=== PATIENT | female | born 1960 | race Caucasian/White ===

== ENCOUNTER 2016-09-03 17:29 | Emergency (ER) | payer SELFPAY ==
[~2016-09-03] VITALS: Ht 172.7 cm; Wt 76.2 kg
[~2016-09-03 17:29] MED LIST: AMLO1TAB20 PO; CIPR500T94 PO; HYDR-2678 PO; HYDR-971 PO; LEVO150T5 PO; LOSA1TAB18 PO; METO100T11 PO; OLME1TAB33 PO; ONDA4TAB10 PO; ONDA4TAB10 SL; OXYC-323 PO; OXYC5TAB PO; SUMA6VIA SQ; TAMS0.4C97 PO; [UNRECOGNIZED DRUG - CODE] PO
[2016-09-03 17:44] VITALS: BP 132/87
[2016-09-03 18:50] LABS: BILIRUBIN,URINE NEGATIVE (NEG); GLUCOSE,URINE NEGATIVE (NEG); NITRITE,URINE POSITIVE (NEG); PROTEIN,URINE 30 mg/dL (NEG-TRACE)
[2016-09-03 19:04] LABS: BACTERIA,URINE MANY /HPF (0-FEW); RBC,URINE OCC /HPF (0-2); SQUAMOUS EPITHELIAL CELL,UR FEW /LPF
--- NOTE | 2016-09-03 20:45 | PHYS DOC ---
Past Medical History Past Medical History: Cancer, COPD, Hypertension, Kidney Stone Additional Past Medical Histor: chronic pain Past Surgical History: Other Additional Past Surgical Histo: Ureteral Stent, Laparoscopy Alcohol Use: None Drug Use: None Adult General Chief Complaint Chief Complaint: FLANK PAIN [facility] HPI Patient is a 56 year old female presents emergency Department with 2 complaints : 1. Left-sided flank pain that began 4 days ago with dysuria that began 4 days ago as well. Patient has a history of kidney stones. She denies injury to her back. She denies any fevers or chills. She denies any nausea or vomiting. She denies hematuria or changes in frequency of urination. 2. Shortness of breath and nonproductive cough is been ongoing for approximately a week and a half to 2 weeks. Patient has a history of chronic bronchitis. Patient continues to smoke. She states that she recently was able to get a another nebulizer at home to help with breathing treatments. She states that they have had some positive effects, but continues to have the problems with a cough. Overall, patient denies antibiotic use, hospitalization or foreign travel within the past 90 days. Patient reports that her primary care doctor's Dr. Holman. Patient reports her urologist is Dr. Vasquez. 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 Review of Systems Review of Systems Constitutional: Denies fever or chills [] Eyes: Denies change in visual acuity, redness, or eye pain [] HENT: Denies nasal congestion or sore throat [] Respiratory: Denies cough or shortness of breath [] Cardiovascular: No additional information not addressed in HPI [] GI: Denies abdominal pain, nausea, vomiting, bloody stools or diarrhea [] : Denies dysuria or hematuria [] Musculoskeletal: Denies back pain or joint pain [] Integument: Denies rash or skin lesions [] Neurologic: Denies headache, focal weakness or sensory changes [] Endocrine: Denies polyuria or polydipsia [] Current Medications Current Medications Current Medications Medications (Trade) Dose Ordered Sig/Herminio Start Time Stop Time Status Last Admin Dose Admin Albuterol/ Ipratropium (Duoneb) 3 ml 1X ONCE 09/03/16 21:00 09/03/16 21:01 DC 09/03/16 21:04 3 ML Azithromycin (Zithromax) 500 mg 1X ONCE 09/03/16 22:00 3/17/17 22:01 DC 09/03/16 22:13 500 MG Ceftriaxone Sodium (Rocephin 1gm Ivpb For Omni) 50 ml @ 100 mls/hr 1X ONCE 09/03/16 21:00 09/03/16 21:29 DC 09/03/16 20:59 100 MLS/HR Hydromorphone HCl (Dilaudid) 1 mg 1X ONCE 09/03/16 22:00 09/03/16 22:01 DC 09/03/16 22:13 1 MG Morphine Sulfate 5 mg 1X ONCE 09/03/16 21:00 09/03/16 21:01 DC 09/03/16 21:00 5 MG Ondansetron HCl 4 mg 4 mg 1X ONCE 09/03/16 21:00 09/03/16 21:01 DC 09/03/16 21:00 4 MG Sodium Chloride (Iv Sodium Chloride 0.9% 1000ml Bag) 1,000 ml @ 1,000 mls/hr Q1H 09/03/16 21:00 09/03/16 21:59 DC 09/03/16 20:59 1,000 MLS/HR Sodium Chloride (Normal Saline Flush) 10 ml QSHIFT PRN 09/03/16 20:45 09/03/16 22:53 10 ML Allergies Allergies Allergies Coded Allergies Type Severity Reaction Last Updated Verified No Known Drug Allergies 03/27/16 No Physical Exam Physical Exam Constitutional: Well developed, well nourished, mild distress, non-toxic appearance. [] HENT: Normocephalic, atraumatic, bilateral external ears normal, oropharynx moist, no oral exudates, nose normal. Eyes: PERRLA, EOMI, conjunctiva normal, no discharge. [] Neck: Normal range of motion, no tenderness, supple, no stridor. Cardiovascular:Heart rate 88 with regular rhythm, no murmur Lungs & Thorax: There is no respiratory distress respiratory fatigue. There is no sensory muscle use or posturing. Patient does demonstrate a harsh, bronchitic , nonproductive cough. Patient is able speak in full sentences. Patient has bilateral coarse wheezing in all lung lira. There are no rales or rhonchi. Abdomen: Bowel sounds normal, soft, no tenderness, no masses, no pulsatile masses. Skin: Warm, dry, no erythema, no rash. [] Back: Patient's back is normal in appearance. There is no overlying skin lesions. Patient has left CVA tenderness. There is no palpable defect to the musculature of patient's back. There are no active spasms. Extremities: No tenderness, no cyanosis, no clubbing, ROM intact, no edema. [] Neurologic: Alert and oriented X 3, normal motor function, normal sensory function, no focal deficits noted. Psychologic: Dysphoric mood with pleasant affect. Patient is very focused on pain management/pain control. Current Patient Data Vital Signs Vital Signs Date Time Temp Pulse Resp B/P Pulse Ox O2 Delivery O2 Flow Rate FiO2 09/03/16 22:13 Room Air 09/03/16 21:05 88 09/03/16 17:44 98.1 115 18 132/87 98.1 Lab Values Laboratory Tests Test 09/03/16 18:00 09/03/16 20:35 Urine Collection Type Unknown Urine Color Yellow Urine Clarity Clear Urine pH 6.0 Urine Specific [place] 1.020 Urine Protein 30mg/dL (NEG-TRACE) Urine Glucose (UA) Negativemg/dL (NEG) Urine Ketones (Stick) Negativemg/dL (NEG) Urine Blood Small (NEG) Urine Nitrite Positive (NEG) Urine Bilirubin Negative (NEG) Urine Urobilinogen Dipstick 1.0mg/dL (0.2 mg/dL) Urine Leukocyte Esterase Moderate (NEG) Urine RBC Occ/HPF (0-2) Urine WBC 11-20/HPF (0-4) Urine Squamous Epithelial Cells Few/LPF Urine Bacteria Many/HPF (0-FEW) Urine Hyaline Casts Moderate/HPF Urine Mucus Mod/LPF White Blood Count 12.5x10^3/uL (4.0-11.0) H Red Blood Count 4.32x10^6/uL (3.50-5.40) Hemoglobin 13.7g/dL (12.0-15.5) Hematocrit 40.0% (36.0-47.0) Mean Corpuscular Volume 93fL (79-100) Mean Corpuscular Hemoglobin 32pg (25-35) Mean Corpuscular Hemoglobin Concent 34g/dL (31-37) Red Cell Distribution Width 13.1% (11.5-14.5) Platelet Count 271x10^3/uL (140-400) Neutrophils (%) (Auto) 82% (31-73) H Lymphocytes (%) (Auto) 12% (24-48) L Monocytes (%) (Auto) 5% (0-9) Eosinophils (%) (Auto) 0% (0-3) Basophils (%) (Auto) 0% (0-3) Neutrophils # (Auto) 10.2x10^3uL (1.8-7.7) H Lymphocytes # (Auto) 1.5x10^3/uL (1.0-4.8) Monocytes # (Auto) 0.7x10^3/uL (0.0-1.1) Eosinophils # (Auto) 0.0x10^3/uL (0.0-0.7) Basophils # (Auto) 0.0x10^3/uL (0.0-0.2) Sodium Level 133mmol/L (136-145) L Potassium Level 3.4mmol/L (3.5-5.1) L Chloride Level 92mmol/L (98-107) L Carbon Dioxide Level 31mmol/L (21-32) Anion Gap 10 (6-14) Blood Urea Nitrogen 16mg/dL (7-20) Creatinine 1.2mg/dL (0.6-1.0) H Estimated GFR (Cockcroft-Gault) 46.1 BUN/Creatinine Ratio 13 (6-20) Glucose Level 111mg/dL (70-99) H Calcium Level 9.3mg/dL (8.5-10.1) Total Bilirubin 0.3mg/dL (0.2-1.0) Aspartate Amino Transferase (AST) 32U/L (15-37) Alanine Aminotransferase (ALT) 23U/L (14-59) Alkaline Phosphatase 83U/L (46-116) Total Protein 8.7g/dL (6.4-8.2) H Albumin 3.8g/dL (3.4-5.0) Albumin/Globulin Ratio 0.8 (1.0-1.7) L Laboratory Tests 09/03/16 20:35 Laboratory Tests 09/03/16 20:35 EKG EKG [] Radiology/Procedures Radiology/Procedures [[facility] [address] [place] [address] IMAGING REPORT Signed PATIENT: CHRISTINA MARSHALL ACCOUNT: [id number] : 1960 LOCATION: ER AGE: 56 SEX: F EXAM STATUS: REG ER ORD. PHYSICIAN: MADAY LEBRON REASON: LEFT flank pain-hx of kidney stones PROCEDURE: ABDOMEN PELVIS WO CONTRAST PROCEDURE CT abdomen and pelvis without intravenous contrast. HISTORY Left flank pain, renal stones. TECHNIQUE Helical CT of the abdomen and pelvis was performed without intravenous or oral contrast. Exposure: One or more of the following individualized dose reduction techniques were utilized for this examination: 1. Automated exposure control. 2. Adjustment of the mA and/or kV according to patient size. 3. Use of iterative reconstruction technique. COMPARISON CT abdomen pelvis March 27, 2016. FINDINGS Evaluation of solid organs is limited by lack of intravenous contrast. Evaluation of enteric structures may be limited by lack of oral contrast. Images of lower chest demonstrate nodular ground-glass opacity and consolidation involving both lower lobes, suggesting pneumonia versus nonspecific inflammatory process. The liver is unremarkable. Calcified splenic granulomata are present. Pancreas, gallbladder, and bilateral adrenal glands are unremarkable. Aortic atherosclerosis is seen. No bowel obstruction or inflammation is identified. Appendix is without inflammation. Urinary bladder is unremarkable. Uterus is absent. Left kidney and ureter are free of stone or obstruction. Superior pole of the right kidney demonstrates 3 millimeter nonobstructive nephrolith. There is mild right hydroureteronephrosis until the right ureter crosses over the iliac vessels; cause is not identified. No right ureteral stone is seen. Dextroconvex scoliosis of the lumbar spine is seen. Degenerative changes are noted in the spine. The L1 vertebral body demonstrates compression treated with cement. IMPRESSION 1. Nonobstructive right nephrolith. 2. There is mild right hydroureteronephrosis to the level of the right ureter as it crosses the iliac vessels. Cause is not identified. 3. Left kidney and ureter are free of stone or obstruction. 4. Nodular ground-glass opacity and consolidation involving both lower lobes, compatible with nonspecific infectious or inflammatory process. Electronically signed by: Omra Lee MD (Sep 03, 2016 22:29:40) DICTATED and SIGNED BY: OMAR LEE MD DATE: 09/03/162228 CC: MADAY LEBRON; Rekha HOLMAN MD ~ Portable AP chest x-ray patient's chest was performed with adequate technique. There appears to be a small infiltrate in patient's right lower lobe.] Course & Med Decision Making Course & Med Decision Making Patient reevaluated by me at 2250: Patient reports that she feels "much better" . Reevaluation of the patient shows that her oxygen saturation is 91-93% on room air. The wheezing has been greatly diminished and her lung lira. She reports feeling comfortable. I reviewed her chest x-ray, laboratory tests and CT scan findings with her. I will place her on Levaquin. I've advised her to use her nebulizer every 6 hours. I advised her to call her primary care doctor, Dr. Holman, Tuesday to schedule follow-up appointment. She will be provided discharge instructions reviewing home care and reasons to return to the emergency department. Dragon Disclaimer Dragon Disclaimer This electronic medical record was generated, in whole or in part, using a voice recognition dictation system. Departure Departure Impression: Primary Impression: Flank pain Additional Impressions: UTI (urinary tract infection) COPD (chronic obstructive pulmonary disease) Community acquired pneumonia Disposition: HOME, SELF-CARE Condition: IMPROVED Referrals: Rekha HOLMAN MD (PCP) Patient Instructions: Chronic Obstructive Pulmonary Disease Exacerbation, Easy- to-Read, Flank Pain, [id number], Pneumonia, Adult, [id number], Smoking, You Can Quit, [id number], Urinary Tract Infection, [id number] Additional Instructions: 1. Take the medications as prescribed. 2. Review the discharge instructions provided and reasons to return to the emergency department. 3. Use your nebulizer at home every 6 hours. 4. Drink 10-12, 10 ounce glasses of non-caffeinated beverage daily. 5. Call Dr. Holman's office Tuesday to schedule follow-up appointment. Scripts Oxycodone/Apap 5-325 (Percocet 5-325 Mg Tablet)1 Each Tablet1-2 Tab PO Q6HRS # 20 TAB Prov:MADAY LEBRON 09/03/16 Prednisone 50 Mg Tablet1 Tab PO DAILY #5 TAB Prov:MADAY LEBRON 09/03/16 Levofloxacin (Levaquin)750 Mg Tablet1 Tab PO DAILY #7 TAB Prov:MADAY LEBRON 09/03/16 Problem Qualifiers MADAY LEBRON Sep 03, 2016 20:45
[2016-09-03 20:56] LABS: BASO % 0 % (0-3); EOS % 0 % (0-3); HEMOGLOBIN 13.7 g/dL (12.0-15.5); LYMPH # 1.5 x10^3/uL (1.0-4.8); LYMPH % 12 % (24-48); MEAN CORPUSCULAR HEMOGLOBIN 32 pg (25-35); MEAN CORPUSCULAR HGB CONC 34 g/dL (31-37); MEAN CORPUSCULAR VOLUME 93 fL (79-100); MONO % 5 % (0-9); NEUT % 82 % (31-73); PLATELET COUNT 271 x10^3/uL (140-400); RED BLOOD COUNT 4.32 x10^6/uL (3.50-5.40); RED CELL DISTRIBUTION WIDTH 13.1 % (11.5-14.5); WHITE BLOOD COUNT 12.5 x10^3/uL (4.0-11.0)
[2016-09-03] MEDS ORDERED: ONDANSETRON ODT 4 MG TAB.RAPDIS PO ONE (21:00)
[2016-09-03] MEDS ORDERED: IV NORMAL SALINE 1000ML BAG 1,000 ML IV SCH (21:00)
[2016-09-03] MEDS ORDERED: IPRATRPIUM/ALBUTEROL 0.5/2.5MG 3 ML NEBU. NEB ONE (21:00)
[2016-09-03] MEDS ORDERED: CEFTRIAXONE 1GM IVPB FOR OMNI 50 ML IV ONE (21:00)
[2016-09-03] MEDS ORDERED: MORPHINE SULFATE 10 MG/ML VIAL. IV ONE (21:00)
[2016-09-03 21:04] LABS: CALCIUM 9.3 mg/dL (8.5-10.1); CREATININE 1.2 mg/dL (0.6-1.0); GFR 46.1; POTASSIUM 3.4 mmol/L (3.5-5.1)
[2016-09-03 21:09] LABS: ALBUMIN 3.8 g/dL (3.4-5.0); ALBUMIN/GLOBULIN RATIO 0.8 (1.0-1.7); TOTAL BILIRUBIN 0.3 mg/dL (0.2-1.0); TOTAL PROTEIN 8.7 g/dL (6.4-8.2)
[2016-09-03] MEDS ORDERED: AZITHROMYCIN 250 MG TABLET PO ONE (22:00)
[2016-09-03] MEDS ORDERED: HYDROMORPHONE 2 MG/ML VIAL. IV ONE (22:00)
--- NOTE | 2016-09-03 22:31 | RAD ---
PROCEDURE CT abdomen and pelvis without intravenous contrast. HISTORY Left flank pain, renal stones. TECHNIQUE Helical CT of the abdomen and pelvis was performed without intravenous or oral contrast. Exposure: One or more of the following individualized dose reduction techniques were utilized for this examination: 1. Automated exposure control. 2. Adjustment of the mA and/or kV according to patient size. 3. Use of iterative reconstruction technique. COMPARISON CT abdomen pelvis March 27, 2016. FINDINGS Evaluation of solid organs is limited by lack of intravenous contrast. Evaluation of enteric structures may be limited by lack of oral contrast. Images of lower chest demonstrate nodular ground-glass opacity and consolidation involving both lower lobes, suggesting pneumonia versus nonspecific inflammatory process. The liver is unremarkable. Calcified splenic granulomata are present. Pancreas, gallbladder, and bilateral adrenal glands are unremarkable. Aortic atherosclerosis is seen. No bowel obstruction or inflammation is identified. Appendix is without inflammation. Urinary bladder is unremarkable. Uterus is absent. Left kidney and ureter are free of stone or obstruction. Superior pole of the right kidney demonstrates 3 millimeter nonobstructive nephrolith. There is mild right hydroureteronephrosis until the right ureter crosses over the iliac vessels; cause is not identified. No right ureteral stone is seen. Dextroconvex scoliosis of the lumbar spine is seen. Degenerative changes are noted in the spine. The L1 vertebral body demonstrates compression treated with cement. IMPRESSION 1. Nonobstructive right nephrolith. 2. There is mild right hydroureteronephrosis to the level of the right ureter as it crosses the iliac vessels. Cause is not identified. 3. Left kidney and ureter are free of stone or obstruction. 4. Nodular ground-glass opacity and consolidation involving both lower lobes, compatible with nonspecific infectious or inflammatory process. Electronically signed by: Omar Frederick MD (Sep 03, 2016 22:29:40)
[2016-09-03] MEDS: 0.9 % SODIUM CHLORIDE 10 ML DISP.SYRIN. IV PRN ×2 (22:53→23:30)
[2016-09-03] MEDS ORDERED: PRED50TA PO (23:06)
[2016-09-03] MEDS ORDERED: LEVO750T31 PO (23:06)
[2016-09-03] MEDS ORDERED: OXYC-323 PO (23:06)
--- NOTE | 2016-09-04 08:31 | RAD ---
Indication: Dyspnea, short of breath and chest pain. Technique: Upright portable chest radiograph was obtained and compared to a study from November 24, 2014. Findings: Right lower and left midlung infiltrates are noted. The heart is not enlarged and the pulmonary vasculature does not appear cephalized. Bony structures are intact. Leads overlie the patient. Impression: Right lower and left midlung field infiltrates.
== END 2016-09-03 23:10 | disposition home or self-care (01) ==
LOC: ER 17:29
DX: N39.0 Urinary tract infection, site not specified (principal); J18.9 Pneumonia, unspecified organism; J44.9 Chronic obstructive pulmonary disease, unspecified; I10 Essential (primary) hypertension; G89.29 Other chronic pain; F17.200 Nicotine dependence, unspecified, uncomplicated; Z87.442 Personal history of urinary calculi
CPT/HCPCS: 36415; 71010; 74176; 80053; 81001; 85027; 87086; 94640; 96365; 96366; 96375; 99285; J0690; J1170; J2270; J7030; J7620; Q0144; Q0162; 87186

== ENCOUNTER 2017-03-05 20:46 | Inpatient (IN) | payer SELFPAY ==
[~2017-03-05] VITALS: Ht 172.7 cm; Wt 72.6 kg
[~2017-03-05 20:46] MED LIST changes: +LEVO750T31 PO; +METO-247 PO; -METO100T11 PO; -OXYC5TAB PO; +OXYC5TAB95 PO; +PRED50TA PO
[2017-03-05 21:27] LABS: BASO # 0.1 x10^3/uL (0.0-0.2); BASO % 1 % (0-3); EOS % 0 % (0-3); HEMATOCRIT 40.3 % (36.0-47.0); HEMOGLOBIN 13.9 g/dL (12.0-15.5); LYMPH # 2.5 x10^3/uL (1.0-4.8); LYMPH % 17 % (24-48); MEAN CORPUSCULAR HEMOGLOBIN 33 pg (25-35); MEAN CORPUSCULAR HGB CONC 35 g/dL (31-37); MEAN CORPUSCULAR VOLUME 97 fL (79-100); MONO % 7 % (0-9); NEUT % 76 % (31-73); PLATELET COUNT 411 x10^3/uL (140-400); RED BLOOD COUNT 4.18 x10^6/uL (3.50-5.40); RED CELL DISTRIBUTION WIDTH 14.2 % (11.5-14.5); WHITE BLOOD COUNT 15.1 x10^3/uL (4.0-11.0)
[2017-03-05 21:28] LABS: BILIRUBIN,URINE NEGATIVE (NEG); GLUCOSE,URINE NEGATIVE (NEG); NITRITE,URINE NEGATIVE (NEG); PH,URINE 6.5; PROTEIN,URINE NEGATIVE (NEG-TRACE); UROBILINOGEN,URINE 0.2 mg/dL (0.2 mg/dL)
--- NOTE | 2017-03-05 21:29 | PHYS DOC ---
Past Medical History Past Medical History: Cancer, COPD, Hypertension, Kidney Stone Additional Past Medical Histor: chronic pain Past Surgical History: Other Additional Past Surgical Histo: Ureteral Stent, Laparoscopy Alcohol Use: None Drug Use: None Adult General Chief Complaint Chief Complaint: FLANK PAIN HPI HPI Patient is a 57 year old female who presents with complaint of left-sided back and flank pain. Patient states that her symptoms started this morning at approximately 9:00. Patient states that she has been having near constant pain which has been fluctuating throughout the day. Patient states that she has felt spasms along the left side of her back. The patient states that she is concerned that they may be kidney stones. Patient has had multiple visits to the emergency department for similar complaints. The patient has history of chronic back pain and currently takes oxycodone therapy at home. Patient states that she took oxycodone today with no relief in symptoms. The patient has not had any associated fever, nausea, or vomiting. Patient rates pain currently as 7 out of 10. Patient states that she has had associated loose stool with her symptoms today. The patient states that she spoke with Dr. Londono who was on- call for her primary physician, Dr. Yoon, and she was instructed to come to the emergency department for further evaluation. Review of Systems Review of Systems Constitutional: Denies fever or chills [] Eyes: Denies change in visual acuity, redness, or eye pain [] HENT: Denies nasal congestion or sore throat [] Respiratory: Denies cough or shortness of breath [] Cardiovascular: Denies chest pain or edema[] GI: Denies abdominal pain, nausea, vomiting, bloody stools or diarrhea [] : Denies dysuria or hematuria [] Musculoskeletal: Back pain[] Integument: Denies rash or skin lesions [] Neurologic: Denies headache, focal weakness or sensory changes [] Current Medications Current Medications Current Medications Medications (Trade) Dose Ordered Sig/Herminio Start Time Stop Time Status Last Admin Dose Admin Hydromorphone HCl (Dilaudid) 1 mg PRN Q15MIN PRN 03/05/17 21:30 03/06/17 21:29 03/05/17 22:22 1 MG Ondansetron HCl (Zofran) 4 mg 1X ONCE 03/05/17 21:30 03/05/17 21:31 DC 03/05/17 21:35 4 MG Potassium Chloride (Klor-Con) 40 meq 1X ONCE 03/05/17 22:30 03/05/17 22:31 DC Sodium Chloride 1,000 ml @ 1,000 mls/hr Q1H 03/05/17 21:30 03/05/17 22:29 DC 03/05/17 21:35 1,000 MLS/HR Allergies Allergies Allergies Coded Allergies Type Severity Reaction Last Updated Verified No Known Drug Allergies 03/27/16 No Physical Exam Physical Exam Constitutional: Alert, afebrile, appears in moderate discomfort. [] HENT: Normocephalic, atraumatic, bilateral external ears normal, oropharynx moist, no oral exudates, nose normal. [] Eyes: PERRLA, EOMI, conjunctiva normal, no discharge. [] Neck: Normal range of motion, no tenderness, supple, no stridor. [] Cardiovascular:Heart rate regular rhythm, no murmur [] Lungs & Thorax: Bilateral breath sounds clear to auscultation [] Abdomen: Bowel sounds normal, soft, no tenderness, no masses, no pulsatile masses. [] Skin: Warm, dry, no erythema, no rash. [] Back: No midline tenderness, left mid and lower lumbar paraspinous muscle tenderness to palpation with palpable spasm, no CVA tenderness. [] Extremities: No tenderness, no cyanosis, no clubbing, ROM intact, no edema. [] Neurologic: Alert and oriented X 3, normal motor function, normal sensory function, no focal deficits noted. [] Current Patient Data Vital Signs Vital Signs Date Time Temp Pulse Resp B/P (MAP) Pulse Ox O2 Delivery O2 Flow Rate FiO2 03/05/17 22:22 18 98 Room Air 03/05/17 20:54 97.9 105 162/98 (119) 97.9 Lab Values Laboratory Tests Test 03/05/17 20:47 03/05/17 20:58 Urine Collection Type Unknown Urine Color Yellow Urine Clarity Clear Urine pH 6.5 Urine Specific [place] <=1.005 Urine Protein Negative mg/dL (NEG-TRACE) Urine Glucose (UA) Negative mg/dL (NEG) Urine Ketones (Stick) Negative mg/dL (NEG) Urine Blood Negative (NEG) Urine Nitrite Negative (NEG) Urine Bilirubin Negative (NEG) Urine Urobilinogen Dipstick 0.2 mg/dL (0.2 mg/dL) Urine Leukocyte Esterase Small (NEG) Urine RBC 0 /HPF (0-2) Urine WBC 5-10 /HPF (0-4) Urine Squamous Epithelial Cells Mod /LPF Urine Bacteria 0 /HPF (0-FEW) White Blood Count 15.1 x10^3/uL (4.0-11.0) H Red Blood Count 4.18 x10^6/uL (3.50-5.40) Hemoglobin 13.9 g/dL (12.0-15.5) Hematocrit 40.3 % (36.0-47.0) Mean Corpuscular Volume 97 fL (79-100) Mean Corpuscular Hemoglobin 33 pg (25-35) Mean Corpuscular Hemoglobin Concent 35 g/dL (31-37) Red Cell Distribution Width 14.2 % (11.5-14.5) Platelet Count 411 x10^3/uL (140-400) H Neutrophils (%) (Auto) 76 % (31-73) H Lymphocytes (%) (Auto) 17 % (24-48) L Monocytes (%) (Auto) 7 % (0-9) Eosinophils (%) (Auto) 0 % (0-3) Basophils (%) (Auto) 1 % (0-3) Neutrophils # (Auto) 11.4 x10^3uL (1.8-7.7) H Lymphocytes # (Auto) 2.5 x10^3/uL (1.0-4.8) Monocytes # (Auto) 1.1 x10^3/uL (0.0-1.1) Eosinophils # (Auto) 0.1 x10^3/uL (0.0-0.7) Basophils # (Auto) 0.1 x10^3/uL (0.0-0.2) Sodium Level 142 mmol/L (136-145) Potassium Level 2.7 mmol/L (3.5-5.1) *L Chloride Level 101 mmol/L (98-107) Carbon Dioxide Level 30 mmol/L (21-32) Anion Gap 11 (6-14) Blood Urea Nitrogen 5 mg/dL (7-20) L Creatinine 1.0 mg/dL (0.6-1.0) Estimated GFR (Cockcroft-Gault) 56.7 BUN/Creatinine Ratio 5 (6-20) L Glucose Level 103 mg/dL (70-99) H Calcium Level 9.9 mg/dL (8.5-10.1) Magnesium Level 2.0 mg/dL (1.8-2.4) Total Bilirubin 0.3 mg/dL (0.2-1.0) Aspartate Amino Transferase (AST) 22 U/L (15-37) Alanine Aminotransferase (ALT) 24 U/L (14-59) Alkaline Phosphatase 97 U/L (46-116) Total Protein 8.8 g/dL (6.4-8.2) H Albumin 4.3 g/dL (3.4-5.0) Albumin/Globulin Ratio 1.0 (1.0-1.7) Lipase 101 U/L (73-393) Laboratory Tests 03/05/17 20:58 Laboratory Tests 03/05/17 20:58 EKG EKG Not performed[] Radiology/Procedures Radiology/Procedures Not performed[] Course & Med Decision Making Course & Med Decision Making Pertinent Labs and Imaging studies reviewed. (See chart for details) The patient's lab work was remarkable for a decreased potassium level at 2.7. The patient was started on oral supplementation to replace this as this may be contributing to the patient's back spasms. The patient's urine shows no evidence of hematuria. The patient's previous CT scan was reviewed from August. It reported evidence of nephrolithiasis without obstructing calculi in the right kidney and no evidence of nephrolithiasis or ureterolithiasis on the left side. I have very low suspicion that the patient's symptoms are due to ureteral lithiasis. Due to multiple previous abdominal CTs, the patient will not be CT did to reduce radiation exposure. The patient was treated with IV Dilaudid in the emergency department. Despite treatment, the patient states that she is still in severe pain and is unable to function at home in her current state. I spoke with Dr. Londono who was on-call for Dr. Yoon and she accepted care of patient in hospital. Dragon Disclaimer Dragon Disclaimer This electronic medical record was generated, in whole or in part, using a voice recognition dictation system. Departure Departure Impression: Primary Impression: Intractable pain Additional Impression: Hypokalemia Disposition: ADMITTED INPATIENT Admitting Physician: Ayana Londono Condition: STABLE Referrals: Rekha YOON MD (PCP) Problem Qualifiers HANNAH VERDIN MD Mar 05, 2017 21:29
[2017-03-05] MEDS ORDERED: IV NORMAL SALINE 1000ML BAG 1,000 ML IV SCH (21:30)
[2017-03-05] MEDS ORDERED: ONDANSETRON PF 4 MG/2 ML VIAL. IV ONE (21:30)
[2017-03-05 21:33] LABS: BACTERIA,URINE 0 /HPF (0-FEW); RBC,URINE 0 /HPF (0-2); SQUAMOUS EPITHELIAL CELL,UR MOD /LPF
[2017-03-05] MEDS: HYDROmorphone 2 MG/ML VIAL IV/SQ PRN ×3 (21:36→23:16)
[2017-03-05 21:55] LABS: ALBUMIN 4.3 g/dL (3.4-5.0); CALCIUM 9.9 mg/dL (8.5-10.1); GFR 56.7; TOTAL BILIRUBIN 0.3 mg/dL (0.2-1.0); TOTAL PROTEIN 8.8 g/dL (6.4-8.2)
[2017-03-05 21:57] LABS: POTASSIUM 2.7 mmol/L (3.5-5.1)
[2017-03-05] MEDS ORDERED: POTASSIUM CHLORIDE 20 MEQ TABLET.ER. PO ONE ×2 (22:30→23:30)
[2017-03-05] MEDS ORDERED: ONDANSETRON PF 4 MG/2 ML VIAL. IV PRN (23:00)
[2017-03-05 23:27] VITALS: BP 145/87
[2017-03-06] MEDS: IV NORMAL SALINE 1000ML BAG 1,000 ML IV SCH ×2 (00:23→06:21)
[2017-03-06] MEDS: MORPHINE SULFATE 4 MG/ML DISP.SYRIN. IV PRN ×8 (00:26→22:09)
[2017-03-06 03:20] VITALS: BP 149/84
[2017-03-06] MEDS ORDERED: PNEUMOCOCCAL VAX SCREEN BY RX. MC ONE (05:30)
[2017-03-06] MEDS ORDERED: INFLUENZA VAX SCREEN BY RX. MC ONE (05:30)
[2017-03-06 05:57] LABS: BASO % 1 % (0-3); EOS % 1 % (0-3); HEMATOCRIT 35.1 % (36.0-47.0); HEMOGLOBIN 12.5 g/dL (12.0-15.5); LYMPH # 3.1 x10^3/uL (1.0-4.8); LYMPH % 30 % (24-48); MEAN CORPUSCULAR HEMOGLOBIN 34 pg (25-35); MEAN CORPUSCULAR HGB CONC 36 g/dL (31-37); MEAN CORPUSCULAR VOLUME 95 fL (79-100); MONO % 8 % (0-9); NEUT % 60 % (31-73); PLATELET COUNT 344 x10^3/uL (140-400); RED CELL DISTRIBUTION WIDTH 13.9 % (11.5-14.5); WHITE BLOOD COUNT 10.1 x10^3/uL (4.0-11.0)
[2017-03-06 06:04] LABS: CALCIUM 8.4 mg/dL (8.5-10.1); GFR 56.7; POTASSIUM 3.3 mmol/L (3.5-5.1)
[2017-03-06 07:00] VITALS: BP 135/92
[2017-03-06] MEDS ORDERED: FLU VACC QS2017-18 (36MOS+)/PF 0.5 ML SYRINGE. VAX IM ONE (09:00)
[2017-03-06] MEDS ORDERED: PNEUMOC CONJ VACC 23-VALENT 0.5 ML VIAL. VAX IM ONE (09:00)
[2017-03-06 11:00] VITALS: BP 136/89
[2017-03-06] MEDS ORDERED: AMLO10TA2 PO (12:02)
[2017-03-06] MEDS ORDERED: LOSA100T6 PO (12:02)
[2017-03-06] MEDS ORDERED: HYDR25TA9 PO (12:02)
[2017-03-06] MEDS ORDERED: CYCL10TA2 PO (12:02)
[2017-03-06] MEDS ORDERED: SUMA100T3 PO (12:02)
--- NOTE | 2017-03-06 12:13 | PDOC ---
PROGRESS NOTES Subjective Subjective Patient reports left back pain persists, IV Morphine does help. Objective Objective Vital Signs Date Time Temp Pulse Resp B/P (MAP) Pulse Ox O2 Delivery O2 Flow Rate FiO2 03/06/17 11:54 96 Room Air 03/06/17 11:00 97.8 73 16 136/89 (105) 97.8 Physical Exam Abdomen: Normal bowel sounds, Soft, No tenderness Heart: Regular rate Extremities: No edema General: Alert, Oriented X3, No acute distress Lungs: Clear to auscultation MUSCULOSKELETAL: Other (Back with marked TTP over left lumbar paraspinal muscles. No CVA TTP bilaterally) Assessment Assessment Problems Medical Problems: (1) Hypokalemia Status: Acute (2) Intractable pain Status: Acute Plan Plan of Care 1. Acute exacerbation of chronic back pain - exam consistent with musculoskeletal pain, not renal stone. UA without any RBC's, also making renal stone unlikely. Will not order CT at this time, can reconsider if patient fails to improve with maximization of back pain treatment. Home Oxycodone ordered, will also add scheduled Flexeril and Ibuprofen. Continue IV med if needed. Urine with 5-10 WBC's, patient without dysuria. Culture pending. 2. HTN - continue home meds. 3. hypothyroidism - continue replacement and check thyroid labs. 4. hypokalemia - improving, continue po replacement and recheck in AM. Addendum: Lab shows TSH markedly elevated at over 27. Upon further questioning patient admits she has not taken her Levothyroxine for awhile as it is expensive. Importance of this medication discussed. Resume her previous dose in AM. Comment Review of Relevant I have reviewed the following items tita (where applicable) has been applied. Labs Laboratory Tests Test 03/05/17 20:47 03/05/17 20:58 03/06/17 04:10 Urine Collection Type Unknown Urine Color Yellow Urine Clarity Clear Urine pH 6.5 Urine Specific [place] <=1.005 Urine Protein Negative mg/dL (NEG-TRACE) Urine Glucose (UA) Negative mg/dL (NEG) Urine Ketones (Stick) Negative mg/dL (NEG) Urine Blood Negative (NEG) Urine Nitrite Negative (NEG) Urine Bilirubin Negative (NEG) Urine Urobilinogen Dipstick 0.2 mg/dL (0.2 mg/dL) Urine Leukocyte Esterase Small (NEG) Urine RBC 0 /HPF (0-2) Urine WBC 5-10 /HPF (0-4) Urine Squamous Epithelial Cells Mod /LPF Urine Bacteria 0 /HPF (0-FEW) White Blood Count 15.1 x10^3/uL (4.0-11.0) 10.1 x10^3/uL (4.0-11.0) Red Blood Count 4.18 x10^6/uL (3.50-5.40) 3.70 x10^6/uL (3.50-5.40) Hemoglobin 13.9 g/dL (12.0-15.5) 12.5 g/dL (12.0-15.5) Hematocrit 40.3 % (36.0-47.0) 35.1 % (36.0-47.0) Mean Corpuscular Volume 97 fL (79-100) 95 fL (79-100) Mean Corpuscular Hemoglobin 33 pg (25-35) 34 pg (25-35) Mean Corpuscular Hemoglobin Concent 35 g/dL (31-37) 36 g/dL (31-37) Red Cell Distribution Width 14.2 % (11.5-14.5) 13.9 % (11.5-14.5) Platelet Count 411 x10^3/uL (140-400) 344 x10^3/uL (140-400) Neutrophils (%) (Auto) 76 % (31-73) 60 % (31-73) Lymphocytes (%) (Auto) 17 % (24-48) 30 % (24-48) Monocytes (%) (Auto) 7 % (0-9) 8 % (0-9) Eosinophils (%) (Auto) 0 % (0-3) 1 % (0-3) Basophils (%) (Auto) 1 % (0-3) 1 % (0-3) Neutrophils # (Auto) 11.4 x10^3uL (1.8-7.7) 6.1 x10^3uL (1.8-7.7) Lymphocytes # (Auto) 2.5 x10^3/uL (1.0-4.8) 3.1 x10^3/uL (1.0-4.8) Monocytes # (Auto) 1.1 x10^3/uL (0.0-1.1) 0.8 x10^3/uL (0.0-1.1) Eosinophils # (Auto) 0.1 x10^3/uL (0.0-0.7) 0.1 x10^3/uL (0.0-0.7) Basophils # (Auto) 0.1 x10^3/uL (0.0-0.2) 0.0 x10^3/uL (0.0-0.2) Sodium Level 142 mmol/L (136-145) 143 mmol/L (136-145) Potassium Level 2.7 mmol/L (3.5-5.1) 3.3 mmol/L (3.5-5.1) Chloride Level 101 mmol/L (98-107) 107 mmol/L (98-107) Carbon Dioxide Level 30 mmol/L (21-32) 30 mmol/L (21-32) Anion Gap 11 (6-14) 6 (6-14) Blood Urea Nitrogen 5 mg/dL (7-20) 6 mg/dL (7-20) Creatinine 1.0 mg/dL (0.6-1.0) 1.0 mg/dL (0.6-1.0) Estimated GFR (Cockcroft-Gault) 56.7 56.7 BUN/Creatinine Ratio 5 (6-20) Glucose Level 103 mg/dL (70-99) 111 mg/dL (70-99) Calcium Level 9.9 mg/dL (8.5-10.1) 8.4 mg/dL (8.5-10.1) Magnesium Level 2.0 mg/dL (1.8-2.4) Total Bilirubin 0.3 mg/dL (0.2-1.0) Aspartate Amino Transf (AST/SGOT) 22 U/L (15-37) Alanine Aminotransferase (ALT/SGPT) 24 U/L (14-59) Alkaline Phosphatase 97 U/L (46-116) Total Protein 8.8 g/dL (6.4-8.2) Albumin 4.3 g/dL (3.4-5.0) Albumin/Globulin Ratio 1.0 (1.0-1.7) Lipase 101 U/L (73-393) Laboratory Tests Test 03/05/17 20:47 03/05/17 20:58 03/06/17 04:10 Urine Collection Type Unknown Urine Color Yellow Urine Clarity Clear Urine pH 6.5 Urine Specific [place] <=1.005 Urine Protein Negative mg/dL (NEG-TRACE) Urine Glucose (UA) Negative mg/dL (NEG) Urine Ketones (Stick) Negative mg/dL (NEG) Urine Blood Negative (NEG) Urine Nitrite Negative (NEG) Urine Bilirubin Negative (NEG) Urine Urobilinogen Dipstick 0.2 mg/dL (0.2 mg/dL) Urine Leukocyte Esterase Small (NEG) Urine RBC 0 /HPF (0-2) Urine WBC 5-10 /HPF (0-4) Urine Squamous Epithelial Cells Mod /LPF Urine Bacteria 0 /HPF (0-FEW) White Blood Count 15.1 x10^3/uL (4.0-11.0) 10.1 x10^3/uL (4.0-11.0) Red Blood Count 4.18 x10^6/uL (3.50-5.40) 3.70 x10^6/uL (3.50-5.40) Hemoglobin 13.9 g/dL (12.0-15.5) 12.5 g/dL (12.0-15.5) Hematocrit 40.3 % (36.0-47.0) 35.1 % (36.0-47.0) Mean Corpuscular Volume 97 fL (79-100) 95 fL (79-100) Mean Corpuscular Hemoglobin 33 pg (25-35) 34 pg (25-35) Mean Corpuscular Hemoglobin Concent 35 g/dL (31-37) 36 g/dL (31-37) Red Cell Distribution Width 14.2 % (11.5-14.5) 13.9 % (11.5-14.5) Platelet Count 411 x10^3/uL (140-400) 344 x10^3/uL (140-400) Neutrophils (%) (Auto) 76 % (31-73) 60 % (31-73) Lymphocytes (%) (Auto) 17 % (24-48) 30 % (24-48) Monocytes (%) (Auto) 7 % (0-9) 8 % (0-9) Eosinophils (%) (Auto) 0 % (0-3) 1 % (0-3) Basophils (%) (Auto) 1 % (0-3) 1 % (0-3) Neutrophils # (Auto) 11.4 x10^3uL (1.8-7.7) 6.1 x10^3uL (1.8-7.7) Lymphocytes # (Auto) 2.5 x10^3/uL (1.0-4.8) 3.1 x10^3/uL (1.0-4.8) Monocytes # (Auto) 1.1 x10^3/uL (0.0-1.1) 0.8 x10^3/uL (0.0-1.1) Eosinophils # (Auto) 0.1 x10^3/uL (0.0-0.7) 0.1 x10^3/uL (0.0-0.7) Basophils # (Auto) 0.1 x10^3/uL (0.0-0.2) 0.0 x10^3/uL (0.0-0.2) Sodium Level 142 mmol/L (136-145) 143 mmol/L (136-145) Potassium Level 2.7 mmol/L (3.5-5.1) 3.3 mmol/L (3.5-5.1) Chloride Level 101 mmol/L (98-107) 107 mmol/L (98-107) Carbon Dioxide Level 30 mmol/L (21-32) 30 mmol/L (21-32) Anion Gap 11 (6-14) 6 (6-14) Blood Urea Nitrogen 5 mg/dL (7-20) 6 mg/dL (7-20) Creatinine 1.0 mg/dL (0.6-1.0) 1.0 mg/dL (0.6-1.0) Estimated GFR (Cockcroft-Gault) 56.7 56.7 BUN/Creatinine Ratio 5 (6-20) Glucose Level 103 mg/dL (70-99) 111 mg/dL (70-99) Calcium Level 9.9 mg/dL (8.5-10.1) 8.4 mg/dL (8.5-10.1) Magnesium Level 2.0 mg/dL (1.8-2.4) Total Bilirubin 0.3 mg/dL (0.2-1.0) Aspartate Amino Transf (AST/SGOT) 22 U/L (15-37) Alanine Aminotransferase (ALT/SGPT) 24 U/L (14-59) Alkaline Phosphatase 97 U/L (46-116) Total Protein 8.8 g/dL (6.4-8.2) Albumin 4.3 g/dL (3.4-5.0) Albumin/Globulin Ratio 1.0 (1.0-1.7) Lipase 101 U/L (73-393) Medications Current Medications Hydromorphone HCl (Dilaudid) 1 mg PRN Q15MIN PRN IV/SQ PAIN GREATER THAN 3/10 Last administered on 03/05/17 23:16; Start 03/05/17 at 21:30; Stop 03/06/17 at 21:29 Sodium Chloride 1,000 ml @ 1,000 mls/hr Q1H IV Last administered on 03/05/17 21:35; Start 03/05/17 at 21:30; Stop 03/05/17 at 22:29; Status DC Ondansetron HCl (Zofran) 4 mg 1X ONCE IV Last administered on 03/05/17 21:35 ; Start 03/05/17 at 21:30; Stop 03/05/17 at 21:31; Status DC Potassium Chloride (Klor-Con) 40 meq 1X ONCE PO Last administered on 23:17; Start 03/05/17 at 22:30; Stop 03/05/17 at 22:31; Status DC Ondansetron HCl (Zofran) 4 mg PRN Q8HRS PRN IV NAUSEA/VOMITING; Start 03/05/17 at 23:00; Stop 03/06/17 at 22:59 Sodium Chloride 1,000 ml @ 125 mls/hr Q8H IV Last administered on 03/06/17 06 :21; Start 03/05/17 at 23:00; Stop 03/06/17 at 22:59 Potassium Chloride (Klor-Con) 40 meq 1X ONCE PO Last administered on 00:25; Start 03/05/17 at 23:30; Stop 03/05/17 at 23:31; Status DC Morphine Sulfate 4 mg PRN Q2HR PRN IV SEVERE PAIN Last administered on 11:22; Start 03/05/17 at 23:30 Info (Do NOT chart on this placeholder) 1 each 1X ONCE MC ; Start 03/06/17 at 05:30; Stop 03/06/17 at 05:31; Status UNV Pneumococcal Polyvalent Vaccine (Do NOT chart on this placeholder) 1 each 1X ONCE MC ; Start 03/06/17 at 05:30; Stop 03/06/17 at 05:31; Status UNV Influenza Virus Vaccine Quadrival (Fluarix Quad [id number] Syringe) 0.5 ml ONCE ONCE VAX IM Last administered on 03/06/17 11:24; Start 03/06/17 at 09:00; Stop 03/06/17 at 09:01; Status DC Pneumococcal Polyvalent Vaccine (Pneumovax 23) 0.5 ml ONCE ONCE VAX IM Last administered on 03/06/17 11:26; Start 03/06/17 at 09:00; Stop 03/06/17 at 09:01 ; Status DC Levothyroxine Sodium (Synthroid) 150 mcg DAILY07 PO ; Start 03/07/17 at 12:00 Oxycodone HCl (Roxicodone) 30 mg PRN Q4HRS PRN PO PAIN; Start 03/06/17 at 12:00 Amlodipine Besylate (Norvasc) 10 mg DAILY PO ; Start 03/06/17 at 13:00 Cyclobenzaprine HCl (Flexeril) 10 mg TID PO ; Start 03/06/17 at 14:00 Hydrochlorothiazide (Hydrodiuril) 25 mg DAILY PO ; Start 03/06/17 at 13:00 Sumatriptan Succinate (Imitrex) 100 mg DAILY PRN PO MIGRAINE HEADACHE; Start at 12:15 Losartan Potassium (Cozaar) 100 mg DAILY PO ; Start 03/06/17 at 12:15; Status UNV Nicotine (Nicoderm Cq 21mg) 1 patch DAILY TD ; Start 03/06/17 at 12:15; Status UNV Ibuprofen (Motrin) 600 mg PRN Q6HRS PRN PO INFLAMMATION; Start 03/06/17 at 12: 15; Status UNV Active Scripts Active Cyclobenzaprine Hcl 10 Mg Tablet 1 Tab PO TID Imitrex (Sumatriptan Succinate) 100 Mg Tablet 1 Tab PO UD Losartan Potassium 100 Mg Tablet 100 Mg PO DAILY 30 Days Hydrochlorothiazide Tablet (Hydrochlorothiazide) 25 Mg Tablet 1 Tab PO DAILY Amlodipine Besylate 10 Mg Tablet 10 Mg PO DAILY 30 Days Reported Oxycodone Hcl 5 Mg Tablet 30 Mg PO PRN Q4HRS PRN Levothyroxine Sodium 150 Mcg Tablet 150 Mcg PO Vitals/I & O Vital Sign - Last 24 Hours 03/05/17 03/05/17 03/05/17 03/05/17 20:54 21:30 21:36 22:00 Temp 97.9 97.9 Pulse 105 102 88 Resp 18 B/P (MAP) 162/98 (119) 130/87 (101) 155/75 (101) Pulse Ox 98 97 99 97 O2 Delivery Room Air Room Air Room Air 03/05/17 03/05/17 03/05/17 03/05/17 22:22 22:30 23:00 23:16 Pulse 86 88 Resp 18 21 B/P (MAP) 146/104 (118) 135/85 (102) Pulse Ox 98 97 97 98 O2 Delivery Room Air Room Air Room Air 03/05/17 03/06/17 03/06/17 03/06/17 23:27 00:30 03:20 03:43 Temp 97.5 97.9 97.5 97.9 Pulse 79 66 Resp B/P (MAP) 145/87 (106) 149/84 (105) Pulse Ox 96 O2 Delivery Room Air Room Air Room Air Room Air 03/06/17 03/06/17 03/06/17 03/06/17 07:00 08:00 09:20 11:00 Temp 97.9 97.8 97.9 97.8 Pulse 67 73 Resp 16 B/P (MAP) 135/92 (106) 136/89 (105) Pulse Ox 96 97 O2 Delivery Room Air Room Air Room Air Room Air 03/06/17 03/06/17 11:22 11:54 Pulse Ox 96 96 O2 Delivery Room Air Room Air KATRIN BAXTER MD Mar 06, 2017 12:13
[2017-03-06] MEDS ORDERED: hydroCHLOROthiazide 25 MG TABLET PO SCH (12:15)
[2017-03-06] MEDS ORDERED: IBUPROFEN 600 MG TABLET. PO PRN (12:15)
[2017-03-06] MEDS ORDERED: SUMAtriptan SUCCINATE 100 MG TABLET PO PRN (12:15)
[2017-03-06] MEDS ORDERED: amLODIPine BESYLATE 10 MG TABLET PO SCH (12:15)
[2017-03-06] MEDS: hydroCHLOROthiazide 25 MG TABLET PO SCH (12:34)
[2017-03-06] MEDS: NICOTINE 21MG PATCH. TD SCH (12:34)
[2017-03-06] MEDS: amLODIPine BESYLATE 10 MG TABLET PO SCH (12:34)
[2017-03-06] MEDS: POTASSIUM CHLORIDE 20 MEQ TABLET.ER. PO SCH ×2 (12:35→19:51)
[2017-03-06] MEDS: LOSARTAN POTASSIUM 50 MG TABLET. PO SCH (12:35)
[2017-03-06 12:41] LABS: FREE T4 0.58 ng/dL (0.76-1.46)
--- NOTE | 2017-03-06 12:57 | HP ---
ADMIT DATE: 03/06/2017 CHIEF COMPLAINT: Back pain. HISTORY OF PRESENT ILLNESS: The patient is a 57-year-old female with a history of chronic back pain who usually takes oxycodone 4 times a day for her pain. She presented to the Emergency Room reporting a sudden increase in her chronic pain. She had been taking her usual pain medication but her symptoms had become much worse and she was unable to get comfortable at home. The pain was located in the left low back and somewhat to the flank. She has a history of renal stones, so was concerned that she could have the recurrence of a stone causing the pain. Initial evaluation in the Emergency Room showed the patient to have tenderness to palpation over the lumbar paraspinal muscles. A urine specimen was without any red blood cells. It was felt that her pain was more consistent with musculoskeletal pain. She was started on medication and admitted for further treatment. PAST MEDICAL HISTORY: Chronic back pain, hypertension, hyperlipidemia, migraine headaches, previous renal stones, cervical cancer. PAST SURGICAL HISTORY: Treatment of renal stones several times. HOME MEDICATIONS: Amlodipine 10 mg daily, hydrochlorothiazide 25 mg daily, levothyroxine 150 mcg daily, Imitrex 100 mg p.r.n., oxycodone 30 mg tablets 2 tablets four times daily, Flexeril 10 mg three times daily p.r.n., losartan 100 mg daily. ALLERGIES: The patient has no known drug allergies. FAMILY HISTORY: Noncontributory. SOCIAL HISTORY: The patient is . She continues to smoke cigarettes about one pack per day. REVIEW OF SYSTEMS: The patient denies fever or chills. She denies cough or shortness of breath. She denies chest pain or palpitations. She denies abdominal pain, nausea or vomiting. She denies dysuria, hematuria or increased urinary frequency. She reports that her had a recent injury and so she is having to provide more of his care physically at home. She feels this may be contributing to her increased symptoms of back pain. PHYSICAL EXAMINATION: GENERAL: The patient is alert and oriented x3, resting comfortably in bed, in no acute distress. HEENT: PERRL, EOMI, sclerae clear. Oropharynx: Mucous membranes moist. NECK: Supple, without lymphadenopathy. CHEST: Clear to auscultation with normal respiratory effort. CARDIOVASCULAR: Regular rhythm without murmur. ABDOMEN: Soft, nontender, normoactive bowel sounds are present. EXTREMITIES: Bilateral lower extremities are without edema. BACK: There is marked tenderness to palpation over the left lumbar paraspinal muscles. There is no CVA tenderness to palpation bilaterally. ASSESSMENT AND PLAN: 1. Acute exacerbation of chronic back pain. The patient's exam is consistent with musculoskeletal pain, not renal stone. Her urinalysis was without any red blood cells also making renal stone unlikely to be causing her symptoms. We will not order a CT at this time. This can certainly be reconsidered if the patient fails to improve with maximization of back pain treatment. Her home oxycodone has been ordered. We will also add scheduled Flexeril and scheduled ibuprofen. She may continue to take the intravenous pain medicine as needed, if her pain is not improved with the oral medications as above. The patient's urine had 5 to 10 wbc's but also moderate squamous epithelial cells. Culture is pending. No antibiotics for this are presently indicated. 2. Hypertension. Continue home medications. 3. Hypothyroidism. Continue replacement and check thyroid lab as these have not been done recently in our office. 4. Hypokalemia. The patient's potassium was significantly low at 2.7 at admission. This was replaced orally and has improved to 3.3 today. We will continue oral replacement today and recheck labs tomorrow. KATRIN BAXTER MD DR: RICARDO/alber JOB#: [id number] / [id number]
[2017-03-06] MEDS: IBUPROFEN 600 MG TABLET. PO SCH ×2 (14:51→19:51)
[2017-03-06] MEDS: CYCLOBENZAPRINE 10 MG TABLET. PO SCH ×2 (14:51→19:51)
[2017-03-06 15:00] VITALS: BP 114/76
[2017-03-06] MEDS: LEVOTHYROXINE 150 MCG TABLET PO SCH (16:34)
[2017-03-06 19:05] VITALS: BP 112/76
[2017-03-06 23:00] VITALS: BP 95/64
[2017-03-07 03:41] VITALS: BP 114/67
[2017-03-07] MEDS: MORPHINE SULFATE 4 MG/ML DISP.SYRIN. IV PRN ×3 (04:32→14:34)
[2017-03-07 05:57] LABS: CALCIUM 9.5 mg/dL (8.5-10.1); GFR 56.7; POTASSIUM 3.6 mmol/L (3.5-5.1)
[2017-03-07] MEDS: LEVOTHYROXINE 150 MCG TABLET PO SCH (06:11)
[2017-03-07 07:00] VITALS: BP 135/75
[2017-03-07] MEDS: hydroCHLOROthiazide 25 MG TABLET PO SCH (08:29)
[2017-03-07] MEDS: LOSARTAN POTASSIUM 50 MG TABLET. PO SCH (08:29)
[2017-03-07] MEDS: amLODIPine BESYLATE 10 MG TABLET PO SCH (08:29)
[2017-03-07] MEDS: CYCLOBENZAPRINE 10 MG TABLET. PO SCH ×2 (08:30→14:32)
[2017-03-07] MEDS: IBUPROFEN 600 MG TABLET. PO SCH ×2 (08:30→14:33)
[2017-03-07 08:31] VITALS: BP 135/75
[2017-03-07] MEDS: POTASSIUM CHLORIDE 20 MEQ TABLET.ER. PO SCH (08:31)
[2017-03-07] MEDS: NICOTINE 21MG PATCH. TD SCH (08:31)
[2017-03-07 11:00] VITALS: BP 110/67
[2017-03-07 15:00] VITALS: BP 119/84
[2017-03-07] MEDS ORDERED: CYCL10TA2 PO (17:44)
[2017-03-07] MEDS ORDERED: LEVO150T5 PO (17:44)
--- NOTE | 2017-03-07 17:51 | PDOC3 ---
Discharge Summary [facility] Date of Admission: Mar 05, 2017 Discharge Date: Mar 07, 2017 Admitting Diagnosis intractable back pain Problems: Final Diagnosis Problems Medical Problems: (2) Hypokalemia Status: Acute (1) Intractable pain - primary diagnosis Status: Acute CONSULTS Nathaly Procedures none Brief Hospital Course Ms. Boswell is a 57 old who presented with intractable left flank pain thinking it may be a recurrence of her prior kidney stone pain came to the ER but urine was negative for blood and her pain was reproducible with musculoskeletal movement and palpation so no imaging studies were ordered. She required IV morphine for pain control initially along with her routine chronic pain medication. She admits to lifting her 300 lb who recently was involved in an accident and is requiring a lot of assistance. Her pain has improved today and seems controlled with oral meds but she is scraper tender with palpation of her left flank area Patient History: Family history: Cardiovascular disease (situation) 33 FATHER 32 MOTHER Family history: Hypertension (situation) G8 BROTHER G8 SISTER Problems: CONDITION AT DISCHARGE: Improved, Stable Diet cardiac Scheduled Amlodipine Besylate (Amlodipine Besylate), 10 MG PO DAILY Cyclobenzaprine Hcl (Cyclobenzaprine Hcl), 1 TAB PO TID Hydrochlorothiazide (Hydrochlorothiazide Tablet ), 1 TAB PO DAILY Losartan Potassium (Losartan Potassium), 100 MG PO DAILY Sumatriptan Succinate (Imitrex), 1 TAB PO UD Scheduled PRN Oxycodone Hcl (Oxycodone Hcl), 30 MG PO PRN Q4HRS PRN for PAIN, (Reported) Miscellaneous Medications Levothyroxine Sodium (Levothyroxine Sodium), 150 MCG PO, (Reported) Discontinued Medications Amlodipine/Valsartan/Hcthiazid (Exforge Hct 10-320-25 Mg Tab), 1 TAB PO DAILY, ( Reported) Ciprofloxacin Hcl (Cipro), 1 TAB PO BID Ciprofloxacin Hcl (Cipro), 1 TAB PO BID Hydrocodone/Acetaminophen (Lortab 5-325 mg Tablet), 1 TAB PO PRN Q6HRS PRN for PAIN Hydrocodone/Apap 5-325 ([place] 5-325 Tablet), 1-2 TAB PO Q4-6HRS Levofloxacin (Levaquin), 1 TAB PO DAILY Metoprolol Succinate (Metoprolol Succinate ( Xl )), 100 MG PO, (Reported) Ondansetron (Zofran Odt), 1 TAB SL Q8HRS Oxycodone/Apap 5-325 (Percocet 5-325 Mg Tablet), 1 TAB PO TID Oxycodone/Apap 5-325 (Percocet 5-325 Mg Tablet), 1-2 TAB PO Q6HRS Prednisone (Prednisone), 1 TAB PO DAILY Tamsulosin Hcl (Flomax), 1 CAP PO DAILY Follow Up 1-2 weeks with myself in the office, she is due for a refill of chronic pain meds soon Rekha YOON MD Mar 07, 2017 17:51
--- NOTE | 2017-03-07 21:00 | CONS ---
DATE OF CONSULTATION: 03/07/2017 LOCATION: She is in room 660. ATTENDING PHYSICIAN: Dr. Holman. The patient was seen at the request of Dr. Holman for rehab evaluation. HISTORY OF PRESENT ILLNESS: This is a 57-year-old female with chronic lower back pain. She usually takes oxycodone 4 times a day, admitted to the Emergency Room with increased lower back pain. She recently was helping her who had some medical problems. She denies any radiation of pain to the extremities, but admits some burning sensation in her lower extremities. The patient denies any trouble with her bowel or bladder control. The patient also takes care of her grandchildren, ages 2 and 8. The patient had history of renal stones, status post ureteral stent placement in the past. The patient also had history of hypertension, hyperlipidemia, migraine headaches, cervical carcinoma, status post chemotherapy and radiation therapy. ALLERGIES: The patient is not known allergic to any medication. PHYSICAL EXAMINATION: Today revealed a middle-aged female. She is alert, in no acute distress, oriented to time, place, person, and circumstance and follows commands appropriately, moves all 4 extremities voluntarily where she had 4+/5 grade muscle strength and deep tendon reflexes are 2+ and symmetrical with absent ankle jerks and she had equal perception of touch and pinprick sensation bilaterally. She had painful, limited movements of her lumbar spine without any significant paraspinal muscle spasm, tenderness to palpation over left lumbar paraspinal muscles and also over sacroiliac joint area. Straight leg raising test is negative bilaterally. She is not using proper body mechanics during mobility, but remains independent with her mobility and most of the aspects of her self-care. Her skin is intact at this time. She can walk on her tiptoes and on her heels without any increased discomfort. ASSESSMENT: A middle-aged female with chronic lower back pain from degenerative disk disease with recent exacerbation. No clinical evidence of ongoing lumbar radiculopathy. She presents with peripheral neuropathy probably from her chemotherapy for cervical carcinoma, also with known hypertension, hyperlipidemia, migraine headaches, renal stones. RECOMMENDATIONS: I have reviewed with her a home program of physical modalities, trigger point massage, and relax stretching exercise to her lower back muscles and proper body mechanics and avoid any activity that takes her back like lifting her grandkids. I have suggested outpatient physical therapy, but she does not have any health insurance right now. I would like to see her for followup on as-needed basis. Home when medically stable. Dr. Holman, I appreciate asking me to participate in the care of this interesting patient. I will be glad to follow her with you as needed for her rehabilitation. DEIDRE RITCHIE MD DR: BRANNON/alber JOB#: [id number] / [id number]
== END 2017-03-07 17:50 | disposition home or self-care (01) | DRG 552 ==
LOC: ER 20:46 → 6 SOUTH 22:45
PROVIDERS: ADMIT Family Medicine; ATTEND Family Medicine
DX: M54.89 Other dorsalgia (principal); G62.9 Polyneuropathy, unspecified; I10 Essential (primary) hypertension; M79.1 Myalgia; E87.6 Hypokalemia; C53.9 Malignant neoplasm of cervix uteri, unspecified; E03.9 Hypothyroidism, unspecified; E78.5 Hyperlipidemia, unspecified; F17.210 Nicotine dependence, cigarettes, uncomplicated; G43.909 Migraine, unspecified, not intractable, without status migrainosus; G89.29 Other chronic pain; J44.9 Chronic obstructive pulmonary disease, unspecified; Z82.49 Family history of ischemic heart disease and other diseases of the circulatory system; Z87.442 Personal history of urinary calculi; Z92.21 Personal history of antineoplastic chemotherapy; Z92.3 Personal history of irradiation
CPT/HCPCS: 36415; 80048; 80053; 81001; 83690; 83735; 84439; 84443; 85025; 87086; 90686; 90732; 96361; 96374; J1170; J2270; J2405; J7030; 99285-25

== ENCOUNTER 2017-03-11 06:17 | Emergency (ER) | payer SELFPAY ==
[~2017-03-11] VITALS: Ht 172.7 cm; Wt 72.6 kg
[~2017-03-11 06:17] MED LIST changes: +AMLO10TA2 PO; +CYCL10TA2 PO; +HYDR25TA9 PO; +LOSA100T6 PO; +SUMA100T3 PO
--- NOTE | 2017-03-11 06:42 | PHYS DOC ---
Past Medical History Past Medical History: Cancer, COPD, Hypertension, Kidney Stone Additional Past Medical Histor: chronic pain Past Surgical History: Other Additional Past Surgical Histo: Ureteral Stent, Laparoscopy Alcohol Use: None Drug Use: None Adult General Chief Complaint Chief Complaint: FLANK PAIN HPI HPI Patient is a 57 year old female who presents with complaint of left-sided flank pain. The patient was admitted to the hospital for similar symptoms on March 05, 2017. Patient was treated for her pain which improved and was discharged on March 07, 2017. Patient states starting yesterday morning her symptoms came back and have been persistent. The patient states that the pain is very similar to her previous visit and is very sharp and worsens with movement and with palpation to her left side. Patient has history of chronic back pain and is on oxycodone and cyclobenzaprine at home. Patient states that she is taking these medications with no significant relief in symptoms. Patient states that she is having difficulty with ambulation because of her pain but denies any radicular symptoms. Patient rates pain as 10 out of 10. Review of Systems Review of Systems Constitutional: Denies fever or chills [] Eyes: Denies change in visual acuity, redness, or eye pain [] HENT: Denies nasal congestion or sore throat [] Respiratory: Denies cough or shortness of breath [] Cardiovascular: Denies chest pain or edema[] GI: Denies abdominal pain, nausea, vomiting, bloody stools or diarrhea [] : Denies dysuria or hematuria [] Musculoskeletal: Left sided lower back and flank pain[] Integument: Denies rash or skin lesions [] Neurologic: Denies headache, focal weakness or sensory changes [] Current Medications Current Medications Current Medications Medications (Trade) Dose Ordered Sig/Herminio Start Time Stop Time Status Last Admin Dose Admin Hydromorphone HCl (Dilaudid) 1 mg PRN Q15MIN PRN 03/11/17 06:45 03/12/17 06:44 03/11/17 07:55 1 MG Info (Do NOT chart on this entry -- for MONITORING) 1 each PRN DAILY PRN 03/11/17 07:45 03/13/17 07:44 Iohexol (Omnipaque 300 Mg/ml) 60 ml 1X ONCE 03/11/17 07:30 03/11/17 07:31 DC 03/11/17 07:34 60 ML Ondansetron HCl (Zofran) 4 mg 1X ONCE 03/11/17 06:45 03/11/17 06:46 DC 03/11/17 06:47 4 MG Sodium Chloride 1,000 ml @ 100 mls/hr Q10H 03/11/17 06:45 03/11/17 16:44 03/11/17 06:46 100 MLS/HR Allergies Allergies Allergies Coded Allergies Type Severity Reaction Last Updated Verified No Known Drug Allergies 03/27/16 No Physical Exam Physical Exam Constitutional: Alert, afebrile, appears in moderate discomfort. [] HENT: Normocephalic, atraumatic, bilateral external ears normal, oropharynx moist, no oral exudates, nose normal. [] Eyes: PERRLA, EOMI, conjunctiva normal, no discharge. [] Neck: Normal range of motion, no tenderness, supple, no stridor. [] Cardiovascular:Heart rate regular rhythm, no murmur [] Lungs & Thorax: Bilateral breath sounds clear to auscultation [] Abdomen: Bowel sounds normal, soft, no tenderness, no masses, no pulsatile masses. [] Skin: Warm, dry, no erythema, no rash. [] Back: No midline tenderness, left paraspinous muscle tenderness to palpation, no flank ecchymosis. [] Extremities: No tenderness, no cyanosis, no clubbing, ROM intact, no edema. [] Neurologic: Alert and oriented X 3, normal motor function, normal sensory function, no focal deficits noted. [] Current Patient Data Vital Signs Vital Signs Date Time Temp Pulse Resp B/P (MAP) Pulse Ox O2 Delivery O2 Flow Rate FiO2 03/11/17 08:00 68 18 133/71 (91) 95 Room Air 03/11/17 06:26 97.8 97.8 Lab Values Laboratory Tests Test 03/11/17 06:43 03/11/17 07:45 White Blood Count 9.3 x10^3/uL (4.0-11.0) Red Blood Count 4.08 x10^6/uL (3.50-5.40) Hemoglobin 13.5 g/dL (12.0-15.5) Hematocrit 39.4 % (36.0-47.0) Mean Corpuscular Volume 97 fL (79-100) Mean Corpuscular Hemoglobin 33 pg (25-35) Mean Corpuscular Hemoglobin Concent 34 g/dL (31-37) Red Cell Distribution Width 13.8 % (11.5-14.5) Platelet Count 340 x10^3/uL (140-400) Neutrophils (%) (Auto) 67 % (31-73) Lymphocytes (%) (Auto) 23 % (24-48) L Monocytes (%) (Auto) 8 % (0-9) Eosinophils (%) (Auto) 1 % (0-3) Basophils (%) (Auto) 1 % (0-3) Neutrophils # (Auto) 6.2 x10^3uL (1.8-7.7) Lymphocytes # (Auto) 2.1 x10^3/uL (1.0-4.8) Monocytes # (Auto) 0.8 x10^3/uL (0.0-1.1) Eosinophils # (Auto) 0.1 x10^3/uL (0.0-0.7) Basophils # (Auto) 0.1 x10^3/uL (0.0-0.2) Sodium Level 137 mmol/L (136-145) Potassium Level 3.6 mmol/L (3.5-5.1) Chloride Level 99 mmol/L (98-107) Carbon Dioxide Level 30 mmol/L (21-32) Anion Gap 8 (6-14) Blood Urea Nitrogen 8 mg/dL (7-20) Creatinine 1.0 mg/dL (0.6-1.0) Estimated GFR (Cockcroft-Gault) 56.7 BUN/Creatinine Ratio 8 (6-20) Glucose Level 104 mg/dL (70-99) H Calcium Level 10.1 mg/dL (8.5-10.1) Total Bilirubin 0.2 mg/dL (0.2-1.0) Aspartate Amino Transferase (AST) 23 U/L (15-37) Alanine Aminotransferase (ALT) 24 U/L (14-59) Alkaline Phosphatase 99 U/L (46-116) Total Protein 8.5 g/dL (6.4-8.2) H Albumin 4.1 g/dL (3.4-5.0) Albumin/Globulin Ratio 0.9 (1.0-1.7) L Lipase 93 U/L (73-393) Urine Collection Type Unknown Urine Color Yellow Urine Clarity Clear Urine pH 6.0 Urine Specific [place] <=1.005 Urine Protein Negative mg/dL (NEG-TRACE) Urine Glucose (UA) Negative mg/dL (NEG) Urine Ketones (Stick) Negative mg/dL (NEG) Urine Blood Negative (NEG) Urine Nitrite Negative (NEG) Urine Bilirubin Negative (NEG) Urine Urobilinogen Dipstick 0.2 mg/dL (0.2 mg/dL) Urine Leukocyte Esterase Moderate (NEG) Urine RBC 0 /HPF (0-2) Urine WBC 1-4 /HPF (0-4) Urine Squamous Epithelial Cells Few /LPF Urine Bacteria 0 /HPF (0-FEW) Laboratory Tests 03/11/17 06:43 Laboratory Tests 03/11/17 06:43 EKG EKG Rhythm strip interpretation by me: Heart rate 78, sinus rhythm, no ectopy[] Radiology/Procedures Radiology/Procedures [facility] [address] [place] [address] IMAGING REPORT Signed PATIENT: CHRISTINA MARSHALL ACCOUNT: [id number] : 1960 LOCATION: ER AGE: 57 SEX: F EXAM STATUS: REG ER ORD. PHYSICIAN: HANNAH VERDIN MD REASON: left flank pain PROCEDURE: CT ABD PELV W/ IV CONTRST ONLY Indication left-sided flank pain for one week. Axial images to the abdomen and pelvis were obtained. No oral contrast was administered. 60 cc of Omnipaque 300 was administered intravenously. Note is made of a previous examination 6 months ago. There is a low-density mass in the right lobe of the liver appearing similar to an examination 09/02/2010 and compatible with an incidental finding. An acute or significant finding in the liver is not seen. The gallbladder is grossly normal and the spleen appears unremarkable. There is a subtle groundglass opacity involving the left lower lobe. The etiology is unclear. Underlying inflammation accounting for the appearance is not excluded. Postoperative changes compatible with mesh material are noted in the abdominal wall. The pancreas appears unremarkable. No adrenal pathology is seen. There is unchanged 5 mm calculus in the right kidney. Similar to the previous exam there is mild hydroureter to the level of the pelvis where the ureter passes the iliac vessels. An acute finding in the abdomen is not seen. Postoperative changes in the pelvis are noted. No acute finding in the pelvis is seen. Kyphoplasty changes are noted at L1. Degenerative changes are noted predominantly at L5-S1. IMPRESSION: No acute finding seen in the abdomen or pelvis Groundglass opacity left lower lobe. Clinical correlation advised DICTATED and SIGNED BY: JACKIE NUNEZ MD DATE: 03/11/17 0751 CC: HANNAH VERDIN MD; Rekha HOLMAN MD ~ [] Course & Med Decision Making Course & Med Decision Making Pertinent Labs and Imaging studies reviewed. (See chart for details) Patient was given 3 mg total of IV Dilaudid in the emergency department with complete resolution of pain. Patient states that she feels better and would like to go home. Spoke with patient regarding subtle groundglass opacity in the left lower lobe that was found on the CT scan. The patient does not appear to have clinical signs of acute pneumonia as she is afebrile, has no elevated white count, and no complaint of acute cough or shortness of breath. Recommended that this be followed up by patient's primary physician. Advised patient follow-up with Dr. Holman in the next 5 days for reevaluation and return to emergency department for any worsening symptoms. Patient voiced understanding and in agreement with treatment plan. Dragon Disclaimer Dragon Disclaimer This electronic medical record was generated, in whole or in part, using a voice recognition dictation system. Departure Departure Impression: Primary Impression: Acute exacerbation of chronic low back pain Disposition: 01 HOME, SELF-CARE Condition: IMPROVED Referrals: Rekha HOLMAN MD (PCP) Patient Instructions: Chronic Back Pain Additional Instructions: Follow-up with Dr. Holman in the next 5 days for reevaluation. Return to the emergency department for any worsening symptoms. HANNAH VERDNI MD Mar 11, 2017 06:42
[2017-03-11] MEDS ORDERED: IV NORMAL SALINE 1000ML BAG 1,000 ML IV SCH (06:45)
[2017-03-11] MEDS ORDERED: ONDANSETRON PF 4 MG/2 ML VIAL. IV ONE (06:45)
[2017-03-11] MEDS: HYDROmorphone 2 MG/ML VIAL IV/SQ PRN ×3 (06:46→07:55)
[2017-03-11 06:59] LABS: CALCIUM 10.1 mg/dL (8.5-10.1); GFR 56.7; POTASSIUM 3.6 mmol/L (3.5-5.1)
[2017-03-11 07:04] LABS: ALBUMIN 4.1 g/dL (3.4-5.0); ALBUMIN/GLOBULIN RATIO 0.9 (1.0-1.7); TOTAL BILIRUBIN 0.2 mg/dL (0.2-1.0); TOTAL PROTEIN 8.5 g/dL (6.4-8.2)
[2017-03-11 07:19] LABS: BASO # 0.1 x10^3/uL (0.0-0.2); BASO % 1 % (0-3); EOS % 1 % (0-3); HEMATOCRIT 39.4 % (36.0-47.0); HEMOGLOBIN 13.5 g/dL (12.0-15.5); LYMPH # 2.1 x10^3/uL (1.0-4.8); LYMPH % 23 % (24-48); MEAN CORPUSCULAR HEMOGLOBIN 33 pg (25-35); MEAN CORPUSCULAR HGB CONC 34 g/dL (31-37); MEAN CORPUSCULAR VOLUME 97 fL (79-100); MONO % 8 % (0-9); NEUT % 67 % (31-73); PLATELET COUNT 340 x10^3/uL (140-400); RED BLOOD COUNT 4.08 x10^6/uL (3.50-5.40); RED CELL DISTRIBUTION WIDTH 13.8 % (11.5-14.5); WHITE BLOOD COUNT 9.3 x10^3/uL (4.0-11.0)
[2017-03-11] MEDS ORDERED: IOHEXOL 300 MG/ML 75 ML VIAL IV ONE (07:30)
[2017-03-11] MEDS ORDERED: CONTRAST GIVEN MC PRN (07:45)
[2017-03-11 07:56] LABS: BILIRUBIN,URINE NEGATIVE (NEG); GLUCOSE,URINE NEGATIVE (NEG); NITRITE,URINE NEGATIVE (NEG); PROTEIN,URINE NEGATIVE (NEG-TRACE); UROBILINOGEN,URINE 0.2 mg/dL (0.2 mg/dL)
--- NOTE | 2017-03-11 08:05 | RAD ---
Indication left-sided flank pain for one week. Axial images to the abdomen and pelvis were obtained. No oral contrast was administered. 60 cc of Omnipaque 300 was administered intravenously. Note is made of a previous examination 6 months ago. There is a low-density mass in the right lobe of the liver appearing similar to an examination 09/02/2010 and compatible with an incidental finding. An acute or significant finding in the liver is not seen. The gallbladder is grossly normal and the spleen appears unremarkable. There is a subtle groundglass opacity involving the left lower lobe. The etiology is unclear. Underlying inflammation accounting for the appearance is not excluded. Postoperative changes compatible with mesh material are noted in the abdominal wall. The pancreas appears unremarkable. No adrenal pathology is seen. There is unchanged 5 mm calculus in the right kidney. Similar to the previous exam there is mild hydroureter to the level of the pelvis where the ureter passes the iliac vessels. An acute finding in the abdomen is not seen. Postoperative changes in the pelvis are noted. No acute finding in the pelvis is seen. Kyphoplasty changes are noted at L1. Degenerative changes are noted predominantly at L5-S1. IMPRESSION: No acute finding seen in the abdomen or pelvis Groundglass opacity left lower lobe. Clinical correlation advised
[2017-03-11 08:17] LABS: BACTERIA,URINE 0 /HPF (0-FEW); RBC,URINE 0 /HPF (0-2); SQUAMOUS EPITHELIAL CELL,UR FEW /LPF
[2017-03-11 09:00] VITALS: BP 105/62
== END 2017-03-11 09:12 | disposition home or self-care (01) ==
LOC: ER 06:17
DX: G89.29 Other chronic pain (principal); M54.5 Low back pain; J44.9 Chronic obstructive pulmonary disease, unspecified; I10 Essential (primary) hypertension; Z87.442 Personal history of urinary calculi
CPT/HCPCS: 36415; 74177; 80053; 81001; 83690; 85025; 87086; 96361; 96374; 96375; 96376; 99285; J1170; J2405; J7030; Q9967

== ENCOUNTER 2017-06-01 13:32 | Emergency (ER) | payer SELFPAY ==
[~2017-06-01] VITALS: Ht 172.7 cm; Wt 77.1 kg
[~2017-06-01 13:32] MED LIST changes: -LOSA1TAB18 PO; +LOSA1TAB25 PO
--- NOTE | 2017-06-01 14:24 | PHYS DOC ---
Past Medical History Past Medical History: Cancer, COPD, Hypertension, Kidney Stone Additional Past Medical Histor: chronic pain, CERVICAL CANCER Past Surgical History: Other Additional Past Surgical Histo: Ureteral Stent, Laparoscopy, CANCER SX Alcohol Use: None Drug Use: None Adult General Chief Complaint Chief Complaint: FLANK PAIN [facility] HPI Patient is a 57 year old female who presents with one day history of sudden onset of left flank pain radiating to the groin; denies dysuria or frequency hematuria or fever. Pain summer similar to previous kidney stones. Patient has chronic back pain and takes 30 mg of oxycodone at a time. No nausea vomiting diarrhea. Denies history of diabetes. Review of Systems Review of Systems Constitutional: Denies fever or chills [] Eyes: Denies change in visual acuity, redness, or eye pain [] HENT: Denies nasal congestion or sore throat [] Respiratory: Denies cough or shortness of breath [] Cardiovascular: No additional information not addressed in HPI [] GI: Denies abdominal pain, nausea, vomiting, bloody stools or diarrhea [] : Denies dysuria or hematuria [] Musculoskeletal: Denies back pain or joint pain [] Integument: Denies rash or skin lesions [] Neurologic: Denies headache, focal weakness or sensory changes [] Endocrine: Denies polyuria or polydipsia [] All other systems were reviewed and found to be within normal limits, except as documented in this note. Current Medications Current Medications Current Medications Medications (Trade) Dose Ordered Sig/Herminio Start Time Stop Time Status Last Admin Dose Admin Hydromorphone HCl (Dilaudid) 0.5 mg 1X ONCE 06/01/17 16:00 06/01/17 16:02 DC 06/01/17 16:05 0.5 MG Ondansetron HCl (Zofran) 4 mg 1X ONCE 06/01/17 14:30 06/01/17 14:31 DC 06/01/17 14:26 4 MG Sodium Chloride 1,000 ml @ 1,000 mls/hr 1X ONCE 06/01/17 14:30 06/01/17 15:29 DC 06/01/17 14:25 1,000 MLS/HR Allergies Allergies Allergies Coded Allergies Type Severity Reaction Last Updated Verified No Known Drug Allergies 03/27/16 No Physical Exam Physical Exam Constitutional: Well developed, well nourished, no acute distress, non-toxic appearance. [] HENT: Normocephalic, atraumatic, bilateral external ears normal, oropharynx moist, no oral exudates, nose normal. [] Eyes: PERRLA, EOMI, conjunctiva normal, no discharge. [] Neck: Normal range of motion, no tenderness, supple, no stridor. [] Cardiovascular:Heart rate regular rhythm, no murmur [] Lungs & Thorax: Bilateral breath sounds clear to auscultation [] Abdomen: Bowel sounds normal, soft, no tenderness, no masses, no pulsatile masses. [] Skin: Warm, dry, no erythema, no rash. [] Back: No tenderness, hyperesthetic on the left CVA tenderness. [] Extremities: No tenderness, no cyanosis, no clubbing, ROM intact, no edema. [] Neurologic: Alert and oriented X 3, normal motor function, normal sensory function, no focal deficits noted. [] Psychologic: Affect normal, judgement normal, mood normal. [] Current Patient Data Vital Signs Vital Signs Date Time Temp Pulse Resp B/P (MAP) Pulse Ox O2 Delivery O2 Flow Rate FiO2 06/01/17 16:05 20 98 Room Air 06/01/17 15:11 60 153/75 (101) 06/01/17 13:58 97.9 97.9 Lab Values Laboratory Tests Test 06/01/17 13:50 06/01/17 14:10 Urine Collection Type Unknown Urine Color Yellow Urine Clarity Clear Urine pH 6.0 Urine Specific [place] <=1.005 Urine Protein Negative mg/dL (NEG-TRACE) Urine Glucose (UA) Negative mg/dL (NEG) Urine Ketones (Stick) Negative mg/dL (NEG) Urine Blood Trace (NEG) Urine Nitrite Negative (NEG) Urine Bilirubin Negative (NEG) Urine Urobilinogen Dipstick 0.2 mg/dL (0.2 mg/dL) Urine Leukocyte Esterase Large (NEG) Urine RBC Occ /HPF (0-2) Urine WBC 20-40 /HPF (0-4) Urine Bacteria 0 /HPF (0-FEW) White Blood Count 7.5 x10^3/uL (4.0-11.0) Red Blood Count 4.52 x10^6/uL (3.50-5.40) Hemoglobin 14.4 g/dL (12.0-15.5) Hematocrit 43.1 % (36.0-47.0) Mean Corpuscular Volume 95 fL (79-100) Mean Corpuscular Hemoglobin 32 pg (25-35) Mean Corpuscular Hemoglobin Concent 33 g/dL (31-37) Red Cell Distribution Width 14.2 % (11.5-14.5) Platelet Count 397 x10^3/uL (140-400) Neutrophils (%) (Auto) 63 % (31-73) Lymphocytes (%) (Auto) 30 % (24-48) Monocytes (%) (Auto) 6 % (0-9) Eosinophils (%) (Auto) 1 % (0-3) Basophils (%) (Auto) 1 % (0-3) Neutrophils # (Auto) 4.7 x10^3uL (1.8-7.7) Lymphocytes # (Auto) 2.2 x10^3/uL (1.0-4.8) Monocytes # (Auto) 0.5 x10^3/uL (0.0-1.1) Eosinophils # (Auto) 0.0 x10^3/uL (0.0-0.7) Basophils # (Auto) 0.1 x10^3/uL (0.0-0.2) Sodium Level 138 mmol/L (136-145) Potassium Level 3.6 mmol/L (3.5-5.1) Chloride Level 101 mmol/L (98-107) Carbon Dioxide Level 27 mmol/L (21-32) Anion Gap 10 (6-14) Blood Urea Nitrogen 5 mg/dL (7-20) L Creatinine 1.0 mg/dL (0.6-1.0) Estimated GFR (Cockcroft-Gault) 56.7 BUN/Creatinine Ratio 5 (6-20) L Glucose Level 103 mg/dL (70-99) H Calcium Level 9.2 mg/dL (8.5-10.1) Total Bilirubin 0.2 mg/dL (0.2-1.0) Aspartate Amino Transferase (AST) 9 U/L (15-37) L Alanine Aminotransferase (ALT) 21 U/L (14-59) Alkaline Phosphatase 96 U/L (46-116) Total Protein 8.1 g/dL (6.4-8.2) Albumin 3.9 g/dL (3.4-5.0) Albumin/Globulin Ratio 0.9 (1.0-1.7) L Laboratory Tests 06/01/17 14:10 Laboratory Tests 06/01/17 14:10 EKG EKG [] Radiology/Procedures Radiology/Procedures [] Course & Med Decision Making Course & Med Decision Making Pertinent Labs and Imaging studies reviewed. (See chart for details) Plan obtain labs urinalysis treat symptomatically and obtain a CT scan to evaluate for kidney stones. Labs equivical for UTI, CT no ureteral stone w some stranding around kidneys. Will treat for UTI. pt has chronic pain and can follow up w PCP for further pain control. Dragon Disclaimer Dragon Disclaimer This electronic medical record was generated, in whole or in part, using a voice recognition dictation system. Departure Departure Impression: Primary Impression: UTI (urinary tract infection) Additional Impressions: Intractable back pain Chronic pain Disposition: HOME, SELF-CARE Condition: STABLE Referrals: Rekha YOON MD (PCP) Patient Instructions: Chronic Back Pain, Urinary Tract Infection, [id number] Scripts Nitrofurantoin Monohyd/M-Cryst (MACROBID 100 MG CAPSULE) 100 Mg Capsule 1 CAP PO BID, #14 CAP Prov: HANNAH BHATTI MD 06/01/17 Problem Qualifiers HANNAH BHATTI MD Jun 01, 2017 14:23
[2017-06-01 14:26] LABS: BASO # 0.1 x10^3/uL (0.0-0.2); BASO % 1 % (0-3); EOS % 1 % (0-3); HEMATOCRIT 43.1 % (36.0-47.0); HEMOGLOBIN 14.4 g/dL (12.0-15.5); LYMPH # 2.2 x10^3/uL (1.0-4.8); LYMPH % 30 % (24-48); MEAN CORPUSCULAR HEMOGLOBIN 32 pg (25-35); MEAN CORPUSCULAR HGB CONC 33 g/dL (31-37); MEAN CORPUSCULAR VOLUME 95 fL (79-100); MONO % 6 % (0-9); NEUT % 63 % (31-73); PLATELET COUNT 397 x10^3/uL (140-400); RED BLOOD COUNT 4.52 x10^6/uL (3.50-5.40); RED CELL DISTRIBUTION WIDTH 14.2 % (11.5-14.5); WHITE BLOOD COUNT 7.5 x10^3/uL (4.0-11.0)
[2017-06-01] MEDS ORDERED: ONDANSETRON PF 4 MG/2 ML VIAL. IV ONE (14:30)
[2017-06-01] MEDS ORDERED: HYDROmorphone 2 MG/ML VIAL IV ONE ×2 (14:30→16:00)
[2017-06-01] MEDS ORDERED: IV NORMAL SALINE 1000ML BAG 1,000 ML IV ONE (14:30)
[2017-06-01 14:38] LABS: BILIRUBIN,URINE NEGATIVE (NEG); GLUCOSE,URINE NEGATIVE (NEG); NITRITE,URINE NEGATIVE (NEG); PROTEIN,URINE NEGATIVE (NEG-TRACE); UROBILINOGEN,URINE 0.2 mg/dL (0.2 mg/dL)
[2017-06-01 14:43] LABS: CALCIUM 9.2 mg/dL (8.5-10.1); GFR 56.7; POTASSIUM 3.6 mmol/L (3.5-5.1)
[2017-06-01 14:48] LABS: BACTERIA,URINE 0 /HPF (0-FEW); RBC,URINE OCC /HPF (0-2)
[2017-06-01 14:49] LABS: WBC,URINE 20-40 /HPF (0-4)
[2017-06-01 14:52] LABS: ALBUMIN 3.9 g/dL (3.4-5.0); ALBUMIN/GLOBULIN RATIO 0.9 (1.0-1.7); TOTAL BILIRUBIN 0.2 mg/dL (0.2-1.0); TOTAL PROTEIN 8.1 g/dL (6.4-8.2)
--- NOTE | 2017-06-01 15:01 | RAD ---
Indication: Left flank pain. Technique: Axial images and coronal and sagittal reformatted images are provided. Comparison is from March 11, 2017. One or more of the following individualized dose reduction techniques were utilized for this examination: 1. Automated exposure control 2. Adjustment of the mA and/or kV according to patient size 3. Use of iterative reconstruction technique Findings: Calcified granuloma is noted in the lingula. There is no pleural effusion. The heart is not enlarged. Solid organ evaluation is limited without contrast. Liver, gallbladder, pancreas, and adrenals are unremarkable. Benign calcifications are noted in the spleen. There is a nonobstructing right renal calculus measuring 6 mm. Right ureter is mildly dilated, without any ureteral stone apparent. No obstructing or nonobstructing calculus on the left is identified, left ureter normal caliber. There is stranding of the perinephric fat bilaterally. There is atheromatous disease in the abdominal aorta without aneurysm. There is no dilated small bowel loop or air-fluid level. There is a normal appendix. Colon is grossly unremarkable. Ventral hernia repair is noted. There is no bladder calculus. Uterus is absent. Clips are noted in the pelvis on the right. There are degenerative changes in the spine with dextrocurvature. There has been treated compression fracture at L1. Impression: 1. Nonobstructing right renal calculus. 2. Mildly dilated right ureter without obstructing etiology apparent. Differential considerations would include recently passed calculus as well as ureteritis and pyelonephritis. Please correlate with UA/UC.
[2017-06-01 15:11] VITALS: BP 153/75
[2017-06-01] MEDS ORDERED: NITR100C62 PO ×2 (15:54→15:56)
== END 2017-06-01 16:11 | disposition home or self-care (01) ==
LOC: ER 13:32
DX: N39.0 Urinary tract infection, site not specified (principal); G89.29 Other chronic pain; M54.89 Other dorsalgia; J44.9 Chronic obstructive pulmonary disease, unspecified; I10 Essential (primary) hypertension; Z87.442 Personal history of urinary calculi
CPT/HCPCS: 36415; 74176; 80053; 81001; 85025; 96361; 96374; 96375; 96376; 99285; J1170; J2405; J7030

== ENCOUNTER 2017-06-14 19:09 | Emergency (ER) | payer SELFPAY ==
[2017-06-14 19:30] LABS: BILIRUBIN,URINE NEGATIVE (NEG); GLUCOSE,URINE NEGATIVE (NEG); NITRITE,URINE NEGATIVE (NEG); PH,URINE 6.5; PROTEIN,URINE NEGATIVE (NEG-TRACE); UROBILINOGEN,URINE 0.2 mg/dL (0.2 mg/dL)
[2017-06-14 19:36] LABS: BARBITURATES NEG (NEG); BENZODIAZEPINES NEG (NEG); CANNABINOIDS NEG (NEG); COCAINE NEG (NEG); METHADONE NEG (NEG); OPIATES NEG (NEG); PHENCYCLIDINE NEG (NEG)
[2017-06-14 19:38] LABS: ETHANOL, URINE NEG (NEG)
[2017-06-14 19:44] LABS: BACTERIA,URINE FEW /HPF (0-FEW); SQUAMOUS EPITHELIAL CELL,UR FEW /LPF; WBC,URINE >40 /HPF (0-4)
[2017-06-14 20:04] LABS: ADD MAN DIFF? NO
[2017-06-14 20:07] LABS: BASO # 0.1 x10^3/uL (0.0-0.2); BASO % 1 % (0-3); EOS % 1 % (0-3); HEMOGLOBIN 13.4 g/dL (12.0-15.5); LYMPH # 2.3 x10^3/uL (1.0-4.8); LYMPH % 28 % (24-48); MEAN CORPUSCULAR HEMOGLOBIN 32 pg (25-35); MEAN CORPUSCULAR HGB CONC 33 g/dL (31-37); MEAN CORPUSCULAR VOLUME 95 fL (79-100); MONO % 8 % (0-9); NEUT % 64 % (31-73); PLATELET COUNT 317 x10^3/uL (140-400); RED BLOOD COUNT 4.22 x10^6/uL (3.50-5.40); RED CELL DISTRIBUTION WIDTH 14.5 % (11.5-14.5); WHITE BLOOD COUNT 8.5 x10^3/uL (4.0-11.0)
[2017-06-14] MEDS: IV NORMAL SALINE 1000ML BAG 1,000 ML IV (20:08)
[2017-06-14] MEDS: ONDANSETRON PF 4 MG/2 ML VIAL. IV (20:09)
[2017-06-14] MEDS: MORPHINE SULFATE 2 MG/ML DISP.SYRIN. IV/SQ ×3 (20:09→21:02)
[2017-06-14 20:16] LABS: PROTHROMBIN TIME PATIENT 12.8 SEC (11.7-14.0)
[2017-06-14 20:17] LABS: PARTIAL THROMBOPLASTIN TIME 26 SEC (24-38)
[2017-06-14 20:21] LABS: ANION GAP 12 (6-14); BLOOD UREA NITROGEN 13 mg/dL (7-20); CALCIUM 9.1 mg/dL (8.5-10.1); CARBON DIOXIDE 27 mmol/L (21-32); CHLORIDE 103 mmol/L (98-107); CREATININE 0.9 mg/dL (0.6-1.0); GFR 64.1; GLUCOSE 97 mg/dL (70-99); POTASSIUM 3.5 mmol/L (3.5-5.1); SODIUM 142 mmol/L (136-145)
[2017-06-14 20:28] LABS: ALBUMIN 3.7 g/dL (3.4-5.0); ALK PHOS 88 U/L (46-116); ALT (SGPT) 22 U/L (14-59); AST (SGOT) 19 U/L (15-37); DIRECT BILIRUBIN 0.1 mg/dL (0.0-0.2); TOTAL BILIRUBIN 0.2 mg/dL (0.2-1.0); TOTAL PROTEIN 7.6 g/dL (6.4-8.2)
[2017-06-14 20:35] LABS: CKMB INDEX 2.1 % (0-4); CKMB MASS 1.8 ng/mL (0.0-3.6); CREATINE KINASE 85 U/L (26-192)
[2017-06-14] MEDS: IOHEXOL 240 MG/ML 50ML VIAL. PO (20:45)
[2017-06-14] MEDS: IOHEXOL 300 MG/ML 100ML VIAL. IV (20:45)
== END 2017-06-14 23:45 | disposition home or self-care (01) ==
LOC: ER 19:09
DX: N30.00 Acute cystitis without hematuria (principal); J44.9 Chronic obstructive pulmonary disease, unspecified; I10 Essential (primary) hypertension; G89.29 Other chronic pain; Z87.442 Personal history of urinary calculi; Z92.3 Personal history of irradiation; Z92.21 Personal history of antineoplastic chemotherapy; Z96.0 Presence of urogenital implants
CPT/HCPCS: 36415; 74177; 80048; 80076; 80307; 81001; 82553; 83690; 85025; 85610; 85730; 87086; 96361; 96365; 96375; 96376; 99285-25; J0690; J2270; J2405; J3360; J7030; Q9966; Q9967

== ENCOUNTER 2017-08-24 17:58 | Emergency (ER) | payer SELFPAY ==
[2017-08-24 19:20] LABS: BILIRUBIN,URINE NEGATIVE (NEG); COLOR,URINE YELLOW; GLUCOSE,URINE NEGATIVE (NEG); NITRITE,URINE NEGATIVE (NEG); PH,URINE 7.5; PROTEIN,URINE NEGATIVE (NEG-TRACE); UROBILINOGEN,URINE 0.2 mg/dL (0.2 mg/dL)
[2017-08-24 19:26] LABS: BACTERIA,URINE 0 /HPF (0-FEW); CLARITY,URINE CLEAR; RBC,URINE 0 /HPF (0-2); SQUAMOUS EPITHELIAL CELL,UR FEW /LPF; WBC,URINE 0 /HPF (0-4)
[2017-08-24] MEDS: IV NORMAL SALINE 1000ML BAG 1,000 ML IV (19:39)
[2017-08-24] MEDS: KETOROLAC 30 MG/ML INJ. IV (19:40)
[2017-08-24] MEDS: MORPHINE SULFATE 4 MG/ML DISP.SYRIN. IV (19:40)
[2017-08-24] MEDS: ONDANSETRON PF 4 MG/2 ML VIAL. IV (19:41)
[2017-08-24] MEDS: IOHEXOL 300 MG/ML 100ML VIAL. IV (19:45)
[2017-08-24 19:56] LABS: ADD MAN DIFF? NO
[2017-08-24 19:58] LABS: BASO # 0.1 x10^3/uL (0.0-0.2); BASO % 1 % (0-3); EOS # 0.1 x10^3/uL (0.0-0.7); EOS % 1 % (0-3); HEMATOCRIT 40.8 % (36.0-47.0); HEMOGLOBIN 13.8 g/dL (12.0-15.5); LYMPH # 2.1 x10^3/uL (1.0-4.8); LYMPH % 21 % (24-48); MEAN CORPUSCULAR HEMOGLOBIN 32 pg (25-35); MEAN CORPUSCULAR HGB CONC 34 g/dL (31-37); MEAN CORPUSCULAR VOLUME 94 fL (79-100); MONO # 0.7 x10^3/uL (0.0-1.1); MONO % 7 % (0-9); NEUT # 7.3 x10^3uL (1.8-7.7); NEUT % 71 % (31-73); PLATELET COUNT 405 x10^3/uL (140-400); RED BLOOD COUNT 4.33 x10^6/uL (3.50-5.40); RED CELL DISTRIBUTION WIDTH 14.9 % (11.5-14.5); WHITE BLOOD COUNT 10.3 x10^3/uL (4.0-11.0)
[2017-08-24 20:14] LABS: ANION GAP 12 (6-14); BLOOD UREA NITROGEN 5 mg/dL (7-20); BUN/CREATININE RATIO 6 (6-20); CALCIUM 9.4 mg/dL (8.5-10.1); CARBON DIOXIDE 28 mmol/L (21-32); CHLORIDE 101 mmol/L (98-107); CREATININE 0.9 mg/dL (0.6-1.0); GFR 64.1; GLUCOSE 97 mg/dL (70-99); POTASSIUM 4.1 mmol/L (3.5-5.1); SODIUM 141 mmol/L (136-145)
[2017-08-24 20:19] LABS: ALBUMIN 3.7 g/dL (3.4-5.0); ALBUMIN/GLOBULIN RATIO 0.9 (1.0-1.7); ALK PHOS 127 U/L (46-116); ALT (SGPT) 39 U/L (14-59); AST (SGOT) 38 U/L (15-37); LIPASE 57 U/L (73-393); TOTAL BILIRUBIN 0.2 mg/dL (0.2-1.0); TOTAL PROTEIN 7.8 g/dL (6.4-8.2)
[2017-08-24] MEDS: MORPHINE SULFATE 10 MG/ML VIAL. IV (20:48)
== END 2017-08-24 21:51 | disposition home or self-care (01) ==
LOC: ER 17:58
DX: R10.32 Left lower quadrant pain (principal); G89.29 Other chronic pain; M54.5 Low back pain; J44.9 Chronic obstructive pulmonary disease, unspecified; I10 Essential (primary) hypertension; Z87.442 Personal history of urinary calculi
CPT/HCPCS: 36415; 74177; 80053; 81001; 83690; 83735; 85025; 96361; 96374; 96375; 96376; 99285-25; J1885; J2270; J2405; J7030; Q9967

== ENCOUNTER 2017-12-15 16:58 | Emergency (ER) | payer SELFPAY ==
[2017-12-15] MEDS: IPRATRPIUM/ALBUTEROL 0.5/2.5MG 3 ML NEBU. NEB (17:34)
[2017-12-15 17:43] LABS: ADD MAN DIFF? NO
[2017-12-15 17:47] LABS: BASO # 0.1 x10^3/uL (0.0-0.2); BASO % 1 % (0-3); EOS # 0.1 x10^3/uL (0.0-0.7); EOS % 1 % (0-3); HEMATOCRIT 39.2 % (36.0-47.0); HEMOGLOBIN 13.8 g/dL (12.0-15.5); LYMPH # 2.1 x10^3/uL (1.0-4.8); LYMPH % 32 % (24-48); MEAN CORPUSCULAR HEMOGLOBIN 34 pg (25-35); MEAN CORPUSCULAR HGB CONC 35 g/dL (31-37); MEAN CORPUSCULAR VOLUME 97 fL (79-100); MONO # 0.5 x10^3/uL (0.0-1.1); MONO % 7 % (0-9); NEUT # 3.9 x10^3uL (1.8-7.7); NEUT % 59 % (31-73); PLATELET COUNT 317 x10^3/uL (140-400); RED BLOOD COUNT 4.03 x10^6/uL (3.50-5.40); RED CELL DISTRIBUTION WIDTH 13.5 % (11.5-14.5); WHITE BLOOD COUNT 6.6 x10^3/uL (4.0-11.0)
[2017-12-15] MEDS: oxyCODONE IR 5 MG TABLET PO (17:48)
[2017-12-15 18:05] LABS: D-DIMER 0.45 ug/mlFEU (0.00-0.50)
[2017-12-15 18:09] LABS: ANION GAP 11 (6-14); BLOOD UREA NITROGEN 8 mg/dL (7-20); BUN/CREATININE RATIO 8 (6-20); CALCIUM 9.6 mg/dL (8.5-10.1); CARBON DIOXIDE 29 mmol/L (21-32); CHLORIDE 102 mmol/L (98-107); GFR 56.7; GLUCOSE 91 mg/dL (70-99); POTASSIUM 3.2 mmol/L (3.5-5.1); SODIUM 142 mmol/L (136-145)
[2017-12-15 18:14] LABS: TROPONINI < 0.017 ng/mL (0.000-0.055)
[2017-12-15 18:15] LABS: ALBUMIN 4.1 g/dL (3.4-5.0); ALBUMIN/GLOBULIN RATIO 1.1 (1.0-1.7); ALK PHOS 86 U/L (46-116); ALT (SGPT) 32 U/L (14-59); AST (SGOT) 26 U/L (15-37); TOTAL BILIRUBIN 0.3 mg/dL (0.2-1.0)
[2017-12-15 18:19] LABS: NT-PRO BNP 224 pg/mL (0-124)
[2017-12-15 18:19] LABS: CKMB INDEX 2.7 % (0-4); CKMB MASS 4.3 ng/mL (0.0-3.6); CREATINE KINASE 158 U/L (26-192)
[2017-12-15] MEDS: POTASSIUM CHLORIDE 20 MEQ TABLET.ER. PO (19:16)
== END 2017-12-15 19:15 | disposition home or self-care (01) ==
LOC: ER 16:58
DX: M54.6 Pain in thoracic spine (principal); G89.29 Other chronic pain; M54.5 Low back pain; J44.9 Chronic obstructive pulmonary disease, unspecified; I10 Essential (primary) hypertension
CPT/HCPCS: 36415; 71046; 80053; 82553; 83880; 84484; 85025; 85379; 93005; 94640; 99285-25; J7620

== ENCOUNTER 2017-12-16 00:09 | Emergency (ER) | payer SELFPAY | END 2017-12-16 00:33 | disposition left against medical advice (07) | LOC: ER 00:09 | DX: G89.29 Other chronic pain (principal); M54.6 Pain in thoracic spine; M54.5 Low back pain; J44.9 Chronic obstructive pulmonary disease, unspecified; I10 Essential (primary) hypertension; G43.909 Migraine, unspecified, not intractable, without status migrainosus | CPT/HCPCS: 99281 ==

== ENCOUNTER 2019-02-19 16:59 | Emergency (ER) | payer SELFPAY ==
[~2019-02-19] VITALS: Ht 172.7 cm; Wt 81.6 kg
[~2019-02-19 16:59] MED LIST changes: +AMLO-292 PO; -AMLO10TA2 PO; +AMLO10TA8 PO; -AMLO1TAB20 PO; +DICL50TA4 PO; +DICY10AM IM; +HYDR-2145 PO; +HYDR-3164 PO; -HYDR-971 PO; -HYDR25TA9 PO; +LEVO500T59 PO; +LIDO700A21 TP; +LOSA100T14 PO; -LOSA100T6 PO; +NITR100C62 PO; -OXYC-323 PO; +OXYC1TAB15 PO; +OXYC5TAB4 PO; -OXYC5TAB95 PO
--- NOTE | 2019-02-19 17:43 | PHYS DOC ---
Past Medical History Past Medical History: Cancer, COPD, Hypertension, Kidney Stone, Migraines Additional Past Medical Histor: chronic pain, CERVICAL CANCER (SANDEEP COWART MD) Past Surgical History: Other Additional Past Surgical Histo: Ureteral Stent, Laparoscopy, CANCER SX (SANDEEP COWART MD) Alcohol Use: None Drug Use: None (SANDEEP COWART MD) Adult General Chief Complaint Chief Complaint: FLANK PAIN HPI HPI Patient is a 59 year old female presents with back pain left sided feels like kidney stone sharp severe comes in waves not really moving to sitting on the left side usually back pain muscle pain that she also has goes away on its own. This is pretty severe no relief with usual agents no dysuria no fever no vomiting (SANDEEP COWART MD) Review of Systems Review of Systems Constitutional: Denies fever or chills [] Eyes: Denies change in visual acuity, redness, or eye pain [] HENT: Denies nasal congestion or sore throat [] Respiratory: Denies cough or shortness of breath [] Neurologic: Denies headache, focal weakness or sensory changes [] Endocrine: Denies polyuria or polydipsia [] All other systems were reviewed and found to be within normal limits, except as documented in this note. (SANDEEP COWART MD) Current Medications Current Medications Current Medications Medications (Trade) Dose Ordered Sig/Herminio Start Time Stop Time Status Last Admin Dose Admin Dexamethasone (Decadron) 10 mg 1X ONCE 02/19/19 19:00 02/19/19 19:06 DC 02/19/19 19:49 10 MG Fentanyl Citrate (Fentanyl 2ml Vial) 50 mcg 1X ONCE 02/19/19 18:45 02/19/19 18:48 DC 02/19/19 18:59 50 MCG Ketorolac Tromethamine (Toradol 15mg Vial) 15 mg 1X ONCE 02/19/19 17:45 02/19/19 17:46 DC 02/19/19 17:55 15 MG Lidocaine (Lidoderm) 1 patch 1X ONCE 02/19/19 19:00 02/19/19 19:06 DC 02/19/19 19:49 1 PATCH Miscellaneous (Lidoderm Patch Removal) 1 ea QHS 02/19/19 21:00 02/19/19 20:02 DC Ondansetron HCl (Zofran) 4 mg 1X ONCE 02/19/19 17:45 02/19/19 17:46 DC 02/19/19 17:55 4 MG Sodium Chloride 1,000 ml @ 1,000 mls/hr 1X ONCE 02/19/19 17:45 02/19/19 18:44 DC 02/19/19 17:55 1,000 MLS/HR (OMAR DELACRUZ DO) Allergies Allergies Allergies Coded Allergies Type Severity Reaction Last Updated Verified No Known Drug Allergies 03/27/16 No (OMAR DELACRUZ DO) Physical Exam Physical Exam Constitutional: Well developed, well nourished, no acute distress, non-toxic appearance. [] HENT: Normocephalic, atraumatic, bilateral external ears normal, oropharynx moist, no oral exudates, nose normal. [] Eyes: PERRLA, EOMI, conjunctiva normal, no discharge. [] Pulmonary: Normal respiratory effort no increased work of breathing no obvious chest wall trauma Abdomen: Bowel sounds normal, soft, no tenderness, no masses, no pulsatile masses. [] Skin: Warm, dry, no erythema, no rash. [] Back: There is reproducible back tenderness paraspinous on the left Extremities: No tenderness, no cyanosis, no clubbing, ROM intact, no edema. [] Neurologic: Alert and oriented X 3, normal motor function, normal sensory function, no focal deficits noted. [] Psychologic: Affect normal, judgement normal, mood normal. [] (SANDEEP COWART MD) Physical Exam Constitutional: Well developed, well nourished, uncomfortable, non-toxic appearance HENT: Normocephalic, atraumatic, oropharynx moist Eyes: Conjunctiva normal, no discharge Neck: Normal range of motion, no tenderness, supple Abdomen: Soft, no tenderness Skin: Warm, dry, no erythema, no rash Back: No midline tenderness, left paraspinal lower thoracic/upper lumbar pain Extremities: No tenderness, ROM intact, no edema Neurologic: Alert and oriented X 3, no focal deficits noted Psychologic: Affect normal, judgement normal (OMAR DELACRUZ DO) Current Patient Data Vital Signs Vital Signs Date Time Temp Pulse Resp B/P (MAP) Pulse Ox O2 Delivery O2 Flow Rate FiO2 02/19/19 19:26 70 14 166/96 (119) 97 Room Air 02/19/19 17:42 97.6 97.6 (OMAR DELACRUZ DO) Lab Values Laboratory Tests Test 02/19/19 17:25 02/19/19 17:40 Urine Collection Type Unknown Urine Color Yellow Urine Clarity Clear Urine pH 6.5 Urine Specific [place] <=1.005 Urine Protein Negative mg/dL (NEG-TRACE) Urine Glucose (UA) Negative mg/dL (NEG) Urine Ketones (Stick) Negative mg/dL (NEG) Urine Blood Negative (NEG) Urine Nitrite Negative (NEG) Urine Bilirubin Negative (NEG) Urine Urobilinogen Dipstick 0.2 mg/dL (0.2 mg/dL) Urine Leukocyte Esterase Small (NEG) Urine RBC 1-2 /HPF (0-2) Urine WBC 5-10 /HPF (0-4) Urine Squamous Epithelial Cells Mod /LPF Urine Bacteria Few /HPF (0-FEW) White Blood Count 7.7 x10^3/uL (4.0-11.0) Red Blood Count 4.10 x10^6/uL (3.50-5.40) Hemoglobin 14.1 g/dL (12.0-15.5) Hematocrit 40.3 % (36.0-47.0) Mean Corpuscular Volume 99 fL (79-100) Mean Corpuscular Hemoglobin 35 pg (25-35) Mean Corpuscular Hemoglobin Concent 35 g/dL (31-37) Red Cell Distribution Width 14.7 % (11.5-14.5) H Platelet Count 329 x10^3/uL (140-400) Neutrophils (%) (Auto) 69 % (31-73) Lymphocytes (%) (Auto) 24 % (24-48) Monocytes (%) (Auto) 6 % (0-9) Eosinophils (%) (Auto) 0 % (0-3) Basophils (%) (Auto) 1 % (0-3) Neutrophils # (Auto) 5.3 x10^3/uL (1.8-7.7) Lymphocytes # (Auto) 1.9 x10^3/uL (1.0-4.8) Monocytes # (Auto) 0.5 x10^3/uL (0.0-1.1) Eosinophils # (Auto) 0.0 x10^3/uL (0.0-0.7) Basophils # (Auto) 0.1 x10^3/uL (0.0-0.2) Sodium Level 139 mmol/L (136-145) Potassium Level 3.4 mmol/L (3.5-5.1) L Chloride Level 100 mmol/L (98-107) Carbon Dioxide Level 28 mmol/L (21-32) Anion Gap 11 (6-14) Blood Urea Nitrogen 9 mg/dL (7-20) Creatinine 1.1 mg/dL (0.6-1.0) H Estimated GFR (Cockcroft-Gault) 50.5 BUN/Creatinine Ratio 8 (6-20) Glucose Level 100 mg/dL (70-99) H Calcium Level 9.7 mg/dL (8.5-10.1) Total Bilirubin 0.4 mg/dL (0.2-1.0) Aspartate Amino Transferase (AST) 27 U/L (15-37) Alanine Aminotransferase (ALT) 28 U/L (14-59) Alkaline Phosphatase 92 U/L (46-116) Total Protein 8.6 g/dL (6.4-8.2) H Albumin 4.3 g/dL (3.4-5.0) Albumin/Globulin Ratio 1.0 (1.0-1.7) Laboratory Tests 02/19/19 17:40 Laboratory Tests 02/19/19 17:40 (OMAR DELACRUZ DO) Lab Values Microbiology 02/19/19 Urine Culture - Final, Complete 02/19/19 Urine Culture Result 1 (SHAYY) - Final, Complete (SANDEEP COWART MD) EKG EKG [] (SANDEEP COWART MD) Radiology/Procedures Radiology/Procedures [] (SANDEEP COWART MD) Radiology/Procedures PROCEDURE: CT ABDOMEN PELVIS WO CONTRAST CT ABDOMEN PELVIS WO CONTRAST Indication: Left flank pain. Exposure: One or more of the following individualized dose reduction techniques were utilized for this examination: 1. Automated exposure control 2. Adjustment of the mA and/or kV according to patient size 3. Use of iterative reconstruction technique. Comparison: August 24, 2017 Technique: No intravenous contrast given. No oral contrast per request. Findings: Evaluation of solid viscera, bowel and vasculature is compromised by the noncontrast technique. Lung bases are clear. Right lobe liver is elongated at about 22 cm. No evidence of obvious lesion on noncontrast exam. Spleen unremarkable. Pancreas unremarkable with mild calcifications which could indicate chronic pancreatitis. No evidence of adrenal mass. Calculus in the lower pole the right kidney is nonobstructive, measures 7 mm. Tiny lower pole left renal calculus is nonobstructive. No evidence of hydronephrosis. No evidence of left ureteric calculus or dilatation. The right ureter is difficult to follow in the pelvis. Subtle low-density lesion at the upper pole of the left kidney measures about 1 cm probably a cyst, measures 2 Hounsfield units. Mild stranding in the perinephric fat bilaterally. This can be seen with chronic medical renal disease or acute inflammatory process. No calcified gallstone. Aorta is mildly calcified and ectatic, no gross aneurysm. No significant lymph node enlargement. No significant small bowel distention. Mild retained stool in the colon. No evidence of acute colitis. The appendix appears normal. No evidence of ascites. No significant pneumoperitoneum. Urinary bladder is unremarkable. No evidence of pelvic mass. Degenerative spondylosis, greatest at the lumbosacral junction. Appearance and alignment is similar. Cement again identified within L1 vertebral body compression fracture. IMPRESSION: 1. Small nonobstructive renal calculi. No evidence of ureteric calculus or urinary tract obstruction. 2. Small left renal lesion is probably a cyst. 3. Mild elongation right liver. Electronically signed by: Omar Jay MD (02/19/2019 6:27 PM) [facility] (OMAR DELACRUZ DO) Course & Med Decision Making Course & Med Decision Making Pertinent Labs and Imaging studies reviewed. (See chart for details) []Care to [place] at 1800, KIDNEY STONE WORKUP IN PROGRESS. (SANDEEP COWART MD) Course & Med Decision Making Sign out received from Dr. Cowart for patient with left flank/back pain. Labs reviewed. UA without signs of infection. Pain previously addressed. CT imaging pending at time of sign out. CT without acute process. Patient seen and evaluated by myself. NO rash noted. Appears more paraspinal in nature. Patient c/o continued pain. Additional fentanyl, PO dexamethasone, and Lidoderm patch provided. No controlled prescriptions provided due to [facility] report of 120 tabs of Oxycodone 30mg filled on 02/05/19. Patient stable for discharge with outpatient follow-up with PCP/Pain management. Discussed findings and plan with patient and family, who acknowledge understanding and agreement. (OMAR DELACRUZ DO) Dragon Disclaimer Dragon Disclaimer This electronic medical record was generated, in whole or in part, using a voice recognition dictation system. (SANDEEP COWART MD) Departure Departure Impression: Primary Impression: Flank pain Disposition: 01 HOME, SELF-CARE Condition: STABLE Referrals: Rekha YOON MD (PCP) Patient Instructions: Flank Pain, [id number] Additional Instructions: It is unclear why your back/flank is hurting today. Please continue previously prescribed pain medication for your chronic back pain and follow closely with [facility] doctors for further management and evaluation. Scripts Lidocaine (Lidocaine PATCH ) 1 Each Adh..patch 1 EACH TP DAILY for FOR LOCAL PAIN, #10 PATCH REMOVE AFTER 12 HOURS Prov: OMAR DELACRUZ DO 02/19/19 SANDEEP COWART MD Feb 19, 2019 17:43 OMAR DELACRUZ DO Feb 19, 2019 19:12
[2019-02-19] MEDS ORDERED: KETOROLAC 15 MG/ML VIAL. IV ONE (17:45)
[2019-02-19] MEDS ORDERED: ONDANSETRON PF 4 MG/2 ML VIAL. IV ONE (17:45)
[2019-02-19] MEDS ORDERED: fentaNYL PF VIAL 100 MCG/2 ML VIAL IV ONE ×2 (17:45→18:45)
[2019-02-19] MEDS ORDERED: IV NORMAL SALINE 1000ML BAG 1,000 ML IV ONE (17:45)
[2019-02-19 17:50] LABS: BILIRUBIN,URINE NEGATIVE (NEG); CLARITY,URINE CLEAR; COLOR,URINE YELLOW; NITRITE,URINE NEGATIVE (NEG); PH,URINE 6.5; PROTEIN,URINE NEGATIVE (NEG-TRACE); UROBILINOGEN,URINE 0.2 mg/dL (0.2 mg/dL)
[2019-02-19 17:53] LABS: BASO # 0.1 x10^3/uL (0.0-0.2); BASO % 1 % (0-3); EOS % 0 % (0-3); HEMATOCRIT 40.3 % (36.0-47.0); HEMOGLOBIN 14.1 g/dL (12.0-15.5); LYMPH # 1.9 x10^3/uL (1.0-4.8); LYMPH % 24 % (24-48); MEAN CORPUSCULAR HEMOGLOBIN 35 pg (25-35); MEAN CORPUSCULAR HGB CONC 35 g/dL (31-37); MEAN CORPUSCULAR VOLUME 99 fL (79-100); MONO # 0.5 x10^3/uL (0.0-1.1); MONO % 6 % (0-9); NEUT # 5.3 x10^3/uL (1.8-7.7); NEUT % 69 % (31-73); PLATELET COUNT 329 x10^3/uL (140-400); RED CELL DISTRIBUTION WIDTH 14.7 % (11.5-14.5); WHITE BLOOD COUNT 7.7 x10^3/uL (4.0-11.0)
[2019-02-19 17:56] LABS: CALCIUM 9.7 mg/dL (8.5-10.1); CREATININE 1.1 mg/dL (0.6-1.0); GFR 50.5; POTASSIUM 3.4 mmol/L (3.5-5.1)
[2019-02-19 17:56] LABS: BACTERIA,URINE FEW /HPF (0-FEW); SQUAMOUS EPITHELIAL CELL,UR MOD /LPF
[2019-02-19 18:02] LABS: ALBUMIN 4.3 g/dL (3.4-5.0); TOTAL BILIRUBIN 0.4 mg/dL (0.2-1.0); TOTAL PROTEIN 8.6 g/dL (6.4-8.2)
--- NOTE | 2019-02-19 18:29 | RAD ---
CT ABDOMEN PELVIS WO CONTRAST Indication: Left flank pain. Exposure: One or more of the following individualized dose reduction techniques were utilized for this examination: 1. Automated exposure control 2. Adjustment of the mA and/or kV according to patient size 3. Use of iterative reconstruction technique. Comparison: August 24, 2017 Technique: No intravenous contrast given. No oral contrast per request. Findings: Evaluation of solid viscera, bowel and vasculature is compromised by the noncontrast technique. Lung bases are clear. Right lobe liver is elongated at about 22 cm. No evidence of obvious lesion on noncontrast exam. Spleen unremarkable. Pancreas unremarkable with mild calcifications which could indicate chronic pancreatitis. No evidence of adrenal mass. Calculus in the lower pole the right kidney is nonobstructive, measures 7 mm. Tiny lower pole left renal calculus is nonobstructive. No evidence of hydronephrosis. No evidence of left ureteric calculus or dilatation. The right ureter is difficult to follow in the pelvis. Subtle low-density lesion at the upper pole of the left kidney measures about 1 cm probably a cyst, measures 2 Hounsfield units. Mild stranding in the perinephric fat bilaterally. This can be seen with chronic medical renal disease or acute inflammatory process. No calcified gallstone. Aorta is mildly calcified and ectatic, no gross aneurysm. No significant lymph node enlargement. No significant small bowel distention. Mild retained stool in the colon. No evidence of acute colitis. The appendix appears normal. No evidence of ascites. No significant pneumoperitoneum. Urinary bladder is unremarkable. No evidence of pelvic mass. Degenerative spondylosis, greatest at the lumbosacral junction. Appearance and alignment is similar. Cement again identified within L1 vertebral body compression fracture. IMPRESSION: 1. Small nonobstructive renal calculi. No evidence of ureteric calculus or urinary tract obstruction. 2. Small left renal lesion is probably a cyst. 3. Mild elongation right liver. Electronically signed by: Omar Jay MD (02/19/2019 6:27 PM) [facility]
[2019-02-19] MEDS ORDERED: DEXAMETHASONE 4 MG TABLET PO ONE (19:00)
[2019-02-19] MEDS ORDERED: LIDOCAINE (700MG/PATCH) PATCH. TD ONE (19:00)
[2019-02-19] MEDS ORDERED: LIDO700A21 TP (19:12)
[2019-02-19 19:26] VITALS: BP 166/96
[2019-02-19] MEDS ORDERED: PATCH REMOVAL. MC SCH (21:00)
== END 2019-02-19 19:56 | disposition home or self-care (01) ==
LOC: ER 16:59
DX: R10.9 Unspecified abdominal pain (principal); J44.9 Chronic obstructive pulmonary disease, unspecified; I10 Essential (primary) hypertension; G43.909 Migraine, unspecified, not intractable, without status migrainosus; G89.29 Other chronic pain; Z87.442 Personal history of urinary calculi
CPT/HCPCS: 36415; 74176; 80053; 81001; 85025; 87086; 96374; 96375; 96376; 99285; J1885; J2405; J3010; J7030; J8540

== ENCOUNTER 2019-04-16 09:48 | Emergency (ER) | payer SELFPAY ==
[~2019-04-16] VITALS: Ht 172.7 cm; Wt 81.6 kg
[2019-04-16] MEDS ORDERED: fentaNYL PF VIAL 100 MCG/2 ML VIAL IM ONE ×2 (11:00→12:15)
[2019-04-16] MEDS ORDERED: CYCLOBENZAPRINE 10 MG TABLET. PO ONE (11:00)
--- NOTE | 2019-04-16 11:00 | PHYS DOC ---
Past Medical History Past Medical History: Cancer, Hypertension, Kidney Stone Additional Past Medical Histor: chronic pain, CERVICAL CANCER Past Surgical History: Cancer Surgery, Tubal ligation Additional Past Surgical Histo: Ureteral Stent, Laparoscopy, CANCER SX Alcohol Use: None Drug Use: None Adult General Chief Complaint Chief Complaint: BACK PAIN OR INJURY [facility] HPI Patient is a 59 year old female with history of chronic pain and frequent emergency room visits who presents with complaining of left flank pain. Patient complaining of sudden onset of left flank pain since last night as a constant pain with radiation to suprapubic area. Patient rated her pain 10 over 10 and states it's gradually getting worse. Patient denies nausea and vomiting, fever and chills, urinary symptom, injury. Patient states she had the same episode of pain frequently and sometimes she had kidney stone with the same pain. Patient states she took Methocarbamol and 60 mg of oxycodone last night but didn't take any pain medication this morning because she plan to come to the emergency room. Review of Systems Review of Systems Constitutional: Denies fever or chills [] Eyes: Denies change in visual acuity, redness, or eye pain [] HENT: Denies nasal congestion or sore throat [] Respiratory: Denies cough or shortness of breath [] Cardiovascular: No additional information not addressed in HPI [] GI: Denies abdominal pain, nausea, vomiting, bloody stools or diarrhea [] : Denies dysuria or hematuria [] Musculoskeletal: Denies back pain or joint pain [] Integument: Denies rash or skin lesions [] Neurologic: Denies headache, focal weakness or sensory changes [] Endocrine: Denies polyuria or polydipsia [] All other systems were reviewed and found to be within normal limits, except as documented in this note. Current Medications Current Medications Current Medications Medications (Trade) Dose Ordered Sig/Herminio Start Time Stop Time Status Last Admin Dose Admin Ceftriaxone Sodium (Rocephin Im) 1 gm 1X ONCE 04/16/19 12:15 04/16/19 12:16 DC 04/16/19 12:20 1 GM Cyclobenzaprine HCl (Flexeril) 10 mg 1X ONCE 04/16/19 11:00 04/16/19 11:01 DC 04/16/19 11:01 10 MG Fentanyl Citrate (Fentanyl 2ml Vial) 50 mcg 1X ONCE 04/16/19 12:15 04/16/19 12:16 DC 04/16/19 12:20 50 MCG Allergies Allergies Allergies Coded Allergies Type Severity Reaction Last Updated Verified No Known Drug Allergies 03/27/16 No Physical Exam Physical Exam Constitutional: Well developed, well nourished, mild distress, non-toxic appearance. [] HENT: Normocephalic, atraumatic. Eyes: PERRLA, EOMI, conjunctiva normal, no discharge. [] Neck: Normal range of motion, no tenderness, supple, no stridor. [] Cardiovascular:Heart rate regular rhythm, no murmur [] Lungs & Thorax: Bilateral breath sounds clear to auscultation [] Abdomen: Bowel sounds normal, soft, no tenderness, no masses, no pulsatile masses. [] Skin: Warm, dry, no erythema, no rash. [] Back: No tenderness, no CVA tenderness. [] Extremities: No tenderness, no cyanosis, no clubbing, ROM intact, no edema. [] Neurologic: Alert and oriented X 3, no focal deficits noted. [] Psychologic: Affect anxious, judgement normal, mood normal. [] Current Patient Data Vital Signs Vital Signs Date Time Temp Pulse Resp B/P (MAP) Pulse Ox O2 Delivery O2 Flow Rate FiO2 04/16/19 12:20 20 04/16/19 11:54 76 173/87 (115) 98 Room Air 04/16/19 10:28 98.0 98.0 Lab Values Laboratory Tests Test 04/16/19 10:30 Urine Collection Type Unknown Urine Color Yellow Urine Clarity Clear Urine pH 7.0 Urine Specific [place] 1.015 Urine Protein Negative mg/dL (NEG-TRACE) Urine Glucose (UA) Negative mg/dL (NEG) Urine Ketones (Stick) Negative mg/dL (NEG) Urine Blood Negative (NEG) Urine Nitrite Negative (NEG) Urine Bilirubin Negative (NEG) Urine Urobilinogen Dipstick 0.2 mg/dL (0.2 mg/dL) Urine Leukocyte Esterase Large (NEG) Urine RBC 0 /HPF (0-2) Urine WBC 20-40 /HPF (0-4) Urine Squamous Epithelial Cells Few /LPF Urine Transitional Epithelial Cells Occ /LPF Urine Bacteria Moderate /HPF (0-FEW) EKG EKG [] Radiology/Procedures Radiology/Procedures [][facility] [address] [place] [address] IMAGING REPORT Signed PATIENT: CHRISTINA MARSHALL ACCOUNT: [id number] : 1960 LOCATION: ER AGE: 59 SEX: F EXAM STATUS: REG ER ORD. PHYSICIAN: LIEN SINGH MD REASON: left flank pain PROCEDURE: CT ABDOMEN PELVIS WO CONTRAST CT ABDOMEN PELVIS WO CONTRAST History: Left flank pain. Technique: Noncontrast examination of the abdomen and pelvis. Coronal and sagittal reconstructions were performed. Exposure: One or more of the following individualized dose reduction techniques were utilized for this examination: 1. Automated exposure control 2. Adjustment of the mA and/or kV according to patient size 3. Use of iterative reconstruction technique. Comparison: February 19, 2019 Findings: Lower chest: Left lower lobe and lingular groundglass opacities Abdomen and pelvis: The liver, spleen, gallbladder, adrenal glands and pancreas have unremarkable noncontrast appearance. Small nonobstructing right renal calculus measures 6 mm. Punctate nonobstructing left renal calculus measures 3 mm. No hydronephrosis. No ureteral or urinary bladder stone. Bilateral small renal hypodensities, not well characterized on noncontrast examination, overall unchanged compared to prior. Normal appendix. No evidence of bowel obstruction. Anterior abdominal wall mesh hernia repair. Atheromatous calcination throughout the nonaneurysmal abdominal aorta and branch vessels. Bones: Chronic L1 compression fracture with vertebroplasty material. Advanced L5-S1 DJD. Impression: 1. No obstructing urolithiasis. 2. Nonobstructing bilateral renal calculi. 3. Left lower lobe and lingular groundglass opacities, may represent infectious or inflammatory process. 4. Bilateral small renal hypodensities, similar compared to prior. Electronically signed by: Mandeep Celeste DO (04/16/2019 11:50 AM) [facility] DICTATED and SIGNED BY: MANDEEP CELESTE DO DATE: 04/16/19 0700 Course & Med Decision Making Course & Med Decision Making Pertinent Labs and Imaging studies reviewed. (See chart for details) Evaluation of patient in ER showed 59-year-old female patient with complaining of left flank pain since last night that getting worse with movement. Patient did not have CVA tenderness. Labs showed UTI. CT of abdomen and pelvis did not show kidney stone. Patient was advised to follow up with her primary care physician regarding abnormal results of CT for chest and quit smoking. Patient treated with fentanyl 50 g IM 2 and Flexeril and Rocephin IM with improvement of her condition. Patient advised to continue home pain medication as oxycodone 30 mg. I've spoken with the patient and/or caregivers. I've explained the patient's condition, diagnosis and treatment plan based on information available to me at this time. I've answered the patient's and/or caregivers questions and addressed any concerns. The patient and/or caregivers have a good understanding the patient's diagnosis, condition and treatment plan as can be expected at this point. Vital signs have been stabilized. The patient's condition is stable for discharge from the emergency department. The patient will pursue further outpatient evaluation with her primary care provider or other designated consulting physician as outlined in the discharge instructions. Patient and/or caregivers are agreeable to this plan of care and follow-up instructions have been explained in detail. The patient and/or caregivers have received these instructions in written format and expressed understanding of these discharge instructions. The patient and her caregivers are aware that if any significant change in condition or worsening of symptoms should prompt him to immediately return to this of the closest emergency department. If an emergent department is not readily available I would encourage him to call 911. Neisha Disclaimer Dragon Disclaimer This electronic medical record was generated, in whole or in part, using a voice recognition dictation system. Departure Departure Impression: Primary Impression: UTI (urinary tract infection) Additional Impressions: Flank pain Tobacco abuse Tobacco abuse counseling Disposition: HOME, SELF-CARE (at 12:30) Condition: IMPROVED Referrals: Rekha YOON MD (PCP) Patient Instructions: Flank Pain, Smoking Cessation, Tips For Success, Urinary Tract Infection Additional Instructions: Drink plenty of liquids Follow-up with your primary care physician in 2-3 days Return to ER if not getting better Scripts Phenazopyridine Hcl (PYRIDIUM) 100 Mg Tablet 100 MG PO TID for dysuria, #10 TAB Prov: LIEN SINGH MD 04/16/19 Ciprofloxacin Hcl (CIPRO) 250 Mg Tablet 1 TAB PO BID for infection, #14 TAB Prov: LIEN SINGH MD 04/16/19 Problem Qualifiers Primary Impression: UTI (urinary tract infection) Urinary tract infection type: acute cystitis Hematuria presence: without hematuria Qualified Codes: N30.00 - Acute cystitis without hematuria LIEN SINGH MD Apr 16, 2019 11:00
[2019-04-16 11:05] LABS: BILIRUBIN,URINE NEGATIVE (NEG); CLARITY,URINE CLEAR; COLOR,URINE YELLOW; NITRITE,URINE NEGATIVE (NEG); PROTEIN,URINE NEGATIVE (NEG-TRACE); UROBILINOGEN,URINE 0.2 mg/dL (0.2 mg/dL)
[2019-04-16 11:21] LABS: BACTERIA,URINE MODERATE /HPF (0-FEW); RBC,URINE 0 /HPF (0-2); SQUAMOUS EPITHELIAL CELL,UR FEW /LPF; WBC,URINE 20-40 /HPF (0-4)
--- NOTE | 2019-04-16 11:53 | RAD ---
CT ABDOMEN PELVIS WO CONTRAST History: Left flank pain. Technique: Noncontrast examination of the abdomen and pelvis. Coronal and sagittal reconstructions were performed. Exposure: One or more of the following individualized dose reduction techniques were utilized for this examination: 1. Automated exposure control 2. Adjustment of the mA and/or kV according to patient size 3. Use of iterative reconstruction technique. Comparison: February 19, 2019 Findings: Lower chest: Left lower lobe and lingular groundglass opacities Abdomen and pelvis: The liver, spleen, gallbladder, adrenal glands and pancreas have unremarkable noncontrast appearance. Small nonobstructing right renal calculus measures 6 mm. Punctate nonobstructing left renal calculus measures 3 mm. No hydronephrosis. No ureteral or urinary bladder stone. Bilateral small renal hypodensities, not well characterized on noncontrast examination, overall unchanged compared to prior. Normal appendix. No evidence of bowel obstruction. Anterior abdominal wall mesh hernia repair. Atheromatous calcination throughout the nonaneurysmal abdominal aorta and branch vessels. Bones: Chronic L1 compression fracture with vertebroplasty material. Advanced L5-S1 DJD. Impression: 1. No obstructing urolithiasis. 2. Nonobstructing bilateral renal calculi. 3. Left lower lobe and lingular groundglass opacities, may represent infectious or inflammatory process. 4. Bilateral small renal hypodensities, similar compared to prior. Electronically signed by: Mandeep Celeste DO (04/16/2019 11:50 AM) [facility]
[2019-04-16 11:54] VITALS: BP 173/87
[2019-04-16] MEDS ORDERED: cefTRIAXone IM 1 GM VIAL IM ONE (12:15)
[2019-04-16] MEDS ORDERED: PHEN100T82 PO (12:22)
[2019-04-16] MEDS ORDERED: CIPR250T30 PO (12:22)
== END 2019-04-16 12:30 | disposition home or self-care (01) ==
LOC: ER 09:48
DX: N30.00 Acute cystitis without hematuria (principal); G89.29 Other chronic pain; Z71.6 Tobacco abuse counseling; I10 Essential (primary) hypertension; Z85.41 Personal history of malignant neoplasm of cervix uteri
CPT/HCPCS: 74176; 81001; 87086; 96372; 99285; J0696; J3010

== ENCOUNTER 2020-05-31 04:48 | Emergency (ER) | payer SELFPAY ==
[~2020-05-31] VITALS: Ht 172.7 cm; Wt 81.8 kg
[~2020-05-31 04:48] MED LIST changes: +AMLO-187 PO; -AMLO10TA8 PO; +CIPR250T30 PO; +PHEN100T82 PO
[2020-05-31] MEDS ORDERED: ORPHENADRINE CITRATE 60 MG/2 ML VIAL. IM ONE (05:30)
[2020-05-31] MEDS ORDERED: KETOROLAC 60 MG/2 ML VIAL. IM ONE (05:30)
--- NOTE | 2020-05-31 05:45 | ED.ADGEN ---
Past Medical History Past Medical History: Cancer, Hypertension, Kidney Stone Additional Past Medical Histor: chronic pain, CERVICAL CANCER Past Surgical History: Cancer Surgery, Tubal ligation Additional Past Surgical Histo: Ureteral Stent, Laparoscopy, CANCER SX Smoking Status: Current Every Day Smoker Alcohol Use: None Drug Use: None General Adult EDM: Chief Complaint: LOWER EXT PAIN HPI: HPI: Patient is a 60-year-old female who presents to the emergency room complaining of right inner thigh pain. Patient states that this started 3 days ago and has been progressively getting worse. She states she has been taking her oxycodone at home and it does not even touch the pain. She denies any trauma. She denies swelling or skin changes around the leg. She states that it radiates into her knee and hip. She is never had anything like this previously. She has not had any other symptoms. She is walking without difficulty. Review of Systems: Review of Systems: Complete ROS is negative unless otherwise documented in HPI Current Medications: Current Medications Medications (Trade) Dose Ordered Sig/Herminio Start Time Stop Time Status Last Admin Dose Admin Ketorolac Tromethamine (Toradol Im) 60 mg 1X ONCE 05/31/20 05:30 05/31/20 05:32 DC 05/31/20 05:52 60 MG Orphenadrine Citrate (Norflex) 60 mg 1X ONCE 05/31/20 05:30 05/31/20 05:32 DC 05/31/20 05:49 60 MG Allergies: Allergies: Allergies Coded Allergies Type Severity Reaction Last Updated Verified No Known Drug Allergies 03/27/16 No Physical Exam: PE: General: Awake, alert, NAD. Well Nourished, well hydrated. Actively walking around the room without difficulty HEENT: Atraumatic, EOMI, PERRL, airway patent, moist oral mucosa Neck: Supple, trachea midline Respiratory: CTA bilaterally, normal effort, no wheezing/crackles CV: RRR, no murmur, cap refill <2 GI: Soft, nondistended, nontender, no masses MSK: Normal range of motion and bilateral lower extremities with no swelling or skin changes, intact sensation, 2+ DP pulses bilaterally, normal capillary refill Skin: Warm, dry, intact Neuro: A&O x3, speech NL, sensory and motor grossly intact, no focal deficits Psych: Normal affect, normal mood, not suicidal or homicidal Current Patient Data: Labs: Laboratory Tests Test 05/31/20 06:13 Sodium Level 139 mmol/L (136-145) Potassium Level 3.4 mmol/L (3.5-5.1) L Chloride Level 100 mmol/L (98-107) Carbon Dioxide Level 28 mmol/L (21-32) Anion Gap 11 (6-14) Blood Urea Nitrogen 7 mg/dL (7-20) Creatinine 1.2 mg/dL (0.6-1.0) H Estimated GFR (Cockcroft-Gault) 45.5 Glucose Level 114 mg/dL (70-99) H Calcium Level 9.4 mg/dL (8.5-10.1) Laboratory Tests 05/31/20 06:13 Vital Signs: Vital Signs Date Time Temp Pulse Resp B/P (MAP) Pulse Ox O2 Delivery O2 Flow Rate FiO2 05/31/20 06:20 86 22 183/90 (121) 98 Room Air 05/31/20 04:50 97.6 97.6 EKG: EKG: [] Heart Score: Risk Factors: Risk Factors: DM, Current or recent (<one month) smoker, HTN, HLP, family history of CAD, obesity. Risk Scores: Score 0 - 3: 2.5% MACE over next 6 weeks - Discharge Home Score 4 - 6: 20.3% MACE over next 6 weeks - Admit for Clinical Observation Score 7 - 10: 72.7% MACE over next 6 weeks - Early Invasive Strategies Radiology/Procedures: Radiology/Procedures: [] Course & Med Decision Making: Course & Med Decision Making Pertinent Labs and Imaging studies reviewed. (See chart for details) Patient is a 60-year-old female who presents to the emergency room complaining of excruciating upper thigh pain that is nontraumatic in nature. Exam is reassuring. She does not have any significant swelling. She is good bilateral pulses. She is walking without any difficulty. She did request pain medication several times while here in the emergency room. Given the area of her pain the only emergent condition could be a DVT and an ultrasound was ordered. Patient has bilateral pulses making a arterial clot highly unlikely. She was given Norflex and Toradol. Patient initially refused the norflex and toradol stating that it would not help and she needed something for actual pain. After discussion that this was the most appropriate thing for her pain and her only options patient took the medication. US is normal at this time. BMP does not show any significant electrolyte abnormalities that would be causing severe cramping. I have discussed the results with the patient and patient is very upset. She wants IV narcotic pain medication to address her pain. I have discussed with her that that is not indicated at this time. Patient's test results and vitals while in the ED were fully reviewed and discussed with the patient. Patient is stable and at this time does not need admission to the hospital. We have discussed strict return precautions and the importance of following up with their Primary Care Physician. Patient stated understanding and was given an opportunity to ask any questions. Dragon Disclaimer: Dragon Disclaimer: This electronic medical record was generated, in whole or in part, using a voice recognition dictation system. Departure Departure Impression: Primary Impression: Leg pain Disposition: 01 DC HOME SELF CARE/HOMELESS Condition: STABLE Referrals: Rekha YOON MD (PCP) Patient Instructions: Hip Pain CAMILA AYALA MD May 31, 2020 05:45 AARON DELACRUZ DO Jun 01, 2020 10:36
--- NOTE | 2020-05-31 05:50 | RAD ---
US DPLX VENOUS EXTREMITY LOWER RT History: Reason: pain in upper thigh / Spl. Instructions: / History: Comparison: None. Discussion: Multiple longitudinal and transverse high resolution real-time images of the venous system of right l ower extremity were obtained with color and Doppler sampling. The common femoral, superficial femoral , popliteal and proximal calf veins are all patent and demonstrate normal flow and compressibility. N ormal respiratory phasicity and augmentation is present. Impression: 1. No evidence of deep vein thrombosis. Electronically signed by: Mandeep Celeste DO (05/31/2020 5:47 AM) [facility]
[2020-05-31 06:20] VITALS: BP 183/90
[2020-05-31 06:31] LABS: CALCIUM 9.4 mg/dL (8.5-10.1); CREATININE 1.2 mg/dL (0.6-1.0); GFR 45.5; POTASSIUM 3.4 mmol/L (3.5-5.1)
== END 2020-05-31 06:35 ==
LOC: ER 04:48
DX: M79.651 Pain in right thigh (principal); G89.29 Other chronic pain; I10 Essential (primary) hypertension; F17.200 Nicotine dependence, unspecified, uncomplicated; Z87.442 Personal history of urinary calculi; Z85.9 Personal history of malignant neoplasm, unspecified; Z98.51 Tubal ligation status; Z98.890 Other specified postprocedural states
CPT/HCPCS: 36415; 80048; 93971; 96372; 99284; J1885; J2360

== ENCOUNTER 2020-07-08 10:13 | Emergency (ER) | payer SELFPAY ==
[~2020-07-08] VITALS: Ht 172.7 cm; Wt 81.0 kg
[2020-07-08 11:00] LABS: BASO # 0.1 x10^3/uL (0.0-0.2); BASO % 1 % (0-3); EOS # 0.1 x10^3/uL (0.0-0.7); EOS % 2 % (0-3); HEMOGLOBIN 13.9 g/dL (12.0-15.5); LYMPH # 1.5 x10^3/uL (1.0-4.8); LYMPH % 22 % (24-48); MEAN CORPUSCULAR HEMOGLOBIN 34 pg (25-35); MEAN CORPUSCULAR HGB CONC 34 g/dL (31-37); MEAN CORPUSCULAR VOLUME 101 fL (79-100); MONO # 0.5 x10^3/uL (0.0-1.1); MONO % 7 % (0-9); NEUT # 4.6 x10^3/uL (1.8-7.7); NEUT % 68 % (31-73); PLATELET COUNT 366 x10^3/uL (140-400); RED BLOOD COUNT 4.06 x10^6/uL (3.50-5.40); RED CELL DISTRIBUTION WIDTH 15.2 % (11.5-14.5); WHITE BLOOD COUNT 6.7 x10^3/uL (4.0-11.0)
[2020-07-08 11:13] LABS: CALCIUM 9.1 mg/dL (8.5-10.1); CREATININE 1.1 mg/dL (0.6-1.0); GFR 50.3; POTASSIUM 4.1 mmol/L (3.5-5.1)
[2020-07-08] MEDS ORDERED: MORPHINE SULFATE 10 MG/ML VIAL. IV ONE (11:15)
[2020-07-08] MEDS ORDERED: LIDO:MAALOX 1:1 20 ML SINGLE DOSE. SWSW ONE (11:15)
--- NOTE | 2020-07-08 11:18 | RAD ---
XR CHEST 1V CLINICAL INDICATIONS: Reason: cough, covid Comparison: December 07, 2017. Findings: No acute lung infiltrate or pleural effusion or pulmonary edema or lung mass or pneumothora x is seen. The heart size, pulmonary vasculature, mediastinum and both sivakumar are unremarkable. IMPRESSION: No acute radiographic abnormality is seen. Electronically signed by: Joss Horton MD (07/08/2020 11:16 AM) [id number]
[2020-07-08 11:20] LABS: ALBUMIN 3.7 g/dL (3.4-5.0); ALBUMIN/GLOBULIN RATIO 0.9 (1.0-1.7); C-REACTIVE PROTEIN 6.5 mg/L (0-3.3); TOTAL BILIRUBIN 0.6 mg/dL (0.2-1.0); TOTAL PROTEIN 7.9 g/dL (6.4-8.2)
[2020-07-08] MEDS: NITROGLYCERIN SUBLINGUAL 0.4 MG BOTTLE OF 25. SL PRN ×2 (11:38→11:53)
--- NOTE | 2020-07-08 11:47 | ED.ADGEN ---
Past Medical History Past Medical History: Cancer, Hypertension, Kidney Stone Additional Past Medical Histor: chronic pain, CERVICAL CANCER Past Surgical History: Cancer Surgery, Tubal ligation Additional Past Surgical Histo: Ureteral Stent, Laparoscopy, CANCER SX Smoking Status: Current Every Day Smoker Alcohol Use: None Drug Use: None General Adult EDM: Chief Complaint: CHEST PAIN HPI: HPI: Patient is a 60-year-old female with past medical history of COPD who presents to the emergency room complaining of pain in her chest, abdomen, chronic back pa in. Patient states that the pain in her chest is left-sided and just hurts. She is unable to characterize the pain. She states it was intermittent at 5:00 this morning and has been constant since that time. She denies any new cough or shortness of breath. She has chronic cough and shortness of breath due to her COPD. She denies any kind of fever, chills, URI symptoms. She states she has had a burning in her abdomen for the last 5 days. She has been drinking Pepto- Bismol which helps with her abdomen. She has been having chronic back pain for several years and this is unchanged. She states that the pain is very unbearable and that she needs something for pain. She does not want Toradol as she feels that that makes her sick she denies any changes to her chronic back pain Review of Systems: Review of Systems: Complete ROS is negative unless otherwise documented in HPI Current Medications: Current Medications Medications (Trade) Dose Ordered Sig/Herminio Start Time Stop Time Status Last Admin Dose Admin Info (CONTRAST GIVEN -- Rx MONITORING) 1 each PRN DAILY PRN 07/08/20 12:45 07/10/20 12:44 Iohexol (Omnipaque 240 Mg/ml) 50 ml 1X ONCE 07/08/20 12:45 07/08/20 12:46 DC 07/08/20 12:45 50 ML Iohexol (Omnipaque 350 Mg/ml) 80 ml 1X ONCE 07/08/20 12:45 07/08/20 12:46 DC 07/08/20 12:45 80 ML Morphine Sulfate (Morphine Sulfate) 5 mg 1X ONCE 07/08/20 11:15 07/08/20 11:16 DC 07/08/20 12:16 5 MG Multi-Ingredient Mouthwash/Gargle (Gi Cocktail) 20 ml 1X ONCE 07/08/20 11:15 07/08/20 11:16 DC 07/08/20 11:37 20 ML Nitroglycerin (Nitrostat) 0.4 mg PRN Q5MIN PRN 07/08/20 11:45 07/08/20 11:53 0.4 MG Allergies: Allergies: Allergies Coded Allergies Type Severity Reaction Last Updated Verified No Known Drug Allergies 03/27/16 No Physical Exam: PE: General: Awake, alert, NAD. Well Nourished, well hydrated. Cooperative HEENT: Atraumatic, EOMI, PERRL, airway patent, moist oral mucosa Neck: Supple, trachea midline Respiratory: CTA bilaterally, normal effort, no wheezing/crackles CV: RRR, no murmur, cap refill <2 GI: Soft, nondistended, nontender, no masses MSK: No obvious deformities Skin: Warm, dry, intact Neuro: A&O x3, speech NL, sensory and motor grossly intact, no focal deficits Psych: Normal affect, normal mood, not suicidal or homicidal Current Patient Data: Labs: Laboratory Tests Test 07/08/20 10:50 07/08/20 12:20 White Blood Count 6.7 x10^3/uL (4.0-11.0) Red Blood Count 4.06 x10^6/uL (3.50-5.40) Hemoglobin 13.9 g/dL (12.0-15.5) Hematocrit 41.0 % (36.0-47.0) Mean Corpuscular Volume 101 fL (79-100) H Mean Corpuscular Hemoglobin 34 pg (25-35) Mean Corpuscular Hemoglobin Concent 34 g/dL (31-37) Red Cell Distribution Width 15.2 % (11.5-14.5) H Platelet Count 366 x10^3/uL (140-400) Neutrophils (%) (Auto) 68 % (31-73) Lymphocytes (%) (Auto) 22 % (24-48) L Monocytes (%) (Auto) 7 % (0-9) Eosinophils (%) (Auto) 2 % (0-3) Basophils (%) (Auto) 1 % (0-3) Neutrophils # (Auto) 4.6 x10^3/uL (1.8-7.7) Lymphocytes # (Auto) 1.5 x10^3/uL (1.0-4.8) Monocytes # (Auto) 0.5 x10^3/uL (0.0-1.1) Eosinophils # (Auto) 0.1 x10^3/uL (0.0-0.7) Basophils # (Auto) 0.1 x10^3/uL (0.0-0.2) D-Dimer (Mariah) 1.21 ug/mlFEU (0.00-0.50) H Sodium Level 139 mmol/L (136-145) Potassium Level 4.1 mmol/L (3.5-5.1) Chloride Level 102 mmol/L (98-107) Carbon Dioxide Level 27 mmol/L (21-32) Anion Gap 10 (6-14) Blood Urea Nitrogen 9 mg/dL (7-20) Creatinine 1.1 mg/dL (0.6-1.0) H Estimated GFR (Cockcroft-Gault) 50.3 BUN/Creatinine Ratio 8 (6-20) Glucose Level 114 mg/dL (70-99) H Calcium Level 9.1 mg/dL (8.5-10.1) Total Bilirubin 0.6 mg/dL (0.2-1.0) Aspartate Amino Transferase (AST) 241 U/L (15-37) H Alanine Aminotransferase (ALT) 378 U/L (14-59) H Alkaline Phosphatase 252 U/L (46-116) H Lactate Dehydrogenase 268 U/L (81-234) H Creatine Kinase 98 U/L (26-192) Troponin I Quantitative < 0.017 ng/mL (0.000-0.055) C-Reactive Protein, Quantitative 6.5 mg/L (0-3.3) H PQ-Azy-F-Type Natriuretic Peptide 153 pg/mL (0-124) H Total Protein 7.9 g/dL (6.4-8.2) Albumin 3.7 g/dL (3.4-5.0) Albumin/Globulin Ratio 0.9 (1.0-1.7) L Urine Collection Type Unknown Urine Color Kami Urine Clarity Clear Urine pH 6.0 (<5.0-8.0) Urine Specific [place] 1.020 (1.000-1.030) Urine Protein 30 mg/dL (NEG-TRACE) Urine Glucose (UA) Negative mg/dL (NEG) Urine Ketones (Stick) Negative mg/dL (NEG) Urine Blood Negative (NEG) Urine Nitrite Positive (NEG) Urine Bilirubin Small (NEG) Urine Urobilinogen Dipstick 0.2 mg/dL (0.2 mg/dL) Urine Leukocyte Esterase Large (NEG) Urine RBC 0 /HPF (0-2) Urine WBC >40 /HPF (0-4) Urine Squamous Epithelial Cells Mod /LPF Urine Bacteria Many /HPF (0-FEW) Urine Hyaline Casts Occasional /HPF Urine Mucus Marked /LPF Laboratory Tests 07/08/20 10:50 Laboratory Tests 07/08/20 10:50 Vital Signs: Vital Signs Date Time Temp Pulse Resp B/P (MAP) Pulse Ox O2 Delivery O2 Flow Rate FiO2 07/08/20 12:16 18 98 Room Air 07/08/20 11:53 62 165/87 07/08/20 10:37 97.6 97.6 EKG: EKG: [] Heart Score: Risk Factors: Risk Factors: DM, Current or recent (<one month) smoker, HTN, HLP, family history of CAD, obesity. Risk Scores: Score 0 - 3: 2.5% MACE over next 6 weeks - Discharge Home Score 4 - 6: 20.3% MACE over next 6 weeks - Admit for Clinical Observation Score 7 - 10: 72.7% MACE over next 6 weeks - Early Invasive Strategies Radiology/Procedures: Radiology/Procedures: [] Course & Med Decision Making: Course & Med Decision Making Pertinent Labs and Imaging studies reviewed. (See chart for details) Patient 60-year-old female presents to the emergency room with multiple complaints including chest pain, abdominal pain, chronic back pain. Patient's pain has been constant since 5:00 this morning. She will not need a delta tro ponin. Cardiac work-up was ordered including CBC, BMP, troponin, EKG, chest x- ray. Patient is requesting narcotic pain medicine for pain. She will be given nitro for chest pain and GI cocktail for her abdomen UA was also ordered as patient is been having some dysuria. UA does suggest UTI. CT angio chest ordered due to elevated ddimer with new onset chest pain. CT abd pelvis ordered to evaluate for gallbladder pathology, kidney stone, obstruction, etc. Patient has requested to leave AGAINST MEDICAL ADVICE. She is very upset that she has not received multiple doses of narcotic pain medicine. I have discussed the benefits of staying for a full work up and the patient would like to leave. I discussed the risks of leaving including but not limited to , permenant end-organ damage, worsening of condition and patient stated understanding. Patient signed out against medical advice. At the time that the patient signed out she had completed her CT, however the results were not available as the radiologist had not reviewed it. Dragon Disclaimer: Dragon Disclaimer: This electronic medical record was generated, in whole or in part, using a voice recognition dictation system. Departure Departure Impression: Primary Impression: Chest pain Additional Impressions: Abdominal pain Diarrhea Chronic back pain Left before treatment completed Disposition: 07 AMA/ELOPED/LWBS Referrals: Rekha YOON MD (PCP) Problem Qualifiers CAMILA AYALA MD Jul 08, 2020 11:47
[2020-07-08 12:32] LABS: BILIRUBIN,URINE SMALL (NEG); CLARITY,URINE CLEAR; COLOR,URINE AMBER; NITRITE,URINE POSITIVE (NEG); PROTEIN,URINE 30 mg/dL (NEG-TRACE); UROBILINOGEN,URINE 0.2 mg/dL (0.2 mg/dL)
[2020-07-08] MEDS ORDERED: IOHEXOL 240 MG/ML 50ML VIAL. PO ONE (12:45)
[2020-07-08] MEDS ORDERED: IOHEXOL 350 MG/ML 100 ML VIAL. IV ONE (12:45)
[2020-07-08] MEDS ORDERED: CONTRAST GIVEN. MC PRN (12:45)
[2020-07-08 12:50] LABS: BACTERIA,URINE MANY /HPF (0-FEW); HYALINE CASTS, URINE OCCASIONAL /HPF; RBC,URINE 0 /HPF (0-2); WBC,URINE >40 /HPF (0-4)
[2020-07-08 13:30] VITALS: BP 152/72
--- NOTE | 2020-07-08 14:27 | RAD ---
CTA scan of the Chest with Contrast (Pulmonary Embolism protocol) 07/08/2020 Clinical History: Chest pain. Elevated d-dimer. Technique: After the intravenous administration of 80 cc of Omnipaque 350, contiguous, 0.625 mm axial sections were obtained through the chest. 2 mm axial and 3D MIP coronal and sagittal reconstructed images were obtained. One or more of the following individualized dose reduction techniques were utilized for this study: 1. Automated exposure control. 2. Adjustment of the mA and/or kV according to patient size. 3. Use of iterative reconstruction technique. Findings: Beam hardening artifact related to contrast within the left axillary, subclavian and brachi ocephalic vein related to the contrast injection limits evaluation of the superior mediastinum. In ov al-shaped soft tissue mass is seen within the anterior superior mediastinum which is difficult to maru luate. This may connect to the inferior thyroid gland possibly representing a substernal goiter. No filling defect is seen within the major branches of either pulmonary artery. There is no CT eviden ce of pulmonary embolism. The heart is borderline enlarged. Scattered atherosclerotic calcification o f the thoracic aorta and its branches is noted. The thoracic aorta is tortuous but tapers normally. Patchy perihilar infiltrates are seen involving both lower lungs no pneumothorax or pleural effusion is seen. Impression: There is no CT evidence of pulmonary embolism. CT scan of the abdomen and pelvis with contrast 07/08/2020 CLINICAL HISTORY: Abdominal pain. TECHNIQUE: After the oral and intravenous ministration contrast, contiguous, 5 mm axial sections were obtained through the abdomen and pelvis. One or more of the following individualized dose reduction techniques were utilized for this study: 1. Automated exposure control. 2. Adjustment of the mA and/or kV according to patient size. 3. Use of iterative reconstruction technique. FINDINGS: Comparison study is dated 04/16/2019. Images through the lung bases demonstrate minimal dependent subsegmental atelectasis bilaterally. The liver parenchyma has a decreased attenuation consistent with fatty infiltration. Small calcified granulomas are seen scattered throughout the spleen. The pancreas is within normal limits. Rounded lo w-attenuation lesions are seen involving both kidneys which measure 5 mm to 1 cm in size. They likely represent cysts. No further imaging evaluation is recommended. A 7 mm nonobstructing calculus is see n involving the lower pole the right kidney. Slight prominence of the body and tail of pancreas is seen. Increased density seen within the fat aldo rounding this portion of the pancreas consistent with acute pancreatitis. A low-attenuation lesion wi th a thickened wall is seen in the head of the pancreas which is new since previous examination. This measures 7.8 x 6.4 x 5.4 cm in AP, transverse and craniocaudal dimensions. This likely represents pa ncreatic pseudocyst. Punctate calcifications are seen scattered throughout the pancreas. No additiona l abnormal fluid collection is seen. Atherosclerotic calcification abdominal aorta is seen. The abdominal aorta tapers normally. The gallb ladder is distended. No free fluid or free air is seen within the abdomen. There is no evidence of rogelio wel obstruction. Patient is post ventral hernia repair. The appendix is well-visualized and is within normal limits. Images through the pelvis demonstrate the urinary bladder distended with urine. Surgical clips are se en within the right pelvis. No adnexal mass is seen. No free fluid is noted. Mild S-shaped curvature of the thoracolumbar spine is seen. Degenerative changes are seen involving lower thoracic and throug hout the lumbar spine along with both hips. Patient is post kyphoplasty type procedure involving the L1 vertebral body. IMPRESSION: Findings are seen consistent with acute on chronic pancreatitis. A 7.8 cm pancreatic pseu docyst is seen within the head of the pancreas. Electronically signed by: Tj Barcenas MD (07/08/2020 2:25 PM) [id number]
--- NOTE | 2020-07-09 12:06 | EKG ---
[facility] [address] [place] [id number] Test Date: 2020-07-08 Test Time: 10:24:39 Pat Name: CHRISTINA MARSHALL Department: Room: Gender: F Psychology Associate: : [id number] Requested By: CAMILA AYALA Order Number: [id number] Reading MD: Measurements Intervals [place] Rate: 59 P: 17 LA: 170 QRS: -24 QRSD: 86 T: 12 QT: 444 QTc: 444 Interpretive Statements SINUS RHYTHM LEFTWARD AXIS T ABNORMALITY IN INFERIOR LEADS ABNORMAL ECG RI6.02 No previous ECG available for comparison
== END 2020-07-08 14:15 | disposition left against medical advice (07) ==
LOC: ER 10:13
DX: R07.89 Other chest pain (principal); G89.29 Other chronic pain; M54.9 Dorsalgia, unspecified; R10.9 Unspecified abdominal pain; R19.7 Diarrhea, unspecified; I10 Essential (primary) hypertension; F17.200 Nicotine dependence, unspecified, uncomplicated; Z87.442 Personal history of urinary calculi; Z98.51 Tubal ligation status; Z96.0 Presence of urogenital implants
CPT/HCPCS: 36415; 71045; 71275; 74177; 80053; 81001; 82550; 83615; 83690; 83880; 84484; 85025; 85379; 86140; 93005; 96374; 99285; J2270; Q9966; Q9967

== ENCOUNTER 2020-07-09 19:38 | Inpatient (IN) | payer MEDICAID ==
[~2020-07-09] VITALS: Ht 172.7 cm; Wt 83.9 kg
[2020-07-09] MEDS ORDERED: IV NORMAL SALINE 1000ML BAG 1,000 ML IV SCH ×2 (20:00)
[2020-07-09] MEDS ORDERED: HYDROmorphone 2 MG/ML VIAL IVP ONE ×2 (20:00→21:15)
[2020-07-09] MEDS ORDERED: HYDROmorphone 2 MG/ML VIAL ONE (20:03)
--- NOTE | 2020-07-09 20:05 | PHYS DOC ---
Past Medical History Past Medical History: Cancer, Hypertension, Kidney Stone Additional Past Medical Histor: chronic pain, CERVICAL CANCER Past Surgical History: Cancer Surgery, Tubal ligation Additional Past Surgical Histo: Ureteral Stent, Laparoscopy, CANCER SX Smoking Status: Current Every Day Smoker Alcohol Use: None Drug Use: None General Adult EDM: Chief Complaint: MULTIPLE COMPLAINTS HPI: HPI: 60-year-old female presents the ED with c/o upper abdominal pain, left sided low back pain with associated cough and shortness of breath. Pt reports she takes dilaudid 2mg q 4-6 hours po, prescribed by her pmd, Dr. Holman. Asks what pain medications she will get in the ed. EMR was reviewed- was seen in the ED yesterday and left AMA. CT abdomen/pelvis consistent with acute on chronic pancreatitis with 7.8 cm pancreatic pseudocyst is seen within the head of the pancreas. CT also shows distended gallbladder. Lipase was in the 1200s. Primary care physician was concerned for her gallbladder and sent her to the ED. Review of Systems: Review of Systems: Constitutional: Denies fever or chills. [] Eyes: Denies change in visual acuity. [] HENT: Denies nasal congestion or sore throat. [] Respiratory: Denies productive cough or hemoptysis Cardiovascular: Denies syncope or edema. [] GI: Denies bloody stools or diarrhea. [] : Denies dysuria or hematuria Musculoskeletal: Denies back pain or joint pain. [] Integument: Denies rash or diaphoresis Neurologic: Denies headache, focal weakness or sensory changes. [] Endocrine: Denies polyuria or polydipsia. [] Lymphatic: Denies swollen glands. [] Psychiatric: Denies depression or anxiety. [] Heart Score: Risk Factors: Risk Factors: DM, Current or recent (<one month) smoker, HTN, HLP, family history of CAD, obesity. Risk Scores: Score 0 - 3: 2.5% MACE over next 6 weeks - Discharge Home Score 4 - 6: 20.3% MACE over next 6 weeks - Admit for Clinical Observation Score 7 - 10: 72.7% MACE over next 6 weeks - Early Invasive Strategies Allergies: Allergies: Allergies Coded Allergies Type Severity Reaction Last Updated Verified No Known Drug Allergies 03/27/16 No Physical Exam: PE: Constitutional: Well developed, well nourished, no acute distress, non-toxic appearance. HENT: Normocephalic, atraumatic, Eyes: EOMI, conjunctiva normal, no discharge. Neck: Normal range of motion, supple, Cardiovascular: S1/2 present, regular rhythm Lungs & Thorax: Speaking in full sentences, bilateral equal chest rise, no tachypnea or increased work of breathing Abdomen: soft, ruq pain with positive Paulson sign on physical exam Skin: Warm, dry, no erythema, no rash. [] Back: No tenderness, no CVA tenderness. [] Extremities: No tenderness, no cyanosis, no edema Neurologic: Alert and oriented X 3, normal motor function, normal sensory function, no focal deficits noted. [] Psychologic: Affect normal, judgement normal, mood normal. EKG: EKG: Sinus rhythm at 65 bpm, left axis deviation, normal intervals, possible T wave inversion V2, no ST elevations or ST depressions Radiology/Procedures: Radiology/Procedures: IMAGING REPORT Signed PATIENT: CHRISTINA MARSHALL ACCOUNT: [id number] : 1960 LOCATION: ER AGE: 60 SEX: F EXAM STATUS: REG ER ORD. PHYSICIAN: MCKAYLA URBAN DO REASON: ruq pain, asess gb PROCEDURE: ABDOMEN LTD Exam: Ultrasound abdomen limited Indication: Right upper quadrant pain, assess gallbladder Technique: Real-time grayscale and color Doppler images of the right upper quadrant were obtained by the department floor covering contractor. Comparisons: None FINDINGS: Increased echogenicity of the liver, likely related to hepatic steatosis. Vascular flow identified within the vascular flow. Gallbladder is distended with internal debris. No pericholecystic fluid or wall thickening. There is a sonographic Paulson sign per the department floor covering contractor' s. Common bile duct is dilated measuring 1.5 cm in diameter. Right kidney measures 11.6 cm in length. No hydronephrosis. Visualized portions aorta and IVC are unremarkable. IMPRESSION: 1. Dilated gallbladder and common bile duct. An obstructing stone or lesion is not identified. There is a positive sonographic Paulson sign per the floor covering contractor, which can be seen in setting of acute cholecystitis. If there is persistent concern for obstruction HIDA scan would better evaluate. 2. Hepatic steatosis. 3. No right-sided hydronephrosis. Electronically signed by: Michel Moreno MD (07/09/2020 9:33 PM) [facility] DICTATED and SIGNED BY: MICHEL MORENO MD DATE: 07/09/201662SUN4 0 Course & Med Decision Making: Course & Med Decision Making Pertinent Labs and Imaging studies reviewed. (See chart for details) Concern for keratitis with large pseudocyst. Will admit to the medical floor for further medical management. Patient stable time of admission and agrees with this plan. Nonemergent consults were placed by ed medical secretary teacher for GI and surgery. I have spoken with the patient and/or caregivers. I have explained the patient' s condition, diagnosis and treatment plan based on the information available to me at this time. I have answered the patient's and/or caregivers questions and answered any concerns. The patient and/or caregivers have as good an understanding of the patient's diagnosis, condition and treatment plan as can be expected at this point. The patient has been stabilized within the capability of the emergency department. The patient will be transported for further care and management or will be moved to an observation or inpatient service. I have communicated with the staff or medical practitioner taking over this patient's care. Dragon Disclaimer: Dragon Disclaimer: This electronic medical record was generated, in whole or in part, using a voice recognition dictation system. Departure Departure Impression: Primary Impression: Acute on chronic pancreatitis Additional Impressions: Transaminitis Right upper quadrant abdominal pain with positive Paulson's Sign Disposition: ADMITTED INPT THIS HOSP Admitting Physician: ORTEGA (Dr. Santillan) Condition: STABLE Referrals: Rekha HOLMAN MD (PCP) Scripts Pantoprazole Sodium (PANTOPRAZOLE SODIUM ) 40 Mg Tablet. 40 MG PO DAILYAC for GERD for 30 Days, #30 TAB.SR Prov: AUSTIN LANDRY MD 07/15/20 Mag Hydrox/Al Hydrox/Simeth (MAG-AL PLUS XS SUSPENSION) 30 Ml Oral.susp 30 ML PO PRN Q3HRS PRN for HEARTBURN / GAS for 14 Days, #240 MISC Prov: AUSTIN LANDRY MD 07/15/20 Acetaminophen (TYLENOL) 325 Mg Tablet 650 MG PO PRN Q6HRS PRN for Headaches, Temp > 101.5F for 14 Days, #90 TAB Prov: AUSTIN LANDRY MD 07/15/20 [facility] Jul 09, 2020 20:05
[2020-07-09 20:31] LABS: BASO % 0 % (0-3); EOS # 0.1 x10^3/uL (0.0-0.7); EOS % 1 % (0-3); HEMATOCRIT 38.7 % (36.0-47.0); HEMOGLOBIN 13.6 g/dL (12.0-15.5); LYMPH # 2.2 x10^3/uL (1.0-4.8); LYMPH % 28 % (24-48); MEAN CORPUSCULAR HEMOGLOBIN 35 pg (25-35); MEAN CORPUSCULAR HGB CONC 35 g/dL (31-37); MEAN CORPUSCULAR VOLUME 99 fL (79-100); MONO # 0.7 x10^3/uL (0.0-1.1); MONO % 9 % (0-9); NEUT # 4.8 x10^3/uL (1.8-7.7); NEUT % 62 % (31-73); PLATELET COUNT 346 x10^3/uL (140-400); RED BLOOD COUNT 3.91 x10^6/uL (3.50-5.40); RED CELL DISTRIBUTION WIDTH 15.5 % (11.5-14.5); WHITE BLOOD COUNT 7.8 x10^3/uL (4.0-11.0)
[2020-07-09 20:40] LABS: CALCIUM 9.6 mg/dL (8.5-10.1); CREATININE 1.1 mg/dL (0.6-1.0); GFR 50.3; POTASSIUM 3.6 mmol/L (3.5-5.1)
[2020-07-09 20:47] LABS: ALBUMIN 3.8 g/dL (3.4-5.0); DIRECT BILIRUBIN 0.5 mg/dL (0.0-0.2); TOTAL BILIRUBIN 0.9 mg/dL (0.2-1.0); TOTAL PROTEIN 8.2 g/dL (6.4-8.2)
--- NOTE | 2020-07-09 21:35 | RAD ---
Exam: Ultrasound abdomen limited Indication: Right upper quadrant pain, assess gallbladder Technique: Real-time grayscale and color Doppler images of the right upper quadrant were obtained by the department derrick builder. Comparisons: None FINDINGS: Increased echogenicity of the liver, likely related to hepatic steatosis. Vascular flow identified wi thin the vascular flow. Gallbladder is distended with internal debris. No pericholecystic fluid or wall thickening. There is a sonographic Paulson sign per the department derrick builder' s. Common bile duct is dilated measuring 1. 5 cm in diameter. Right kidney measures 11.6 cm in length. No hydronephrosis. Visualized portions aorta and IVC are unremarkable. IMPRESSION: 1. Dilated gallbladder and common bile duct. An obstructing stone or lesion is not identified. There is a positive sonographic Paulson sign per the derrick builder, which can be seen in setting of acute cho lecystitis. If there is persistent concern for obstruction HIDA scan would better evaluate. 2. Hepatic steatosis. 3. No right-sided hydronephrosis. Electronically signed by: Michel Forbes MD (07/09/2020 9:33 PM) [facility]
[2020-07-09] MEDS ORDERED: ONDANSETRON PF 4 MG/2 ML VIAL. IV PRN (22:00)
[2020-07-09] MEDS ORDERED: HYDROmorphone 2 MG/ML VIAL IVP PRN (22:00)
[2020-07-09] MEDS ORDERED: ACETAMINOPHEN 325 MG TABLET. PO PRN ×2 (22:00→23:45)
--- NOTE | 2020-07-09 23:40 | NUR ---
Admit from ER w/ c/o upper abdominal "burning pain", also chronic lower left back and flank pain. Treating abd pain w/ Pepto Bismol, started 07/08/19. Takes Sabina for chronic pain back.
[2020-07-09] MEDS ORDERED: MAGNESIUM HYDROXIDE 2,400 MG/30 ML ORAL.SUSP. PO PRN (23:45)
[2020-07-09] MEDS ORDERED: MAG HYDROX/ALUMINUM HYD/SIMETH 30 ML ORAL.SUSP PO PRN (23:45)
[2020-07-09] MEDS ORDERED: BISACODYL 10 MG SUPP.RECT. PR PRN (23:45)
[2020-07-09] MEDS: ENOXAPARIN 40 MG/0.4 ML SYRINGE. SQ SCH (23:45)
[2020-07-09] MEDS ORDERED: CALCIUM CARBONATE 500 MG TAB.CHEW PO PRN (23:45)
[2020-07-09] MEDS ORDERED: ONDANSETRON PF 4 MG/2 ML VIAL. IVP PRN (23:45)
[2020-07-09] MEDS ORDERED: LIDOCAINE (700MG/PATCH) PATCH. TP PRN (23:45)
[2020-07-10 00:38] VITALS: BP 146/85
[2020-07-10 00:56] LABS: BARBITURATES NEG (NEG); BENZODIAZEPINES NEG (NEG); CANNABINOIDS NEG (NEG); COCAINE NEG (NEG); METHADONE NEG (NEG); OPIATES POS (NEG); PHENCYCLIDINE NEG (NEG)
[2020-07-10 00:58] LABS: AMPHETAMINE/METHAMPHETAMINE NEG (NEG)
[2020-07-10 02:27] LABS: BILIRUBIN,URINE SMALL (NEG); CLARITY,URINE CLEAR; COLOR,URINE AMBER; NITRITE,URINE POSITIVE (NEG); PROTEIN,URINE NEGATIVE (NEG-TRACE); UROBILINOGEN,URINE 0.2 mg/dL (0.2 mg/dL)
[2020-07-10 02:39] VITALS: BP 119/70
[2020-07-10 03:06] LABS: BACTERIA,URINE MANY /HPF (0-FEW); HYALINE CASTS, URINE FEW /HPF; RBC,URINE OCC /HPF (0-2); WBC,URINE 20-40 /HPF (0-4)
[2020-07-10] MEDS: HYDROmorphone 2 MG/ML VIAL IVP PRN ×6 (05:31→23:50)
--- NOTE | 2020-07-10 05:32 | NUR ---
Dilaudid 2mg given for "burning stomach".
[2020-07-10] MEDS: LEVOTHYROXINE 150 MCG TABLET PO SCH (06:00)
[2020-07-10 07:00] VITALS: BP 152/60
--- NOTE | 2020-07-10 07:48 | EKG ---
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
[2020-07-10] MEDS: IV NORMAL SALINE 1000ML BAG 1,000 ML IV SCH ×3 (08:00→19:42)
--- NOTE | 2020-07-10 08:11 | PDOC1 ---
History and Physical Date of Admission Date of Admission DATE: 07/10/20 TIME: 08:00 Identification/Chief Complaint Chief Complaint Abdominal pain Source Source: Chart review, Patient History of Present Illness History of Present Illness Patient 60-year-old female presents to the ER with complaint of left upper quadrant abdominal pain. She was seen in the ED yesterday for similar symptoms, but left AMA. CT abdomen/pelvis at that time showed acute on chronic hepatitis with 7.8 cm pancreatic pseudocyst and distended gallbladder. She returned to the ER today the behest of her PCP. She reports abdominal pain, 03/29. Past Medical History Past Medical History Hypertension, kidney stones, cervical cancer, chronic pain Past Surgical History Past Surgical History Tubal ligation, ureteral stents, laparoscopy, cancer surgery Family History Family History Denies significant family history Social History Smoke: 1 pack per day ALCOHOL: none Drugs: None Current Problem List Problem List Problems Medical Problems: (1) Acute on chronic pancreatitis Status: Acute (2) Right upper quadrant abdominal pain with positive Paulson's Sign Status: Acute (3) Transaminitis Status: Acute Current Medications Current Medications Current Medications Sodium Chloride 1,000 ml @ 1,000 mls/hr Q1H IV Last administered on 07/09/20at 20:15; Start 07/09/20 at 20:00; Stop 07/09/20 at 20:59; Status DC Sodium Chloride 1,000 ml @ 250 mls/hr Q4H IV Last administered on 07/09/20at 21:00; Start 07/09/20 at 20:00; Stop 07/10/20 at 02:05; Status DC Hydromorphone HCl (Dilaudid) 1 mg 1X ONCE IVP Last administered on 07/09/20at 20:18; Start 07/09/20 at 20:00; Stop 07/09/20 at 20:11; Status DC Hydromorphone HCl (Dilaudid) 2 mg STK-MED ONCE .ROUTE ; Start 07/09/20 at 20:03; Stop 07/09/20 at 20:03; Status DC Hydromorphone HCl (Dilaudid) 1 mg 1X ONCE IVP Last administered on 07/09/20at 21:21; Start 07/09/20 at 21:15; Stop 07/09/20 at 21:16; Status DC Ondansetron HCl (Zofran) 4 mg PRN Q8HRS PRN IV NAUSEA/VOMITING; Start 07/09/20 at 22:00; Stop 07/10/20 at 21:59 Sodium Chloride 1,000 ml @ 100 mls/hr Q10H IV ; Start 07/09/20 at 22:00; Stop 07/10/20 at 21:59 Acetaminophen (Tylenol) 650 mg PRN Q4HRS PRN PO FEVER > 100.3'F; Start 07/09/20 at 22:00; Stop 07/10/20 at 21:59 Hydromorphone HCl (Dilaudid) 2 mg PRN Q4HRS PRN IVP PAIN Last administered on 07/09/20at 23:02; Start 07/09/20 at 22:00; Stop 07/09/20 at 23:32; Status DC Hydromorphone HCl (Dilaudid) 4 mg PRN Q2HR PRN IVP PAIN Last administered on 07/10/20at 05:31; Start 07/09/20 at 23:30 Ondansetron HCl (Zofran) 4 mg PRN Q6HRS PRN IVP NAUSEA/VOMITING; Start 07/09/20 at 23:45 Prochlorperazine Edisylate (Compazine) 10 mg PRN Q6HRS PRN IVP NAUSEA/VOMITING; Start 07/09/20 at 23:45 Al Hydroxide/Mg Hydroxide (Mylanta Plus Xs) 30 ml PRN Q3HRS PRN PO HEARTBURN / GAS; Start 07/09/20 at 23:45 Calcium Carbonate/ Glycine (Tums) 500 mg PRN Q3HRS PRN PO UPSET STOMACH; Start 07/09/20 at 23:45 Acetaminophen (Tylenol) 650 mg PRN Q6HRS PRN PO Headaches, Temp > 101.5F; Start 07/09/20 at 23:45 Magnesium Hydroxide (Milk Of Magnesia) 2,400 mg PRN Q12HR PRN PO CONSTIPATION; Start 07/09/20 at 23:45 Bisacodyl (Dulcolax Supp) 10 mg PRN DAILY PRN LA CONSTIPATION; Start 07/09/20 at 23:45 Enoxaparin Sodium (Lovenox 40mg Syringe) 40 mg Q24H SQ ; Start 07/09/20 at 23:45 Amlodipine Besylate (Norvasc) 10 mg DAILY PO ; Start 07/10/20 at 09:00 Cyclobenzaprine HCl (Flexeril) 10 mg PRN TID PRN PO PAIN; Start 07/09/20 at 23:45 Hydrochlorothiazide (Hydrodiuril) 25 mg DAILY PO ; Start 07/10/20 at 09:00 Levothyroxine Sodium (Synthroid) 150 mcg DAILY06 PO ; Start 07/10/20 at 06:00 Lidocaine (Lidoderm) 1 patch PRN DAILY PRN TP PAIN; Start 07/09/20 at 23:45 Oxycodone HCl (Roxicodone) 30 mg PRN Q4HRS PRN PO PAIN Last administered on 07/10/20at 00:21; Start 07/09/20 at 23:45 Sumatriptan Succinate (Imitrex) 100 mg PRN Q24HRS PRN PO HEADACHE; Start 07/09/20 at 23:45 Losartan Potassium (Cozaar) 100 mg DAILY PO ; Start 07/10/20 at 09:00 Lorazepam (Ativan Inj) 1 mg PRN Q4HRS PRN IVP ANXIETY / AGITATION Last administered on 07/10/20at 07:00; Start 07/09/20 at 23:45 Miscellaneous (Lidoderm Patch Removal) 1 ea QHS ; Start 07/11/20 at 21:00 Active Scripts Active Pyridium (Phenazopyridine Hcl) 100 Mg Tablet 100 Mg PO TID Cipro (Ciprofloxacin Hcl) 250 Mg Tablet 1 Tab PO BID Lidocaine PATCH (Lidocaine) 1 Each Adh..patch 1 Each TP DAILY REMOVE AFTER 12 HOURS Lidocaine PATCH (Lidocaine) 1 Each Adh..patch 1 Each TP DAILY PRN Diclofenac Sodium 50 Mg Tablet.dr 1 Tab PO BID Cyclobenzaprine Hcl 10 Mg Tablet 1 Tab PO TID PRN Bentyl (Dicyclomine Hcl) 10 Mg/1 Ml Ampul 10 Mg IM BID Cyclobenzaprine Hcl 10 Mg Tablet 1 Tab PO TID PRN Levaquin (Levofloxacin) 500 Mg Tablet 1 Tab PO DAILY Macrobid 100 Mg Capsule (Nitrofurantoin Monohyd/M-Cryst) 100 Mg Capsule 1 Cap PO BID Cyclobenzaprine Hcl 10 Mg Tablet 1 Tab PO TID 30 Days Levothyroxine Sodium 150 Mcg Tablet 150 Mcg PO DAILY06 30 Days Imitrex (Sumatriptan Succinate) 100 Mg Tablet 1 Tab PO UD Losartan Potassium 100 Mg Tablet 100 Mg PO DAILY 30 Days Hydrochlorothiazide Tablet (Hydrochlorothiazide) 25 Mg Tablet 1 Tab PO DAILY Amlodipine Besylate 10 Mg Tablet 10 Mg PO DAILY 30 Days Reported Oxycodone Hcl Immed.release (Oxycodone Hcl) 5 Mg Tablet 30 Mg PO PRN Q4HRS PRN Allergies Allergies: Coded Allergies: No Known Drug Allergies (Unverified , 03/27/16) ROS Review of System GENERAL: No history of weight change, weakness or fevers. SKIN: No bruising, hair changes or rashes. EYES: No blurred, double or loss of vision. NOSE AND THROAT: No history of nosebleeds, hoarseness or sore throat. HEART: Denies chest pain, denies palpitations. LUNGS: Denies cough, hemoptysis, wheezing or shortness of breath. GASTROINTESTINAL: Abdominal pain.. GENITOURINARY: Denies dysuria, frequency, urgency, hematuria. NEUROLOGIC: Denies history of numbness, tingling, tremor or weakness. PSYCHIATRIC: Denies anxiety, denies depression. ENDOCRINE: No history of heat or cold intolerance, polyuria or polydipsia. EXTREMITIES: Denies muscle weakness, joint pain, pain on walking or stiffness. Physical Exam Physical Exam General: Alert, Oriented X3, Cooperative, mild distress HEENT: PERRLA, EOMI Lungs: Clear to auscultation, Normal air movement Heart: RRR, no murmurs Cardiovascular: S1, S2 Abdomen: Right upper quadrant epigastric tenderness. Normal bowel sounds, Soft. Extremities: No clubbing, No cyanosis Skin: No rashes, No significant lesion Neuro: Normal speech, Normal tone, Sensation intact Psych/Mental Status: Mental status NL, Mood NL Vitals Vitals Vital Signs Date Time Temp Pulse Resp B/P (MAP) Pulse Ox O2 Delivery O2 Flow Rate FiO2 07/10/20 06:09 20 07/10/20 05:31 Room Air 07/10/20 02:39 98.3 64 119/70 (86) 96 98.3 Labs Labs Laboratory Tests Test 07/09/20 20:10 07/09/20 23:40 White Blood Count 7.8 x10^3/uL (4.0-11.0) Red Blood Count 3.91 x10^6/uL (3.50-5.40) Hemoglobin 13.6 g/dL (12.0-15.5) Hematocrit 38.7 % (36.0-47.0) Mean Corpuscular Volume 99 fL (79-100) Mean Corpuscular Hemoglobin 35 pg (25-35) Mean Corpuscular Hemoglobin Concent 35 g/dL (31-37) Red Cell Distribution Width 15.5 % (11.5-14.5) Platelet Count 346 x10^3/uL (140-400) Neutrophils (%) (Auto) 62 % (31-73) Lymphocytes (%) (Auto) 28 % (24-48) Monocytes (%) (Auto) 9 % (0-9) Eosinophils (%) (Auto) 1 % (0-3) Basophils (%) (Auto) 0 % (0-3) Neutrophils # (Auto) 4.8 x10^3/uL (1.8-7.7) Lymphocytes # (Auto) 2.2 x10^3/uL (1.0-4.8) Monocytes # (Auto) 0.7 x10^3/uL (0.0-1.1) Eosinophils # (Auto) 0.1 x10^3/uL (0.0-0.7) Basophils # (Auto) 0.0 x10^3/uL (0.0-0.2) Sodium Level 137 mmol/L (136-145) Potassium Level 3.6 mmol/L (3.5-5.1) Chloride Level 99 mmol/L (98-107) Carbon Dioxide Level 24 mmol/L (21-32) Anion Gap 14 (6-14) Blood Urea Nitrogen 10 mg/dL (7-20) Creatinine 1.1 mg/dL (0.6-1.0) Estimated GFR (Cockcroft-Gault) 50.3 Glucose Level 97 mg/dL (70-99) Calcium Level 9.6 mg/dL (8.5-10.1) Total Bilirubin 0.9 mg/dL (0.2-1.0) Direct Bilirubin 0.5 mg/dL (0.0-0.2) Aspartate Amino Transf (AST/SGOT) 281 U/L (15-37) Alanine Aminotransferase (ALT/SGPT) 450 U/L (14-59) Alkaline Phosphatase 287 U/L (46-116) Troponin I Quantitative 0.023 ng/mL (0.000-0.055) Total Protein 8.2 g/dL (6.4-8.2) Albumin 3.8 g/dL (3.4-5.0) Lipase 1910 U/L (73-393) Ethyl Alcohol Level < 10 mg/dL (0-10) Urine Collection Type Unknown Urine Color Kami Urine Clarity Clear Urine pH 6.0 (<5.0-8.0) Urine Specific [place] 1.020 (1.000-1.030) Urine Protein Negative mg/dL (NEG-TRACE) Urine Glucose (UA) Negative mg/dL (NEG) Urine Ketones (Stick) Negative mg/dL (NEG) Urine Blood Negative (NEG) Urine Nitrite Positive (NEG) Urine Bilirubin Small (NEG) Urine Urobilinogen Dipstick 0.2 mg/dL (0.2 mg/dL) Urine Leukocyte Esterase Moderate (NEG) Urine RBC Occ /HPF (0-2) Urine WBC 20-40 /HPF (0-4) Urine Squamous Epithelial Cells Mod /LPF Urine Bacteria Many /HPF (0-FEW) Urine Hyaline Casts Few /HPF Urine Mucus Mod /LPF Urine Opiates Screen Pos (NEG) Urine Methadone Screen Neg (NEG) Urine Barbiturates Neg (NEG) Urine Phencyclidine Screen Neg (NEG) Urine Amphetamine/Methamphetamine Neg (NEG) Urine Benzodiazepines Screen Neg (NEG) Urine Cocaine Screen Neg (NEG) Urine Cannabinoids Screen Neg (NEG) Urine Ethyl Alcohol Neg (NEG) Laboratory Tests Test 07/09/20 20:10 07/09/20 23:40 White Blood Count 7.8 x10^3/uL (4.0-11.0) Red Blood Count 3.91 x10^6/uL (3.50-5.40) Hemoglobin 13.6 g/dL (12.0-15.5) Hematocrit 38.7 % (36.0-47.0) Mean Corpuscular Volume 99 fL (79-100) Mean Corpuscular Hemoglobin 35 pg (25-35) Mean Corpuscular Hemoglobin Concent 35 g/dL (31-37) Red Cell Distribution Width 15.5 % (11.5-14.5) Platelet Count 346 x10^3/uL (140-400) Neutrophils (%) (Auto) 62 % (31-73) Lymphocytes (%) (Auto) 28 % (24-48) Monocytes (%) (Auto) 9 % (0-9) Eosinophils (%) (Auto) 1 % (0-3) Basophils (%) (Auto) 0 % (0-3) Neutrophils # (Auto) 4.8 x10^3/uL (1.8-7.7) Lymphocytes # (Auto) 2.2 x10^3/uL (1.0-4.8) Monocytes # (Auto) 0.7 x10^3/uL (0.0-1.1) Eosinophils # (Auto) 0.1 x10^3/uL (0.0-0.7) Basophils # (Auto) 0.0 x10^3/uL (0.0-0.2) Sodium Level 137 mmol/L (136-145) Potassium Level 3.6 mmol/L (3.5-5.1) Chloride Level 99 mmol/L (98-107) Carbon Dioxide Level 24 mmol/L (21-32) Anion Gap 14 (6-14) Blood Urea Nitrogen 10 mg/dL (7-20) Creatinine 1.1 mg/dL (0.6-1.0) Estimated GFR (Cockcroft-Gault) 50.3 Glucose Level 97 mg/dL (70-99) Calcium Level 9.6 mg/dL (8.5-10.1) Total Bilirubin 0.9 mg/dL (0.2-1.0) Direct Bilirubin 0.5 mg/dL (0.0-0.2) Aspartate Amino Transf (AST/SGOT) 281 U/L (15-37) Alanine Aminotransferase (ALT/SGPT) 450 U/L (14-59) Alkaline Phosphatase 287 U/L (46-116) Troponin I Quantitative 0.023 ng/mL (0.000-0.055) Total Protein 8.2 g/dL (6.4-8.2) Albumin 3.8 g/dL (3.4-5.0) Lipase 1910 U/L (73-393) Ethyl Alcohol Level < 10 mg/dL (0-10) Urine Collection Type Unknown Urine Color Kami Urine Clarity Clear Urine pH 6.0 (<5.0-8.0) Urine Specific [place] 1.020 (1.000-1.030) Urine Protein Negative mg/dL (NEG-TRACE) Urine Glucose (UA) Negative mg/dL (NEG) Urine Ketones (Stick) Negative mg/dL (NEG) Urine Blood Negative (NEG) Urine Nitrite Positive (NEG) Urine Bilirubin Small (NEG) Urine Urobilinogen Dipstick 0.2 mg/dL (0.2 mg/dL) Urine Leukocyte Esterase Moderate (NEG) Urine RBC Occ /HPF (0-2) Urine WBC 20-40 /HPF (0-4) Urine Squamous Epithelial Cells Mod /LPF Urine Bacteria Many /HPF (0-FEW) Urine Hyaline Casts Few /HPF Urine Mucus Mod /LPF Urine Opiates Screen Pos (NEG) Urine Methadone Screen Neg (NEG) Urine Barbiturates Neg (NEG) Urine Phencyclidine Screen Neg (NEG) Urine Amphetamine/Methamphetamine Neg (NEG) Urine Benzodiazepines Screen Neg (NEG) Urine Cocaine Screen Neg (NEG) Urine Cannabinoids Screen Neg (NEG) Urine Ethyl Alcohol Neg (NEG) Images Images CT scan of the abdomen and pelvis with contrast 07/08/2020 CLINICAL HISTORY: Abdominal pain. TECHNIQUE: After the oral and intravenous ministration contrast, contiguous, 5 mm axial sections were obtained through the abdomen and pelvis. One or more of the following individualized dose reduction techniques were utilized for this study: 1. Automated exposure control. 2. Adjustment of the mA and/or kV according to patient size. 3. Use of iterative reconstruction technique. FINDINGS: Comparison study is dated 04/16/2019. Images through the lung bases demonstrate minimal dependent subsegmental atelectasis bilaterally. The liver parenchyma has a decreased attenuation consistent with fatty infiltration. Small calcified granulomas are seen scattered throughout the spleen. The pancreas is within normal limits. Rounded low-attenuation lesions are seen involving both kidneys which measure 5 mm to 1 cm in size. They likely represent cysts. No further imaging evaluation is recommended. A 7 mm nonobstructing calculus is seen involving the lower pole the right kidney. Slight prominence of the body and tail of pancreas is seen. Increased density seen within the fat surrounding this portion of the pancreas consistent with acute pancreatitis. A low-attenuation lesion with a thickened wall is seen in the head of the pancreas which is new since previous examination. This measures 7.8 x 6.4 x 5.4 cm in AP, transverse and craniocaudal dimensions. This likely represents pancreatic pseudocyst. Punctate calcifications are seen scattered throughout the pancreas. No additional abnormal fluid collection is seen. Atherosclerotic calcification abdominal aorta is seen. The abdominal aorta tapers normally. The gallbladder is distended. No free fluid or free air is seen within the abdomen. There is no evidence of bowel obstruction. Patient is post ventral hernia repair. The appendix is well-visualized and is within normal limits. Images through the pelvis demonstrate the urinary bladder distended with urine. Surgical clips are seen within the right pelvis. No adnexal mass is seen. No free fluid is noted. Mild S-shaped curvature of the thoracolumbar spine is seen. Degenerative changes are seen involving lower thoracic and throughout the lumbar spine along with both hips. Patient is post kyphoplasty type procedure involving the L1 vertebral body. IMPRESSION: Findings are seen consistent with acute on chronic pancreatitis. A 7.8 cm pancreatic pseudocyst is seen within the head of the pancreas. ABDOMEN LTD Exam: Ultrasound abdomen limited Indication: Right upper quadrant pain, assess gallbladder Technique: Real-time grayscale and color Doppler images of the right upper quadrant were obtained by the department air pollution specialist. Comparisons: None FINDINGS: Increased echogenicity of the liver, likely related to hepatic steatosis. Vascular flow identified within the vascular flow. Gallbladder is distended with internal debris. No pericholecystic fluid or wall thickening. There is a sonographic Paulson sign per the department air pollution specialist' s. Common bile duct is dilated measuring 1.5 cm in diameter. Right kidney measures 11.6 cm in length. No hydronephrosis. Visualized portions aorta and IVC are unremarkable. IMPRESSION: 1. Dilated gallbladder and common bile duct. An obstructing stone or lesion is not identified. There is a positive sonographic Paulson sign per the air pollution specialist, which can be seen in setting of acute cholecystitis. If there is persistent concern for obstruction HIDA scan would better evaluate. 2. Hepatic steatosis. 3. No right-sided hydronephrosis. VTE Prophylaxis Ordered VTE Prophylaxis Devices: No VTE Pharmacological Prophylaxi: Yes Assessment/Plan Assessment/Plan Acute on chronic pancreatitis Pancreatic pseudocyst Dilated gallbladder vs cholecystitis Transaminitis Plan: NPO; continue IV fluids at 250cc Consult to GI Follow urine output Consult general surgery No gallstones seen on ultrasound; will defer to general surgery for recommendations on HIDA scan Dilaudid IV as needed for pain Resume home medications FEN - NPO PPX - Lovenox FULL CODE Dispo - inpatient for above Justifications for Admission Other Justification Acute pancreatitis ZI ARBOLEDA MD Jul 10, 2020 08:11
[2020-07-10] MEDS: LOSARTAN POTASSIUM 50 MG TABLET. PO SCH (09:00)
[2020-07-10] MEDS ORDERED: hydroCHLOROthiazide 25 MG TABLET PO SCH (09:00)
--- NOTE | 2020-07-10 09:00 | NUR ---
PATIENT REMAINS NPO AT THIS TIME, ALERT AND VERBALLY RESPONSIVE, C/O IN ABDOMINAL AREA AND BACK, WILL GIVE PAIN MEDS IF IT IS TIME, INFORMED PATIENT THAT DR. MENG SHOULD SEE HER TODAY.
[2020-07-10 09:27] LABS: BASO # 0.1 x10^3/uL (0.0-0.2); BASO % 1 % (0-3); EOS # 0.1 x10^3/uL (0.0-0.7); EOS % 2 % (0-3); HEMATOCRIT 38.5 % (36.0-47.0); HEMOGLOBIN 13.1 g/dL (12.0-15.5); LYMPH # 1.7 x10^3/uL (1.0-4.8); LYMPH % 30 % (24-48); MEAN CORPUSCULAR HEMOGLOBIN 35 pg (25-35); MEAN CORPUSCULAR HGB CONC 34 g/dL (31-37); MEAN CORPUSCULAR VOLUME 102 fL (79-100); MONO # 0.5 x10^3/uL (0.0-1.1); MONO % 9 % (0-9); NEUT # 3.2 x10^3/uL (1.8-7.7); NEUT % 58 % (31-73); PLATELET COUNT 285 x10^3/uL (140-400); RED BLOOD COUNT 3.78 x10^6/uL (3.50-5.40); RED CELL DISTRIBUTION WIDTH 15.6 % (11.5-14.5); WHITE BLOOD COUNT 5.5 x10^3/uL (4.0-11.0)
--- NOTE | 2020-07-10 09:37 | PDOC2 ---
CHANDLER DOUGLAS [employer] AND [employer] INSTRUCTOR 07/10/20 0936: CONSULT Date of Consult Date of Consult DATE: 07/10/20 TIME: 09:25 Reason for Consult Reason for Consult: pancreatitis Referring Physician Referring Physician: ER Identification/Chief Complaint Chief Complaint abdominal pain Source Source: Chart review, Patient History of Present Illness Reason for Visit: 3 weeks upper abdominal pain, epigastric, left side, chest. Burning type pain, progressively worsened. Severe last week. Seen in ER, left AMA prior to results--CT with pancreatitis, pseudocyst--returned and admitted denies any chronic liver issues NO hx of pancreatitis, no drinking in many years, drank some when 20s, not heav [place]ott Past Medical History Cardiovascular: HTN Pulmonary: Bronchitis, COPD Musculoskeletal: low back pain Endocrine: Hypothyroidism Past Surgical History Past Surgical History: Hernia Repair, Other (for cervical cancer) Family History Family History: Family History Unknown Social History 1 pack per day ALCOHOL: none Drugs: None Current Problem List Problem List Problems Medical Problems: (1) Acute on chronic pancreatitis Status: Acute (2) Right upper quadrant abdominal pain with positive Paulson's Sign Status: Acute (3) Transaminitis Status: Acute Current Medications Current Medications Current Medications Sodium Chloride 1,000 ml @ 1,000 mls/hr Q1H IV Last administered on 07/09/20at 20:15; Start 07/09/20 at 20:00; Stop 07/09/20 at 20:59; Status DC Sodium Chloride 1,000 ml @ 250 mls/hr Q4H IV Last administered on 07/09/20at 21:00; Start 07/09/20 at 20:00; Stop 07/10/20 at 02:05; Status DC Hydromorphone HCl (Dilaudid) 1 mg 1X ONCE IVP Last administered on 07/09/20at 20:18; Start 07/09/20 at 20:00; Stop 07/09/20 at 20:11; Status DC Hydromorphone HCl (Dilaudid) 2 mg STK-MED ONCE .ROUTE ; Start 07/09/20 at 20:03; Stop 07/09/20 at 20:03; Status DC Hydromorphone HCl (Dilaudid) 1 mg 1X ONCE IVP Last administered on 07/09/20at 21:21; Start 07/09/20 at 21:15; Stop 07/09/20 at 21:16; Status DC Ondansetron HCl (Zofran) 4 mg PRN Q8HRS PRN IV NAUSEA/VOMITING; Start 07/09/20 at 22:00; Stop 07/10/20 at 21:59 Sodium Chloride 1,000 ml @ 100 mls/hr Q10H IV ; Start 07/09/20 at 22:00; Stop 07/10/20 at 21:59 Acetaminophen (Tylenol) 650 mg PRN Q4HRS PRN PO FEVER > 100.3'F; Start 07/09/20 at 22:00; Stop 07/10/20 at 21:59 Hydromorphone HCl (Dilaudid) 2 mg PRN Q4HRS PRN IVP PAIN Last administered on 07/09/20at 23:02; Start 07/09/20 at 22:00; Stop 07/09/20 at 23:32; Status DC Hydromorphone HCl (Dilaudid) 4 mg PRN Q2HR PRN IVP PAIN Last administered on 07/10/20at 05:31; Start 07/09/20 at 23:30 Ondansetron HCl (Zofran) 4 mg PRN Q6HRS PRN IVP NAUSEA/VOMITING; Start 07/09/20 at 23:45 Prochlorperazine Edisylate (Compazine) 10 mg PRN Q6HRS PRN IVP NAUSEA/VOMITING; Start 07/09/20 at 23:45 Al Hydroxide/Mg Hydroxide (Mylanta Plus Xs) 30 ml PRN Q3HRS PRN PO HEARTBURN / GAS; Start 07/09/20 at 23:45 Calcium Carbonate/ Glycine (Tums) 500 mg PRN Q3HRS PRN PO UPSET STOMACH; Start 07/09/20 at 23:45 Acetaminophen (Tylenol) 650 mg PRN Q6HRS PRN PO Headaches, Temp > 101.5F; Start 07/09/20 at 23:45 Magnesium Hydroxide (Milk Of Magnesia) 2,400 mg PRN Q12HR PRN PO CONSTIPATION; Start 07/09/20 at 23:45 Bisacodyl (Dulcolax Supp) 10 mg PRN DAILY PRN ND CONSTIPATION; Start 07/09/20 at 23:45 Enoxaparin Sodium (Lovenox 40mg Syringe) 40 mg Q24H SQ ; Start 07/09/20 at 23:45 Amlodipine Besylate (Norvasc) 10 mg DAILY PO ; Start 07/10/20 at 09:00 Cyclobenzaprine HCl (Flexeril) 10 mg PRN TID PRN PO PAIN; Start 07/09/20 at 23:45 Hydrochlorothiazide (Hydrodiuril) 25 mg DAILY PO ; Start 07/10/20 at 09:00 Levothyroxine Sodium (Synthroid) 150 mcg DAILY06 PO ; Start 07/10/20 at 06:00 Lidocaine (Lidoderm) 1 patch PRN DAILY PRN TP PAIN; Start 07/09/20 at 23:45 Oxycodone HCl (Roxicodone) 30 mg PRN Q4HRS PRN PO PAIN Last administered on 07/10/20at 00:21; Start 07/09/20 at 23:45 Sumatriptan Succinate (Imitrex) 100 mg PRN Q24HRS PRN PO HEADACHE; Start 07/09/20 at 23:45 Losartan Potassium (Cozaar) 100 mg DAILY PO ; Start 07/10/20 at 09:00 Lorazepam (Ativan Inj) 1 mg PRN Q4HRS PRN IVP ANXIETY / AGITATION Last administered on 07/10/20at 07:00; Start 07/09/20 at 23:45 Miscellaneous (Lidoderm Patch Removal) 1 ea QHS MC ; Start 07/11/20 at 21:00 Active Scripts Active Pyridium (Phenazopyridine Hcl) 100 Mg Tablet 100 Mg PO TID Cipro (Ciprofloxacin Hcl) 250 Mg Tablet 1 Tab PO BID Lidocaine PATCH (Lidocaine) 1 Each Adh..patch 1 Each TP DAILY REMOVE AFTER 12 HOURS Lidocaine PATCH (Lidocaine) 1 Each Adh..patch 1 Each TP DAILY PRN Diclofenac Sodium 50 Mg Tablet.dr 1 Tab PO BID Cyclobenzaprine Hcl 10 Mg Tablet 1 Tab PO TID PRN Bentyl (Dicyclomine Hcl) 10 Mg/1 Ml Ampul 10 Mg IM BID Cyclobenzaprine Hcl 10 Mg Tablet 1 Tab PO TID PRN Levaquin (Levofloxacin) 500 Mg Tablet 1 Tab PO DAILY Macrobid 100 Mg Capsule (Nitrofurantoin Monohyd/M-Cryst) 100 Mg Capsule 1 Cap PO BID Cyclobenzaprine Hcl 10 Mg Tablet 1 Tab PO TID 30 Days Levothyroxine Sodium 150 Mcg Tablet 150 Mcg PO DAILY06 30 Days Imitrex (Sumatriptan Succinate) 100 Mg Tablet 1 Tab PO UD Losartan Potassium 100 Mg Tablet 100 Mg PO DAILY 30 Days Hydrochlorothiazide Tablet (Hydrochlorothiazide) 25 Mg Tablet 1 Tab PO DAILY Amlodipine Besylate 10 Mg Tablet 10 Mg PO DAILY 30 Days Reported Oxycodone Hcl Immed.release (Oxycodone Hcl) 5 Mg Tablet 30 Mg PO PRN Q4HRS PRN Allergies Allergies: Coded Allergies: No Known Drug Allergies (Unverified , 03/27/16) ROS General: YES: Fatigue; No: Chills PSYCHOLOGICAL ROS: No: Anxiety, Depression Eyes: No Blurry vision, No Double vision HEENT: No: Heacaches, Sore Throat Hematological and Lymphatic: No: Bleeding Problems, Blood Clots Respiratory: No: Cough, Shortness of breath Cardiovascular: yes Chest Pain; No Palpitations Gastrointestinal: Yes Other (see hpi) Genitourinary: No Dysuria, No Hematuria Musculoskeletal: Yes Joint Pain, Yes Muscle Pain Neurological: No Impaired Coord/balance, No Numbness/Tingling Skin: No Pruritus, No Rash Physical Exam General: Alert, Oriented X3, Cooperative HEENT: Atraumatic, PERRLA Lungs: Clear to auscultation, Normal air movement Heart: Regular rate, Normal S1, Normal S2 Abdomen: Soft, Other (ttp epigastric, LUQ, midline scar) Extremities: No clubbing, No cyanosis Skin: No rashes, No breakdown Neuro: Normal gait, Normal speech Psych/Mental Status: Mental status NL, Mood NL MUSCULOSKELETAL: No deformity, No swelling Vitals VITALS Vital Signs Date Time Temp Pulse Resp B/P (MAP) Pulse Ox O2 Delivery O2 Flow Rate FiO2 07/10/20 07:00 97.6 64 16 152/60 (90) 96 Room Air 97.6 Labs Labs Laboratory Tests Test 07/09/20 20:10 07/09/20 23:40 White Blood Count 7.8 x10^3/uL (4.0-11.0) Red Blood Count 3.91 x10^6/uL (3.50-5.40) Hemoglobin 13.6 g/dL (12.0-15.5) Hematocrit 38.7 % (36.0-47.0) Mean Corpuscular Volume 99 fL (79-100) Mean Corpuscular Hemoglobin 35 pg (25-35) Mean Corpuscular Hemoglobin Concent 35 g/dL (31-37) Red Cell Distribution Width 15.5 % (11.5-14.5) Platelet Count 346 x10^3/uL (140-400) Neutrophils (%) (Auto) 62 % (31-73) Lymphocytes (%) (Auto) 28 % (24-48) Monocytes (%) (Auto) 9 % (0-9) Eosinophils (%) (Auto) 1 % (0-3) Basophils (%) (Auto) 0 % (0-3) Neutrophils # (Auto) 4.8 x10^3/uL (1.8-7.7) Lymphocytes # (Auto) 2.2 x10^3/uL (1.0-4.8) Monocytes # (Auto) 0.7 x10^3/uL (0.0-1.1) Eosinophils # (Auto) 0.1 x10^3/uL (0.0-0.7) Basophils # (Auto) 0.0 x10^3/uL (0.0-0.2) Sodium Level 137 mmol/L (136-145) Potassium Level 3.6 mmol/L (3.5-5.1) Chloride Level 99 mmol/L (98-107) Carbon Dioxide Level 24 mmol/L (21-32) Anion Gap 14 (6-14) Blood Urea Nitrogen 10 mg/dL (7-20) Creatinine 1.1 mg/dL (0.6-1.0) Estimated GFR (Cockcroft-Gault) 50.3 Glucose Level 97 mg/dL (70-99) Calcium Level 9.6 mg/dL (8.5-10.1) Total Bilirubin 0.9 mg/dL (0.2-1.0) Direct Bilirubin 0.5 mg/dL (0.0-0.2) Aspartate Amino Transf (AST/SGOT) 281 U/L (15-37) Alanine Aminotransferase (ALT/SGPT) 450 U/L (14-59) Alkaline Phosphatase 287 U/L (46-116) Troponin I Quantitative 0.023 ng/mL (0.000-0.055) Total Protein 8.2 g/dL (6.4-8.2) Albumin 3.8 g/dL (3.4-5.0) Lipase 1910 U/L (73-393) Ethyl Alcohol Level < 10 mg/dL (0-10) Urine Collection Type Unknown Urine Color Kami Urine Clarity Clear Urine pH 6.0 (<5.0-8.0) Urine Specific [place] 1.020 (1.000-1.030) Urine Protein Negative mg/dL (NEG-TRACE) Urine Glucose (UA) Negative mg/dL (NEG) Urine Ketones (Stick) Negative mg/dL (NEG) Urine Blood Negative (NEG) Urine Nitrite Positive (NEG) Urine Bilirubin Small (NEG) Urine Urobilinogen Dipstick 0.2 mg/dL (0.2 mg/dL) Urine Leukocyte Esterase Moderate (NEG) Urine RBC Occ /HPF (0-2) Urine WBC 20-40 /HPF (0-4) Urine Squamous Epithelial Cells Mod /LPF Urine Bacteria Many /HPF (0-FEW) Urine Hyaline Casts Few /HPF Urine Mucus Mod /LPF Urine Opiates Screen Pos (NEG) Urine Methadone Screen Neg (NEG) Urine Barbiturates Neg (NEG) Urine Phencyclidine Screen Neg (NEG) Urine Amphetamine/Methamphetamine Neg (NEG) Urine Benzodiazepines Screen Neg (NEG) Urine Cocaine Screen Neg (NEG) Urine Cannabinoids Screen Neg (NEG) Urine Ethyl Alcohol Neg (NEG) Laboratory Tests Test 07/09/20 20:10 07/09/20 23:40 White Blood Count 7.8 x10^3/uL (4.0-11.0) Red Blood Count 3.91 x10^6/uL (3.50-5.40) Hemoglobin 13.6 g/dL (12.0-15.5) Hematocrit 38.7 % (36.0-47.0) Mean Corpuscular Volume 99 fL (79-100) Mean Corpuscular Hemoglobin 35 pg (25-35) Mean Corpuscular Hemoglobin Concent 35 g/dL (31-37) Red Cell Distribution Width 15.5 % (11.5-14.5) Platelet Count 346 x10^3/uL (140-400) Neutrophils (%) (Auto) 62 % (31-73) Lymphocytes (%) (Auto) 28 % (24-48) Monocytes (%) (Auto) 9 % (0-9) Eosinophils (%) (Auto) 1 % (0-3) Basophils (%) (Auto) 0 % (0-3) Neutrophils # (Auto) 4.8 x10^3/uL (1.8-7.7) Lymphocytes # (Auto) 2.2 x10^3/uL (1.0-4.8) Monocytes # (Auto) 0.7 x10^3/uL (0.0-1.1) Eosinophils # (Auto) 0.1 x10^3/uL (0.0-0.7) Basophils # (Auto) 0.0 x10^3/uL (0.0-0.2) Sodium Level 137 mmol/L (136-145) Potassium Level 3.6 mmol/L (3.5-5.1) Chloride Level 99 mmol/L (98-107) Carbon Dioxide Level 24 mmol/L (21-32) Anion Gap 14 (6-14) Blood Urea Nitrogen 10 mg/dL (7-20) Creatinine 1.1 mg/dL (0.6-1.0) Estimated GFR (Cockcroft-Gault) 50.3 Glucose Level 97 mg/dL (70-99) Calcium Level 9.6 mg/dL (8.5-10.1) Total Bilirubin 0.9 mg/dL (0.2-1.0) Direct Bilirubin 0.5 mg/dL (0.0-0.2) Aspartate Amino Transf (AST/SGOT) 281 U/L (15-37) Alanine Aminotransferase (ALT/SGPT) 450 U/L (14-59) Alkaline Phosphatase 287 U/L (46-116) Troponin I Quantitative 0.023 ng/mL (0.000-0.055) Total Protein 8.2 g/dL (6.4-8.2) Albumin 3.8 g/dL (3.4-5.0) Lipase 1910 U/L (73-393) Ethyl Alcohol Level < 10 mg/dL (0-10) Urine Collection Type Unknown Urine Color Kami Urine Clarity Clear Urine pH 6.0 (<5.0-8.0) Urine Specific [place] 1.020 (1.000-1.030) Urine Protein Negative mg/dL (NEG-TRACE) Urine Glucose (UA) Negative mg/dL (NEG) Urine Ketones (Stick) Negative mg/dL (NEG) Urine Blood Negative (NEG) Urine Nitrite Positive (NEG) Urine Bilirubin Small (NEG) Urine Urobilinogen Dipstick 0.2 mg/dL (0.2 mg/dL) Urine Leukocyte Esterase Moderate (NEG) Urine RBC Occ /HPF (0-2) Urine WBC 20-40 /HPF (0-4) Urine Squamous Epithelial Cells Mod /LPF Urine Bacteria Many /HPF (0-FEW) Urine Hyaline Casts Few /HPF Urine Mucus Mod /LPF Urine Opiates Screen Pos (NEG) Urine Methadone Screen Neg (NEG) Urine Barbiturates Neg (NEG) Urine Phencyclidine Screen Neg (NEG) Urine Amphetamine/Methamphetamine Neg (NEG) Urine Benzodiazepines Screen Neg (NEG) Urine Cocaine Screen Neg (NEG) Urine Cannabinoids Screen Neg (NEG) Urine Ethyl Alcohol Neg (NEG) Assessment/Plan Assessment/Plan pancreatitis, pseudocyst conservative measures ? cause of pancreatitis--GB with debris, distended--will review with GI, further testing, ?imaging LFTS elevated--? pass stone hx of hypothyroidism, high TSH on previous labs--on medication--? last checked--defer to [facility] will review with Dr Villarreal UTI on UA--per [facility]PC PERRY VILLARREAL MD 07/10/20 1259: CONSULT Assessment/Plan Assessment/Plan Above noted; primary treatment geared toward pancreatitis, bowel rest, pain control, hydration etc. Follow pseudocyst to assess resolution; No clear gallstones, ?debris. possible stone passed; note marked hypothyroidism, ?autoimmune etiology. Defer to medicine for treatment CHANDLER DOUGLAS APRN Jul 10, 2020 09:36 PERRY VILLARREAL MD Jul 10, 2020 12:59
--- NOTE | 2020-07-10 09:38 | PDOC2 ---
GI CONSULT Date of Service: DATE: 07/10/20 TIME: 09:38 Reason For Consult: pancreatitis HPI: HPI: 60 y/o female who has been ill x 3 weeks. "It started out of the blue" w/ diarrhea (up to 3-4 stools daily), stomachache ("burning"), and nausea. Thinks might have some pain in back as well but she has chronic back pain so hard to say. Pain might be worse with eating sometimes but sometimes not; in fact, she doesn't understand why she can't eat here although she's not hungry. Tried Mylanta and Pepto at home for pain - not much help and now stools look black from Pepto. Was seen in ER on 07/08, left AMA, returned yesterday after PCP called w/ lab/imaging results. Denies reflux/heartburn, dysphagia, vomiting, constipation, hematochezia, melena, and weight loss. Denies GB, liver, pancreas, and PUD history. No previous EGD. Thinks she had a colonoscopy at some point - tells me she doesn't recall where or when this was done or what was found. No NSAIDs. Takes oxycodone QID PRN ("sometimes 2 at a time so I don't have to mess with it for awhile") for back pain. Has had 11 CTs of abd/pelv here since 2013. Med list includes HCTZ. Impressive TSH in 2017 - says taking thyroid medication now. PMH: PMH: HTN, hypothyroidism, chronic back, ureterolithiasis, cervical cancer tubal ligation, chemo and radiation, ureteral stents, lithotripsy, kyphoplasty FH: Family History: No pertinent hx (denies pancreatitis, GI cancers), Cancer (GM - cervical) Social History: Smoke: 1 pack per day ALCOHOL: none (drank "some" in her twenties, says she doesn't think "heavy") Drugs: None ROS: GEN: Denies fevers, chills, sweats HEENT: Denies blurred vision, sore throat CV: Denies chest pain RESP: Denies shortness of air, cough GI: Per HPI : Denies hematuria, dysuria ENDO: Denies weight changes NEURO: Denies confusion, dizziness MSK: +chronic back pain SKIN: Denies jaundice, pruritus Vitals: Vitals: Vital Signs Date Time Temp Pulse Resp B/P (MAP) Pulse Ox O2 Delivery O2 Flow Rate FiO2 07/10/20 09:22 20 94 Room Air 07/10/20 07:00 97.6 64 152/60 (90) 97.6 Labs: Labs: Laboratory Tests Test 07/09/20 20:10 07/09/20 23:40 07/10/20 09:15 White Blood Count 7.8 x10^3/uL (4.0-11.0) 5.5 x10^3/uL (4.0-11.0) Red Blood Count 3.91 x10^6/uL (3.50-5.40) 3.78 x10^6/uL (3.50-5.40) Hemoglobin 13.6 g/dL (12.0-15.5) 13.1 g/dL (12.0-15.5) Hematocrit 38.7 % (36.0-47.0) 38.5 % (36.0-47.0) Mean Corpuscular Volume 99 fL (79-100) 102 fL (79-100) Mean Corpuscular Hemoglobin 35 pg (25-35) 35 pg (25-35) Mean Corpuscular Hemoglobin Concent 35 g/dL (31-37) 34 g/dL (31-37) Red Cell Distribution Width 15.5 % (11.5-14.5) 15.6 % (11.5-14.5) Platelet Count 346 x10^3/uL (140-400) 285 x10^3/uL (140-400) Neutrophils (%) (Auto) 62 % (31-73) 58 % (31-73) Lymphocytes (%) (Auto) 28 % (24-48) 30 % (24-48) Monocytes (%) (Auto) 9 % (0-9) 9 % (0-9) Eosinophils (%) (Auto) 1 % (0-3) 2 % (0-3) Basophils (%) (Auto) 0 % (0-3) 1 % (0-3) Neutrophils # (Auto) 4.8 x10^3/uL (1.8-7.7) 3.2 x10^3/uL (1.8-7.7) Lymphocytes # (Auto) 2.2 x10^3/uL (1.0-4.8) 1.7 x10^3/uL (1.0-4.8) Monocytes # (Auto) 0.7 x10^3/uL (0.0-1.1) 0.5 x10^3/uL (0.0-1.1) Eosinophils # (Auto) 0.1 x10^3/uL (0.0-0.7) 0.1 x10^3/uL (0.0-0.7) Basophils # (Auto) 0.0 x10^3/uL (0.0-0.2) 0.1 x10^3/uL (0.0-0.2) Sodium Level 137 mmol/L (136-145) Potassium Level 3.6 mmol/L (3.5-5.1) Chloride Level 99 mmol/L (98-107) Carbon Dioxide Level 24 mmol/L (21-32) Anion Gap 14 (6-14) Blood Urea Nitrogen 10 mg/dL (7-20) Creatinine 1.1 mg/dL (0.6-1.0) Estimated GFR (Cockcroft-Gault) 50.3 Glucose Level 97 mg/dL (70-99) Calcium Level 9.6 mg/dL (8.5-10.1) Total Bilirubin 0.9 mg/dL (0.2-1.0) Direct Bilirubin 0.5 mg/dL (0.0-0.2) Aspartate Amino Transf (AST/SGOT) 281 U/L (15-37) Alanine Aminotransferase (ALT/SGPT) 450 U/L (14-59) Alkaline Phosphatase 287 U/L (46-116) Troponin I Quantitative 0.023 ng/mL (0.000-0.055) Total Protein 8.2 g/dL (6.4-8.2) Albumin 3.8 g/dL (3.4-5.0) Lipase 1910 U/L (73-393) Ethyl Alcohol Level < 10 mg/dL (0-10) Urine Collection Type Unknown Urine Color Kami Urine Clarity Clear Urine pH 6.0 (<5.0-8.0) Urine Specific [place] 1.020 (1.000-1.030) Urine Protein Negative mg/dL (NEG-TRACE) Urine Glucose (UA) Negative mg/dL (NEG) Urine Ketones (Stick) Negative mg/dL (NEG) Urine Blood Negative (NEG) Urine Nitrite Positive (NEG) Urine Bilirubin Small (NEG) Urine Urobilinogen Dipstick 0.2 mg/dL (0.2 mg/dL) Urine Leukocyte Esterase Moderate (NEG) Urine RBC Occ /HPF (0-2) Urine WBC 20-40 /HPF (0-4) Urine Squamous Epithelial Cells Mod /LPF Urine Bacteria Many /HPF (0-FEW) Urine Hyaline Casts Few /HPF Urine Mucus Mod /LPF Urine Opiates Screen Pos (NEG) Urine Methadone Screen Neg (NEG) Urine Barbiturates Neg (NEG) Urine Phencyclidine Screen Neg (NEG) Urine Amphetamine/Methamphetamine Neg (NEG) Urine Benzodiazepines Screen Neg (NEG) Urine Cocaine Screen Neg (NEG) Urine Cannabinoids Screen Neg (NEG) Urine Ethyl Alcohol Neg (NEG) Allergies: Coded Allergies: No Known Drug Allergies (Unverified , 03/27/16) Medications: Current Medications Medications (Trade) Dose Ordered Sig/Herminio Route PRN Reason Start Time Stop Time Status Last Admin Dose Admin Sodium Chloride 1,000 ml @ 1,000 mls/hr Q1H IV 07/09/20 20:00 07/09/20 20:59 DC 07/09/20 20:15 Sodium Chloride 1,000 ml @ 250 mls/hr Q4H IV 07/09/20 20:00 07/10/20 02:05 DC 07/09/20 21:00 Hydromorphone HCl (Dilaudid) 1 mg 1X ONCE IVP 07/09/20 20:00 07/09/20 20:11 DC 07/09/20 20:18 Hydromorphone HCl (Dilaudid) 1 mg 1X ONCE IVP 07/09/20 21:15 07/09/20 21:16 DC 07/09/20 21:21 Hydromorphone HCl (Dilaudid) 2 mg PRN Q4HRS PRN IVP PAIN 07/09/20 22:00 07/09/20 23:32 DC 07/09/20 23:02 Hydromorphone HCl (Dilaudid) 4 mg PRN Q2HR PRN IVP PAIN 07/09/20 23:30 07/10/20 09:22 Oxycodone HCl (Roxicodone) 30 mg PRN Q4HRS PRN PO PAIN 07/09/20 23:45 07/10/20 00:21 Lorazepam (Ativan Inj) 1 mg PRN Q4HRS PRN IVP ANXIETY / AGITATION 07/09/20 23:45 07/10/20 07:00 Imaging: Imaging: CXR 07/08 IMPRESSION: No acute radiographic abnormality is seen. C/A/P CT 07/08 Findings: Beam hardening artifact related to contrast within the left axillary, subclavian and brachiocephalic vein related to the contrast injection limits evaluation of the superior mediastinum. In oval-shaped soft tissue mass is seen within the anterior superior mediastinum which is difficult to evaluate. This may connect to the inferior thyroid gland possibly representing a substernal goiter. No filling defect is seen within the major branches of either pulmonary artery. There is no CT evidence of pulmonary embolism. The heart is borderline enlarged. Scattered atherosclerotic calcification of the thoracic aorta and its branches is noted. The thoracic aorta is tortuous but tapers normally. Patchy perihilar infiltrates are seen involving both lower lungs no pneumothorax or pleural effusion is seen. Impression: There is no CT evidence of pulmonary embolism. Images through the lung bases demonstrate minimal dependent subsegmental atelectasis bilaterally. The liver parenchyma has a decreased attenuation consistent with fatty infilt ration. Small calcified granulomas are seen scattered throughout the spleen. The pancreas is within normal limits. Rounded low-attenuation lesions are seen involving both kidneys which measure 5 mm to 1 cm in size. They likely represent cysts. No further imaging evaluation is recommended. A 7 mm nonobstructing calculus is seen involving the lower pole the right kidney. Slight prominence of the body and tail of pancreas is seen. Increased density seen within the fat surrounding this portion of the pancreas consistent with acute pancreatitis. A low-attenuation lesion with a thickened wall is seen in the head of the pancreas which is new since previous examination. This measures 7.8 x 6.4 x 5.4 cm in AP, transverse and craniocaudal dimensions. This likely represents pancreatic pseudocyst. Punctate calcifications are seen scattered throughout the pancreas. No additional abnormal fluid collection is seen. Atherosclerotic calcification abdominal aorta is seen. The abdominal aorta tapers normally. The gallbladder is distended. No free fluid or free air is seen within the abdomen. There is no evidence of bowel obstruction. Patient is post ventral hernia repair. The appendix is well-visualized and is within normal limits. Images through the pelvis demonstrate the urinary bladder distended with urine. Surgical clips are seen within the right pelvis. No adnexal mass is seen. No free fluid is noted. Mild S-shaped curvature of the thoracolumbar spine is seen. Degenerative changes are seen involving lower thoracic and throughout the lumbar spine along with both hips. Patient is post kyphoplasty type procedure involving the L1 vertebral body. IMPRESSION: Findings are seen consistent with acute on chronic pancreatitis. A 7.8 cm pancreatic pseudocyst is seen within the head of the pancreas. RUQ US 07/09 FINDINGS: Increased echogenicity of the liver, likely related to hepatic steatosis. Vascular flow identified within the vascular flow. Gallbladder is distended with internal debris. No pericholecystic fluid or wall thickening. There is a sonographic Paulson sign per the department stock clipper' s. Common bile duct is dilated measuring 1.5 cm in diameter. Right kidney measures 11.6 cm in length. No hydronephrosis. Visualized portions aorta and IVC are unremarkable. IMPRESSION: 1. Dilated gallbladder and common bile duct. An obstructing stone or lesion is not identified. There is a positive sonographic Paulson sign per the stock clipper, which can be seen in setting of acute cholecystitis. If there is persistent concern for obstruction HIDA scan would better evaluate. 2. Hepatic steatosis. 3. No right-sided hydronephrosis. PE: GEN: looks uncomfortable HEENT: Atraumatic, PERRL LUNGS: diminished anteriorly HEART: RRR ABD: quiet, epigastric to LUQ discomfort EXTREMITY: No edema SKIN: No rashes, no jaundice NEURO/PSYCH: A & O 3 A/P: A/P: Acute on chronic pancreatitis w/ pancreatic pseudocyst - unclear etiology Diarrhea - none here Macrocytosis, UTI, elevated LFTs (normal bili) Distended GB w/ debris, dilated CBD (1.5cm) CRC screen - details of past colonoscopy unclear Hepatic steatosis H/o cervical cancer w/ chemo/rad Chronic pain on oxycodone -- D/w Dr. Crabtree - MRCP would be helpful though this is usually pursued as outpt. Will check CA19-9. She asks for water - okay to try some sips. Monitor for diarrhea, check stool studies if indicated. 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 ?hold HCTZ Check TSH and triglycerides. D/w Ailyn/surgery. OSVALDO ZHAO Jul 10, 2020 09:38
[2020-07-10 09:45] LABS: CALCIUM 8.5 mg/dL (8.5-10.1); GFR 56.2; POTASSIUM 3.9 mmol/L (3.5-5.1)
--- NOTE | 2020-07-10 09:58 | NUR ---
SW following. Discussed with RN, pt from home with spouse, room air, NPO. GI and Surgery consulted. Med Assist following for self pay status. RN advised no SW needs at this time. SW will continue to follow.
[2020-07-10 11:00] VITALS: BP 134/68
[2020-07-10] MEDS ORDERED: MORPHINE SULFATE 4 MG/ML VIAL. ONE (14:42)
[2020-07-10] MEDS ORDERED: MORPHINE SULFATE 4 MG/ML VIAL. IV ONE (14:45)
--- NOTE | 2020-07-10 15:00 | NUR ---
Called to Nuc med to give Morphine 4mg for gallbladder scan. Pt is alert and oriented, VS 145/85 58 96%RA. Morphine given, follow up VS 134/83 54 94%RA, will continue to be monitored by Nuc med staff. FLORENTINO EMERSON
--- NOTE | 2020-07-10 15:51 | RAD ---
INDICATION: Abdomen pain. COMPARISON: July 09, 2020 exam TECHNIQUE: 5.5mCi of Tc99m Choletec was injected intravenously followed by scintigraphic images of the abdomen. FINDINGS: Radiotracer clearance is seen from the blood pool with liver uptake and excretion into the bile ducts with some prominent retention of radiotracer within the bile ducts but there is eventual passage of radiotracer into the small bowel. The gallbladder is not visualized by the 60 minute time point. Afte r administration of morphine there is eventual visualization of the gallbladder. IMPRESSION: 1. Slow passage of radiotracer into the small bowel but there is eventual passage into the small estephania l without evidence of a high-grade bile duct obstruction. A partial obstruction of the bile ducts is not excluded given the slow passage. 2. The gallbladder is not visualized at the 60 minute time point but is seen after administration of morphine. Causes such as chronic cholecystitis are within the differential given this delayed visuali zation. Electronically signed by: Damon Yan MD (07/10/2020 3:49 PM) [id number]
[2020-07-10] MEDS: NICOTINE 21MG PATCH. TD SCH (16:12)
[2020-07-10] MEDS: PANTOPRAZOLE IV PUSH 40 MG VIAL. IVP SCH (16:23)
[2020-07-10 19:00] VITALS: BP 175/82
[2020-07-10] MEDS: ENOXAPARIN 40 MG/0.4 ML SYRINGE. SQ SCH (19:34)
--- NOTE | 2020-07-10 20:49 | NUR ---
Patient started off walking in hallways after asking for 4mg of Dilaudid and 1mg of Ativan. She stated, "I have a lot to think about, so I am just walking it off." As staff was busy in and out of other Patient's room, She walked off the unit with her IV pole and fluids and headed downstairs toward the ED exit door, stating, "I have a lot to process in my head, I am just going out for some air." Patient had attempted to do the same thing during dayshift, where she told by the day nurse that she can not leave the unit with IV's unescorted. She told dayscaft that she was going to go down and make sure that her vehicle was locked. Dayscaft nurse, Linda Coyne had already advise her that it was against the rules and that she cannot just go downstairs. Linda had security come up to take her car keys to check on her car. She was non-compliant and left the unit at 20:[address] P[address] any ways, Security saw her and escorted her back to unit. At 21:25 P.M. she wanted and was insistent that staff allows her to microwave her stuff toy ([employer] from [employer] after it had been in bed with her. This nurse explained to her that it was considered cross contamination and not allowed, called Maintenance for her to hear that putting used stuff toy in microwave was not a good choice. She replied well that [facility] nurse did it multiple times for me during the day. Patient redirected back to her room for rest and healing.
[2020-07-10 23:00] VITALS: BP 111/84
[2020-07-11] VITALS (7 sets, daily range): BP systolic 145–187; BP diastolic 82–106
[2020-07-11] MEDS: HYDROmorphone 2 MG/ML VIAL IVP PRN ×8 (02:46→23:01)
[2020-07-11] MEDS ORDERED: hydrALAZINE 20 MG/ML VIAL. IVP PRN (03:15)
[2020-07-11] MEDS: LEVOTHYROXINE 150 MCG TABLET PO SCH (05:08)
[2020-07-11] MEDS: PANTOPRAZOLE IV PUSH 40 MG VIAL. IVP SCH (05:26)
--- NOTE | 2020-07-11 07:16 | PDOC ---
[employer] PROGRESS NOTE Date of Service DOS: DATE: 07/11/20 TIME: 06:46 Chief Complaint Chief Complaint Acute on chronic pancreatitis Pancreatic pseudocyst Dilated gallbladder vs cholecystitis Transaminitis Plan: NPO; continue IV fluids at 250cc Consult to GI Follow urine output Consult general surgery No gallstones seen on ultrasound; will defer to general surgery for recommendations on HIDA scan Dilaudid IV as needed for pain Resume home medications FEN - NPO PPX - Lovenox FULL CODE Dispo - inpatient for above History of Present Illness History of Present Illness Patient 60-year-old female presents to the ER with complaint of left upper quadr ant abdominal pain. She was seen in the ED yesterday for similar symptoms, but left AMA. CT abdomen/pelvis at that time showed acute on chronic hepatitis with 7.8 cm pancreatic pseudocyst and distended gallbladder. She returned to the ER today the behest of her PCP. She reports abdominal pain, 03/29. 07/11: HIDA scan yesterday showing slow passage of radiotracer into the small bowel without evidence of a high-grade bile duct obstruction. Continue treatment of pancreatitis with bowel rest and IV fluids. Follow for resolution of pancreatic pseudocyst. Will consult IR to see about sampling pancreatic pseudocyst. She is scheduled for MRCP today. Patient does admits to improperly taking her levothyroxine with her other home medications. Discussed taking levothyroxine as first medication in the morning at least 1 hour prior to any other food or medications. Vitals/I&O Vitals/I&O: Vital Signs Date Time Temp Pulse Resp B/P (MAP) Pulse Ox O2 Delivery O2 Flow Rate FiO2 07/11/20 05:38 18 100 Room Air 07/11/20 04:50 73 161/86 (111) 07/11/20 03:06 98.0 98.0 I & O 07/10/20 07/10/20 07/11/20 15:00 23:00 07:00 Output Total 0 ml Balance 0 ml Physical Exam General: Alert, Oriented X3, Cooperative, mild distress Heart: Regular rate, Normal S1, Normal S2 Lungs: Clear Abdomen: Soft, Other (ttp epigastric, LUQ, midline scar) Extremities: No clubbing, No cyanosis Skin: No rashes, No breakdown Labs Labs: Laboratory Tests Test 07/10/20 09:15 White Blood Count 5.5 x10^3/uL (4.0-11.0) Red Blood Count 3.78 x10^6/uL (3.50-5.40) Hemoglobin 13.1 g/dL (12.0-15.5) Hematocrit 38.5 % (36.0-47.0) Mean Corpuscular Volume 102 fL (79-100) Mean Corpuscular Hemoglobin 35 pg (25-35) Mean Corpuscular Hemoglobin Concent 34 g/dL (31-37) Red Cell Distribution Width 15.6 % (11.5-14.5) Platelet Count 285 x10^3/uL (140-400) Neutrophils (%) (Auto) 58 % (31-73) Lymphocytes (%) (Auto) 30 % (24-48) Monocytes (%) (Auto) 9 % (0-9) Eosinophils (%) (Auto) 2 % (0-3) Basophils (%) (Auto) 1 % (0-3) Neutrophils # (Auto) 3.2 x10^3/uL (1.8-7.7) Lymphocytes # (Auto) 1.7 x10^3/uL (1.0-4.8) Monocytes # (Auto) 0.5 x10^3/uL (0.0-1.1) Eosinophils # (Auto) 0.1 x10^3/uL (0.0-0.7) Basophils # (Auto) 0.1 x10^3/uL (0.0-0.2) Sodium Level 141 mmol/L (136-145) Potassium Level 3.9 mmol/L (3.5-5.1) Chloride Level 105 mmol/L (98-107) Carbon Dioxide Level 26 mmol/L (21-32) Anion Gap 10 (6-14) Blood Urea Nitrogen 9 mg/dL (7-20) Creatinine 1.0 mg/dL (0.6-1.0) Estimated GFR (Cockcroft-Gault) 56.2 Glucose Level 104 mg/dL (70-99) Calcium Level 8.5 mg/dL (8.5-10.1) C-Reactive Protein, Quantitative 4.0 mg/L (0-3.3) Triglycerides Level 117 mg/dL (0-150) Thyroid Stimulating Hormone (TSH) 63.893 uIU/mL (0.358-3.74) Assessment and Plan Assessmemt and Plan Problems Medical Problems: (1) Acute on chronic pancreatitis Status: Acute (2) Right upper quadrant abdominal pain with positive Paulson's Sign Status: Acute (3) Transaminitis Status: Acute Comment Review of Relevant I have reviewed the following items tita (where applicable) has been applied. Medications: Current Medications Medications (Trade) Dose Ordered Sig/Herminio Route PRN Reason Start Time Stop Time Status Last Admin Dose Admin Pantoprazole Sodium (PROTONIX VIAL for IV PUSH) 40 mg DAILYAC IVP 07/10/20 10:45 07/11/20 05:26 Morphine Sulfate (Morphine Sulfate) 4 mg 1X ONCE IV 07/10/20 14:45 07/10/20 14:46 DC 07/10/20 14:55 Nicotine (Nicoderm Cq 21mg) 1 patch DAILY TD 07/10/20 17:00 07/10/20 16:12 Hydromorphone HCl (Dilaudid) 2 mg PRN Q2HR PRN IVP MODERATE TO SEVERE PAIN 07/10/20 20:45 07/11/20 05:08 Hydralazine HCl (Apresoline Inj) 10 mg PRN Q4HRS PRN IVP ELEVATED BP, SEE COMMENTS 07/11/20 03:15 07/11/20 03:26 Justifications for Admission Other Justification Acute pancreatitis ZI ARBOLEDA MD Jul 11, 2020 07:16
[2020-07-11] MEDS: NICOTINE 21MG PATCH. TD SCH (08:07)
[2020-07-11] MEDS: PROCHLORPERAZINE 10 MG/2 ML VIAL. IVP PRN ×2 (08:16→20:15)
[2020-07-11 08:17] LABS: BASO # 0.1 x10^3/uL (0.0-0.2); BASO % 1 % (0-3); EOS # 0.1 x10^3/uL (0.0-0.7); EOS % 1 % (0-3); HEMATOCRIT 41.4 % (36.0-47.0); HEMOGLOBIN 13.8 g/dL (12.0-15.5); LYMPH # 1.7 x10^3/uL (1.0-4.8); LYMPH % 26 % (24-48); MEAN CORPUSCULAR HEMOGLOBIN 34 pg (25-35); MEAN CORPUSCULAR HGB CONC 33 g/dL (31-37); MEAN CORPUSCULAR VOLUME 102 fL (79-100); MONO # 0.4 x10^3/uL (0.0-1.1); MONO % 7 % (0-9); NEUT # 4.1 x10^3/uL (1.8-7.7); NEUT % 65 % (31-73); PLATELET COUNT 325 x10^3/uL (140-400); RED BLOOD COUNT 4.05 x10^6/uL (3.50-5.40); RED CELL DISTRIBUTION WIDTH 15.6 % (11.5-14.5); WHITE BLOOD COUNT 6.4 x10^3/uL (4.0-11.0)
[2020-07-11 09:21] LABS: CALCIUM 9.8 mg/dL (8.5-10.1); GFR 56.2; POTASSIUM 4.1 mmol/L (3.5-5.1)
--- NOTE | 2020-07-11 09:54 | NUR ---
SW following. Discussed with RN, pt from home with spouse, room air, NPO. IR consulted. Discussion RE MRCP inpatient vs outpatient. Med Assist following for self pay status. RN advised no SW needs at this time. SW will continue to follow.
--- NOTE | 2020-07-11 10:01 | PDOC ---
Date of Service: DATE: 07/11/20 TIME: 09:39 Subjective: Subjective: Just not feeling very good. Abd pain, some nausea. No stools. Pain meds "not doing it." Thankful for nicotine patch. Objective: Objective: Reviewed nursing notes. Note IR asked to see. Vital Signs: Vital Signs Date Time Temp Pulse Resp B/P (MAP) Pulse Ox O2 Delivery O2 Flow Rate FiO2 07/11/20 08:07 20 93 Room Air 07/11/20 07:00 98.0 76 158/90 (112) 98.0 Labs: Laboratory Tests Test 07/11/20 07:42 White Blood Count 6.4 x10^3/uL Red Blood Count 4.05 x10^6/uL Hemoglobin 13.8 g/dL Hematocrit 41.4 % Mean Corpuscular Volume 102 fL Mean Corpuscular Hemoglobin 34 pg Mean Corpuscular Hemoglobin Concent 33 g/dL Red Cell Distribution Width 15.6 % Platelet Count 325 x10^3/uL Neutrophils (%) (Auto) 65 % Lymphocytes (%) (Auto) 26 % Monocytes (%) (Auto) 7 % Eosinophils (%) (Auto) 1 % Basophils (%) (Auto) 1 % Neutrophils # (Auto) 4.1 x10^3/uL Lymphocytes # (Auto) 1.7 x10^3/uL Monocytes # (Auto) 0.4 x10^3/uL Eosinophils # (Auto) 0.1 x10^3/uL Basophils # (Auto) 0.1 x10^3/uL Sodium Level 140 mmol/L Potassium Level 4.1 mmol/L Chloride Level 103 mmol/L Carbon Dioxide Level 27 mmol/L Anion Gap 10 Blood Urea Nitrogen 9 mg/dL Creatinine 1.0 mg/dL Estimated GFR (Cockcroft-Gault) 56.2 Glucose Level 126 mg/dL Calcium Level 9.8 mg/dL Imaging: HIDA 07/10 IMPRESSION: 1. Slow passage of radiotracer into the small bowel but there is eventual passage into the small bowel without evidence of a high-grade bile duct obstruction. A partial obstruction of the bile ducts is not excluded given the slow passage. 2. The gallbladder is not visualized at the 60 minute time point but is seen after administration of morphine. Causes such as chronic cholecystitis are within the differential given this delayed visualization. PE: GEN: NAD - was asleep LUNGS: diminished HEART: RRR ABD: quiet, soft, LUQ discomfort NEURO/PSYCH: A & O 3 A/P: Acute on chronic pancreatitis w/ pancreatic pseudocyst - unclear etiology Macrocytosis, UTI, hypothyroidism, elevated LFTs Distended GB w/ debris, dilated CBD (1.5cm) - abnormal HIDA as above Hepatic steatosis -- Await IR thoughts. Will review HIDA w/ Dr. Crabtree. Asked for MRCP yesterday - hopefully can be done. [id number] pending. Recheck LFTs. Justicifation of Admission Dx: Justifications for Admission: Justification of Admission Dx: Yes OSVALDO ZHAO Jul 11, 2020 10:01
[2020-07-11 10:28] LABS: ALBUMIN 3.7 g/dL (3.4-5.0); DIRECT BILIRUBIN 0.4 mg/dL (0.0-0.2); TOTAL BILIRUBIN 0.8 mg/dL (0.2-1.0); TOTAL PROTEIN 8.3 g/dL (6.4-8.2)
--- NOTE | 2020-07-11 11:44 | PDOC ---
CHANDLER DOUGLAS [employer] 07/11/20 1144: SURGICAL PROGRESS NOTE DATE: 07/11/20 TIME: 11:43 Subjective headache more abdominal pain Vital Signs Vital Signs Date Time Temp Pulse Resp B/P (MAP) Pulse Ox O2 Delivery O2 Flow Rate FiO2 07/11/20 11:37 20 94 Room Air 07/11/20 07:00 98.0 76 158/90 (112) 98.0 I&O Intake and Output 07/11/20 07:00 Output Total 0 ml Balance 0 ml Output Urine Total 0 ml # Voids 6 General: Alert, Cooperative Abdomen: Soft, Other (ttp upper abdomen ) Labs Laboratory Tests Test 07/09/20 20:10 07/09/20 23:40 07/10/20 09:15 07/11/20 07:42 White Blood Count 7.8 x10^3/uL (4.0-11.0) 5.5 x10^3/uL (4.0-11.0) 6.4 x10^3/uL (4.0-11.0) Red Blood Count 3.91 x10^6/uL (3.50-5.40) 3.78 x10^6/uL (3.50-5.40) 4.05 x10^6/uL (3.50-5.40) Hemoglobin 13.6 g/dL (12.0-15.5) 13.1 g/dL (12.0-15.5) 13.8 g/dL (12.0-15.5) Hematocrit 38.7 % (36.0-47.0) 38.5 % (36.0-47.0) 41.4 % (36.0-47.0) Mean Corpuscular Volume 99 fL (79-100) 102 fL (79-100) 102 fL (79-100) Mean Corpuscular Hemoglobin 35 pg (25-35) 35 pg (25-35) 34 pg (25-35) Mean Corpuscular Hemoglobin Concent 35 g/dL (31-37) 34 g/dL (31-37) 33 g/dL (31-37) Red Cell Distribution Width 15.5 % (11.5-14.5) 15.6 % (11.5-14.5) 15.6 % (11.5-14.5) Platelet Count 346 x10^3/uL (140-400) 285 x10^3/uL (140-400) 325 x10^3/uL (140-400) Neutrophils (%) (Auto) 62 % (31-73) 58 % (31-73) 65 % (31-73) Lymphocytes (%) (Auto) 28 % (24-48) 30 % (24-48) 26 % (24-48) Monocytes (%) (Auto) 9 % (0-9) 9 % (0-9) 7 % (0-9) Eosinophils (%) (Auto) 1 % (0-3) 2 % (0-3) 1 % (0-3) Basophils (%) (Auto) 0 % (0-3) 1 % (0-3) 1 % (0-3) Neutrophils # (Auto) 4.8 x10^3/uL (1.8-7.7) 3.2 x10^3/uL (1.8-7.7) 4.1 x10^3/uL (1.8-7.7) Lymphocytes # (Auto) 2.2 x10^3/uL (1.0-4.8) 1.7 x10^3/uL (1.0-4.8) 1.7 x10^3/uL (1.0-4.8) Monocytes # (Auto) 0.7 x10^3/uL (0.0-1.1) 0.5 x10^3/uL (0.0-1.1) 0.4 x10^3/uL (0.0-1.1) Eosinophils # (Auto) 0.1 x10^3/uL (0.0-0.7) 0.1 x10^3/uL (0.0-0.7) 0.1 x10^3/uL (0.0-0.7) Basophils # (Auto) 0.0 x10^3/uL (0.0-0.2) 0.1 x10^3/uL (0.0-0.2) 0.1 x10^3/uL (0.0-0.2) Sodium Level 137 mmol/L (136-145) 141 mmol/L (136-145) 140 mmol/L (136-145) Potassium Level 3.6 mmol/L (3.5-5.1) 3.9 mmol/L (3.5-5.1) 4.1 mmol/L (3.5-5.1) Chloride Level 99 mmol/L (98-107) 105 mmol/L (98-107) 103 mmol/L (98-107) Carbon Dioxide Level 24 mmol/L (21-32) 26 mmol/L (21-32) 27 mmol/L (21-32) Anion Gap 14 (6-14) 10 (6-14) 10 (6-14) Blood Urea Nitrogen 10 mg/dL (7-20) 9 mg/dL (7-20) 9 mg/dL (7-20) Creatinine 1.1 mg/dL (0.6-1.0) 1.0 mg/dL (0.6-1.0) 1.0 mg/dL (0.6-1.0) Estimated GFR (Cockcroft-Gault) 50.3 56.2 56.2 Glucose Level 97 mg/dL (70-99) 104 mg/dL (70-99) 126 mg/dL (70-99) Calcium Level 9.6 mg/dL (8.5-10.1) 8.5 mg/dL (8.5-10.1) 9.8 mg/dL (8.5-10.1) Total Bilirubin 0.9 mg/dL (0.2-1.0) 0.8 mg/dL (0.2-1.0) Direct Bilirubin 0.5 mg/dL (0.0-0.2) 0.4 mg/dL (0.0-0.2) Aspartate Amino Transf (AST/SGOT) 281 U/L (15-37) 97 U/L (15-37) Alanine Aminotransferase (ALT/SGPT) 450 U/L (14-59) 296 U/L (14-59) Alkaline Phosphatase 287 U/L (46-116) 236 U/L (46-116) Troponin I Quantitative 0.023 ng/mL (0.000-0.055) Total Protein 8.2 g/dL (6.4-8.2) 8.3 g/dL (6.4-8.2) Albumin 3.8 g/dL (3.4-5.0) 3.7 g/dL (3.4-5.0) Lipase 1910 U/L (73-393) Ethyl Alcohol Level < 10 mg/dL (0-10) Urine Collection Type Unknown Urine Color Kami Urine Clarity Clear Urine pH 6.0 (<5.0-8.0) Urine Specific [place] 1.020 (1.000-1.030) Urine Protein Negative mg/dL (NEG-TRACE) Urine Glucose (UA) Negative mg/dL (NEG) Urine Ketones (Stick) Negative mg/dL (NEG) Urine Blood Negative (NEG) Urine Nitrite Positive (NEG) Urine Bilirubin Small (NEG) Urine Urobilinogen Dipstick 0.2 mg/dL (0.2 mg/dL) Urine Leukocyte Esterase Moderate (NEG) Urine RBC Occ /HPF (0-2) Urine WBC 20-40 /HPF (0-4) Urine Squamous Epithelial Cells Mod /LPF Urine Bacteria Many /HPF (0-FEW) Urine Hyaline Casts Few /HPF Urine Mucus Mod /LPF Urine Opiates Screen Pos (NEG) Urine Methadone Screen Neg (NEG) Urine Barbiturates Neg (NEG) Urine Phencyclidine Screen Neg (NEG) Urine Amphetamine/Methamphetamine Neg (NEG) Urine Benzodiazepines Screen Neg (NEG) Urine Cocaine Screen Neg (NEG) Urine Cannabinoids Screen Neg (NEG) Urine Ethyl Alcohol Neg (NEG) C-Reactive Protein, Quantitative 4.0 mg/L (0-3.3) Triglycerides Level 117 mg/dL (0-150) Thyroid Stimulating Hormone (TSH) 63.893 uIU/mL (0.358-3.74) Laboratory Tests Test 07/11/20 07:42 White Blood Count 6.4 x10^3/uL (4.0-11.0) Red Blood Count 4.05 x10^6/uL (3.50-5.40) Hemoglobin 13.8 g/dL (12.0-15.5) Hematocrit 41.4 % (36.0-47.0) Mean Corpuscular Volume 102 fL (79-100) Mean Corpuscular Hemoglobin 34 pg (25-35) Mean Corpuscular Hemoglobin Concent 33 g/dL (31-37) Red Cell Distribution Width 15.6 % (11.5-14.5) Platelet Count 325 x10^3/uL (140-400) Neutrophils (%) (Auto) 65 % (31-73) Lymphocytes (%) (Auto) 26 % (24-48) Monocytes (%) (Auto) 7 % (0-9) Eosinophils (%) (Auto) 1 % (0-3) Basophils (%) (Auto) 1 % (0-3) Neutrophils # (Auto) 4.1 x10^3/uL (1.8-7.7) Lymphocytes # (Auto) 1.7 x10^3/uL (1.0-4.8) Monocytes # (Auto) 0.4 x10^3/uL (0.0-1.1) Eosinophils # (Auto) 0.1 x10^3/uL (0.0-0.7) Basophils # (Auto) 0.1 x10^3/uL (0.0-0.2) Sodium Level 140 mmol/L (136-145) Potassium Level 4.1 mmol/L (3.5-5.1) Chloride Level 103 mmol/L (98-107) Carbon Dioxide Level 27 mmol/L (21-32) Anion Gap 10 (6-14) Blood Urea Nitrogen 9 mg/dL (7-20) Creatinine 1.0 mg/dL (0.6-1.0) Estimated GFR (Cockcroft-Gault) 56.2 Glucose Level 126 mg/dL (70-99) Calcium Level 9.8 mg/dL (8.5-10.1) Total Bilirubin 0.8 mg/dL (0.2-1.0) Direct Bilirubin 0.4 mg/dL (0.0-0.2) Aspartate Amino Transf (AST/SGOT) 97 U/L (15-37) Alanine Aminotransferase (ALT/SGPT) 296 U/L (14-59) Alkaline Phosphatase 236 U/L (46-116) Total Protein 8.3 g/dL (6.4-8.2) Albumin 3.7 g/dL (3.4-5.0) Problem List Problems Medical Problems: (1) Acute on chronic pancreatitis Status: Acute (2) Right upper quadrant abdominal pain with positive Paulson's Sign Status: Acute (3) Transaminitis Status: Acute Assessment/Plan pancreatitis MRCP pending IR consult pending for possible sampling GI note reviewed Justicifation of Admission Dx: Justifications for Admission: Justification of Admission Dx: Yes PERRY GAMEZ MD 07/11/20 1228: SURGICAL PROGRESS NOTE Assessment/Plan Above noted; HIDA showed gallbladder filling after morphine administration; MRCP ordered by GI; continue with supportive tx for pancreatitis; no surgical plans at this time CHANDLER DOUGLAS APRN Jul 11, 2020 11:44 PERRY GAMEZ MD Jul 11, 2020 12:28
--- NOTE | 2020-07-11 13:48 | RAD ---
MRI of the abdomen without contrast to include a MRCP 07/11/2020 CLINICAL HISTORY: Pancreatitis and pseudocyst. Dilated common bile duct. TECHNIQUE: Unenhanced T2-weighted axial and coronal, fat saturated T2-weighted axial, diffusion-weigh elke axial and in and out of phase T1-weighted axial images of the abdomen were obtained. Additionally thin section fat saturated T2-weighted coronal images of the abdomen were obtained. Multiplanar 3-D MIP reconstructed images of the biliary system were obtained for an MRCP. FINDINGS: Comparison is made to the patient's CT scan of the abdomen dated 07/08/2020. Fatty infiltration of the liver is again noted. A 1.8 cm oval-shaped area of increased signal intensi ty is seen on the T2-weighted images involving the posterior aspect of the right lobe of the liver wh ich demonstrates decreased signal intensity on the T1-weighted images. This likely represents a cyst. The spleen and adrenal glands are within normal limits. Rounded high signal intensity lesions are se en scattered throughout both kidneys on the T2-weighted images. These measure 3 mm to 1.6 cm in size. They likely represent cysts. No further imaging evaluation is recommended. A pancreatic pseudocyst is seen within the head of the pancreas which measures 7.5 x 6.4 x 5.5 cm in AP, transverse and craniocaudal dimensions. Mass effect related to this pancreatic pseudocyst extrins ically compresses the proximal main pancreatic duct and the common bile duct. The mid/distal main pearson creatic duct is dilated. The common hepatic duct and left and right hepatic ducts are dilated. No add itional pancreatic pseudocyst is noted. The abdominal aorta tapers normally. No free fluid is seen. There is no evidence of bowel obstruction . Mild S-shaped curvature of the thoracolumbar spine is again noted. MRCP images demonstrate dilatation of the gallbladder and cystic duct along with the common hepatic d uct and the left and right hepatic ducts and their proximal branches. Extrinsic mass effect from chelsea ent's pseudocyst compresses the common bile duct. No cholelithiasis or choledocholithiasis is seen. IMPRESSION: A 7.5 cm pseudocyst is seen within the head of the pancreas. Mass effect related to this pseudocyst compresses the proximal main pancreatic duct and the common bile duct resulting in intra a nd extrahepatic biliary ductal dilatation and gallbladder distention. No choledocholithiasis is seen. Electronically signed by: Tj Barcenas MD (07/11/2020 1:45 PM) [id number]
--- NOTE | 2020-07-11 14:40 | PDOC ---
Provider Note Date of Service: DATE: 07/11/20 TIME: 14:39 Provider Note IR NOTE Pancreatic pseudocyst. Request for aspiration for Dx purposes. Will plan on tuesday. Justifications for Admission Other Justification Acute pancreatitis DUSTY THACKER MD Jul 11, 2020 14:40
[2020-07-11] MEDS: LOSARTAN POTASSIUM 50 MG TABLET. PO SCH (14:44)
[2020-07-11] MEDS: PATCH REMOVAL. MC SCH (19:57)
[2020-07-11] MEDS: CYCLOBENZAPRINE 10 MG TABLET. PO PRN (20:15)
[2020-07-11] MEDS: ENOXAPARIN 40 MG/0.4 ML SYRINGE. SQ SCH (22:51)
[2020-07-12] MEDS: HYDROmorphone 2 MG/ML VIAL IVP PRN ×8 (03:02→22:44)
[2020-07-12 03:07] VITALS: BP 128/60
[2020-07-12] MEDS: LEVOTHYROXINE 150 MCG TABLET PO SCH (06:14)
--- NOTE | 2020-07-12 07:58 | PDOC ---
SURGICAL PROGRESS NOTE DATE: 07/12/20 TIME: 07:57 Subjective Patient resting comfortably does state she has some abdominal pain has improved Vital Signs Vital Signs Date Time Temp Pulse Resp B/P (MAP) Pulse Ox O2 Delivery O2 Flow Rate FiO2 07/12/20 07:30 18 97 Room Air 07/12/20 03:07 98.4 67 128/60 (82) 98.4 I&O Intake and Output 07/12/20 07:00 Intake Total 660 ml Balance 660 ml Intake Oral 660 ml # Voids 4 PATIENT HAS A WOODSON: No General: Alert, Oriented X3, Cooperative, mild distress Abdomen: Normal bowel sounds, Soft, Other (Tender to the epigastrium) Labs Laboratory Tests Test 07/10/20 09:15 07/11/20 07:42 White Blood Count 5.5 x10^3/uL (4.0-11.0) 6.4 x10^3/uL (4.0-11.0) Red Blood Count 3.78 x10^6/uL (3.50-5.40) 4.05 x10^6/uL (3.50-5.40) Hemoglobin 13.1 g/dL (12.0-15.5) 13.8 g/dL (12.0-15.5) Hematocrit 38.5 % (36.0-47.0) 41.4 % (36.0-47.0) Mean Corpuscular Volume 102 fL (79-100) 102 fL (79-100) Mean Corpuscular Hemoglobin 35 pg (25-35) 34 pg (25-35) Mean Corpuscular Hemoglobin Concent 34 g/dL (31-37) 33 g/dL (31-37) Red Cell Distribution Width 15.6 % (11.5-14.5) 15.6 % (11.5-14.5) Platelet Count 285 x10^3/uL (140-400) 325 x10^3/uL (140-400) Neutrophils (%) (Auto) 58 % (31-73) 65 % (31-73) Lymphocytes (%) (Auto) 30 % (24-48) 26 % (24-48) Monocytes (%) (Auto) 9 % (0-9) 7 % (0-9) Eosinophils (%) (Auto) 2 % (0-3) 1 % (0-3) Basophils (%) (Auto) 1 % (0-3) 1 % (0-3) Neutrophils # (Auto) 3.2 x10^3/uL (1.8-7.7) 4.1 x10^3/uL (1.8-7.7) Lymphocytes # (Auto) 1.7 x10^3/uL (1.0-4.8) 1.7 x10^3/uL (1.0-4.8) Monocytes # (Auto) 0.5 x10^3/uL (0.0-1.1) 0.4 x10^3/uL (0.0-1.1) Eosinophils # (Auto) 0.1 x10^3/uL (0.0-0.7) 0.1 x10^3/uL (0.0-0.7) Basophils # (Auto) 0.1 x10^3/uL (0.0-0.2) 0.1 x10^3/uL (0.0-0.2) Sodium Level 141 mmol/L (136-145) 140 mmol/L (136-145) Potassium Level 3.9 mmol/L (3.5-5.1) 4.1 mmol/L (3.5-5.1) Chloride Level 105 mmol/L (98-107) 103 mmol/L (98-107) Carbon Dioxide Level 26 mmol/L (21-32) 27 mmol/L (21-32) Anion Gap 10 (6-14) 10 (6-14) Blood Urea Nitrogen 9 mg/dL (7-20) 9 mg/dL (7-20) Creatinine 1.0 mg/dL (0.6-1.0) 1.0 mg/dL (0.6-1.0) Estimated GFR (Cockcroft-Gault) 56.2 56.2 Glucose Level 104 mg/dL (70-99) 126 mg/dL (70-99) Calcium Level 8.5 mg/dL (8.5-10.1) 9.8 mg/dL (8.5-10.1) C-Reactive Protein, Quantitative 4.0 mg/L (0-3.3) Triglycerides Level 117 mg/dL (0-150) CA 19-9 Antigen 75 U/mL (0-35) Thyroid Stimulating Hormone (TSH) 63.893 uIU/mL (0.358-3.74) Total Bilirubin 0.8 mg/dL (0.2-1.0) Direct Bilirubin 0.4 mg/dL (0.0-0.2) Aspartate Amino Transf (AST/SGOT) 97 U/L (15-37) Alanine Aminotransferase (ALT/SGPT) 296 U/L (14-59) Alkaline Phosphatase 236 U/L (46-116) Total Protein 8.3 g/dL (6.4-8.2) Albumin 3.7 g/dL (3.4-5.0) Problem List Problems Medical Problems: (1) Acute on chronic pancreatitis Status: Acute (2) Right upper quadrant abdominal pain with positive Paulson's Sign Status: Acute (3) Transaminitis Status: Acute Assessment/Plan Pancreatitis with fluid collection IR plans to aspirate this Tuesday for diagnostic purposes We will follow up on aspiration Justicifation of Admission Dx: Justifications for Admission: Justification of Admission Dx: Yes AUSTIN SARGENT MD Jul 12, 2020 07:58
[2020-07-12 07:59] VITALS: BP 136/79
[2020-07-12] MEDS: LOSARTAN POTASSIUM 50 MG TABLET. PO SCH (08:25)
[2020-07-12] MEDS: PANTOPRAZOLE IV PUSH 40 MG VIAL. IVP SCH (08:25)
[2020-07-12] MEDS: NICOTINE 21MG PATCH. TD SCH (08:27)
[2020-07-12 08:48] LABS: BASO # 0.1 x10^3/uL (0.0-0.2); BASO % 1 % (0-3); EOS # 0.1 x10^3/uL (0.0-0.7); EOS % 1 % (0-3); HEMATOCRIT 41.1 % (36.0-47.0); LYMPH # 1.4 x10^3/uL (1.0-4.8); LYMPH % 27 % (24-48); MEAN CORPUSCULAR HEMOGLOBIN 35 pg (25-35); MEAN CORPUSCULAR HGB CONC 34 g/dL (31-37); MEAN CORPUSCULAR VOLUME 102 fL (79-100); MONO # 0.5 x10^3/uL (0.0-1.1); MONO % 9 % (0-9); NEUT # 3.3 x10^3/uL (1.8-7.7); NEUT % 62 % (31-73); PLATELET COUNT 281 x10^3/uL (140-400); RED BLOOD COUNT 4.03 x10^6/uL (3.50-5.40); WHITE BLOOD COUNT 5.3 x10^3/uL (4.0-11.0)
[2020-07-12 09:03] LABS: CALCIUM 9.9 mg/dL (8.5-10.1); GFR 56.2; POTASSIUM 3.9 mmol/L (3.5-5.1)
--- NOTE | 2020-07-12 11:48 | PDOC ---
G I PROGRESS NOTE Subjective Some abdominal discomfort, downplays. No major complaints. Would like more food. Objective No issues reported by staff. Physical Exam Lungs clear. RRR Abdomen soft, minimally tender. Review of Relevant I have reviewed the following items tita (where applicable) has been applied. Labs Laboratory Tests Test 07/11/20 07:42 07/12/20 08:01 White Blood Count 6.4 x10^3/uL (4.0-11.0) 5.3 x10^3/uL (4.0-11.0) Red Blood Count 4.05 x10^6/uL (3.50-5.40) 4.03 x10^6/uL (3.50-5.40) Hemoglobin 13.8 g/dL (12.0-15.5) 14.0 g/dL (12.0-15.5) Hematocrit 41.4 % (36.0-47.0) 41.1 % (36.0-47.0) Mean Corpuscular Volume 102 fL (79-100) 102 fL (79-100) Mean Corpuscular Hemoglobin 34 pg (25-35) 35 pg (25-35) Mean Corpuscular Hemoglobin Concent 33 g/dL (31-37) 34 g/dL (31-37) Red Cell Distribution Width 15.6 % (11.5-14.5) 16.0 % (11.5-14.5) Platelet Count 325 x10^3/uL (140-400) 281 x10^3/uL (140-400) Neutrophils (%) (Auto) 65 % (31-73) 62 % (31-73) Lymphocytes (%) (Auto) 26 % (24-48) 27 % (24-48) Monocytes (%) (Auto) 7 % (0-9) 9 % (0-9) Eosinophils (%) (Auto) 1 % (0-3) 1 % (0-3) Basophils (%) (Auto) 1 % (0-3) 1 % (0-3) Neutrophils # (Auto) 4.1 x10^3/uL (1.8-7.7) 3.3 x10^3/uL (1.8-7.7) Lymphocytes # (Auto) 1.7 x10^3/uL (1.0-4.8) 1.4 x10^3/uL (1.0-4.8) Monocytes # (Auto) 0.4 x10^3/uL (0.0-1.1) 0.5 x10^3/uL (0.0-1.1) Eosinophils # (Auto) 0.1 x10^3/uL (0.0-0.7) 0.1 x10^3/uL (0.0-0.7) Basophils # (Auto) 0.1 x10^3/uL (0.0-0.2) 0.1 x10^3/uL (0.0-0.2) Sodium Level 140 mmol/L (136-145) 140 mmol/L (136-145) Potassium Level 4.1 mmol/L (3.5-5.1) 3.9 mmol/L (3.5-5.1) Chloride Level 103 mmol/L (98-107) 103 mmol/L (98-107) Carbon Dioxide Level 27 mmol/L (21-32) 28 mmol/L (21-32) Anion Gap 10 (6-14) 9 (6-14) Blood Urea Nitrogen 9 mg/dL (7-20) 7 mg/dL (7-20) Creatinine 1.0 mg/dL (0.6-1.0) 1.0 mg/dL (0.6-1.0) Estimated GFR (Cockcroft-Gault) 56.2 56.2 Glucose Level 126 mg/dL (70-99) 101 mg/dL (70-99) Calcium Level 9.8 mg/dL (8.5-10.1) 9.9 mg/dL (8.5-10.1) Total Bilirubin 0.8 mg/dL (0.2-1.0) Direct Bilirubin 0.4 mg/dL (0.0-0.2) Aspartate Amino Transf (AST/SGOT) 97 U/L (15-37) Alanine Aminotransferase (ALT/SGPT) 296 U/L (14-59) Alkaline Phosphatase 236 U/L (46-116) Total Protein 8.3 g/dL (6.4-8.2) Albumin 3.7 g/dL (3.4-5.0) Laboratory Tests Test 07/12/20 08:01 White Blood Count 5.3 x10^3/uL (4.0-11.0) Red Blood Count 4.03 x10^6/uL (3.50-5.40) Hemoglobin 14.0 g/dL (12.0-15.5) Hematocrit 41.1 % (36.0-47.0) Mean Corpuscular Volume 102 fL (79-100) Mean Corpuscular Hemoglobin 35 pg (25-35) Mean Corpuscular Hemoglobin Concent 34 g/dL (31-37) Red Cell Distribution Width 16.0 % (11.5-14.5) Platelet Count 281 x10^3/uL (140-400) Neutrophils (%) (Auto) 62 % (31-73) Lymphocytes (%) (Auto) 27 % (24-48) Monocytes (%) (Auto) 9 % (0-9) Eosinophils (%) (Auto) 1 % (0-3) Basophils (%) (Auto) 1 % (0-3) Neutrophils # (Auto) 3.3 x10^3/uL (1.8-7.7) Lymphocytes # (Auto) 1.4 x10^3/uL (1.0-4.8) Monocytes # (Auto) 0.5 x10^3/uL (0.0-1.1) Eosinophils # (Auto) 0.1 x10^3/uL (0.0-0.7) Basophils # (Auto) 0.1 x10^3/uL (0.0-0.2) Sodium Level 140 mmol/L (136-145) Potassium Level 3.9 mmol/L (3.5-5.1) Chloride Level 103 mmol/L (98-107) Carbon Dioxide Level 28 mmol/L (21-32) Anion Gap 9 (6-14) Blood Urea Nitrogen 7 mg/dL (7-20) Creatinine 1.0 mg/dL (0.6-1.0) Estimated GFR (Cockcroft-Gault) 56.2 Glucose Level 101 mg/dL (70-99) Calcium Level 9.9 mg/dL (8.5-10.1) Microbiology 07/10/20 Urine Culture - Final, Complete 07/10/20 Antimicrobic Susceptibility - Final, Complete CEA returns at 75 Vitals/I & O Vital Sign - Last 24 Hours 07/11/20 07/11/20 07/11/20 07/11/20 12:10 14:43 14:44 14:45 Pulse 72 72 Resp 19 20 B/P (MAP) 177/85 177/85 Pulse Ox 94 94 O2 Delivery Room Air Room Air 07/11/20 07/11/20 07/11/20 07/11/20 15:00 15:15 16:39 17:40 Temp 97.9 97.9 Pulse 79 Resp 18 20 20 20 B/P (MAP) 170/89 (116) Pulse Ox 96 94 94 94 O2 Delivery Room Air Room Air Room Air Room Air 07/11/20 07/11/20 07/11/20 07/11/20 18:11 19:00 19:46 20:10 Temp 98.2 98.2 Pulse 64 Resp 19 20 18 B/P (MAP) 147/82 (103) Pulse Ox 94 95 94 O2 Delivery Room Air Room Air Room Air Room Air 07/11/20 07/11/20 07/11/20 07/11/20 20:13 20:51 21:18 22:50 Resp 18 18 18 18 Pulse Ox 94 94 94 94 O2 Delivery Room Air Room Air Room Air Room Air 07/11/20 07/11/20 07/12/20 07/12/20 23:01 23:14 00:51 03:02 Temp 98.4 98.4 Pulse 69 Resp 18 20 17 18 B/P (MAP) 145/83 (103) Pulse Ox 94 98 98 98 O2 Delivery Room Air Room Air Room Air Room Air 07/12/20 07/12/20 07/12/20 07/12/20 03:07 03:50 04:26 06:02 Temp 98.4 98.4 Pulse 67 Resp 20 18 18 17 B/P (MAP) 128/60 (82) Pulse Ox 97 97 97 97 O2 Delivery Room Air Room Air Room Air Room Air 07/12/20 07/12/20 07/12/20 07/12/20 06:14 07:30 07:59 08:00 Temp 97.7 97.7 Pulse 71 Resp 18 18 20 B/P (MAP) 136/79 (98) Pulse Ox 97 97 98 O2 Delivery Room Air Room Air Room Air Room Air 07/12/20 07/12/20 07/12/20 07/12/20 08:25 08:26 08:27 09:32 B/P (MAP) 136/57 136/57 O2 Delivery Room Air Room Air 07/12/20 07/12/20 07/12/20 09:34 10:56 10:57 O2 Delivery Room Air Room Air Room Air Intake and Output 07/11/20 07/11/20 07/12/20 15:00 23:00 07:00 Intake Total 240 ml 420 ml Balance 240 ml 420 ml Problem List Problems Medical Problems: (1) Acute on chronic pancreatitis Status: Acute (2) Right upper quadrant abdominal pain with positive Paulson's Sign Status: Acute (3) Transaminitis Status: Acute Assessment Cystic pancreatic lesion with CBD compression; seemingly no intrinsic stricture. Elevated CEA not diagnostic of malignancy, but raises concern. Plan of Care Note Cautiously advance diet some. Await cyst aspiration Tuesday. Justicifation of Admission Dx: Justifications for Admission: Justification of Admission Dx: Yes AARON MENG MD Jul 12, 2020 11:48
[2020-07-12 11:59] VITALS: BP 108/72
[2020-07-12] MEDS: CYCLOBENZAPRINE 10 MG TABLET. PO PRN ×2 (13:25→21:30)
[2020-07-12 15:59] VITALS: BP 121/63
--- NOTE | 2020-07-12 16:35 | PDOC ---
[facility] PROGRESS NOTE Date of Service DOS: DATE: 07/12/20 TIME: 16:31 Chief Complaint Chief Complaint Acute on chronic pancreatitis Pancreatic pseudocyst Dilated gallbladder vs cholecystitis Transaminitis Plan: NPO; continue IV fluids at 250cc Consult to GI Follow urine output Consult general surgery No gallstones seen on ultrasound; will defer to general surgery for recommendations on HIDA scan Dilaudid IV as needed for pain Resume home medications FEN - NPO PPX - Lovenox FULL CODE Dispo - inpatient for above History of Present Illness History of Present Illness Patient 60-year-old female presents to the ER with complaint of left upper quadr ant abdominal pain. She was seen in the ED yesterday for similar symptoms, but left AMA. CT abdomen/pelvis at that time showed acute on chronic hepatitis with 7.8 cm pancreatic pseudocyst and distended gallbladder. She returned to the ER today the behest of her PCP. She reports abdominal pain, 03/29. 07/12: Discussed results MRCP with patient. She has 7.5 cm pseudocyst is seen within the head of the pancreas, mass effect compressing the proximal main pancreatic duct and the common bile duct resulting in intra and extrahepatic biliary ductal dilatation and gallbladder distention and consulted interventional radiology to try to biopsy and aspirate pseudocyst. This will take place Tuesday. Patient reports 8/10 abdominal pain, requesting regular diet. Discussed this would not be consistent with appropriate medical management pancreatitis. Continue full liquid diet. 07/11: HIDA scan yesterday showing slow passage of radiotracer into the small bowel without evidence of a high-grade bile duct obstruction. Continue treatment of pancreatitis with bowel rest and IV fluids. Follow for resolution of pancreatic pseudocyst. Will consult IR to see about sampling pancreatic pseudocyst. She is scheduled for MRCP today. Patient does admits to improperly taking her levothyroxine with her other home medications. Discussed taking levothyroxine as first medication in the morning at least 1 hour prior to any other food or medications. Vitals/I&O Vitals/I&O: Vital Signs Date Time Temp Pulse Resp B/P (MAP) Pulse Ox O2 Delivery O2 Flow Rate FiO2 07/12/20 15:59 Room Air 07/12/20 14:00 98 07/12/20 11:59 97.7 82 20 108/72 (84) 97.7 I & O 07/11/20 07/11/20 07/12/20 15:00 23:00 07:00 Intake Total 240 ml 420 ml Balance 240 ml 420 ml Physical Exam General: Alert, Oriented X3, Cooperative, mild distress Heart: Regular rate, Normal S1, Normal S2 Lungs: Clear Abdomen: Normal bowel sounds, Soft, Other (Tender to the epigastrium) Extremities: No clubbing, No cyanosis Skin: No rashes, No breakdown Labs Labs: Laboratory Tests Test 07/12/20 08:01 White Blood Count 5.3 x10^3/uL (4.0-11.0) Red Blood Count 4.03 x10^6/uL (3.50-5.40) Hemoglobin 14.0 g/dL (12.0-15.5) Hematocrit 41.1 % (36.0-47.0) Mean Corpuscular Volume 102 fL (79-100) Mean Corpuscular Hemoglobin 35 pg (25-35) Mean Corpuscular Hemoglobin Concent 34 g/dL (31-37) Red Cell Distribution Width 16.0 % (11.5-14.5) Platelet Count 281 x10^3/uL (140-400) Neutrophils (%) (Auto) 62 % (31-73) Lymphocytes (%) (Auto) 27 % (24-48) Monocytes (%) (Auto) 9 % (0-9) Eosinophils (%) (Auto) 1 % (0-3) Basophils (%) (Auto) 1 % (0-3) Neutrophils # (Auto) 3.3 x10^3/uL (1.8-7.7) Lymphocytes # (Auto) 1.4 x10^3/uL (1.0-4.8) Monocytes # (Auto) 0.5 x10^3/uL (0.0-1.1) Eosinophils # (Auto) 0.1 x10^3/uL (0.0-0.7) Basophils # (Auto) 0.1 x10^3/uL (0.0-0.2) Sodium Level 140 mmol/L (136-145) Potassium Level 3.9 mmol/L (3.5-5.1) Chloride Level 103 mmol/L (98-107) Carbon Dioxide Level 28 mmol/L (21-32) Anion Gap 9 (6-14) Blood Urea Nitrogen 7 mg/dL (7-20) Creatinine 1.0 mg/dL (0.6-1.0) Estimated GFR (Cockcroft-Gault) 56.2 Glucose Level 101 mg/dL (70-99) Calcium Level 9.9 mg/dL (8.5-10.1) Assessment and Plan Assessmemt and Plan Problems Medical Problems: (1) Acute on chronic pancreatitis Status: Acute (2) Right upper quadrant abdominal pain with positive Paulson's Sign Status: Acute (3) Transaminitis Status: Acute Comment Review of Relevant I have reviewed the following items tita (where applicable) has been applied. Justifications for Admission Other Justification Acute pancreatitis ZI ARBOLEDA MD Jul 12, 2020 16:35
[2020-07-12 19:00] VITALS: BP 140/62
[2020-07-12] MEDS: PATCH REMOVAL. MC SCH (19:57)
[2020-07-12] MEDS: ENOXAPARIN 40 MG/0.4 ML SYRINGE. SQ SCH (22:42)
[2020-07-12 23:02] VITALS: BP 136/78
[2020-07-13] MEDS: HYDROmorphone 2 MG/ML VIAL IVP PRN ×10 (01:00→22:23)
[2020-07-13 03:35] VITALS: BP 133/78
[2020-07-13] MEDS: PROCHLORPERAZINE 10 MG/2 ML VIAL. IVP PRN ×3 (04:48→19:54)
[2020-07-13] MEDS: LEVOTHYROXINE 150 MCG TABLET PO SCH (06:51)
[2020-07-13 07:59] VITALS: BP 154/94
[2020-07-13] MEDS: PANTOPRAZOLE IV PUSH 40 MG VIAL. IVP SCH (08:33)
[2020-07-13] MEDS: LOSARTAN POTASSIUM 50 MG TABLET. PO SCH (08:33)
--- NOTE | 2020-07-13 08:33 | PDOC ---
[facility] PROGRESS NOTE Date of Service DOS: DATE: 07/13/20 TIME: 08:32 Chief Complaint Chief Complaint Acute on chronic pancreatitis Pancreatic pseudocyst Dilated gallbladder vs cholecystitis Transaminitis Plan: NPO; continue IV fluids at 250cc Consult to GI Follow urine output Consult general surgery No gallstones seen on ultrasound; will defer to general surgery for recommendations on HIDA scan Dilaudid IV as needed for pain Resume home medications FEN - NPO PPX - Lovenox FULL CODE Dispo - inpatient for above History of Present Illness History of Present Illness Patient 60-year-old female presents to the ER with complaint of left upper quadr ant abdominal pain. She was seen in the ED yesterday for similar symptoms, but left AMA. CT abdomen/pelvis at that time showed acute on chronic hepatitis with 7.8 cm pancreatic pseudocyst and distended gallbladder. She returned to the ER today the behest of her PCP. She reports abdominal pain, 10/10. 07/13: Afebrile. Still complains of abdominal pain. Plan for IR to biopsy and potentially drain pseudocyst on Tuesday. Continue full liquid diet. 07/12: Discussed results MRCP with patient. She has 7.5 cm pseudocyst is seen within the head of the pancreas, mass effect compressing the proximal main pancreatic duct and the common bile duct resulting in intra and extrahepatic biliary ductal dilatation and gallbladder distention and consulted interventional radiology to try to biopsy and aspirate pseudocyst. This will take place Tuesday. Patient reports 8/10 abdominal pain, requesting regular diet. Discussed this would not be consistent with appropriate medical management pancreatitis. Continue full liquid diet. 07/11: HIDA scan yesterday showing slow passage of radiotracer into the small bowel without evidence of a high-grade bile duct obstruction. Continue treatment of pancreatitis with bowel rest and IV fluids. Follow for resolution of pancreatic pseudocyst. Will consult IR to see about sampling pancreatic pseudocyst. She is scheduled for MRCP today. Patient does admits to improperly taking her levothyroxine with her other home medications. Discussed taking levothyroxine as first medication in the morning at least 1 hour prior to any other food or medications. Vitals/I&O Vitals/I&O: Vital Signs Date Time Temp Pulse Resp B/P (MAP) Pulse Ox O2 Delivery O2 Flow Rate FiO2 07/13/20 07:23 18 96 Room Air 1/24/21 03:35 97.9 69 133/78 (96) 97.9 I & O 07/12/20 07/12/20 07/13/20 15:00 23:00 07:00 Intake Total 980 ml Balance 980 ml Physical Exam General: Alert, Oriented X3, Cooperative, mild distress Heart: Regular rate, Normal S1, Normal S2 Lungs: Clear Abdomen: Normal bowel sounds, Soft, Other (Tender to the epigastrium) Extremities: No clubbing, No cyanosis Skin: No rashes, No breakdown Assessment and Plan Assessmemt and Plan Problems Medical Problems: (1) Acute on chronic pancreatitis Status: Acute (2) Right upper quadrant abdominal pain with positive Paulson's Sign Status: Acute (3) Transaminitis Status: Acute Comment Review of Relevant I have reviewed the following items tita (where applicable) has been applied. Justifications for Admission Other Justification Acute pancreatitis ZI ARBOLEDA MD Jul 13, 2020 08:33
[2020-07-13] MEDS: NICOTINE 21MG PATCH. TD SCH (08:34)
[2020-07-13 08:50] LABS: BASO % 1 % (0-3); EOS # 0.1 x10^3/uL (0.0-0.7); EOS % 2 % (0-3); HEMATOCRIT 39.8 % (36.0-47.0); HEMOGLOBIN 13.6 g/dL (12.0-15.5); LYMPH # 1.4 x10^3/uL (1.0-4.8); LYMPH % 24 % (24-48); MEAN CORPUSCULAR HEMOGLOBIN 35 pg (25-35); MEAN CORPUSCULAR HGB CONC 34 g/dL (31-37); MEAN CORPUSCULAR VOLUME 102 fL (79-100); MONO # 0.5 x10^3/uL (0.0-1.1); MONO % 8 % (0-9); NEUT % 66 % (31-73); PLATELET COUNT 271 x10^3/uL (140-400); RED BLOOD COUNT 3.91 x10^6/uL (3.50-5.40); RED CELL DISTRIBUTION WIDTH 15.9 % (11.5-14.5); WHITE BLOOD COUNT 6.1 x10^3/uL (4.0-11.0)
[2020-07-13 09:11] LABS: CALCIUM 9.5 mg/dL (8.5-10.1); CREATININE 0.9 mg/dL (0.6-1.0); GFR 63.4; POTASSIUM 3.4 mmol/L (3.5-5.1)
[2020-07-13 11:59] VITALS: BP 120/77
--- NOTE | 2020-07-13 12:50 | PDOC ---
[facility] PROGRESS NOTE Subjective More discomfort today radiating to back. Physical Exam Lungs clear. RRR Abdomen soft, tender upper. Review of Relevant I have reviewed the following items tita (where applicable) has been applied. Labs Laboratory Tests Test 07/12/20 08:01 07/13/20 07:50 White Blood Count 5.3 x10^3/uL (4.0-11.0) 6.1 x10^3/uL (4.0-11.0) Red Blood Count 4.03 x10^6/uL (3.50-5.40) 3.91 x10^6/uL (3.50-5.40) Hemoglobin 14.0 g/dL (12.0-15.5) 13.6 g/dL (12.0-15.5) Hematocrit 41.1 % (36.0-47.0) 39.8 % (36.0-47.0) Mean Corpuscular Volume 102 fL (79-100) 102 fL (79-100) Mean Corpuscular Hemoglobin 35 pg (25-35) 35 pg (25-35) Mean Corpuscular Hemoglobin Concent 34 g/dL (31-37) 34 g/dL (31-37) Red Cell Distribution Width 16.0 % (11.5-14.5) 15.9 % (11.5-14.5) Platelet Count 281 x10^3/uL (140-400) 271 x10^3/uL (140-400) Neutrophils (%) (Auto) 62 % (31-73) 66 % (31-73) Lymphocytes (%) (Auto) 27 % (24-48) 24 % (24-48) Monocytes (%) (Auto) 9 % (0-9) 8 % (0-9) Eosinophils (%) (Auto) 1 % (0-3) 2 % (0-3) Basophils (%) (Auto) 1 % (0-3) 1 % (0-3) Neutrophils # (Auto) 3.3 x10^3/uL (1.8-7.7) 4.0 x10^3/uL (1.8-7.7) Lymphocytes # (Auto) 1.4 x10^3/uL (1.0-4.8) 1.4 x10^3/uL (1.0-4.8) Monocytes # (Auto) 0.5 x10^3/uL (0.0-1.1) 0.5 x10^3/uL (0.0-1.1) Eosinophils # (Auto) 0.1 x10^3/uL (0.0-0.7) 0.1 x10^3/uL (0.0-0.7) Basophils # (Auto) 0.1 x10^3/uL (0.0-0.2) 0.0 x10^3/uL (0.0-0.2) Sodium Level 140 mmol/L (136-145) 141 mmol/L (136-145) Potassium Level 3.9 mmol/L (3.5-5.1) 3.4 mmol/L (3.5-5.1) Chloride Level 103 mmol/L (98-107) 102 mmol/L (98-107) Carbon Dioxide Level 28 mmol/L (21-32) 29 mmol/L (21-32) Anion Gap 9 (6-14) 10 (6-14) Blood Urea Nitrogen 7 mg/dL (7-20) 5 mg/dL (7-20) Creatinine 1.0 mg/dL (0.6-1.0) 0.9 mg/dL (0.6-1.0) Estimated GFR (Cockcroft-Gault) 56.2 63.4 Glucose Level 101 mg/dL (70-99) 103 mg/dL (70-99) Calcium Level 9.9 mg/dL (8.5-10.1) 9.5 mg/dL (8.5-10.1) Laboratory Tests Test 07/13/20 07:50 White Blood Count 6.1 x10^3/uL (4.0-11.0) Red Blood Count 3.91 x10^6/uL (3.50-5.40) Hemoglobin 13.6 g/dL (12.0-15.5) Hematocrit 39.8 % (36.0-47.0) Mean Corpuscular Volume 102 fL (79-100) Mean Corpuscular Hemoglobin 35 pg (25-35) Mean Corpuscular Hemoglobin Concent 34 g/dL (31-37) Red Cell Distribution Width 15.9 % (11.5-14.5) Platelet Count 271 x10^3/uL (140-400) Neutrophils (%) (Auto) 66 % (31-73) Lymphocytes (%) (Auto) 24 % (24-48) Monocytes (%) (Auto) 8 % (0-9) Eosinophils (%) (Auto) 2 % (0-3) Basophils (%) (Auto) 1 % (0-3) Neutrophils # (Auto) 4.0 x10^3/uL (1.8-7.7) Lymphocytes # (Auto) 1.4 x10^3/uL (1.0-4.8) Monocytes # (Auto) 0.5 x10^3/uL (0.0-1.1) Eosinophils # (Auto) 0.1 x10^3/uL (0.0-0.7) Basophils # (Auto) 0.0 x10^3/uL (0.0-0.2) Sodium Level 141 mmol/L (136-145) Potassium Level 3.4 mmol/L (3.5-5.1) Chloride Level 102 mmol/L (98-107) Carbon Dioxide Level 29 mmol/L (21-32) Anion Gap 10 (6-14) Blood Urea Nitrogen 5 mg/dL (7-20) Creatinine 0.9 mg/dL (0.6-1.0) Estimated GFR (Cockcroft-Gault) 63.4 Glucose Level 103 mg/dL (70-99) Calcium Level 9.5 mg/dL (8.5-10.1) Microbiology 07/10/20 Urine Culture - Final, Complete 07/10/20 Antimicrobic Susceptibility - Final, Complete Vitals/I & O Vital Sign - Last 24 Hours 07/12/20 07/12/20 07/12/20 07/12/20 13:24 13:25 14:00 15:59 Temp 98.2 98.2 Pulse 83 Resp 20 B/P (MAP) 121/63 (82) Pulse Ox 98 98 O2 Delivery Room Air Room Air Room Air Room Air 07/12/20 07/12/20 07/12/20 07/12/20 15:59 17:05 17:06 18:30 Pulse Ox 98 O2 Delivery Room Air Room Air Room Air Room Air 07/12/20 07/12/20 07/12/20 07/12/20 19:00 19:24 19:56 20:08 Temp 98.1 98.1 Pulse 77 Resp 20 18 B/P (MAP) 140/62 (88) Pulse Ox 97 97 O2 Delivery Room Air Room Air Room Air Room Air 07/12/20 07/12/20 07/12/20 07/12/20 21:30 22:40 22:44 23:02 Temp 98.0 98.0 Pulse 77 Resp 18 18 18 20 B/P (MAP) 136/78 (97) Pulse Ox 97 97 97 96 O2 Delivery Room Air Room Air Room Air Room Air 07/13/20 07/13/20 07/13/20 07/13/20 00:05 01:04 02:54 03:35 Temp 97.9 97.9 Pulse 69 Resp 18 18 18 20 B/P (MAP) 133/78 (96) Pulse Ox 96 96 96 O2 Delivery Room Air Room Air Room Air 07/13/20 07/13/20 07/13/20 07/13/20 04:41 05:20 06:52 07:23 Resp 18 18 18 Pulse Ox 96 96 96 96 O2 Delivery Room Air Room Air Room Air Room Air 07/13/20 07/13/20 07/13/20 07/13/20 07:59 08:33 08:34 08:34 Temp 98.3 98.3 Pulse 63 63 63 Resp 20 B/P (MAP) 154/94 (114) 154/94 154/94 Pulse Ox 98 O2 Delivery Room Air Room Air 07/13/20 07/13/20 07/13/20 07/13/20 10:28 10:28 11:56 12:37 Pulse Ox 98 O2 Delivery Room Air Room Air Room Air Room Air Intake and Output 07/12/20 07/12/20 07/13/20 15:00 23:00 07:00 Intake Total 980 ml Balance 980 ml Problem List Problems Medical Problems: (1) Acute on chronic pancreatitis Status: Acute (2) Right upper quadrant abdominal pain with positive Paulson's Sign Status: Acute (3) Transaminitis Status: Acute Assessment Pancreatic cyst/pseudocyst--unclearly benign. Symptoms c/w pancreatitis; from the cyst? Plan of Care Note To have cyst aspirated tomorrow. Await this. Justicifation of Admission Dx: Justifications for Admission: Justification of Admission Dx: Yes AARON MENG MD Jul 13, 2020 12:50
[2020-07-13] MEDS: CYCLOBENZAPRINE 10 MG TABLET. PO PRN ×2 (13:41→22:23)
[2020-07-13 15:59] VITALS: BP 146/84
[2020-07-13 19:00] VITALS: BP 145/87
[2020-07-13] MEDS: ENOXAPARIN 40 MG/0.4 ML SYRINGE. SQ SCH (19:32)
[2020-07-13] MEDS: PATCH REMOVAL. MC SCH (19:48)
[2020-07-13 23:01] VITALS: BP 150/87
[2020-07-14] VITALS (10 sets, daily range): BP systolic 104–156; BP diastolic 75–90
[2020-07-14] MEDS: HYDROmorphone 2 MG/ML VIAL IVP PRN ×10 (00:51→23:53)
[2020-07-14] MEDS: LEVOTHYROXINE 150 MCG TABLET PO SCH (05:09)
[2020-07-14] MEDS: PROCHLORPERAZINE 10 MG/2 ML VIAL. IVP PRN ×2 (05:58→18:58)
[2020-07-14] MEDS: PANTOPRAZOLE IV PUSH 40 MG VIAL. IVP SCH (07:59)
[2020-07-14] MEDS: NICOTINE 21MG PATCH. TD SCH (08:00)
[2020-07-14 08:40] LABS: BASO % 0 % (0-3); EOS # 0.2 x10^3/uL (0.0-0.7); EOS % 3 % (0-3); HEMATOCRIT 37.9 % (36.0-47.0); HEMOGLOBIN 12.7 g/dL (12.0-15.5); LYMPH # 1.2 x10^3/uL (1.0-4.8); LYMPH % 19 % (24-48); MEAN CORPUSCULAR HEMOGLOBIN 34 pg (25-35); MEAN CORPUSCULAR HGB CONC 34 g/dL (31-37); MEAN CORPUSCULAR VOLUME 102 fL (79-100); MONO # 0.6 x10^3/uL (0.0-1.1); MONO % 9 % (0-9); NEUT # 4.6 x10^3/uL (1.8-7.7); NEUT % 70 % (31-73); PLATELET COUNT 243 x10^3/uL (140-400); RED BLOOD COUNT 3.72 x10^6/uL (3.50-5.40); RED CELL DISTRIBUTION WIDTH 15.5 % (11.5-14.5); WHITE BLOOD COUNT 6.6 x10^3/uL (4.0-11.0)
[2020-07-14] MEDS: LOSARTAN POTASSIUM 50 MG TABLET. PO SCH (09:00)
[2020-07-14 09:01] LABS: PROTHROMBIN TIME PATIENT 12.4 SEC (11.7-14.0)
--- NOTE | 2020-07-14 09:06 | PDOC ---
PROGRESS NOTES Date of Service: DATE: 07/14/20 TIME: 09:06 Chief Complaint Chief Complaint impression Acute on chronic pancreatitis Pancreatic pseudocyst Dilated gallbladder vs cholecystitis Transaminitis UTI E COLI, IV ROCEPHIN Plan: NPO; continue IV fluids GI following Follow urine output Consult general surgery No gallstones seen on ultrasound; will defer to general surgery for recommendations on HIDA scan Dilaudid IV as needed for pain Resume home medications FEN - NPO PPX - Lovenox FULL CODE Dispo - inpatient for above d/w RN History of Present Illness History of Present Illness Patient 60-year-old female presented to the ER with complaint of left upper quadrant abdominal pain. She was seen in the ED yesterday for similar symptoms, but left AMA. CT abdomen/pelvis at that time showed acute on chronic hepatitis with 7.8 cm pancreatic pseudocyst and distended gallbladder. She returned to the ER the behest of her PCP. She reports abdominal pain, 03/29. 07/14 drainage of pseudocyst today c/o persistent pain D/W RN 07/13: Afebrile. Still complains of abdominal pain. Plan for IR to biopsy and potentially drain pseudocyst on Tuesday. Continue full liquid diet. 07/12: Discussed results MRCP with patient. She has 7.5 cm pseudocyst is seen within the head of the pancreas, mass effect compressing the proximal main pancreatic duct and the common bile duct resulting in intra and extrahepatic biliary ductal dilatation and gallbladder distention and consulted interventional radiology to try to biopsy and aspirate pseudocyst. This will take place Tuesday. Patient reports 8/10 abdominal pain, requesting regular diet. Discussed this would not be consistent with appropriate medical management pancreatitis. Continue full liquid diet. 07/11: HIDA scan yesterday showing slow passage of radiotracer into the small bowel without evidence of a high-grade bile duct obstruction. Continue treatment of pancreatitis with bowel rest and IV fluids. Follow for resolution of pancreatic pseudocyst. Will consult IR to see about sampling pancreatic pseudocyst. She is scheduled for MRCP today. Patient does admits to improperly taking her levothyroxine with her other home medications. Discussed taking levothyroxine as first medication in the morning at least 1 hour prior to any other food or medications. Vitals Vitals Vital Signs Date Time Temp Pulse Resp B/P (MAP) Pulse Ox O2 Delivery O2 Flow Rate FiO2 07/14/20 08:29 Room Air 07/14/20 07:00 98.1 49 18 147/78 (101) 94 98.1 Physical Exam General: Alert, Oriented X3, Cooperative, mild distress Heart: Regular rate, Normal S1, Normal S2 Lungs: Clear Abdomen: Normal bowel sounds, Soft, Other (Tender to the epigastrium) Extremities: No clubbing, No cyanosis Skin: No rashes, No breakdown Labs LABS SPEC #: [id number] NOREEN: 07/10/20 STATUS: COMP REQ #: [id number] RECD: 07/10/[address]: ZI ARBOLEDA MD SOURCE: VOID ENTR: 07/10/[address]: PERRY GAMEZ MD SPDESC: Rekha YOON MD, MICHAEL F MD ORDERED: URINE CULTURE Procedure Result URINE CULTURE Final Final GREATER THAN 100,000 CFU/ML GRAM NEGATIVE RODS on 07/11/20 at 0810 FINAL ID= [ESCHERICHIA COLI] Testing Performed by: [address] [address] For Inquires, the Physician may contact the Microbiology department at [phone] ESCHERICHIA COLI ANTIMICROBIAL SUSCEPTIBILITY Final Comment NEG SHAYY 56 ESCHERICHIA COLI ANTIBIOTIC RESULT INTERPRETATION AMPICILLIN/SULBACTAM 16/8 I AMIKACIN <=16 S AMPICILLIN >16 R AMOXICILLIN/K CLAVULANATE >16/8 R AZTREONAM <=4 S CEFTRIAXONE <=1 S CEFTAZIDIME <=1 S CEFOTAXIME <=2 S CEFOXITIN <=8 S CIPROFLOXACIN <=0.25 S CEFEPIME <=2 S CEFUROXIME 8 S CEFTAZIDIME/AVIBACTAM <=4 S ERTAPENEM <=0.5 S NITROFURANTOIN <=32 S GENTAMICIN <=2 S LEVOFLOXACIN <=0.5 S PATIENT: CHRISTINA MARSHALL ACCOUNT: [id number] : 1960 LOCATION: [address] [place] [address] AGE: 60 SEX: F EXAM STATUS: ADM IN ORD. PHYSICIAN: OSVALDO ZHAO REASON: chronic pancreatitis and pseudocyst - unclear etiology, dilated CBD PROCEDURE: MRCP WO CONTRAST MRI of the abdomen without contrast to include a MRCP 07/11/2020 CLINICAL HISTORY: Pancreatitis and pseudocyst. Dilated common bile duct. TECHNIQUE: Unenhanced T2-weighted axial and coronal, fat saturated T2-weighted axial, diffusion-weighted axial and in and out of phase T1-weighted axial images of the abdomen were obtained. Additionally thin section fat saturated T2- weighted coronal images of the abdomen were obtained. Multiplanar 3-D MIP reconstructed images of the biliary system were obtained for an MRCP. FINDINGS: Comparison is made to the patient's CT scan of the abdomen dated 07/08/2020. Fatty infiltration of the liver is again noted. A 1.8 cm oval-shaped area of increased signal intensity is seen on the T2-weighted images involving the posterior aspect of the right lobe of the liver which demonstrates decreased signal intensity on the T1-weighted images. This likely represents a cyst. The spleen and adrenal glands are within normal limits. Rounded high signal intensity lesions are seen scattered throughout both kidneys on the T2-weighted images. These measure 3 mm to 1.6 cm in size. They likely represent cysts. No further imaging evaluation is recommended. A pancreatic pseudocyst is seen within the head of the pancreas which measures 7.5 x 6.4 x 5.5 cm in AP, transverse and craniocaudal dimensions. Mass effect related to this pancreatic pseudocyst extrinsically compresses the proximal main pancreatic duct and the common bile duct. The mid/distal main pancreatic duct is dilated. The common hepatic duct and left and right hepatic ducts are dilated. No additional pancreatic pseudocyst is noted. The abdominal aorta tapers normally. No free fluid is seen. There is no evidence of bowel obstruction. Mild S-shaped curvature of the thoracolumbar spine is again noted. MRCP images demonstrate dilatation of the gallbladder and cystic duct along with the common hepatic duct and the left and right hepatic ducts and their proximal branches. Extrinsic mass effect from patient's pseudocyst compresses the common bile duct. No cholelithiasis or choledocholithiasis is seen. IMPRESSION: A 7.5 cm pseudocyst is seen within the head of the pancreas. Mass effect related to this pseudocyst compresses the proximal main pancreatic duct and the common bile duct resulting in intra and extrahepatic biliary ductal dilatation and gallbladder distention. No choledocholithiasis is seen. Electronically signed by: Tj Barcenas MD (07/11/2020 1:45 PM) [id number] Laboratory Tests Test 07/14/20 07:10 White Blood Count 6.6 x10^3/uL (4.0-11.0) Red Blood Count 3.72 x10^6/uL (3.50-5.40) Hemoglobin 12.7 g/dL (12.0-15.5) Hematocrit 37.9 % (36.0-47.0) Mean Corpuscular Volume 102 fL (79-100) Mean Corpuscular Hemoglobin 34 pg (25-35) Mean Corpuscular Hemoglobin Concent 34 g/dL (31-37) Red Cell Distribution Width 15.5 % (11.5-14.5) Platelet Count 243 x10^3/uL (140-400) Neutrophils (%) (Auto) 70 % (31-73) Lymphocytes (%) (Auto) 19 % (24-48) Monocytes (%) (Auto) 9 % (0-9) Eosinophils (%) (Auto) 3 % (0-3) Basophils (%) (Auto) 0 % (0-3) Neutrophils # (Auto) 4.6 x10^3/uL (1.8-7.7) Lymphocytes # (Auto) 1.2 x10^3/uL (1.0-4.8) Monocytes # (Auto) 0.6 x10^3/uL (0.0-1.1) Eosinophils # (Auto) 0.2 x10^3/uL (0.0-0.7) Basophils # (Auto) 0.0 x10^3/uL (0.0-0.2) Prothrombin Time 12.4 SEC (11.7-14.0) Prothromb Time International Ratio 1.0 (0.8-1.1) Activated Partial Thromboplast Time 32 SEC (24-38) Assessment and Plan Assessmemt and Plan Problems Medical Problems: (1) Acute on chronic pancreatitis Status: Acute (2) Right upper quadrant abdominal pain with positive Paulson's Sign Status: Acute (3) Transaminitis Status: Acute Comment Review of Relevant I have reviewed the following items tita (where applicable) has been applied. Labs Laboratory Tests Test 07/13/20 07:50 07/14/20 07:10 White Blood Count 6.1 x10^3/uL (4.0-11.0) 6.6 x10^3/uL (4.0-11.0) Red Blood Count 3.91 x10^6/uL (3.50-5.40) 3.72 x10^6/uL (3.50-5.40) Hemoglobin 13.6 g/dL (12.0-15.5) 12.7 g/dL (12.0-15.5) Hematocrit 39.8 % (36.0-47.0) 37.9 % (36.0-47.0) Mean Corpuscular Volume 102 fL (79-100) 102 fL (79-100) Mean Corpuscular Hemoglobin 35 pg (25-35) 34 pg (25-35) Mean Corpuscular Hemoglobin Concent 34 g/dL (31-37) 34 g/dL (31-37) Red Cell Distribution Width 15.9 % (11.5-14.5) 15.5 % (11.5-14.5) Platelet Count 271 x10^3/uL (140-400) 243 x10^3/uL (140-400) Neutrophils (%) (Auto) 66 % (31-73) 70 % (31-73) Lymphocytes (%) (Auto) 24 % (24-48) 19 % (24-48) Monocytes (%) (Auto) 8 % (0-9) 9 % (0-9) Eosinophils (%) (Auto) 2 % (0-3) 3 % (0-3) Basophils (%) (Auto) 1 % (0-3) 0 % (0-3) Neutrophils # (Auto) 4.0 x10^3/uL (1.8-7.7) 4.6 x10^3/uL (1.8-7.7) Lymphocytes # (Auto) 1.4 x10^3/uL (1.0-4.8) 1.2 x10^3/uL (1.0-4.8) Monocytes # (Auto) 0.5 x10^3/uL (0.0-1.1) 0.6 x10^3/uL (0.0-1.1) Eosinophils # (Auto) 0.1 x10^3/uL (0.0-0.7) 0.2 x10^3/uL (0.0-0.7) Basophils # (Auto) 0.0 x10^3/uL (0.0-0.2) 0.0 x10^3/uL (0.0-0.2) Sodium Level 141 mmol/L (136-145) Potassium Level 3.4 mmol/L (3.5-5.1) Chloride Level 102 mmol/L (98-107) Carbon Dioxide Level 29 mmol/L (21-32) Anion Gap 10 (6-14) Blood Urea Nitrogen 5 mg/dL (7-20) Creatinine 0.9 mg/dL (0.6-1.0) Estimated GFR (Cockcroft-Gault) 63.4 Glucose Level 103 mg/dL (70-99) Calcium Level 9.5 mg/dL (8.5-10.1) Prothrombin Time 12.4 SEC (11.7-14.0) Prothromb Time International Ratio 1.0 (0.8-1.1) Activated Partial Thromboplast Time 32 SEC (24-38) Laboratory Tests Test 07/14/20 07:10 White Blood Count 6.6 x10^3/uL (4.0-11.0) Red Blood Count 3.72 x10^6/uL (3.50-5.40) Hemoglobin 12.7 g/dL (12.0-15.5) Hematocrit 37.9 % (36.0-47.0) Mean Corpuscular Volume 102 fL (79-100) Mean Corpuscular Hemoglobin 34 pg (25-35) Mean Corpuscular Hemoglobin Concent 34 g/dL (31-37) Red Cell Distribution Width 15.5 % (11.5-14.5) Platelet Count 243 x10^3/uL (140-400) Neutrophils (%) (Auto) 70 % (31-73) Lymphocytes (%) (Auto) 19 % (24-48) Monocytes (%) (Auto) 9 % (0-9) Eosinophils (%) (Auto) 3 % (0-3) Basophils (%) (Auto) 0 % (0-3) Neutrophils # (Auto) 4.6 x10^3/uL (1.8-7.7) Lymphocytes # (Auto) 1.2 x10^3/uL (1.0-4.8) Monocytes # (Auto) 0.6 x10^3/uL (0.0-1.1) Eosinophils # (Auto) 0.2 x10^3/uL (0.0-0.7) Basophils # (Auto) 0.0 x10^3/uL (0.0-0.2) Prothrombin Time 12.4 SEC (11.7-14.0) Prothromb Time International Ratio 1.0 (0.8-1.1) Activated Partial Thromboplast Time 32 SEC (24-38) Microbiology 07/10/20 Urine Culture - Final, Complete 07/10/20 Antimicrobic Susceptibility - Final, Complete Medications Current Medications Sodium Chloride 1,000 ml @ 1,000 mls/hr Q1H IV Last administered on 07/09/20at 20:15; Start 07/09/20 at 20:00; Stop 07/09/20 at 20:59; Status DC Sodium Chloride 1,000 ml @ 250 mls/hr Q4H IV Last administered on 07/09/20at 21:00; Start 07/09/20 at 20:00; Stop 07/10/20 at 02:05; Status DC Hydromorphone HCl (Dilaudid) 1 mg 1X ONCE IVP Last administered on 07/09/20at 20:18; Start 07/09/20 at 20:00; Stop 07/09/20 at 20:11; Status DC Hydromorphone HCl (Dilaudid) 2 mg STK-MED ONCE .ROUTE ; Start 07/09/20 at 20:03; Stop 07/09/20 at 20:03; Status DC Hydromorphone HCl (Dilaudid) 1 mg 1X ONCE IVP Last administered on 07/09/20at 21:21; Start 07/09/20 at 21:15; Stop 07/09/20 at 21:16; Status DC Ondansetron HCl (Zofran) 4 mg PRN Q8HRS PRN IV NAUSEA/VOMITING; Start 07/09/20 at 22:00; Stop 07/10/20 at 11:29; Status DC Sodium Chloride 1,000 ml @ 100 mls/hr Q10H IV Last administered on 07/10/20at 19:42; Start 07/09/20 at 22:00; Stop 07/10/20 at 21:59; Status DC Acetaminophen (Tylenol) 650 mg PRN Q4HRS PRN PO FEVER > 100.3'F; Start 07/09/20 at 22:00; Stop 07/10/20 at 11:29; Status DC Hydromorphone HCl (Dilaudid) 2 mg PRN Q4HRS PRN IVP PAIN Last administered on 07/09/20at 23:02; Start 07/09/20 at 22:00; Stop 07/09/20 at 23:32; Status DC Hydromorphone HCl (Dilaudid) 4 mg PRN Q2HR PRN IVP MODERATE TO SEVERE PAIN Last administered on 07/10/20at 19:40; Start 07/09/20 at 23:30; Stop 07/10/20 at 20:45; Status DC Ondansetron HCl (Zofran) 4 mg PRN Q6HRS PRN IVP NAUSEA/VOMITING; Start 07/09/20 at 23:45 Prochlorperazine Edisylate (Compazine) 10 mg PRN Q6HRS PRN IVP NAUSEA/VOMITING Last administered on 07/14/20at 05:58; Start 07/09/20 at 23:45 Al Hydroxide/Mg Hydroxide (Mylanta Plus Xs) 30 ml PRN Q3HRS PRN PO HEARTBURN / GAS; Start 07/09/20 at 23:45 Calcium Carbonate/ Glycine (Tums) 500 mg PRN Q3HRS PRN PO UPSET STOMACH; Start 07/09/20 at 23:45 Acetaminophen (Tylenol) 650 mg PRN Q6HRS PRN PO Headaches, Temp > 101.5F; Start 07/09/20 at 23:45 Magnesium Hydroxide (Milk Of Magnesia) 2,400 mg PRN Q12HR PRN PO CONSTIPATION; Start 07/09/20 at 23:45 Bisacodyl (Dulcolax Supp) 10 mg PRN DAILY PRN [place] CONSTIPATION; Start 07/09/20 at 23:45 Enoxaparin Sodium (Lovenox 40mg Syringe) 40 mg Q24H SQ ; Start 07/09/20 at 23:45 Amlodipine Besylate (Norvasc) 10 mg DAILY PO Last administered on 07/13/20at 08:34; Start 07/10/20 at 09:00 Cyclobenzaprine HCl (Flexeril) 10 mg PRN TID PRN PO MUSCLE PAIN Last administered on 07/13/20at 22:23; Start 07/09/20 at 23:45 Hydrochlorothiazide (Hydrodiuril) 25 mg DAILY PO ; Start 07/10/20 at 09:00; Stop 07/10/20 at 20:45; Status DC Levothyroxine Sodium (Synthroid) 150 mcg DAILY06 PO Last administered on 07/13/20at 06:51; Start 07/10/20 at 06:00 Lidocaine (Lidoderm) 1 patch PRN DAILY PRN TP TOPICAL PAIN; Start 07/09/20 at 23:45 Oxycodone HCl (Roxicodone) 30 mg PRN Q4HRS PRN PO MODERATE TO SEVERE PAIN Last administered on 07/13/20at 21:32; Start 07/09/20 at 23:45 Sumatriptan Succinate (Imitrex) 100 mg PRN Q24HRS PRN PO HEADACHE Last administered on 07/13/20at 00:20; Start 07/09/20 at 23:45 Losartan Potassium (Cozaar) 100 mg DAILY PO Last administered on 07/13/20at 08:33; Start 07/10/20 at 09:00 Lorazepam (Ativan Inj) 1 mg PRN Q4HRS PRN IVP ANXIETY / AGITATION Last administered on 07/10/20at 19:40; Start 07/09/20 at 23:45; Stop 07/10/20 at 20:46; Status DC Miscellaneous (Lidoderm Patch Removal) 1 ea QHS ; Start 07/11/20 at 21:00 Pantoprazole Sodium (PROTONIX VIAL for IV PUSH) 40 mg DAILYAC IVP Last administered on 07/14/20at 07:59; Start 07/10/20 at 10:45 Morphine Sulfate (Morphine Sulfate) 4 mg 1X ONCE IV Last administered on 07/10/20at 14:55; Start 07/10/20 at 14:45; Stop 07/10/20 at 14:46; Status DC Morphine Sulfate (Morphine Sulfate) 4 mg STK-MED ONCE .ROUTE ; Start 07/10/20 at 14:42; Stop 07/10/20 at 14:43; Status DC Nicotine (Nicoderm Cq 21mg) 1 patch DAILY TD Last administered on 07/14/20at 08:00; Start 07/10/20 at 17:00 Hydromorphone HCl (Dilaudid) 2 mg PRN Q2HR PRN IVP MODERATE TO SEVERE PAIN Last administered on 07/14/20at 07:59; Start 07/10/20 at 20:45 Hydralazine HCl (Apresoline Inj) 10 mg PRN Q4HRS PRN IVP ELEVATED BP, SEE COMMENTS Last administered on 07/11/20at 03:26; Start 07/11/20 at 03:15 Active Scripts Active Pyridium (Phenazopyridine Hcl) 100 Mg Tablet 100 Mg PO TID Cipro (Ciprofloxacin Hcl) 250 Mg Tablet 1 Tab PO BID Lidocaine PATCH (Lidocaine) 1 Each Adh..patch 1 Each TP DAILY REMOVE AFTER 12 HOURS Lidocaine PATCH (Lidocaine) 1 Each Adh..patch 1 Each TP DAILY PRN Diclofenac Sodium 50 Mg Tablet.dr 1 Tab PO BID Cyclobenzaprine Hcl 10 Mg Tablet 1 Tab PO TID PRN Bentyl (Dicyclomine Hcl) 10 Mg/1 Ml Ampul 10 Mg IM BID Cyclobenzaprine Hcl 10 Mg Tablet 1 Tab PO TID PRN Levaquin (Levofloxacin) 500 Mg Tablet 1 Tab PO DAILY Macrobid 100 Mg Capsule (Nitrofurantoin Monohyd/M-Cryst) 100 Mg Capsule 1 Cap PO BID Cyclobenzaprine Hcl 10 Mg Tablet 1 Tab PO TID 30 Days Levothyroxine Sodium 150 Mcg Tablet 150 Mcg PO DAILY06 30 Days Imitrex (Sumatriptan Succinate) 100 Mg Tablet 1 Tab PO UD Losartan Potassium 100 Mg Tablet 100 Mg PO DAILY 30 Days Hydrochlorothiazide Tablet (Hydrochlorothiazide) 25 Mg Tablet 1 Tab PO DAILY Amlodipine Besylate 10 Mg Tablet 10 Mg PO DAILY 30 Days Reported Oxycodone Hcl Immed.release (Oxycodone Hcl) 5 Mg Tablet 30 Mg PO PRN Q4HRS PRN Vitals/I & O Vital Sign - Last 24 Hours 07/13/20 07/13/20 07/13/20 07/13/20 10:28 10:28 11:56 11:59 Temp 97.9 97.9 Pulse 68 Resp 20 B/P (MAP) 120/77 (91) Pulse Ox 98 98 O2 Delivery Room Air Room Air Room Air Room Air 07/13/20 07/13/20 07/13/20 07/13/20 12:37 13:41 15:05 15:59 Temp 98.0 98.0 Pulse 92 Resp 20 B/P (MAP) 146/84 (104) Pulse Ox 96 O2 Delivery Room Air Room Air Room Air Room Air 07/13/20 07/13/20 07/13/20 07/13/20 16:11 16:12 17:42 17:45 Pulse Ox 96 O2 Delivery Room Air Room Air Room Air Room Air 07/13/20 07/13/20 07/13/20 07/13/20 19:00 19:48 20:00 20:18 Temp 97.8 97.8 Pulse 83 Resp 20 18 B/P (MAP) 145/87 (106) Pulse Ox 100 96 96 O2 Delivery Room Air Room Air Room Air Room Air 07/13/20 07/13/20 07/13/20 07/13/20 21:32 22:23 22:32 22:53 Resp 16 16 Pulse Ox 96 96 96 O2 Delivery Room Air Room Air Room Air 07/13/20 07/14/20 07/14/20 07/14/20 23:01 00:51 01:21 03:39 Temp 97.6 97.6 Pulse 87 Resp 18 16 18 B/P (MAP) 150/87 (108) Pulse Ox 98 98 98 98 O2 Delivery Room Air Room Air Room Air Room Air 07/14/20 07/14/20 07/14/20 07/14/20 03:41 04:09 05:56 06:26 Temp 98.2 98.2 Pulse 93 Resp 20 16 16 18 B/P (MAP) 151/90 (110) Pulse Ox 94 94 94 O2 Delivery Room Air Room Air Room Air 07/14/20 07/14/20 07/14/20 07:00 07:59 08:29 Temp 98.1 98.1 Pulse 49 Resp 18 B/P (MAP) 147/78 (101) Pulse Ox 94 O2 Delivery Room Air Room Air Room Air Intake and Output 07/13/20 07/13/20 07/14/20 14:59 22:59 06:59 Intake Total 440 ml Balance 440 ml Justicifation of Admission Dx: Justifications for Admission: Justification of Admission Dx: Yes AUSTIN LANDRY MD Jul 14, 2020 09:06
[2020-07-14 09:08] LABS: CALCIUM 9.5 mg/dL (8.5-10.1); GFR 56.2; POTASSIUM 3.5 mmol/L (3.5-5.1)
--- NOTE | 2020-07-14 09:14 | PDOC ---
Date of Service: DATE: 07/14/20 TIME: 09:06 Subjective: Subjective: Just had pain meds. Wants real food - tolerated full liquids and "stole some irma crackers" - no change in pain w/ eating. Objective: Objective: Nurse says IR called and needed orders. Vital Signs: Vital Signs Date Time Temp Pulse Resp B/P (MAP) Pulse Ox O2 Delivery O2 Flow Rate FiO2 07/14/20 08:29 Room Air 07/14/20 07:00 98.1 49 18 147/78 (101) 94 98.1 Labs: Laboratory Tests Test 07/14/20 07:10 White Blood Count 6.6 x10^3/uL Red Blood Count 3.72 x10^6/uL Hemoglobin 12.7 g/dL Hematocrit 37.9 % Mean Corpuscular Volume 102 fL Mean Corpuscular Hemoglobin 34 pg Mean Corpuscular Hemoglobin Concent 34 g/dL Red Cell Distribution Width 15.5 % Platelet Count 243 x10^3/uL Neutrophils (%) (Auto) 70 % Lymphocytes (%) (Auto) 19 % Monocytes (%) (Auto) 9 % Eosinophils (%) (Auto) 3 % Basophils (%) (Auto) 0 % Neutrophils # (Auto) 4.6 x10^3/uL Lymphocytes # (Auto) 1.2 x10^3/uL Monocytes # (Auto) 0.6 x10^3/uL Eosinophils # (Auto) 0.2 x10^3/uL Basophils # (Auto) 0.0 x10^3/uL Prothrombin Time 12.4 SEC Prothromb Time International Ratio 1.0 Activated Partial Thromboplast Time 32 SEC URINE CULTURE Final Final GREATER THAN 100,000 CFU/ML GRAM NEGATIVE RODS on 07/11/20 at 0810 FINAL ID= [ESCHERICHIA COLI] Imaging: MRCP 07/11 IMPRESSION: A 7.5 cm pseudocyst is seen within the head of the pancreas. Mass effect related to this pseudocyst compresses the proximal main pancreatic duct and the common bile duct resulting in intra and extrahepatic biliary ductal dilatation and gallbladder distention. No choledocholithiasis is seen. PE: GEN: NAD LUNGS: CTAB HEART: RRR ABD: NABS, S/ND/NT NEURO/PSYCH: A & O 3 A/P: Abd/back pain, pancreatic pseudocyst w/ PD and CBD compression Abnormal LFTs, elevated CA19-9 UTI, hypothyroidism - per primary -- Cyst aspiration today - see orders. Will review diet w/ Dr. Crabtree. Justicifation of Admission Dx: Justifications for Admission: Justification of Admission Dx: Yes OSVALDO ZHAO Jul 14, 2020 09:14
--- NOTE | 2020-07-14 09:41 | NUR ---
SW following. Discussed with RN, pt from home with spouse, room air, full liquid diet. Pt having aspiration of cyst today. RN advised no SW needs at this time. SW will continue to follow.
[2020-07-14] MEDS ORDERED: LIDOCAINE WITH 8.4% SOD BICARB 3 ML DISP.SYRIN. ONE (10:45)
[2020-07-14] MEDS ORDERED: MIDAZOLAM HCL/PF 2 MG/2 ML VIAL. ONE (10:47)
[2020-07-14] MEDS ORDERED: fentaNYL PF VIAL 100 MCG/2 ML VIAL ONE (10:48)
--- NOTE | 2020-07-14 10:55 | PDOC ---
CHANDLER DOUGLAS [employer] SUPERINTENDENT 07/14/20 1055: SURGICAL PROGRESS NOTE DATE: 07/14/20 TIME: 10:55 Subjective down for aspiration of pseudocyst will FU on results Vital Signs Vital Signs Date Time Temp Pulse Resp B/P (MAP) Pulse Ox O2 Delivery O2 Flow Rate FiO2 07/14/20 08:29 Room Air 07/14/20 07:00 98.1 49 18 147/78 (101) 94 98.1 I&O Intake and Output 07/14/20 07:00 Intake Total 440 ml Balance 440 ml Intake Oral 440 ml # Voids 2 Labs Laboratory Tests Test 07/13/20 07:50 07/14/20 07:10 07/14/20 09:22 White Blood Count 6.1 x10^3/uL (4.0-11.0) 6.6 x10^3/uL (4.0-11.0) Red Blood Count 3.91 x10^6/uL (3.50-5.40) 3.72 x10^6/uL (3.50-5.40) Hemoglobin 13.6 g/dL (12.0-15.5) 12.7 g/dL (12.0-15.5) Hematocrit 39.8 % (36.0-47.0) 37.9 % (36.0-47.0) Mean Corpuscular Volume 102 fL (79-100) 102 fL (79-100) Mean Corpuscular Hemoglobin 35 pg (25-35) 34 pg (25-35) Mean Corpuscular Hemoglobin Concent 34 g/dL (31-37) 34 g/dL (31-37) Red Cell Distribution Width 15.9 % (11.5-14.5) 15.5 % (11.5-14.5) Platelet Count 271 x10^3/uL (140-400) 243 x10^3/uL (140-400) Neutrophils (%) (Auto) 66 % (31-73) 70 % (31-73) Lymphocytes (%) (Auto) 24 % (24-48) 19 % (24-48) Monocytes (%) (Auto) 8 % (0-9) 9 % (0-9) Eosinophils (%) (Auto) 2 % (0-3) 3 % (0-3) Basophils (%) (Auto) 1 % (0-3) 0 % (0-3) Neutrophils # (Auto) 4.0 x10^3/uL (1.8-7.7) 4.6 x10^3/uL (1.8-7.7) Lymphocytes # (Auto) 1.4 x10^3/uL (1.0-4.8) 1.2 x10^3/uL (1.0-4.8) Monocytes # (Auto) 0.5 x10^3/uL (0.0-1.1) 0.6 x10^3/uL (0.0-1.1) Eosinophils # (Auto) 0.1 x10^3/uL (0.0-0.7) 0.2 x10^3/uL (0.0-0.7) Basophils # (Auto) 0.0 x10^3/uL (0.0-0.2) 0.0 x10^3/uL (0.0-0.2) Sodium Level 141 mmol/L (136-145) 140 mmol/L (136-145) Potassium Level 3.4 mmol/L (3.5-5.1) 3.5 mmol/L (3.5-5.1) Chloride Level 102 mmol/L (98-107) 102 mmol/L (98-107) Carbon Dioxide Level 29 mmol/L (21-32) 30 mmol/L (21-32) Anion Gap 10 (6-14) 8 (6-14) Blood Urea Nitrogen 5 mg/dL (7-20) 5 mg/dL (7-20) Creatinine 0.9 mg/dL (0.6-1.0) 1.0 mg/dL (0.6-1.0) Estimated GFR (Cockcroft-Gault) 63.4 56.2 Glucose Level 103 mg/dL (70-99) 101 mg/dL (70-99) Calcium Level 9.5 mg/dL (8.5-10.1) 9.5 mg/dL (8.5-10.1) Prothrombin Time 12.4 SEC (11.7-14.0) Prothromb Time International Ratio 1.0 (0.8-1.1) Activated Partial Thromboplast Time 32 SEC (24-38) SARS-CoV-2 Antigen (Rapid) Negative (NEGATIVE) Laboratory Tests Test 07/14/20 07:10 07/14/20 09:22 White Blood Count 6.6 x10^3/uL (4.0-11.0) Red Blood Count 3.72 x10^6/uL (3.50-5.40) Hemoglobin 12.7 g/dL (12.0-15.5) Hematocrit 37.9 % (36.0-47.0) Mean Corpuscular Volume 102 fL (79-100) Mean Corpuscular Hemoglobin 34 pg (25-35) Mean Corpuscular Hemoglobin Concent 34 g/dL (31-37) Red Cell Distribution Width 15.5 % (11.5-14.5) Platelet Count 243 x10^3/uL (140-400) Neutrophils (%) (Auto) 70 % (31-73) Lymphocytes (%) (Auto) 19 % (24-48) Monocytes (%) (Auto) 9 % (0-9) Eosinophils (%) (Auto) 3 % (0-3) Basophils (%) (Auto) 0 % (0-3) Neutrophils # (Auto) 4.6 x10^3/uL (1.8-7.7) Lymphocytes # (Auto) 1.2 x10^3/uL (1.0-4.8) Monocytes # (Auto) 0.6 x10^3/uL (0.0-1.1) Eosinophils # (Auto) 0.2 x10^3/uL (0.0-0.7) Basophils # (Auto) 0.0 x10^3/uL (0.0-0.2) Prothrombin Time 12.4 SEC (11.7-14.0) Prothromb Time International Ratio 1.0 (0.8-1.1) Activated Partial Thromboplast Time 32 SEC (24-38) Sodium Level 140 mmol/L (136-145) Potassium Level 3.5 mmol/L (3.5-5.1) Chloride Level 102 mmol/L (98-107) Carbon Dioxide Level 30 mmol/L (21-32) Anion Gap 8 (6-14) Blood Urea Nitrogen 5 mg/dL (7-20) Creatinine 1.0 mg/dL (0.6-1.0) Estimated GFR (Cockcroft-Gault) 56.2 Glucose Level 101 mg/dL (70-99) Calcium Level 9.5 mg/dL (8.5-10.1) SARS-CoV-2 Antigen (Rapid) Negative (NEGATIVE) Problem List Problems Medical Problems: (1) Acute on chronic pancreatitis Status: Acute (2) Right upper quadrant abdominal pain with positive Paulson's Sign Status: Acute (3) Transaminitis Status: Acute Justicifation of Admission Dx: Justifications for Admission: Justification of Admission Dx: Yes PERRY GAMEZ MD 07/14/20 1323: SURGICAL PROGRESS NOTE Assessment/Plan Agree with above [employer] Jul 14, 2020 10:55 PERRY GAMEZ MD Jul 14, 2020 13:23
[2020-07-14] MEDS ORDERED: fentaNYL PF VIAL 100 MCG/2 ML VIAL IV ONE (11:00)
[2020-07-14] MEDS ORDERED: LIDOCAINE WITH 8.4% SOD BICARB 3 ML DISP.SYRIN. IJ ONE (11:00)
[2020-07-14] MEDS ORDERED: MIDAZOLAM HCL/PF 2 MG/2 ML VIAL. IV ONE (11:00)
[2020-07-14] MEDS: cefTRIAXone IV Push 1 GM VIAL. IVP SCH (14:23)
[2020-07-14] MEDS: PATCH REMOVAL. MC SCH (21:00)
[2020-07-14] MEDS: ENOXAPARIN 40 MG/0.4 ML SYRINGE. SQ SCH ×2 (21:44→21:50)
[2020-07-15] MEDS: HYDROmorphone 2 MG/ML VIAL IVP PRN ×5 (01:53→12:05)
[2020-07-15 03:00] VITALS: BP 132/86
[2020-07-15] MEDS: LEVOTHYROXINE 150 MCG TABLET PO SCH (06:31)
--- NOTE | 2020-07-15 06:52 | PDOC ---
PROGRESS NOTES Date of Service: DATE: 07/15/20 TIME: 06:52 Chief Complaint Chief Complaint -=========hospital d/c summary DATE OF ADMIT 07-09-20 DATE OF D/C 07-15-20 CONSULTATIONS GI, GENERAL SURGERY COMPLICATIONS NONE D/C CONDITION GOOD PROCEDURES CT-guided aspiration of probable pancreatic pseudocyst 07-14 TO SEE GI IN ONE WEEK // , PCP IN ONE WEEK discharge dx Acute on chronic pancreatitis Pancreatic pseudocyst Dilated gallbladder vs cholecystitis Transaminitis UTI E COLI, IV ROCEPHIN CHG PO AUGMENTIN ON D/C intractable back and abdominal pain Plan: SOFT DIET GI following OK WITH D/C 07-15 Follow urine output Consult general surgery No gallstones seen on ultrasound; will defer to general surgery for recommendations on HIDA scan Dilaudid IV as needed for pain, STOPPED 07/15 Resume home medications PPX - Lovenox FULL CODE Dispo - inpatient for above Fluid amylase still pending. d/w RN PT DESIRES TO GO HOME TODAY D/C PLANNING 33 MIN History of Present Illness History of Present Illness Patient 60-year-old female presented to the ER with complaint of left upper quadrant abdominal pain. She was seen in the ED yesterday for similar symptoms, but left AMA. CT abdomen/pelvis at that time showed acute on chronic hepatitis with 7.8 cm pancreatic pseudocyst and distended gallbladder. She returned to the ER the behest of her PCP. She reports abdominal pain, 03/29. 07/14 drainage of pseudocyst today c/o persistent pain D/W RN 07-15 IMPROVED, HOME TODAY 07/13: Afebrile. Still complains of abdominal pain. Plan for IR to biopsy and potentially drain pseudocyst on Tuesday. Continue full liquid diet. 07/12: Discussed results MRCP with patient. She has 7.5 cm pseudocyst is seen within the head of the pancreas, mass effect compressing the proximal main pancreatic duct and the common bile duct resulting in intra and extrahepatic biliary ductal dilatation and gallbladder distention and consulted interventional radiology to try to biopsy and aspirate pseudocyst. This will take place Tuesday. Patient reports 8/10 abdominal pain, requesting regular diet. Discussed this would not be consistent with appropriate medical management pancreatitis. Continue full liquid diet. 07/11: HIDA scan yesterday showing slow passage of radiotracer into the small bowel without evidence of a high-grade bile duct obstruction. Continue treatment of pancreatitis with bowel rest and IV fluids. Follow for resolution of pancreatic pseudocyst. Will consult IR to see about sampling pancreatic pseudocyst. She is scheduled for MRCP today. Patient does admits to improperly taking her levothyroxine with her other home medications. Discussed taking levothyroxine as first medication in the morning at least 1 hour prior to any other food or medications. Vitals Vitals Vital Signs Date Time Temp Pulse Resp B/P (MAP) Pulse Ox O2 Delivery O2 Flow Rate FiO2 07/15/20 06:32 95 Room Air 07/15/20 04:35 20 07/15/20 03:00 98.2 80 132/86 (101) 98.2 07/14/20 22:15 2.0 Physical Exam General: Alert, Oriented X3, Cooperative, No acute distress, mild distress Heart: Regular rate, Normal S1, Normal S2 Lungs: Clear Abdomen: Normal bowel sounds, Soft, Other (Tender to the epigastrium) Extremities: No clubbing, No cyanosis Skin: No rashes, No breakdown Labs LABS 07/15/2020 11:02 AM Procedure: CT-guided aspiration probable pancreatic pseudocysts pseudocyst Clinical Indication: PANCREATIC PSEUDOCYST Discussion: The procedure was explained in its entirety to the patient or the patients designated dental detail representative by a member of the treatment team, including a discussion of the risks, benefits and commonly accepted alternatives to the procedure, as well as the expected consequences of no therapy whatsoever. Discussion of the risks included, but was not limited to, those that are most frequent and those that are rare but possibly severe or life-threatening, as well as the possibility of unforeseen complications. All elements of maximal sterile barrier technique including the use of a cap, mask, sterile gown, sterile gloves, large sterile sheet, appropriate hand hygiene, and 2% chlorhexidine for cutaneous antisepsis (or acceptable alternative antiseptic per current guidelines) were followed for this procedure. The patient was brought to the CT scanner and placed in the supine position. A timeout procedure was performed. CT imaging was performed redemonstrating previously seen pancreatic pseudocyst. The overlying anterior abdomen was prepped and draped using sterile barrier technique as described above. 1% lidocaine was administered for local anesthesia. Under intermittent CT guidance a 22-gauge needle was advanced into the cyst. Cyst contents were aspirated. Approximately 100 cc of fluid was removed. This fluid was sent for further evaluation per ordering physician request. The needle was removed. Manual pressure was held. Repeat CT demonstrates no significant hemorrhage or other complication. Patient tolerated the procedure well. The procedures performed under conscious sedation including continuous cardiopulmonary monitoring via dedicated sedation nurse. [id number] sedation time: 26 minutes Impression: CT-guided aspiration of probable pancreatic pseudocyst PQRS Compliance Statement: One or more of the following individualized dose reduction techniques were utilized for this examination: 1. Automated exposure control 2. Adjustment of the mA and/or kV according to patient size 3. Use of iterative reconstruction technique DICTATED and SIGNED BY: DUSTY THACKER MD DATE: 07/15/20 [id number] Laboratory Tests Test 07/14/20 07:10 07/14/20 09:22 White Blood Count 6.6 x10^3/uL (4.0-11.0) Red Blood Count 3.72 x10^6/uL (3.50-5.40) Hemoglobin 12.7 g/dL (12.0-15.5) Hematocrit 37.9 % (36.0-47.0) Mean Corpuscular Volume 102 fL (79-100) Mean Corpuscular Hemoglobin 34 pg (25-35) Mean Corpuscular Hemoglobin Concent 34 g/dL (31-37) Red Cell Distribution Width 15.5 % (11.5-14.5) Platelet Count 243 x10^3/uL (140-400) Neutrophils (%) (Auto) 70 % (31-73) Lymphocytes (%) (Auto) 19 % (24-48) Monocytes (%) (Auto) 9 % (0-9) Eosinophils (%) (Auto) 3 % (0-3) Basophils (%) (Auto) 0 % (0-3) Neutrophils # (Auto) 4.6 x10^3/uL (1.8-7.7) Lymphocytes # (Auto) 1.2 x10^3/uL (1.0-4.8) Monocytes # (Auto) 0.6 x10^3/uL (0.0-1.1) Eosinophils # (Auto) 0.2 x10^3/uL (0.0-0.7) Basophils # (Auto) 0.0 x10^3/uL (0.0-0.2) Prothrombin Time 12.4 SEC (11.7-14.0) Prothromb Time International Ratio 1.0 (0.8-1.1) Activated Partial Thromboplast Time 32 SEC (24-38) Sodium Level 140 mmol/L (136-145) Potassium Level 3.5 mmol/L (3.5-5.1) Chloride Level 102 mmol/L (98-107) Carbon Dioxide Level 30 mmol/L (21-32) Anion Gap 8 (6-14) Blood Urea Nitrogen 5 mg/dL (7-20) Creatinine 1.0 mg/dL (0.6-1.0) Estimated GFR (Cockcroft-Gault) 56.2 Glucose Level 101 mg/dL (70-99) Calcium Level 9.5 mg/dL (8.5-10.1) SARS-CoV-2 Antigen (Rapid) Negative (NEGATIVE) Assessment and Plan Assessmemt and Plan Problems Medical Problems: (1) Acute on chronic pancreatitis Status: Acute (2) Right upper quadrant abdominal pain with positive Paulson's Sign Status: Acute (3) Transaminitis Status: Acute Comment Review of Relevant I have reviewed the following items tita (where applicable) has been applied. Labs Laboratory Tests Test 07/13/20 07:50 07/14/20 07:10 07/14/20 09:22 White Blood Count 6.1 x10^3/uL (4.0-11.0) 6.6 x10^3/uL (4.0-11.0) Red Blood Count 3.91 x10^6/uL (3.50-5.40) 3.72 x10^6/uL (3.50-5.40) Hemoglobin 13.6 g/dL (12.0-15.5) 12.7 g/dL (12.0-15.5) Hematocrit 39.8 % (36.0-47.0) 37.9 % (36.0-47.0) Mean Corpuscular Volume 102 fL (79-100) 102 fL (79-100) Mean Corpuscular Hemoglobin 35 pg (25-35) 34 pg (25-35) Mean Corpuscular Hemoglobin Concent 34 g/dL (31-37) 34 g/dL (31-37) Red Cell Distribution Width 15.9 % (11.5-14.5) 15.5 % (11.5-14.5) Platelet Count 271 x10^3/uL (140-400) 243 x10^3/uL (140-400) Neutrophils (%) (Auto) 66 % (31-73) 70 % (31-73) Lymphocytes (%) (Auto) 24 % (24-48) 19 % (24-48) Monocytes (%) (Auto) 8 % (0-9) 9 % (0-9) Eosinophils (%) (Auto) 2 % (0-3) 3 % (0-3) Basophils (%) (Auto) 1 % (0-3) 0 % (0-3) Neutrophils # (Auto) 4.0 x10^3/uL (1.8-7.7) 4.6 x10^3/uL (1.8-7.7) Lymphocytes # (Auto) 1.4 x10^3/uL (1.0-4.8) 1.2 x10^3/uL (1.0-4.8) Monocytes # (Auto) 0.5 x10^3/uL (0.0-1.1) 0.6 x10^3/uL (0.0-1.1) Eosinophils # (Auto) 0.1 x10^3/uL (0.0-0.7) 0.2 x10^3/uL (0.0-0.7) Basophils # (Auto) 0.0 x10^3/uL (0.0-0.2) 0.0 x10^3/uL (0.0-0.2) Sodium Level 141 mmol/L (136-145) 140 mmol/L (136-145) Potassium Level 3.4 mmol/L (3.5-5.1) 3.5 mmol/L (3.5-5.1) Chloride Level 102 mmol/L (98-107) 102 mmol/L (98-107) Carbon Dioxide Level 29 mmol/L (21-32) 30 mmol/L (21-32) Anion Gap 10 (6-14) 8 (6-14) Blood Urea Nitrogen 5 mg/dL (7-20) 5 mg/dL (7-20) Creatinine 0.9 mg/dL (0.6-1.0) 1.0 mg/dL (0.6-1.0) Estimated GFR (Cockcroft-Gault) 63.4 56.2 Glucose Level 103 mg/dL (70-99) 101 mg/dL (70-99) Calcium Level 9.5 mg/dL (8.5-10.1) 9.5 mg/dL (8.5-10.1) Prothrombin Time 12.4 SEC (11.7-14.0) Prothromb Time International Ratio 1.0 (0.8-1.1) Activated Partial Thromboplast Time 32 SEC (24-38) SARS-CoV-2 Antigen (Rapid) Negative (NEGATIVE) Laboratory Tests Test 07/14/20 07:10 07/14/20 09:22 White Blood Count 6.6 x10^3/uL (4.0-11.0) Red Blood Count 3.72 x10^6/uL (3.50-5.40) Hemoglobin 12.7 g/dL (12.0-15.5) Hematocrit 37.9 % (36.0-47.0) Mean Corpuscular Volume 102 fL (79-100) Mean Corpuscular Hemoglobin 34 pg (25-35) Mean Corpuscular Hemoglobin Concent 34 g/dL (31-37) Red Cell Distribution Width 15.5 % (11.5-14.5) Platelet Count 243 x10^3/uL (140-400) Neutrophils (%) (Auto) 70 % (31-73) Lymphocytes (%) (Auto) 19 % (24-48) Monocytes (%) (Auto) 9 % (0-9) Eosinophils (%) (Auto) 3 % (0-3) Basophils (%) (Auto) 0 % (0-3) Neutrophils # (Auto) 4.6 x10^3/uL (1.8-7.7) Lymphocytes # (Auto) 1.2 x10^3/uL (1.0-4.8) Monocytes # (Auto) 0.6 x10^3/uL (0.0-1.1) Eosinophils # (Auto) 0.2 x10^3/uL (0.0-0.7) Basophils # (Auto) 0.0 x10^3/uL (0.0-0.2) Prothrombin Time 12.4 SEC (11.7-14.0) Prothromb Time International Ratio 1.0 (0.8-1.1) Activated Partial Thromboplast Time 32 SEC (24-38) Sodium Level 140 mmol/L (136-145) Potassium Level 3.5 mmol/L (3.5-5.1) Chloride Level 102 mmol/L (98-107) Carbon Dioxide Level 30 mmol/L (21-32) Anion Gap 8 (6-14) Blood Urea Nitrogen 5 mg/dL (7-20) Creatinine 1.0 mg/dL (0.6-1.0) Estimated GFR (Cockcroft-Gault) 56.2 Glucose Level 101 mg/dL (70-99) Calcium Level 9.5 mg/dL (8.5-10.1) SARS-CoV-2 Antigen (Rapid) Negative (NEGATIVE) Microbiology 07/10/20 Urine Culture - Final, Complete 07/10/20 Antimicrobic Susceptibility - Final, Complete Medications Current Medications Sodium Chloride 1,000 ml @ 1,000 mls/hr Q1H IV Last administered on 07/09/20at 20:15; Start 07/09/20 at 20:00; Stop 07/09/20 at 20:59; Status DC Sodium Chloride 1,000 ml @ 250 mls/hr Q4H IV Last administered on 07/09/20at 21:00; Start 07/09/20 at 20:00; Stop 07/10/20 at 02:05; Status DC Hydromorphone HCl (Dilaudid) 1 mg 1X ONCE IVP Last administered on 07/09/20at 20:18; Start 07/09/20 at 20:00; Stop 07/09/20 at 20:11; Status DC Hydromorphone HCl (Dilaudid) 2 mg STK-MED ONCE .ROUTE ; Start 07/09/20 at 20:03; Stop 07/09/20 at 20:03; Status DC Hydromorphone HCl (Dilaudid) 1 mg 1X ONCE IVP Last administered on 07/09/20at 21:21; Start 07/09/20 at 21:15; Stop 07/09/20 at 21:16; Status DC Ondansetron HCl (Zofran) 4 mg PRN Q8HRS PRN IV NAUSEA/VOMITING; Start 07/09/20 at 22:00; Stop 07/10/20 at 11:29; Status DC Sodium Chloride 1,000 ml @ 100 mls/hr Q10H IV Last administered on 07/10/20at 19:42; Start 07/09/20 at 22:00; Stop 07/10/20 at 21:59; Status DC Acetaminophen (Tylenol) 650 mg PRN Q4HRS PRN PO FEVER > 100.3'F; Start 07/09/20 at 22:00; Stop 07/10/20 at 11:29; Status DC Hydromorphone HCl (Dilaudid) 2 mg PRN Q4HRS PRN IVP PAIN Last administered on 07/09/20at 23:02; Start 07/09/20 at 22:00; Stop 07/09/20 at 23:32; Status DC Hydromorphone HCl (Dilaudid) 4 mg PRN Q2HR PRN IVP MODERATE TO SEVERE PAIN Last administered on 07/10/20at 19:40; Start 07/09/20 at 23:30; Stop 07/10/20 at 20:45; Status DC Ondansetron HCl (Zofran) 4 mg PRN Q6HRS PRN IVP NAUSEA/VOMITING; Start 07/09/20 at 23:45 Prochlorperazine Edisylate (Compazine) 10 mg PRN Q6HRS PRN IVP NAUSEA/VOMITING Last administered on 07/14/20at 18:58; Start 07/09/20 at 23:45 Al Hydroxide/Mg Hydroxide (Mylanta Plus Xs) 30 ml PRN Q3HRS PRN PO HEARTBURN / GAS; Start 07/09/20 at 23:45 Calcium Carbonate/ Glycine (Tums) 500 mg PRN Q3HRS PRN PO UPSET STOMACH; Start 07/09/20 at 23:45 Acetaminophen (Tylenol) 650 mg PRN Q6HRS PRN PO Headaches, Temp > 101.5F; Start 07/09/20 at 23:45 Magnesium Hydroxide (Milk Of Magnesia) 2,400 mg PRN Q12HR PRN PO CONSTIPATION; Start 07/09/20 at 23:45 Bisacodyl (Dulcolax Supp) 10 mg PRN DAILY PRN [place] CONSTIPATION; Start 07/09/20 at 23:45 Enoxaparin Sodium (Lovenox 40mg Syringe) 40 mg Q24H SQ ; Start 07/09/20 at 23:45 Amlodipine Besylate (Norvasc) 10 mg DAILY PO Last administered on 07/13/20at 08:34; Start 07/10/20 at 09:00 Cyclobenzaprine HCl (Flexeril) 10 mg PRN TID PRN PO MUSCLE PAIN Last administered on 07/13/20at 22:23; Start 07/09/20 at 23:45 Hydrochlorothiazide (Hydrodiuril) 25 mg DAILY PO ; Start 07/10/20 at 09:00; Stop 07/10/20 at 20:45; Status DC Levothyroxine Sodium (Synthroid) 150 mcg DAILY06 PO Last administered on 07/15/20at 06:31; Start 07/10/20 at 06:00 Lidocaine (Lidoderm) 1 patch PRN DAILY PRN TP TOPICAL PAIN; Start 07/09/20 at 23:45 Oxycodone HCl (Roxicodone) 30 mg PRN Q4HRS PRN PO MODERATE TO SEVERE PAIN Last administered on 07/15/20at 03:18; Start 07/09/20 at 23:45 Sumatriptan Succinate (Imitrex) 100 mg PRN Q24HRS PRN PO HEADACHE Last administered on 07/13/20at 00:20; Start 07/09/20 at 23:45 Losartan Potassium (Cozaar) 100 mg DAILY PO Last administered on 07/13/20at 08:33; Start 07/10/20 at 09:00 Lorazepam (Ativan Inj) 1 mg PRN Q4HRS PRN IVP ANXIETY / AGITATION Last administered on 07/10/20at 19:40; Start 07/09/20 at 23:45; Stop 07/10/20 at 20:46; Status DC Miscellaneous (Lidoderm Patch Removal) 1 ea QHS MC ; Start 07/11/20 at 21:00 Pantoprazole Sodium (PROTONIX VIAL for IV PUSH) 40 mg DAILYAC IVP Last administered on 07/14/20at 07:59; Start 07/10/20 at 10:45; Stop 07/14/20 at 09:14; Status DC Morphine Sulfate (Morphine Sulfate) 4 mg 1X ONCE IV Last administered on 07/10/20at 14:55; Start 07/10/20 at 14:45; Stop 07/10/20 at 14:46; Status DC Morphine Sulfate (Morphine Sulfate) 4 mg STK-MED ONCE .ROUTE ; Start 07/10/20 at 14:42; Stop 07/10/20 at 14:43; Status DC Nicotine (Nicoderm Cq 21mg) 1 patch DAILY TD Last administered on 07/14/20at 08:00; Start 07/10/20 at 17:00 Hydromorphone HCl (Dilaudid) 2 mg PRN Q2HR PRN IVP MODERATE TO SEVERE PAIN Last administered on 07/15/20at 06:32; Start 07/10/20 at 20:45 Hydralazine HCl (Apresoline Inj) 10 mg PRN Q4HRS PRN IVP ELEVATED BP, SEE COMMENTS Last administered on 07/11/20at 03:26; Start 07/11/20 at 03:15 Pantoprazole Sodium (Protonix) 40 mg DAILYAC PO ; Start 07/15/20 at 07:30 Ceftriaxone Sodium (Rocephin) 1 gm Q24H IVP Last administered on 07/14/20at 14:23; Start 07/14/20 at 14:00 Lidocaine HCl (Buffered Lidocaine 1%) 3 ml STK-MED ONCE .ROUTE ; Start 07/14/20 at 10:45; Stop 07/14/20 at 10:45; Status DC Midazolam HCl (Versed) 2 mg STK-MED ONCE .ROUTE ; Start 07/14/20 at 10:47; Stop 07/14/20 at 10:48; Status DC Fentanyl Citrate (Fentanyl 2ml Vial) 100 mcg STK-MED ONCE .ROUTE ; Start 07/14/20 at 10:48; Stop 07/14/20 at 10:48; Status DC Lidocaine HCl (Buffered Lidocaine 1%) 3 ml 1X ONCE IJ Last administered on 07/14/20at 11:34; Start 07/14/20 at 11:00; Stop 07/14/20 at 11:01; Status DC Fentanyl Citrate (Fentanyl 2ml Vial) 100 mcg 1X ONCE IV Last administered on 07/14/20at 11:35; Start 07/14/20 at 11:00; Stop 07/14/20 at 11:01; Status DC Midazolam HCl (Versed) 2 mg 1X ONCE IV Last administered on 07/14/20at 11:34; Start 07/14/20 at 11:00; Stop 07/14/20 at 11:01; Status DC Active Scripts Active Pyridium (Phenazopyridine Hcl) 100 Mg Tablet 100 Mg PO TID Cipro (Ciprofloxacin Hcl) 250 Mg Tablet 1 Tab PO BID Lidocaine PATCH (Lidocaine) 1 Each Adh..patch 1 Each TP DAILY REMOVE AFTER 12 HOURS Lidocaine PATCH (Lidocaine) 1 Each Adh..patch 1 Each TP DAILY PRN Diclofenac Sodium 50 Mg Tablet.dr 1 Tab PO BID Cyclobenzaprine Hcl 10 Mg Tablet 1 Tab PO TID PRN Bentyl (Dicyclomine Hcl) 10 Mg/1 Ml Ampul 10 Mg IM BID Cyclobenzaprine Hcl 10 Mg Tablet 1 Tab PO TID PRN Levaquin (Levofloxacin) 500 Mg Tablet 1 Tab PO DAILY Macrobid 100 Mg Capsule (Nitrofurantoin Monohyd/M-Cryst) 100 Mg Capsule 1 Cap PO BID Cyclobenzaprine Hcl 10 Mg Tablet 1 Tab PO TID 30 Days Levothyroxine Sodium 150 Mcg Tablet 150 Mcg PO DAILY06 30 Days Imitrex (Sumatriptan Succinate) 100 Mg Tablet 1 Tab PO UD Losartan Potassium 100 Mg Tablet 100 Mg PO DAILY 30 Days Hydrochlorothiazide Tablet (Hydrochlorothiazide) 25 Mg Tablet 1 Tab PO DAILY Amlodipine Besylate 10 Mg Tablet 10 Mg PO DAILY 30 Days Reported Oxycodone Hcl Immed.release (Oxycodone Hcl) 5 Mg Tablet 30 Mg PO PRN Q4HRS PRN Vitals/I & O Vital Sign - Last 24 Hours 07/14/20 07/14/20 07/14/20 07/14/20 07:00 07:59 08:00 08:29 Temp 98.1 98.1 Pulse 49 Resp 18 B/P (MAP) 147/78 (101) Pulse Ox 94 O2 Delivery Room Air Room Air Room Air Room Air 07/14/20 07/14/20 07/14/20 07/14/20 10:15 10:45 11:00 11:10 Temp 98.3 98.3 Pulse 66 68 Resp 18 19 B/P (MAP) 156/84 (108) Pulse Ox 97 99 O2 Delivery Room Air Room Air Room Air Nasal Cannula O2 Flow Rate 2.0 07/14/20 07/14/20 07/14/20 07/14/20 11:15 11:20 11:25 11:30 Pulse 69 68 70 70 Resp 12 16 17 19 Pulse Ox 98 98 98 98 O2 Delivery Nasal Cannula Nasal Cannula Nasal Cannula Nasal Cannula O2 Flow Rate 2.0 2.0 2.0 2.0 07/14/20 07/14/20 07/14/20 07/14/20 11:35 12:34 13:34 14:22 Resp 19 Pulse Ox 98 O2 Delivery Nasal Cannula Room Air Room Air Room Air O2 Flow Rate 2.0 07/14/20 07/14/20 07/14/20 07/14/20 14:52 15:00 16:40 17:10 Temp 97.9 97.9 Pulse 90 Resp 18 B/P (MAP) 129/75 (93) Pulse Ox 97 O2 Delivery Room Air Room Air Room Air Room Air 07/14/20 07/14/20 07/14/20 07/14/20 17:48 18:48 18:55 19:00 Temp 98.0 98.0 Pulse 91 Resp 18 B/P (MAP) 129/82 (98) Pulse Ox 96 O2 Delivery Room Air Room Air Room Air Room Air 07/14/20 07/14/20 07/14/20 07/14/20 19:30 20:00 21:43 22:15 Resp 20 20 Pulse Ox 96 96 96 O2 Delivery Room Air Room Air Room Air Room Air O2 Flow Rate 2.0 2.0 2.0 07/14/20 07/15/20 07/15/20 07/15/20 23:53 00:40 01:53 02:23 Resp 20 20 Pulse Ox 96 96 96 O2 Delivery Room Air Room Air Room Air Room Air 07/15/20 07/15/20 07/15/20 07/15/20 03:00 03:18 04:35 05:21 Temp 98.2 98.2 Pulse 80 Resp 18 20 20 B/P (MAP) 132/86 (101) Pulse Ox 94 O2 Delivery Room Air Room Air Room Air Room Air 07/15/20 07/15/20 05:22 06:32 Pulse Ox 94 95 O2 Delivery Room Air Room Air Intake and Output 07/14/20 07/14/20 07/15/20 15:00 23:00 07:00 Intake Total 400 ml 1600 ml Output Total 100 ml 0 ml Balance 300 ml 1600 ml Justicifation of Admission Dx: Justifications for Admission: Justification of Admission Dx: Yes AUSTIN LANDRY MD Jul 15, 2020 06:52
[2020-07-15 07:00] VITALS: BP 145/84
[2020-07-15] MEDS ORDERED: PANTOPRAZOLE 40 MG TABLET.DR. PO SCH (07:30)
[2020-07-15 07:35] LABS: BASO % 1 % (0-3); EOS # 0.2 x10^3/uL (0.0-0.7); EOS % 3 % (0-3); HEMATOCRIT 37.5 % (36.0-47.0); HEMOGLOBIN 12.8 g/dL (12.0-15.5); LYMPH # 1.5 x10^3/uL (1.0-4.8); LYMPH % 29 % (24-48); MEAN CORPUSCULAR HEMOGLOBIN 35 pg (25-35); MEAN CORPUSCULAR HGB CONC 34 g/dL (31-37); MEAN CORPUSCULAR VOLUME 102 fL (79-100); MONO # 0.4 x10^3/uL (0.0-1.1); MONO % 9 % (0-9); NEUT % 58 % (31-73); PLATELET COUNT 234 x10^3/uL (140-400); RED BLOOD COUNT 3.68 x10^6/uL (3.50-5.40); RED CELL DISTRIBUTION WIDTH 16.1 % (11.5-14.5); WHITE BLOOD COUNT 5.1 x10^3/uL (4.0-11.0)
[2020-07-15 08:00] LABS: GFR 56.2; POTASSIUM 3.6 mmol/L (3.5-5.1)
[2020-07-15] MEDS: LOSARTAN POTASSIUM 50 MG TABLET. PO SCH (08:12)
[2020-07-15] MEDS: NICOTINE 21MG PATCH. TD SCH (08:13)
--- NOTE | 2020-07-15 09:45 | PDOC ---
Date of Service: DATE: 07/15/20 TIME: 09:36 Subjective: Subjective: Doesn't feel good. No abdominal pain today. Eating and stooling. Has pain in left flank - similar to past kidney stones. Chronic back pain is mid-lower back. Wants to have a diagnosis/plan before she goes home. Says she'd be stupid not to take IV and PO meds here for pain because IV is available, but also says she could go home and take her usual PO pain meds just fine. Also wants to know if she has a kidney stone before she leaves so she won't have to come back a third time and "butt heads with the ER doctor again." Wants to know when test results will be available. Also wants to know if I'll have answers the next time I come by instead of "just stopping by without having anything to say." Objective: Objective: D/w nurse - tolerating GI soft, stooling, c/o back pain and wondering about kidney stone, getting IV and PO pain meds. Vital Signs: Vital Signs Date Time Temp Pulse Resp B/P (MAP) Pulse Ox O2 Delivery O2 Flow Rate FiO2 07/15/20 08:13 78 145/84 07/15/20 08:12 Room Air 07/15/20 07:00 98.5 18 96 98.5 07/14/20 22:15 2.0 Labs: Laboratory Tests Test 07/15/20 06:50 White Blood Count 5.1 x10^3/uL Red Blood Count 3.68 x10^6/uL Hemoglobin 12.8 g/dL Hematocrit 37.5 % Mean Corpuscular Volume 102 fL Mean Corpuscular Hemoglobin 35 pg Mean Corpuscular Hemoglobin Concent 34 g/dL Red Cell Distribution Width 16.1 % Platelet Count 234 x10^3/uL Neutrophils (%) (Auto) 58 % Lymphocytes (%) (Auto) 29 % Monocytes (%) (Auto) 9 % Eosinophils (%) (Auto) 3 % Basophils (%) (Auto) 1 % Neutrophils # (Auto) 3.0 x10^3/uL Lymphocytes # (Auto) 1.5 x10^3/uL Monocytes # (Auto) 0.4 x10^3/uL Eosinophils # (Auto) 0.2 x10^3/uL Basophils # (Auto) 0.0 x10^3/uL Sodium Level 140 mmol/L Potassium Level 3.6 mmol/L Chloride Level 101 mmol/L Carbon Dioxide Level 30 mmol/L Anion Gap 9 Blood Urea Nitrogen 10 mg/dL Creatinine 1.0 mg/dL Estimated GFR (Cockcroft-Gault) 56.2 Glucose Level 84 mg/dL Calcium Level 9.0 mg/dL ORDERED: ANAER/AEROB/GS COMMENTS: PANCREATIC PSEUDOCYST, FLUID Procedure Result GRAM STAIN Final Final NO ORGANISMS SEEN. SQUAMOUS EPI CELL:NOT APPLICABLE PMN (WBCs):NONE SEEN Unless otherwise specified, Testing Performed by: [place] [address] For Inquires, the Physician may contact the Microbiology department at [phone] ANAEROBIC-AEROBIC CULTURE PENDING PE: GEN: NAD LUNGS: diminished HEART: RRR ABD: left flank tenderness NEURO/PSYCH: A & O 3 A/P: Pancreatic cyst w/ PD and CBD compression Left flank pain, chronic LBP UTI, hypothyroidism -- Gram stain as above, culture and amylase pending. Per CT report from 07/08: 7 mm nonobstructing calculus is seen involving the lower pole the right kidney. Other per Dr. Crabtree. Justicifation of Admission Dx: Justifications for Admission: Justification of Admission Dx: Yes OSVALDO ZHAO Jul 15, 2020 09:45
--- NOTE | 2020-07-15 10:13 | NUR ---
SW following. Discussed with RN, pt from home with spouse, room air, GI soft diet, rapid COVID-19 negative. Iv pain meds have been stopped. Med Assist following for self pay status. RN anticipates discharge home in the next day or two. SW will continue to follow.
--- NOTE | 2020-07-15 10:47 | PDOC ---
SURGICAL PROGRESS NOTE DATE: 07/15/20 TIME: 10:45 Subjective says she will go home if they stop iv pain meds, why stay most of pain is left flank, hx of kidney stones Vital Signs Vital Signs Date Time Temp Pulse Resp B/P (MAP) Pulse Ox O2 Delivery O2 Flow Rate FiO2 07/15/20 09:41 Room Air 07/15/20 08:13 78 145/84 07/15/20 07:00 98.5 18 96 98.5 07/14/20 22:15 2.0 I&O Intake and Output 07/15/20 07:00 Intake Total 2000 ml Output Total 100 ml Balance 1900 ml Intake Oral 2000 ml Output Urine Total 0 ml Drainage Total 100 ml # Voids 1 General: Alert, Oriented X3, Cooperative Abdomen: Soft Labs Laboratory Tests Test 07/14/20 07:10 07/14/20 09:22 07/15/20 06:50 White Blood Count 6.6 x10^3/uL (4.0-11.0) 5.1 x10^3/uL (4.0-11.0) Red Blood Count 3.72 x10^6/uL (3.50-5.40) 3.68 x10^6/uL (3.50-5.40) Hemoglobin 12.7 g/dL (12.0-15.5) 12.8 g/dL (12.0-15.5) Hematocrit 37.9 % (36.0-47.0) 37.5 % (36.0-47.0) Mean Corpuscular Volume 102 fL (79-100) 102 fL (79-100) Mean Corpuscular Hemoglobin 34 pg (25-35) 35 pg (25-35) Mean Corpuscular Hemoglobin Concent 34 g/dL (31-37) 34 g/dL (31-37) Red Cell Distribution Width 15.5 % (11.5-14.5) 16.1 % (11.5-14.5) Platelet Count 243 x10^3/uL (140-400) 234 x10^3/uL (140-400) Neutrophils (%) (Auto) 70 % (31-73) 58 % (31-73) Lymphocytes (%) (Auto) 19 % (24-48) 29 % (24-48) Monocytes (%) (Auto) 9 % (0-9) 9 % (0-9) Eosinophils (%) (Auto) 3 % (0-3) 3 % (0-3) Basophils (%) (Auto) 0 % (0-3) 1 % (0-3) Neutrophils # (Auto) 4.6 x10^3/uL (1.8-7.7) 3.0 x10^3/uL (1.8-7.7) Lymphocytes # (Auto) 1.2 x10^3/uL (1.0-4.8) 1.5 x10^3/uL (1.0-4.8) Monocytes # (Auto) 0.6 x10^3/uL (0.0-1.1) 0.4 x10^3/uL (0.0-1.1) Eosinophils # (Auto) 0.2 x10^3/uL (0.0-0.7) 0.2 x10^3/uL (0.0-0.7) Basophils # (Auto) 0.0 x10^3/uL (0.0-0.2) 0.0 x10^3/uL (0.0-0.2) Prothrombin Time 12.4 SEC (11.7-14.0) Prothromb Time International Ratio 1.0 (0.8-1.1) Activated Partial Thromboplast Time 32 SEC (24-38) Sodium Level 140 mmol/L (136-145) 140 mmol/L (136-145) Potassium Level 3.5 mmol/L (3.5-5.1) 3.6 mmol/L (3.5-5.1) Chloride Level 102 mmol/L (98-107) 101 mmol/L (98-107) Carbon Dioxide Level 30 mmol/L (21-32) 30 mmol/L (21-32) Anion Gap 8 (6-14) 9 (6-14) Blood Urea Nitrogen 5 mg/dL (7-20) 10 mg/dL (7-20) Creatinine 1.0 mg/dL (0.6-1.0) 1.0 mg/dL (0.6-1.0) Estimated GFR (Cockcroft-Gault) 56.2 56.2 Glucose Level 101 mg/dL (70-99) 84 mg/dL (70-99) Calcium Level 9.5 mg/dL (8.5-10.1) 9.0 mg/dL (8.5-10.1) SARS-CoV-2 Antigen (Rapid) Negative (NEGATIVE) Laboratory Tests Test 07/15/20 06:50 White Blood Count 5.1 x10^3/uL (4.0-11.0) Red Blood Count 3.68 x10^6/uL (3.50-5.40) Hemoglobin 12.8 g/dL (12.0-15.5) Hematocrit 37.5 % (36.0-47.0) Mean Corpuscular Volume 102 fL (79-100) Mean Corpuscular Hemoglobin 35 pg (25-35) Mean Corpuscular Hemoglobin Concent 34 g/dL (31-37) Red Cell Distribution Width 16.1 % (11.5-14.5) Platelet Count 234 x10^3/uL (140-400) Neutrophils (%) (Auto) 58 % (31-73) Lymphocytes (%) (Auto) 29 % (24-48) Monocytes (%) (Auto) 9 % (0-9) Eosinophils (%) (Auto) 3 % (0-3) Basophils (%) (Auto) 1 % (0-3) Neutrophils # (Auto) 3.0 x10^3/uL (1.8-7.7) Lymphocytes # (Auto) 1.5 x10^3/uL (1.0-4.8) Monocytes # (Auto) 0.4 x10^3/uL (0.0-1.1) Eosinophils # (Auto) 0.2 x10^3/uL (0.0-0.7) Basophils # (Auto) 0.0 x10^3/uL (0.0-0.2) Sodium Level 140 mmol/L (136-145) Potassium Level 3.6 mmol/L (3.5-5.1) Chloride Level 101 mmol/L (98-107) Carbon Dioxide Level 30 mmol/L (21-32) Anion Gap 9 (6-14) Blood Urea Nitrogen 10 mg/dL (7-20) Creatinine 1.0 mg/dL (0.6-1.0) Estimated GFR (Cockcroft-Gault) 56.2 Glucose Level 84 mg/dL (70-99) Calcium Level 9.0 mg/dL (8.5-10.1) Problem List Problems Medical Problems: (1) Acute on chronic pancreatitis Status: Acute (2) Right upper quadrant abdominal pain with positive Paulson's Sign Status: Acute (3) Transaminitis Status: Acute Assessment/Plan pancreatic cyst fluid analysis pending GI following no current surgical plans Justicifation of Admission Dx: Justifications for Admission: Justification of Admission Dx: Yes [facility] Jul 15, 2020 10:47
[2020-07-15 11:00] VITALS: BP 137/83
[2020-07-15] MEDS: PROCHLORPERAZINE 10 MG/2 ML VIAL. IVP PRN (12:04)
[2020-07-15] MEDS: CYCLOBENZAPRINE 10 MG TABLET. PO PRN (12:04)
--- NOTE | 2020-07-15 13:07 | RAD ---
07/15/2020 11:02 AM Procedure: CT-guided aspiration probable pancreatic pseudocysts pseudocyst Clinical Indication: PANCREATIC PSEUDOCYST Discussion: The procedure was explained in its entirety to the patient or the patients designated customer service representative by a member of the treatment team, including a discussion of the risks, benefits and commonly accepted alternatives to the procedure, as well as the expected consequences of no therapy whatsoever. Discussion of the risks included, but was not limited to, those that are most frequent and those that are rare but possibly severe or life-threatening, as well as the possibility of unforeseen complications. All elements of maximal sterile barrier technique including the use of a cap, mask, sterile gown, sterile gloves, large sterile sheet, appropriate hand hygiene, and 2% chlorhexidine for cutaneous antisepsis (or acceptable alternative antiseptic per current guidelines) were followed for this procedure. The patient was brought to the CT scanner and placed in the supine position. A timeout procedure was performed. CT imaging was performed redemonstrating previously seen pancreatic pseudocyst. The overlying anterior abdomen was prepped and draped using sterile barrier technique as described above. 1% lidocaine was administered for local anesthesia. Under intermittent CT guidance a 22-gauge needle was advanced into the cyst. Cyst contents were aspirated. Approximately 100 cc of fluid was removed. This fluid was sent for further evaluation per ordering physician request. The needle was removed. Manual pressure was held. Repeat CT demonstrates no significant hemorrhage or other complication. Patient tolerated the procedure well. The procedures performed under conscious sedation including continuous cardiopulmonary monitoring via dedicated sedation nurse. [id number] sedation time: 26 minutes Impression: CT-guided aspiration of probable pancreatic pseudocyst PQRS Compliance Statement: One or more of the following individualized dose reduction techniques were utilized for this examination: 1. Automated exposure control 2. Adjustment of the mA and/or kV according to patient size 3. Use of iterative reconstruction technique
[2020-07-15] MEDS: cefTRIAXone IV Push 1 GM VIAL. IVP SCH (14:03)
--- NOTE | 2020-07-15 14:14 | PATHOLOGY ---
Note [facility] Accession Number: [id number] TESTS RESULT FLAG UNITS REF RANGE LAB Clinician Provided Cytology Information No. of containers..01 Other (Miscellaneous) Source: PANC PSEUDO CYST DIAGNOSIS: PANC PSEUDO CYST NEGATIVE FOR MALIGNANT CELLS. ACUTE AND CHRONIC INFLAMMATORY CELLS, HISTIOCYTES, HEMOSIDERIN-LADEN MACROPHAGES, HEMATOIDIN, AND RED BLOOD CELLS PRESENT. THIS INTERPRETATION INCLUDES EVALUATION OF A CELL BLOCK. Signed out by: 02 Maykel Herrera MD, Pathologist NPI- [id number] Performed by: Vijaya Jhaveri, Homicide Squad Commanding Officer ([facility]) Gross description: 01 20ML, DARK BROWN, 1 TP 1 CB /LCS 07/14/2020 1533 Local FLAG LEGEND: L-Low Normal,H-High Normal,LL-Alert Low,HH-Alert High <-Panic Low,>-Panic High,A-Abnormal,AA-Critical Abnormal Performed at: [facility] [address] [place] [address] Jeremy Soto MD, [address] [facility] [address] [place] [address] Maykel Herrera MD, Specimen Comment: A courtesy copy of this report has been sent to [phone], [phone] Specimen Comment: [phone], , Specimen Comment: Report sent to ,DR GAMEZ,DR YOON / DR MENG Specimen Comment: A duplicate report has been generated due to demographic updates. Performed at: [address], [place], [place] [id number] MD Jeremy Soto MD Phone: [phone]
[2020-07-15 15:00] VITALS: BP 106/65
--- NOTE | 2020-07-15 15:48 | PDOC3 ---
Discharge Summary Date of Admission: Jul 09, 2020 Date of Discharge: Jul 15, 2020 Follow-Up: 3-5 days Admitting Diagnosis comment: Chief Complaint Chief Complaint -=========hospital d/c summary DATE OF ADMIT 07-09-20 DATE OF D/C 07-15-20 CONSULTATIONS GI, GENERAL SURGERY COMPLICATIONS NONE D/C CONDITION GOOD PROCEDURES CT-guided aspiration of probable pancreatic pseudocyst 07-14 Approximately 100 cc of fluid was removed. This fluid was sent for further evaluation / AMYLASE TO SEE GI IN ONE WEEK // , PCP IN ONE WEEK discharge dx Acute on chronic pancreatitis Pancreatic pseudocyst Dilated gallbladder vs cholecystitis Transaminitis UTI E COLI, IV ROCEPHIN CHG PO AUGMENTIN ON D/C intractable back and abdominal pain Plan: SOFT DIET GI following OK WITH D/C 07-15 Follow urine output Consult general surgery No gallstones seen on ultrasound; will defer to general surgery for recommendations on HIDA scan Dilaudid IV as needed for pain, STOPPED 07/15 Resume home medications PPX - Lovenox FULL CODE Dispo - inpatient for above Fluid amylase still pending. d/w RN PT DESIRES TO GO HOME TODAY D/C PLANNING 33 MIN History of Present Illness History of Present Illness Patient 60-year-old female presented to the ER with complaint of left upper quadrant abdominal pain. She was seen in the ED yesterday for similar symptoms, but left AMA. CT abdomen/pelvis at that time showed acute on chronic hepatitis with 7.8 cm pancreatic pseudocyst and distended gallbladder. She returned to the ER the behest of her PCP. She reports abdominal pain, 03/29. 07/14 drainage of pseudocyst today c/o persistent pain D/W RN 07-15 IMPROVED, HOME TODAY 07/13: Afebrile. Still complains of abdominal pain. Plan for IR to biopsy and potentially drain pseudocyst on Tuesday. Continue full liquid diet. 07/12: Discussed results MRCP with patient. She has 7.5 cm pseudocyst is seen within the head of the pancreas, mass effect compressing the proximal main pancreatic duct and the common bile duct resulting in intra and extrahepatic biliary ductal dilatation and gallbladder distention and consulted interventional radiology to try to biopsy and aspirate pseudocyst. This will take place Tuesday. Patient reports 8/10 abdominal pain, requesting regular diet. Discussed this would not be consistent with appropriate medical management pancreatitis. Continue full liquid diet. 07/11: HIDA scan yesterday showing slow passage of radiotracer into the small bowel without evidence of a high-grade bile duct obstruction. Continue treatment of pancreatitis with bowel rest and IV fluids. Follow for resolution of pancreatic pseudocyst. Will consult IR to see about sampling pancreatic pseudocyst. She is scheduled for MRCP today. Patient does admits to improperly taking her levothyroxine with her other home medications. Discussed taking levothyroxine as first medication in the morning at least 1 hour prior to any other food or medications. Vitals Vitals Vital Signs Date Time Temp Pulse Resp B/P (MAP) Pulse Ox O2 Delivery O2 Flow Rate FiO2 07/15/20 06:32 95 Room Air 07/15/20 04:35 20 07/15/20 03:00 98.2 80 132/86 (101) 98.2 07/14/20 22:15 2.0 Physical Exam General: Alert, Oriented X3, Cooperative, No acute distress, mild distress Heart: Regular rate, Normal S1, Normal S2 Lungs: Clear Abdomen: Normal bowel sounds, Soft, Other (Tender to the epigastrium) Extremities: No clubbing, No cyanosis Skin: No rashes, No breakdown Labs LABS 07/15/2020 11:02 AM Procedure: CT-guided aspiration probable pancreatic pseudocyst Clinical Indication: PANCREATIC PSEUDOCYST Discussion: The procedure was explained in its entirety to the patient or the patients designated client support representative by a member of the treatment team, including a discussion of the risks, benefits and commonly accepted alternatives to the procedure, as well as the expected consequences of no therapy whatsoever. Discussion of the risks included, but was not limited to, those that are most frequent and those that are rare but possibly severe or life-threatening, as well as the possibility of unforeseen complications. All elements of maximal sterile barrier technique including the use of a cap, mask, sterile gown, sterile gloves, large sterile sheet, appropriate hand hygiene, and 2% chlorhexidine for cutaneous antisepsis (or acceptable alternative antiseptic per current guidelines) were followed for this procedure. The patient was brought to the CT scanner and placed in the supine position. A timeout procedure was performed. CT imaging was performed redemonstrating previously seen pancreatic pseudocyst. The overlying anterior abdomen was prepped and draped using sterile barrier technique as described above. 1% lidocaine was administered for local anesthesia. Under intermittent CT guidance a 22-gauge needle was advanced into the cyst. Cyst contents were aspirated. Approximately 100 cc of fluid was removed. This fluid was sent for further evaluation per ordering physician request. The needle was removed. Manual pressure was held. Repeat CT demonstrates no significant hemorrhage or other complication. Patient tolerated the procedure well. The procedures performed under conscious sedation including continuous cardiopulmonary monitoring via dedicated sedation nurse. [id number] sedation time: 26 minutes Impression: CT-guided aspiration of probable pancreatic pseudocyst PQRS Compliance Statement: One or more of the following individualized dose reduction techniques were utilized for this examination: 1. Automated exposure control 2. Adjustment of the mA and/or kV according to patient size 3. Use of iterative reconstruction technique FINAL DIAGNOSIS Problems Medical Problems: (1) Acute on chronic pancreatitis Status: Acute (2) Right upper quadrant abdominal pain with positive Paulson's Sign Status: Acute (3) Transaminitis Status: Acute Brief Hospital Course Ms. Boswell is a 60 old [sex] who presented with [INTRACTABLE PAIN, PANCREATIC PSEUDOCYST ] CONDITION AT DISCHARGE: Improved Discharge Medications Current Medications Sodium Chloride 1,000 ml @ 1,000 mls/hr Q1H IV Last administered on 07/09/20at 20:15; Start 07/09/20 at 20:00; Stop 07/09/20 at 20:59; Status DC Sodium Chloride 1,000 ml @ 250 mls/hr Q4H IV Last administered on 07/09/20at 21:00; Start 07/09/20 at 20:00; Stop 07/10/20 at 02:05; Status DC Hydromorphone HCl (Dilaudid) 1 mg 1X ONCE IVP Last administered on 07/09/20at 20:18; Start 07/09/20 at 20:00; Stop 07/09/20 at 20:11; Status DC Hydromorphone HCl (Dilaudid) 2 mg STK-MED ONCE .ROUTE ; Start 07/09/20 at 20:03; Stop 07/09/20 at 20:03; Status DC Hydromorphone HCl (Dilaudid) 1 mg 1X ONCE IVP Last administered on 07/09/20at 21:21; Start 07/09/20 at 21:15; Stop 07/09/20 at 21:16; Status DC Ondansetron HCl (Zofran) 4 mg PRN Q8HRS PRN IV NAUSEA/VOMITING; Start 07/09/20 at 22:00; Stop 07/10/20 at 11:29; Status DC Sodium Chloride 1,000 ml @ 100 mls/hr Q10H IV Last administered on 07/10/20at 19:42; Start 07/09/20 at 22:00; Stop 07/10/20 at 21:59; Status DC Acetaminophen (Tylenol) 650 mg PRN Q4HRS PRN PO FEVER > 100.3'F; Start 07/09/20 at 22:00; Stop 07/10/20 at 11:29; Status DC Hydromorphone HCl (Dilaudid) 2 mg PRN Q4HRS PRN IVP PAIN Last administered on 07/09/20at 23:02; Start 07/09/20 at 22:00; Stop 07/09/20 at 23:32; Status DC Hydromorphone HCl (Dilaudid) 4 mg PRN Q2HR PRN IVP MODERATE TO SEVERE PAIN Last administered on 07/10/20at 19:40; Start 07/09/20 at 23:30; Stop 07/10/20 at 20:45; Status DC Ondansetron HCl (Zofran) 4 mg PRN Q6HRS PRN IVP NAUSEA/VOMITING; Start 07/09/20 at 23:45 Prochlorperazine Edisylate (Compazine) 10 mg PRN Q6HRS PRN IVP NAUSEA/VOMITING Last administered on 07/15/20at 12:04; Start 07/09/20 at 23:45 Al Hydroxide/Mg Hydroxide (Mylanta Plus Xs) 30 ml PRN Q3HRS PRN PO HEARTBURN / GAS; Start 07/09/20 at 23:45 Calcium Carbonate/ Glycine (Tums) 500 mg PRN Q3HRS PRN PO UPSET STOMACH; Start 07/09/20 at 23:45 Acetaminophen (Tylenol) 650 mg PRN Q6HRS PRN PO Headaches, Temp > 101.5F; Start 07/09/20 at 23:45 Magnesium Hydroxide (Milk Of Magnesia) 2,400 mg PRN Q12HR PRN PO CONSTIPATION; Start 07/09/20 at 23:45 Bisacodyl (Dulcolax Supp) 10 mg PRN DAILY PRN LA CONSTIPATION; Start 07/09/20 at 23:45 Enoxaparin Sodium (Lovenox 40mg Syringe) 40 mg Q24H SQ ; Start 07/09/20 at 23:45 Amlodipine Besylate (Norvasc) 10 mg DAILY PO Last administered on 07/15/20at 08:13; Start 07/10/20 at 09:00 Cyclobenzaprine HCl (Flexeril) 10 mg PRN TID PRN PO MUSCLE PAIN Last administered on 07/15/20at 12:04; Start 07/09/20 at 23:45 Hydrochlorothiazide (Hydrodiuril) 25 mg DAILY PO ; Start 07/10/20 at 09:00; Stop 07/10/20 at 20:45; Status DC Levothyroxine Sodium (Synthroid) 150 mcg DAILY06 PO Last administered on 07/15/20at 06:31; Start 07/10/20 at 06:00 Lidocaine (Lidoderm) 1 patch PRN DAILY PRN TP TOPICAL PAIN; Start 07/09/20 at 23:45 Oxycodone HCl (Roxicodone) 30 mg PRN Q4HRS PRN PO MODERATE TO SEVERE PAIN Last administered on 07/15/20at 14:02; Start 07/09/20 at 23:45 Sumatriptan Succinate (Imitrex) 100 mg PRN Q24HRS PRN PO HEADACHE Last administered on 07/13/20at 00:20; Start 07/09/20 at 23:45 Losartan Potassium (Cozaar) 100 mg DAILY PO Last administered on 07/15/20at 08:12; Start 07/10/20 at 09:00 Lorazepam (Ativan Inj) 1 mg PRN Q4HRS PRN IVP ANXIETY / AGITATION Last administered on 07/10/20at 19:40; Start 07/09/20 at 23:45; Stop 07/10/20 at 20:46; Status DC Miscellaneous (Lidoderm Patch Removal) 1 ea QHS ; Start 07/11/20 at 21:00 Pantoprazole Sodium (PROTONIX VIAL for IV PUSH) 40 mg DAILYAC IVP Last administered on 07/14/20at 07:59; Start 07/10/20 at 10:45; Stop 07/14/20 at 09:14; Status DC Morphine Sulfate (Morphine Sulfate) 4 mg 1X ONCE IV Last administered on 07/10/20at 14:55; Start 07/10/20 at 14:45; Stop 07/10/20 at 14:46; Status DC Morphine Sulfate (Morphine Sulfate) 4 mg STK-MED ONCE .ROUTE ; Start 07/10/20 at 14:42; Stop 07/10/20 at 14:43; Status DC Nicotine (Nicoderm Cq 21mg) 1 patch DAILY TD Last administered on 07/15/20at 08:13; Start 07/10/20 at 17:00 Hydromorphone HCl (Dilaudid) 2 mg PRN Q2HR PRN IVP MODERATE TO SEVERE PAIN Last administered on 07/15/20at 12:05; Start 07/10/20 at 20:45 Hydralazine HCl (Apresoline Inj) 10 mg PRN Q4HRS PRN IVP ELEVATED BP, SEE C OMMENTS Last administered on 07/11/20at 03:26; Start 07/11/20 at 03:15 Pantoprazole Sodium (Protonix) 40 mg DAILYAC PO Last administered on 07/15/20at 08:12; Start 07/15/20 at 07:30 Ceftriaxone Sodium (Rocephin) 1 gm Q24H IVP Last administered on 07/15/20at 14:03; Start 07/14/20 at 14:00 Lidocaine HCl (Buffered Lidocaine 1%) 3 ml STK-MED ONCE .ROUTE ; Start 07/14/20 at 10:45; Stop 07/14/20 at 10:45; Status DC Midazolam HCl (Versed) 2 mg STK-MED ONCE .ROUTE ; Start 07/14/20 at 10:47; Stop 07/14/20 at 10:48; Status DC Fentanyl Citrate (Fentanyl 2ml Vial) 100 mcg STK-MED ONCE .ROUTE ; Start 07/14/20 at 10:48; Stop 07/14/20 at 10:48; Status DC Lidocaine HCl (Buffered Lidocaine 1%) 3 ml 1X ONCE IJ Last administered on 07/14/20at 11:34; Start 07/14/20 at 11:00; Stop 07/14/20 at 11:01; Status DC Fentanyl Citrate (Fentanyl 2ml Vial) 100 mcg 1X ONCE IV Last administered on 07/14/20at 11:35; Start 07/14/20 at 11:00; Stop 07/14/20 at 11:01; Status DC Midazolam HCl (Versed) 2 mg 1X ONCE IV Last administered on 07/14/20at 11:34; Start 07/14/20 at 11:00; Stop 07/14/20 at 11:01; Status DC Active Scripts Active Pyridium (Phenazopyridine Hcl) 100 Mg Tablet 100 Mg PO TID Cipro (Ciprofloxacin Hcl) 250 Mg Tablet 1 Tab PO BID Lidocaine PATCH (Lidocaine) 1 Each Adh..patch 1 Each TP DAILY REMOVE AFTER 12 HOURS Lidocaine PATCH (Lidocaine) 1 Each Adh..patch 1 Each TP DAILY PRN Diclofenac Sodium 50 Mg Tablet.dr 1 Tab PO BID Cyclobenzaprine Hcl 10 Mg Tablet 1 Tab PO TID PRN Bentyl (Dicyclomine Hcl) 10 Mg/1 Ml Ampul 10 Mg IM BID Cyclobenzaprine Hcl 10 Mg Tablet 1 Tab PO TID PRN Levaquin (Levofloxacin) 500 Mg Tablet 1 Tab PO DAILY Macrobid 100 Mg Capsule (Nitrofurantoin Monohyd/M-Cryst) 100 Mg Capsule 1 Cap PO BID Cyclobenzaprine Hcl 10 Mg Tablet 1 Tab PO TID 30 Days Levothyroxine Sodium 150 Mcg Tablet 150 Mcg PO DAILY06 30 Days Imitrex (Sumatriptan Succinate) 100 Mg Tablet 1 Tab PO UD Losartan Potassium 100 Mg Tablet 100 Mg PO DAILY 30 Days Hydrochlorothiazide Tablet (Hydrochlorothiazide) 25 Mg Tablet 1 Tab PO DAILY Amlodipine Besylate 10 Mg Tablet 10 Mg PO DAILY 30 Days Reported Oxycodone Hcl Immed.release (Oxycodone Hcl) 5 Mg Tablet 30 Mg PO PRN Q4HRS PRN Vital Signs Vital Signs Date Time Temp Pulse Resp B/P (MAP) Pulse Ox O2 Delivery O2 Flow Rate FiO2 07/15/20 15:30 Room Air 07/15/20 15:00 98.3 88 18 106/65 (79) 96 98.3 07/14/20 22:15 2.0 Labs Laboratory Tests Test 07/14/20 07:10 07/14/20 09:22 07/14/20 11:09 07/15/20 06:50 White Blood Count 6.6 x10^3/uL (4.0-11.0) 5.1 x10^3/uL (4.0-11.0) Red Blood Count 3.72 x10^6/uL (3.50-5.40) 3.68 x10^6/uL (3.50-5.40) Hemoglobin 12.7 g/dL (12.0-15.5) 12.8 g/dL (12.0-15.5) Hematocrit 37.9 % (36.0-47.0) 37.5 % (36.0-47.0) Mean Corpuscular Volume 102 fL (79-100) 102 fL (79-100) Mean Corpuscular Hemoglobin 34 pg (25-35) 35 pg (25-35) Mean Corpuscular Hemoglobin Concent 34 g/dL (31-37) 34 g/dL (31-37) Red Cell Distribution Width 15.5 % (11.5-14.5) 16.1 % (11.5-14.5) Platelet Count 243 x10^3/uL (140-400) 234 x10^3/uL (140-400) Neutrophils (%) (Auto) 70 % (31-73) 58 % (31-73) Lymphocytes (%) (Auto) 19 % (24-48) 29 % (24-48) Monocytes (%) (Auto) 9 % (0-9) 9 % (0-9) Eosinophils (%) (Auto) 3 % (0-3) 3 % (0-3) Basophils (%) (Auto) 0 % (0-3) 1 % (0-3) Neutrophils # (Auto) 4.6 x10^3/uL (1.8-7.7) 3.0 x10^3/uL (1.8-7.7) Lymphocytes # (Auto) 1.2 x10^3/uL (1.0-4.8) 1.5 x10^3/uL (1.0-4.8) Monocytes # (Auto) 0.6 x10^3/uL (0.0-1.1) 0.4 x10^3/uL (0.0-1.1) Eosinophils # (Auto) 0.2 x10^3/uL (0.0-0.7) 0.2 x10^3/uL (0.0-0.7) Basophils # (Auto) 0.0 x10^3/uL (0.0-0.2) 0.0 x10^3/uL (0.0-0.2) Prothrombin Time 12.4 SEC (11.7-14.0) Prothromb Time International Ratio 1.0 (0.8-1.1) Activated Partial Thromboplast Time 32 SEC (24-38) Sodium Level 140 mmol/L (136-145) 140 mmol/L (136-145) Potassium Level 3.5 mmol/L (3.5-5.1) 3.6 mmol/L (3.5-5.1) Chloride Level 102 mmol/L (98-107) 101 mmol/L (98-107) Carbon Dioxide Level 30 mmol/L (21-32) 30 mmol/L (21-32) Anion Gap 8 (6-14) 9 (6-14) Blood Urea Nitrogen 5 mg/dL (7-20) 10 mg/dL (7-20) Creatinine 1.0 mg/dL (0.6-1.0) 1.0 mg/dL (0.6-1.0) Estimated GFR (Cockcroft-Gault) 56.2 56.2 Glucose Level 101 mg/dL (70-99) 84 mg/dL (70-99) Calcium Level 9.5 mg/dL (8.5-10.1) 9.0 mg/dL (8.5-10.1) SARS-CoV-2 Antigen (Rapid) Negative (NEGATIVE) Body Fluid Amylase 3289 U/L (.) Laboratory Tests Test 07/15/20 06:50 White Blood Count 5.1 x10^3/uL (4.0-11.0) Red Blood Count 3.68 x10^6/uL (3.50-5.40) Hemoglobin 12.8 g/dL (12.0-15.5) Hematocrit 37.5 % (36.0-47.0) Mean Corpuscular Volume 102 fL (79-100) Mean Corpuscular Hemoglobin 35 pg (25-35) Mean Corpuscular Hemoglobin Concent 34 g/dL (31-37) Red Cell Distribution Width 16.1 % (11.5-14.5) Platelet Count 234 x10^3/uL (140-400) Neutrophils (%) (Auto) 58 % (31-73) Lymphocytes (%) (Auto) 29 % (24-48) Monocytes (%) (Auto) 9 % (0-9) Eosinophils (%) (Auto) 3 % (0-3) Basophils (%) (Auto) 1 % (0-3) Neutrophils # (Auto) 3.0 x10^3/uL (1.8-7.7) Lymphocytes # (Auto) 1.5 x10^3/uL (1.0-4.8) Monocytes # (Auto) 0.4 x10^3/uL (0.0-1.1) Eosinophils # (Auto) 0.2 x10^3/uL (0.0-0.7) Basophils # (Auto) 0.0 x10^3/uL (0.0-0.2) Sodium Level 140 mmol/L (136-145) Potassium Level 3.6 mmol/L (3.5-5.1) Chloride Level 101 mmol/L (98-107) Carbon Dioxide Level 30 mmol/L (21-32) Anion Gap 9 (6-14) Blood Urea Nitrogen 10 mg/dL (7-20) Creatinine 1.0 mg/dL (0.6-1.0) Estimated GFR (Cockcroft-Gault) 56.2 Glucose Level 84 mg/dL (70-99) Calcium Level 9.0 mg/dL (8.5-10.1) Allergies Allergies Coded Allergies Type Severity Reaction Last Updated Verified No Known Drug Allergies 03/27/16 No Disposition/Orders: D/C to Home Justicifation of Admission Dx: Justifications for Admission: Justification of Admission Dx: Yes AUSTIN LANDRY MD Jul 15, 2020 15:48
[2020-07-15] MEDS ORDERED: AMOX1TAB58 PO (15:51)
[2020-07-15] MEDS ORDERED: ACET325T9 PO (15:51)
[2020-07-15] MEDS ORDERED: PANT40TA77 PO (15:51)
[2020-07-15] MEDS ORDERED: MAG30ORA2 PO (15:51)
--- NOTE | 2020-07-15 15:53 | DISCH ---
DISCHARGE INSTRUCTIONS Condition on Discharge Condition on Discharge: Stable Activity After Discharge Activity Instructions for Disc: Activity as tolerated, Progressive ambulation, Walk in house, Other ROM activity Lifting Instructions after Dis: No heavy lifting, No pulling or pushing, Do not lift >10 pounds Exercise Instruction after Dis: Progress as tolerated Driving Instructions after Dis: Do not drive, Do not drive today Weight Bearing Status after Di: As tolerated Diet after Discharge Diet after Discharge: Cardiac, Regular Diet Texture: Regular Liquid Texture: Thin Liquid Swallowing Supervision: None needed Checks after Discharge Checks after discharge: Check blood press - daily, Check your Temp as needed Contacting the DR. after DC Call your doctor for: If your condition worsens Follow-Up Follow up with: GI ON ONE WEEK, PCP IN 10-14 DAYS Treatment/Equipment after DC Adaptive Equipment Issued: None Comment: midline above umbilicus AUSTIN LANDRY MD Jul 15, 2020 15:53
--- NOTE | 2020-07-15 15:55 | DISCH ---
DISCHARGE INSTRUCTIONS Condition on Discharge Condition on Discharge: Stable Activity After Discharge Activity Instructions for Disc: Resume previous activity, Activity as olga ated, Progressive ambulation, Walk in house, Other ROM activity Lifting Instructions after Dis: No heavy lifting, No pulling or pushing, Do not lift >10 pounds Exercise Instruction after Dis: Progress as tolerated Driving Instructions after Dis: Do not drive, Do not drive today Weight Bearing Status after Di: As tolerated Diet after Discharge Diet after Discharge: Cardiac, Regular Diet Texture: Regular Liquid Texture: Thin Liquid Swallowing Supervision: None needed Checks after Discharge Checks after discharge: Check blood press - daily, Check your Temp as needed Contacting the DR. after DC Call your doctor for: If your condition worsens Follow-Up Follow up with: GI ON ONE WEEK, PCP IN 10-14 DAYS, SURGERY IN 2 WEEKS Treatment/Equipment after DC Adaptive Equipment Issued: None Comment: midline above umbilicus AUSTIN LANDRY MD Jul 15, 2020 15:55
--- NOTE | 2020-07-15 17:00 | NUR ---
Discharge Note: Patient was discharged home with self care. Patients IV was discontinued without any complications per RN. Patient ready to be discharged. Patient was given discharge summary/instructions, follow-ups, and educational material. Patients prescriptions were sent to patients preferred pharmacy. Patient was in a hurry to get out of the hospital that she cut the discharge education short and stated "I just need to know where to sign." Patient ambulated to the ER entrance with all personal belongings accompanied by GLYNN Helm, where patients car was sitting since she drove herself to the ER.
[2020-10-06] MEDS ORDERED: CALC200T23 PO (11:01)
[2020-10-06] MEDS ORDERED: POTA20TA4 PO (11:02)
== END 2020-07-15 17:00 | disposition home or self-care (01) | DRG 439 ==
LOC: ER 19:38 → 5 NORTH 21:24
PROVIDERS: ADMIT Family Medicine; ATTEND Family Medicine
PROC: 0F9G3ZZ Drainage of Pancreas, Percutaneous Approach (ICD-10-PCS; principal; 2020-07-15)
DX: K85.90 Acute pancreatitis without necrosis or infection, unspecified (principal); K86.2 Cyst of pancreas; K86.3 Pseudocyst of pancreas; N39.0 Urinary tract infection, site not specified; B96.20 Unspecified Escherichia coli [E. coli] as the cause of diseases classified elsewhere; K86.1 Other chronic pancreatitis; D75.89 Other specified diseases of blood and blood-forming organs; E03.9 Hypothyroidism, unspecified; F17.210 Nicotine dependence, cigarettes, uncomplicated; G89.29 Other chronic pain; I10 Essential (primary) hypertension; J44.9 Chronic obstructive pulmonary disease, unspecified; K73.9 Chronic hepatitis, unspecified; K76.0 Fatty (change of) liver, not elsewhere classified; R19.7 Diarrhea, unspecified; Z20.822 Contact with and (suspected) exposure to COVID-19; K82.8 Other specified diseases of gallbladder; K81.9 Cholecystitis, unspecified; Z85.41 Personal history of malignant neoplasm of cervix uteri; Z98.51 Tubal ligation status
CPT/HCPCS: 10009; 36415; 74181; 76705; 78226; 80048; 80076; 80307; 81001; 82150; 83690; 84443; 84478; 84484; 85025; 85610; 85730; 86140; 86301; 87071; 87075; 87077; 87086; 87186; 87426; 88112; 88305; 93005; 96361; 96374; 96376; 99152; 99153; 99406; A9537; C1892; C9113; G0480; J0360; J0696; J0780; J1170; J1650; J2060; J2250; J2270; J3010; J3490; J7030; U0003; 99285-25; G0378

== ENCOUNTER 2020-07-20 14:26 | Inpatient (IN) | payer MEDICAID ==
[~2020-07-20] VITALS: Ht 172.7 cm; Wt 84.0 kg
[~2020-07-20 14:26] MED LIST changes: +ACET325T9 PO; +AMOX1TAB58 PO; +MAG30ORA2 PO; +PANT40TA77 PO
[2020-07-20] MEDS ORDERED: HYDROmorphone 2 MG/ML VIAL IVP ONE ×3 (14:45→19:45)
[2020-07-20] MEDS ORDERED: IV NORMAL SALINE 1000ML BAG 1,000 ML IV ONE (14:45)
--- NOTE | 2020-07-20 15:16 | PHYS DOC ---
Past Medical History Past Medical History: Cancer, Hypertension, Kidney Stone, Other Additional Past Medical Histor: chronic pain, CERVICAL CANCER Past Surgical History: Cancer Surgery, Tubal ligation, Other Additional Past Surgical Histo: Ureteral Stent, Laparoscopy, CANCER SX Smoking Status: Current Every Day Smoker Alcohol Use: None Drug Use: None General Adult EDM: Chief Complaint: CHEST PAIN HPI: HPI: 60 yo F known by myself, was admitted a few weeks ago for acute pancreatitis with pseudocyst, s/p 100cc drainage by GI, presents to the ed with c/o sharp nonradiating left breast pain, luq abdominal pain, left-sided low back pain with associated shortness of breath. Patient unsure of her symptoms are related to her history of kidney stones or recent admission for pancreatitis. PMH - chronic pain on dilaudid 2mg q4 hours at home, prescribed by pcp, does not see pain management. Review of Systems: Review of Systems: Constitutional: Denies fever or chills. [] Eyes: Denies change in visual acuity. [] HENT: Denies nasal congestion or sore throat. [] Respiratory: Denies cough or hemoptysis Cardiovascular: Denies syncope or edema. [] GI: Denies nausea, vomiting, bloody stools or diarrhea. [] : Denies dysuria or hematuria Musculoskeletal: Denies back pain or joint pain or unilateral leg swelling Integument: Denies rash or diaphoresis Neurologic: Denies headache, focal weakness or sensory changes. [] Endocrine: Denies polyuria or polydipsia. [] Lymphatic: Denies swollen glands. [] Psychiatric: Denies depression or anxiety. [] Heart Score: Risk Factors: Risk Factors: DM, Current or recent (<one month) smoker, HTN, HLP, family history of CAD, obesity. Risk Scores: Score 0 - 3: 2.5% MACE over next 6 weeks - Discharge Home Score 4 - 6: 20.3% MACE over next 6 weeks - Admit for Clinical Observation Score 7 - 10: 72.7% MACE over next 6 weeks - Early Invasive Strategies Current Medications: Current Medications Medications (Trade) Dose Ordered Sig/Herminio Start Time Stop Time Status Last Admin Dose Admin Hydromorphone HCl (Dilaudid) 1 mg 1X ONCE 07/20/20 14:45 07/20/20 14:46 DC 07/20/20 15:12 1 MG Sodium Chloride 1,000 ml @ 1,000 mls/hr 1X ONCE 07/20/20 14:45 07/20/20 15:44 07/20/20 15:11 1,000 MLS/HR Allergies: Allergies: Allergies Coded Allergies Type Severity Reaction Last Updated Verified No Known Drug Allergies 03/27/16 No Physical Exam: PE: Constitutional: not in any distress, non-toxic appearance. HENT: Normocephalic, atraumatic, Eyes: EOMI, conjunctiva normal, no discharge. Neck: Normal range of motion, supple, Cardiovascular: S1/2 present, regular rhythm Lungs & Thorax: 88% RA, Speaking in full sentences, bilateral equal chest rise, no tachypnea or increased work of breathing Abdomen: soft, obese, epigastric abdominal pain, Skin: Warm, dry, no erythema, no rash. [] Back: pain over left lateral lumbar muscles, no CVA tenderness. [] Extremities: No tenderness, no cyanosis, no UL edema Neurologic: Alert and oriented X 3, normal motor function, normal sensory function, no focal deficits noted. [] Psychologic: Affect normal, judgement normal, mood normal. [] EKG: EKG: sinus rhythm, LAD, normal intervals, T wave inversion aVL, no ST elevations or ST depressions U wave present Radiology/Procedures: Radiology/Procedures: IMAGING REPORT Signed PATIENT: CHRISTINA MARSHALL ACCOUNT: [id number] : 1960 LOCATION: ER AGE: 60 SEX: F EXAM STATUS: REG ER ORD. PHYSICIAN: MCKAYLA URBAN DO REASON: cp PROCEDURE: PORTABLE CHEST 1V EXAM: Chest, single view. HISTORY: Chest pain. COMPARISON: 07/08/2020. FINDINGS: A frontal view of the chest is obtained. There is diffuse interstitial infiltrate. There is nodular opacity within the left upper lobe likely due to nodular infiltrate given the absence of a nodule in this region on the recent comparison study. There is no pleural effusion or pneumothorax. The heart is stable in size. IMPRESSION: Diffuse interstitial infiltrate with superimposed nodular infiltrate within the left upper lobe. Follow-up to confirm resolution. Electronically signed by: Asmita Isaac MD (07/20/2020 3:25 PM) [facility] DICTATED and SIGNED BY: ASMITA ISAAC MD DATE: 07/20/20 [id number] IMAGING REPORT Signed PATIENT: CHRISTINA MARSHALL ACCOUNT: [id number] : 1960 LOCATION: ER AGE: 60 SEX: F EXAM STATUS: REG ER ORD. PHYSICIAN: MCKAYAL URBAN DO REASON: left paraspinal lumbar back pain PROCEDURE: CT ABDOMEN PELVIS WO CONTRAST EXAM: CT Abdomen and Pelvis without IV contrast INDICATION: Reason: left paraspinal lumbar back pain / Spl. Instructions: / History: TECHNIQUE: Multi-detector row CT images were acquired from the lung bases through the abdomen and pelvis without the use of IV contrast. Sagittal and coronal images were acquired from the transaxial data. All CT scans performed at this facility utilize dose optimization techniques as appropriate to the exam, including the following: Automated exposure control and adjustment of the mA and/or KV according to patient size (this includes techniques or standardized protocols for targeted exams where dose is indication/reason for exam). ORAL CONTRAST: None COMPARISON: Abdominal MRI of 07/11/2020, CT guided FNA biopsy of the abdomen of 07/14/2020 FINDINGS: The absence of IV contrast limits evaluation of soft tissue pathology. LOWER CHEST: Unremarkable LIVER: Right hepatic lobe hypodensity compatibe with geographic fatty infiltration. BILIARY SYSTEM: Gallbladder is distended up to 5 cm transverse diameter. Bile d ucts are not dilated. PANCREAS: Cystic pancreatic head mass measuring 5.6 cm is redemonstrated with wall thickening. This likely represents a reaccumulation of fluid in the pancreatic head following recent FNA biopsy. SPLEEN: Scattered splenic calcifications. No splenomegaly. ADRENALS: Unremarkable KIDNEYS & URETERS: Bilateral perinephric soft tissue stranding. Mild right h ydronephrosis and hydroureter. No radiopaque stones in the ureters identified. 7 mm inferior pole nonobstructing right renal stone is present. BLADDER: Unremarkable REPRODUCTIVE ORGANS: Unremarkable GASTROINTESTINAL: The stomach, small bowel, and colon are unremarkable. The appendix is normal. MESENTERY/PERITONEUM/RETROPERITONEUM: Surgical changes from ventral hernia mesh repair. VASCULAR: Scattered arterial calcifications. Mild ectasia of the infrarenal abdominal aorta to 2.4 cm without aneurysm. LYMPH NODES: No adenopathy OSSEOUS & SOFT TISSUES: L1 vertebroplasty. L5-S1 degenerative change. Mild rightward convexity scoliosis of the lumbar spine with facet degenerative changes most conspicuous on the left at L3-L4, L4-L5 and L5-S1. No acute frac ture or aggressive appearing osseous lesions. Generalized osteopenia. Surgical clips along the right pelvic sidewall, right iliac diaz chain and right aspect of the IVC are present. IMPRESSION: 1. No specific cause for left paraspinal lumbar pain identified on noncontrast CT. In particular, there is bilateral perinephric soft tissue stranding that could reflect renal inflammation from pyelonephritis but there are no specific findings to suggest that diagnosis and there are no stones or findings of obstru ctive uropathy. 2. Patient does have multilevel lumbar spinal degenerative spondylosis with mild rightward convexity scoliosis. No acute fracture or aggressive appearing bony lesions. 3. There has been reaccumulation of fluid in the cystic pancreatic head mass that was recently aspirated. This could reflect reticulation of fluid in the pancreatic pseudocyst. There are wall thickening and surrounding soft tissue stranding could reflect inflammation. Correlate for any clinical evidence of acute pancreatitis. Lack of IV contrast limits more detailed evaluation. 4. Selective hypoattenuation of the right hepatic lobe could reflect geographic fatty infiltration but alternatively could reflect variant perfusion. Correlate with liver function tests and if clinically warranted, further imaging could be pursued with contrast enhanced CT or MRI of the abdomen, or duplex ultrasound of the liver. Electronically signed by: Liza Herrera MD (07/20/2020 4:56 PM) [facility] [place] DICTATED and SIGNED BY: LIZA HERRERA MD DATE: 07/20/20 [id number] 0 Course & Med Decision Making: Course & Med Decision Making Pertinent Labs and Imaging studies reviewed. (See chart for details) Concern for bilateral interstitial infiltrate cannot exclude Covid. Started on pneumonia antibiotics. CT abdomen pelvis with reaccumulation of pancreatic pseudocyst. Patient with no leukocytosis or anemia. Lipase has returned to normal, LFTs have improved. Patient has very mild acute kidney injury. Hypokalemia with U waves, potassium & magnesium replaced in ED. patient requiring oxygen. Will admit for further medical management. Patient stable at time of admission and agrees with this plan. I have spoken with the patient and/or caregivers. I have explained the patient's condition, diagnosis and treatment plan based on the information available to me at this time. I have answered the patient's and/or caregivers questions and answered any concerns. The patient and/or caregivers have as good an understanding of the patient's diagnosis, condition and treatment plan as can be expected at this point. The patient has been stabilized within the capability of the emergency department. The patient will be transported for further care and management or will be moved to an observation or inpatient service. I have communicated with the staff or medical practitioner taking over this patient's care. Dragon Disclaimer: Dragon Disclaimer: This electronic medical record was generated, in whole or in part, using a voice recognition dictation system. Departure Departure Impression: Primary Impression: Interstitial pneumonia of both lungs Additional Impressions: Hypokalemia ALANA (acute kidney injury) Person under investigation for COVID-19 Disposition: 09 ADMITTED INPT THIS HOSP Admitting Physician: ORTEGA (Dr. Ivey) Condition: STABLE Referrals: Rekha YOON MD (PCP) MCKAYLA URBAN DO Jul 20, 2020 15:16
--- NOTE | 2020-07-20 15:28 | RAD ---
EXAM: Chest, single view. HISTORY: Chest pain. COMPARISON: 07/08/2020. FINDINGS: A frontal view of the chest is obtained. There is diffuse interstitial infiltrate. There is nodular opacity within the left upper lobe likely due to nodular infiltrate given the absence of a n odule in this region on the recent comparison study. There is no pleural effusion or pneumothorax. Th e heart is stable in size. IMPRESSION: Diffuse interstitial infiltrate with superimposed nodular infiltrate within the left uppe r lobe. Follow-up to confirm resolution. Electronically signed by: Asmita Max MD (07/20/2020 3:25 PM) [facility]
[2020-07-20 15:34] LABS: BASO # 0.1 x10^3/uL (0.0-0.2); BASO % 1 % (0-3); EOS # 0.1 x10^3/uL (0.0-0.7); EOS % 1 % (0-3); HEMATOCRIT 34.9 % (36.0-47.0); HEMOGLOBIN 12.1 g/dL (12.0-15.5); LYMPH # 1.5 x10^3/uL (1.0-4.8); LYMPH % 15 % (24-48); MEAN CORPUSCULAR HEMOGLOBIN 35 pg (25-35); MEAN CORPUSCULAR HGB CONC 35 g/dL (31-37); MEAN CORPUSCULAR VOLUME 101 fL (79-100); MONO # 0.9 x10^3/uL (0.0-1.1); MONO % 9 % (0-9); NEUT # 7.6 x10^3/uL (1.8-7.7); NEUT % 75 % (31-73); PLATELET COUNT 285 x10^3/uL (140-400); RED BLOOD COUNT 3.45 x10^6/uL (3.50-5.40); RED CELL DISTRIBUTION WIDTH 15.3 % (11.5-14.5); WHITE BLOOD COUNT 10.2 x10^3/uL (4.0-11.0)
[2020-07-20 15:47] LABS: ALBUMIN 3.6 g/dL (3.4-5.0); ALBUMIN/GLOBULIN RATIO 0.8 (1.0-1.7); CALCIUM 8.8 mg/dL (8.5-10.1); CREATININE 1.1 mg/dL (0.6-1.0); GFR 50.3; MAGNESIUM 1.8 mg/dL (1.8-2.4); TOTAL BILIRUBIN 0.5 mg/dL (0.2-1.0); TOTAL PROTEIN 8.3 g/dL (6.4-8.2)
[2020-07-20 15:51] LABS: POTASSIUM 2.7 mmol/L (3.5-5.1)
[2020-07-20] MEDS ORDERED: POTASSIUM BICARB 20 MEQ EFFERVESCENT TABLET. PO ONE (16:00)
[2020-07-20] MEDS ORDERED: MAGNESIUM SULFATE 2GM 50 ML IV ONE (16:00)
[2020-07-20 16:19] LABS: BARBITURATES NEG (NEG); BENZODIAZEPINES NEG (NEG); CANNABINOIDS NEG (NEG); COCAINE NEG (NEG); METHADONE NEG (NEG); OPIATES POS (NEG); PHENCYCLIDINE NEG (NEG)
[2020-07-20 16:30] LABS: AMPHETAMINE/METHAMPHETAMINE NEG (NEG)
--- NOTE | 2020-07-20 16:59 | RAD ---
EXAM: CT Abdomen and Pelvis without IV contrast INDICATION: Reason: left paraspinal lumbar back pain / Spl. Instructions: / History: TECHNIQUE: Multi-detector row CT images were acquired from the lung bases through the abdomen and pel vis without the use of IV contrast. Sagittal and coronal images were acquired from the transaxial emory a. All CT scans performed at this facility utilize dose optimization techniques as appropriate to the exam, including the following: Automated exposure control and adjustment of the mA and/or KV accordi ng to patient size (this includes techniques or standardized protocols for targeted exams where dose is indication/reason for exam). ORAL CONTRAST: None COMPARISON: Abdominal MRI of 07/11/2020, CT guided FNA biopsy of the abdomen of 07/14/2020 FINDINGS: The absence of IV contrast limits evaluation of soft tissue pathology. LOWER CHEST: Unremarkable LIVER: Right hepatic lobe hypodensity compatibe with geographic fatty infiltration. BILIARY SYSTEM: Gallbladder is distended up to 5 cm transverse diameter. Bile ducts are not dilated. PANCREAS: Cystic pancreatic head mass measuring 5.6 cm is redemonstrated with wall thickening. This likely represents a reaccumulation of fluid in the pancreatic head following recent FNA biopsy. SPLEEN: Scattered splenic calcifications. No splenomegaly. ADRENALS: Unremarkable KIDNEYS & URETERS: Bilateral perinephric soft tissue stranding. Mild right hydronephrosis and hydrou reter. No radiopaque stones in the ureters identified. 7 mm inferior pole nonobstructing right renal stone is present. BLADDER: Unremarkable REPRODUCTIVE ORGANS: Unremarkable GASTROINTESTINAL: The stomach, small bowel, and colon are unremarkable. The appendix is normal. MESENTERY/PERITONEUM/RETROPERITONEUM: Surgical changes from ventral hernia mesh repair. VASCULAR: Scattered arterial calcifications. Mild ectasia of the infrarenal abdominal aorta to 2.4 c m without aneurysm. LYMPH NODES: No adenopathy OSSEOUS & SOFT TISSUES: L1 vertebroplasty. L5-S1 degenerative change. Mild rightward convexity scoli osis of the lumbar spine with facet degenerative changes most conspicuous on the left at L3-L4, L4-L5 and L5-S1. No acute fracture or aggressive appearing osseous lesions. Generalized osteopenia. Surgic al clips along the right pelvic sidewall, right iliac diaz chain and right aspect of the IVC are pre sent. IMPRESSION: 1. No specific cause for left paraspinal lumbar pain identified on noncontrast CT. In particular, the re is bilateral perinephric soft tissue stranding that could reflect renal inflammation from pyelonep hritis but there are no specific findings to suggest that diagnosis and there are no stones or findin gs of obstructive uropathy. 2. Patient does have multilevel lumbar spinal degenerative spondylosis with mild rightward convexity scoliosis. No acute fracture or aggressive appearing bony lesions. 3. There has been reaccumulation of fluid in the cystic pancreatic head mass that was recently aspira elke. This could reflect reticulation of fluid in the pancreatic pseudocyst. There are wall thickening and surrounding soft tissue stranding could reflect inflammation. Correlate for any clinical evidenc e of acute pancreatitis. Lack of IV contrast limits more detailed evaluation. 4. Selective hypoattenuation of the right hepatic lobe could reflect geographic fatty infiltration bu t alternatively could reflect variant perfusion. Correlate with liver function tests and if clinicall y warranted, further imaging could be pursued with contrast enhanced CT or MRI of the abdomen, or dup ernestine ultrasound of the liver. Electronically signed by: Sandra Herrera MD (07/20/2020 4:56 PM) [facility] [place]
[2020-07-20] MEDS ORDERED: cefTRIAXone IV Push 1 GM VIAL. IVP ONE (17:00)
[2020-07-20] MEDS ORDERED: AZITHRMYCN 500MG IVPB FOR OMNI 250 ML IV ONE (17:00)
--- NOTE | 2020-07-20 17:13 | RAD ---
EXAM: CT Lumbar Spine without IV contrast INDICATION: Reason: left paraspinal lumbar back pain / Spl. Instructions: / History: TECHNIQUE: Multi-detector row CT images were obtained through the lumbar spine without the use of IV contrast. Post-processing sagittal and coronal reconstructed images were obtained for interpretation . All CT scans performed at this facility utilize dose optimization techniques as appropriate to the exam, including the following: Automated exposure control and adjustment of the mA and/or KV accordin g to patient size (this includes techniques or standardized protocols for targeted exams where dose i s indication/reason for exam). COMPARISON: Abdomen and pelvis CT of the same day. FINDINGS: The lowest fully formed disc is referred to as the L5-S1 level. ALIGNMENT: There is subtle kyphotic angulation to the thoracal lumbar junction without anterolisthesi s or retrolisthesis and mild rightward convexity scoliotic curvature apex at L2-L3 is present. There is subtle rightward lateral listhesis of L4 on L5 also noted. OSSEOUS: No evidence of acute fracture or bone destruction. Deformity to the superior endplate of L1 is consistent with a chronic anterior wedge compression fracture, treated with vertebroplasty. Subch ondral sclerosis at the superior endplate of S1 and at the inferior endplate of T12 is present. DISC SPACES: Marked disc space narrowing at L5-S1 is present but there is additional disc space narr owing at multiple levels in the lumbar spine. FACET JOINTS: Facet hypertrophic change is present most conspicuously at L4-L5 and L5-S1 bilaterally . SPINAL CANAL: No bony central canal stenosis is apparent. Combination of diffuse disc bulge and mild bilateral facet hypertrophy. Ligamentum flavum thickening likely results in at least mild central ca nal narrowing at L2-L3, L3-L4 and L4-L5. NEUROFORAMINA: At least mild bilateral foraminal narrowing is present at multiple levels, most consp icuously at L5-S1. SOFT TISSUES: Abdominal aortic calcifications. No acute findings in the paraspinal musculature to vi sualize retroperitoneum in the included field of view. Surgical clips along the right pelvic sidewall extending up the inferior IVC on the right are incidentally noted. IMPRESSION: Lumbar spinal degenerative changes with no acute findings on noncontrast L-spine CT to explain left-s ided paraspinal lumbar back pain. Electronically signed by: Sandra Herrera MD (07/20/2020 5:06 PM) [facility]
[2020-07-20 17:31] LABS: INFLUENZA A PATIENT NEGATIVE (NEGATIVE); INFLUENZA B PATIENT NEGATIVE (NEGATIVE)
[2020-07-20 17:43] LABS: BASE EXCESS ABG 0 mmol/L (-3-3); HCO3 ABG 24 mmol/L (21-28); PCO2 ABG 37 mmHg (35-46); PO2 ABG 73 mmHg (65-108); SAT O2 ABG 95 % (92-99)
[2020-07-20 17:45] LABS: FIO2 ABG 28%
[2020-07-20] MEDS ORDERED: ONDANSETRON PF 4 MG/2 ML VIAL. IV PRN (18:45)
[2020-07-20] MEDS ORDERED: ACETAMINOPHEN 325 MG TABLET. PO PRN ×2 (18:45→21:00)
[2020-07-20] MEDS ORDERED: DEXTROSE 50% 25 GM / 50ML DISP.SYRIN. IV PRN (21:00)
[2020-07-20] MEDS ORDERED: CYCLOBENZAPRINE 10 MG TABLET. PO PRN (21:00)
[2020-07-20] MEDS ORDERED: ONDANSETRON PF 4 MG/2 ML VIAL. IVP PRN (21:00)
[2020-07-20] MEDS ORDERED: DOCUSATE SODIUM 100 MG CAPSULE. PO PRN (21:00)
[2020-07-20] MEDS ORDERED: SENNOSIDES 8.6 MG TABLET PO PRN (21:00)
--- NOTE | 2020-07-20 21:05 | PDOC1 ---
History and Physical Date of Service: DOS: DATE: 07/20/20 TIME: 20:45 Chief Complaint: Chief Complain: Epigastric abdominal pain History of Present Illness: HPI: Patient is a 60-year-old female with past medical history of acute pancreatitis with pseudocyst that was recently drained by GI last week with 100 cc fluid output. Who comes to the ED due to abdominal pain 8 out of 10. Patient states that the pain occurs in the lower back which she does have chronic pain for and also in the epigastric and left upper quadrant region. Has been occurring for the past week. Patient does also take oxycodone chronically for her back pain. Denies any fevers, shortness of breath, diarrhea, pale stools, dark urine, or bloody stools. Patient in the ED was found to have oxygen level 88% and 2 L oxygen was placed and she improved with 94%. Denies any sick Covid contacts. Past Medical/Surgical History: PMH/PSH: Past Medical History: Cancer, Hypertension, Kidney Stone, chronic back pain, CERVICAL CANCER STATUS post chemoradiation brachytherapy only, no surgery Past Surgical History: Tubal ligation, Ureteral Stent, Laparoscopy, Allergies: Allergies: Coded Allergies: No Known Drug Allergies (Unverified , 03/27/16) Family History: Family History: Reviewed with no relevant findings Social History: Social History: Smoking Status: Current Every Day Smoker Alcohol Use: None Drug Use: None Current Medications: Current Medications Current Medications Hydromorphone HCl (Dilaudid) 1 mg 1X ONCE IVP Last administered on 07/20/20at 15:12; Start 07/20/20 at 14:45; Stop 07/20/20 at 14:46; Status DC Sodium Chloride 1,000 ml @ 1,000 mls/hr 1X ONCE IV Last administered on 07/20/20at 15:11; Start 07/20/20 at 14:45; Stop 07/20/20 at 15:44; Status DC Potassium Bicarbonate (Potassium Effervescent Tablet) 40 meq 1X ONCE PO Last administered on 07/20/20at 16:56; Start 07/20/20 at 16:00; Stop 07/20/20 at 16: 01; Status DC Magnesium Sulfate 50 ml @ 25 mls/hr 1X ONCE IV Last administered on 07/20/20at 16:57; Start 07/20/20 at 16:00; Stop 07/20/20 at 17:59; Status DC Ceftriaxone Sodium (Rocephin) 1 gm 1X ONCE IVP Last administered on 07/20/20at 18:42; Start 07/20/20 at 17:00; Stop 07/20/20 at 17:01; Status DC Azithromycin 250 ml @ 250 mls/hr 1X ONCE IV Last administered on 07/20/20at 18:43; Start 07/20/20 at 17:00; Stop 07/20/20 at 17:59; Status DC Hydromorphone HCl (Dilaudid) 1 mg 1X ONCE IVP Last administered on 07/20/20at 18:42; Start 07/20/20 at 18:45; Stop 07/20/20 at 18:46; Status DC Ondansetron HCl (Zofran) 4 mg PRN Q8HRS PRN IV NAUSEA/VOMITING; Start 07/20/20 at 18:45; Stop 07/21/20 at 18:44 Acetaminophen (Tylenol) 650 mg PRN Q4HRS PRN PO FEVER > 100.3'F; Start 07/20/20 at 18:45; Stop 07/21/20 at 18:44 Hydromorphone HCl (Dilaudid) 1 mg 1X ONCE IVP Last administered on 07/20/20at 20:21; Start 07/20/20 at 19:45; Stop 07/20/20 at 19:46; Status DC Active Scripts Active Augmentin 500-125 Tablet (Amoxicillin/Potassium Clav) 1 Each Tablet 1 Tab PO BID 10 Days Pantoprazole Sodium (Pantoprazole Sodium) 40 Mg Tablet.dr 40 Mg PO DAILYAC 30 Days Mag-Al Plus Xs Suspension (Mag Hydrox/Al Hydrox/Simeth) 30 Ml Oral.susp 30 Ml PO PRN Q3HRS PRN 14 Days Tylenol (Acetaminophen) 325 Mg Tablet 650 Mg PO PRN Q6HRS PRN 14 Days Pyridium (Phenazopyridine Hcl) 100 Mg Tablet 100 Mg PO TID Lidocaine PATCH (Lidocaine) 1 Each Adh..patch 1 Each TP DAILY REMOVE AFTER 12 HOURS Lidocaine PATCH (Lidocaine) 1 Each Adh..patch 1 Each TP DAILY PRN Cyclobenzaprine Hcl 10 Mg Tablet 1 Tab PO TID PRN Levothyroxine Sodium 150 Mcg Tablet 150 Mcg PO DAILY06 30 Days Imitrex (Sumatriptan Succinate) 100 Mg Tablet 1 Tab PO UD Losartan Potassium 100 Mg Tablet 100 Mg PO DAILY 30 Days Amlodipine Besylate 10 Mg Tablet 10 Mg PO DAILY 30 Days Reported Oxycodone Hcl Immed.release (Oxycodone Hcl) 5 Mg Tablet 30 Mg PO PRN Q4HRS PRN ROS: Review of Systems Review of System REVIEW OF SYSTEMS: GENERAL: Denies weakness SKIN: No bruising, hair changes or rashes. EYES: No blurred, double or loss of vision. NOSE AND THROAT: No history of nosebleeds, hoarseness or sore throat. HEART: No history of palpitations, chest pain or shortness of breath on exertion. LUNGS: Denies cough, hemoptysis, wheezing or shortness of breath. GASTROINTESTINAL: Denies changes in appetite, nausea, vomiting, diarrhea or constipation. GENITOURINARY: No history of frequency, urgency, hesitancy or nocturia. NEUROLOGIC: Denies history of numbness, tingling, or tremor. PSYCHIATRIC: No history of panic, anxiety or depression. ENDOCRINE: No history of heat or cold intolerance, polyuria or polydipsia. EXTREMITIES: Denies joint pain, pain on walking or stiffness. Physical Exam: Vital Signs: Vital Signs Date Time Temp Pulse Resp B/P (MAP) Pulse Ox O2 Delivery O2 Flow Rate FiO2 07/20/20 18:42 15 92 Nasal Cannula 2.0 07/20/20 16:46 98.9 84 154/81 (105) 98.9 Physcial Exam: GEN: No apparent distress. Alert and oriented HEENT: Normal cephalic, atraumatic, external auditory canals are patent EYES: Extraocular muscles are intact, pupil are equally round and reactive to light and accommodation MUSCULOSKELETAL: Well developed , well nourished, good range of motion ENDOCRINE: No thyromegaly was palpated LYMPHATICS: No cervical chain or axillary nodes were noted HEMATOPOIETIC: No bruising NECK: Supple, no JVD, no thyromegaly was noted LUNGS: Clear to auscultation in all lung lira without rhonchi or wheezing HEART: RRR, S!, S2 present. Peripheral pulses intact, no obvious murmurs noted ABDOMEN: Soft, epigastric tenderness. Positive bowel sounds, no organomegaly, normal bowel sounds EXTREMITIES: Without clubbing, cyanosis, or edema. Pedal pulses intact. Negative Homans sign NEUROLOGIC: Normal speech and tone. A&O x 3, moves all extremities, no obvious focal deficits PSYCHIATRIC: Normal affect, normal mood. Stable SKIN: No ulcerations or rashes, good skin turgor, no jaundice VASCULAR: Good capillary refill, neurovascular bundle appears to be intact Labs: Labs: Laboratory Tests Test 07/20/20 15:00 07/20/20 15:50 07/20/20 16:49 07/20/20 17:01 White Blood Count 10.2 x10^3/uL (4.0-11.0) Red Blood Count 3.45 x10^6/uL (3.50-5.40) Hemoglobin 12.1 g/dL (12.0-15.5) Hematocrit 34.9 % (36.0-47.0) Mean Corpuscular Volume 101 fL (79-100) Mean Corpuscular Hemoglobin 35 pg (25-35) Mean Corpuscular Hemoglobin Concent 35 g/dL (31-37) Red Cell Distribution Width 15.3 % (11.5-14.5) Platelet Count 285 x10^3/uL (140-400) Neutrophils (%) (Auto) 75 % (31-73) Lymphocytes (%) (Auto) 15 % (24-48) Monocytes (%) (Auto) 9 % (0-9) Eosinophils (%) (Auto) 1 % (0-3) Basophils (%) (Auto) 1 % (0-3) Neutrophils # (Auto) 7.6 x10^3/uL (1.8-7.7) Lymphocytes # (Auto) 1.5 x10^3/uL (1.0-4.8) Monocytes # (Auto) 0.9 x10^3/uL (0.0-1.1) Eosinophils # (Auto) 0.1 x10^3/uL (0.0-0.7) Basophils # (Auto) 0.1 x10^3/uL (0.0-0.2) Sodium Level 137 mmol/L (136-145) Potassium Level 2.7 mmol/L (3.5-5.1) Chloride Level 98 mmol/L (98-107) Carbon Dioxide Level 28 mmol/L (21-32) Anion Gap 11 (6-14) Blood Urea Nitrogen 6 mg/dL (7-20) Creatinine 1.1 mg/dL (0.6-1.0) Estimated GFR (Cockcroft-Gault) 50.3 BUN/Creatinine Ratio 5 (6-20) Glucose Level 104 mg/dL (70-99) Lactic Acid Level 2.0 mmol/L (0.4-2.0) Calcium Level 8.8 mg/dL (8.5-10.1) Magnesium Level 1.8 mg/dL (1.8-2.4) Total Bilirubin 0.5 mg/dL (0.2-1.0) Aspartate Amino Transf (AST/SGOT) 29 U/L (15-37) Alanine Aminotransferase (ALT/SGPT) 62 U/L (14-59) Alkaline Phosphatase 164 U/L (46-116) Troponin I Quantitative < 0.017 ng/mL (0.000-0.055) [id number]-Type Natriuretic Peptide 965 pg/mL (0-124) Total Protein 8.3 g/dL (6.4-8.2) Albumin 3.6 g/dL (3.4-5.0) Albumin/Globulin Ratio 0.8 (1.0-1.7) Lipase 42 U/L (73-393) Urine Opiates Screen Pos (NEG) Urine Methadone Screen Neg (NEG) Urine Barbiturates Neg (NEG) Urine Phencyclidine Screen Neg (NEG) Urine Amphetamine/Methamphetamine Neg (NEG) Urine Benzodiazepines Screen Neg (NEG) Urine Cocaine Screen Neg (NEG) Urine Cannabinoids Screen Neg (NEG) Urine Ethyl Alcohol Neg (NEG) O2 Saturation 95 % (92-99) Arterial Blood pH 7.42 (7.35-7.45) Arterial Blood pCO2 at Patient Temp 37 mmHg (35-46) Arterial Blood pO2 at Patient Temp 73 mmHg (65-108) Arterial Blood HCO3 24 mmol/L (21-28) Arterial Blood Base Excess 0 mmol/L (-3-3) FiO2 28% Influenza Type A Antigen Negative (NEGATIVE) Influenza Type B Antigen Negative (NEGATIVE) Test 07/20/20 18:51 Troponin I Quantitative < 0.017 ng/mL (0.000-0.055) Laboratory Tests Test 07/20/20 15:00 07/20/20 15:50 07/20/20 16:49 07/20/20 17:01 White Blood Count 10.2 x10^3/uL (4.0-11.0) Red Blood Count 3.45 x10^6/uL (3.50-5.40) Hemoglobin 12.1 g/dL (12.0-15.5) Hematocrit 34.9 % (36.0-47.0) Mean Corpuscular Volume 101 fL (79-100) Mean Corpuscular Hemoglobin 35 pg (25-35) Mean Corpuscular Hemoglobin Concent 35 g/dL (31-37) Red Cell Distribution Width 15.3 % (11.5-14.5) Platelet Count 285 x10^3/uL (140-400) Neutrophils (%) (Auto) 75 % (31-73) Lymphocytes (%) (Auto) 15 % (24-48) Monocytes (%) (Auto) 9 % (0-9) Eosinophils (%) (Auto) 1 % (0-3) Basophils (%) (Auto) 1 % (0-3) Neutrophils # (Auto) 7.6 x10^3/uL (1.8-7.7) Lymphocytes # (Auto) 1.5 x10^3/uL (1.0-4.8) Monocytes # (Auto) 0.9 x10^3/uL (0.0-1.1) Eosinophils # (Auto) 0.1 x10^3/uL (0.0-0.7) Basophils # (Auto) 0.1 x10^3/uL (0.0-0.2) Sodium Level 137 mmol/L (136-145) Potassium Level 2.7 mmol/L (3.5-5.1) Chloride Level 98 mmol/L (98-107) Carbon Dioxide Level 28 mmol/L (21-32) Anion Gap 11 (6-14) Blood Urea Nitrogen 6 mg/dL (7-20) Creatinine 1.1 mg/dL (0.6-1.0) Estimated GFR (Cockcroft-Gault) 50.3 BUN/Creatinine Ratio 5 (6-20) Glucose Level 104 mg/dL (70-99) Lactic Acid Level 2.0 mmol/L (0.4-2.0) Calcium Level 8.8 mg/dL (8.5-10.1) Magnesium Level 1.8 mg/dL (1.8-2.4) Total Bilirubin 0.5 mg/dL (0.2-1.0) Aspartate Amino Transf (AST/SGOT) 29 U/L (15-37) Alanine Aminotransferase (ALT/SGPT) 62 U/L (14-59) Alkaline Phosphatase 164 U/L (46-116) Troponin I Quantitative < 0.017 ng/mL (0.000-0.055) LM-Xtt-[id number]-Type Natriuretic Peptide 965 pg/mL (0-124) Total Protein 8.3 g/dL (6.4-8.2) Albumin 3.6 g/dL (3.4-5.0) Albumin/Globulin Ratio 0.8 (1.0-1.7) Lipase 42 U/L (73-393) Urine Opiates Screen Pos (NEG) Urine Methadone Screen Neg (NEG) Urine Barbiturates Neg (NEG) Urine Phencyclidine Screen Neg (NEG) Urine Amphetamine/Methamphetamine Neg (NEG) Urine Benzodiazepines Screen Neg (NEG) Urine Cocaine Screen Neg (NEG) Urine Cannabinoids Screen Neg (NEG) Urine Ethyl Alcohol Neg (NEG) O2 Saturation 95 % (92-99) Arterial Blood pH 7.42 (7.35-7.45) Arterial Blood pCO2 at Patient Temp 37 mmHg (35-46) Arterial Blood pO2 at Patient Temp 73 mmHg (65-108) Arterial Blood HCO3 24 mmol/L (21-28) Arterial Blood Base Excess 0 mmol/L (-3-3) FiO2 28% Influenza Type A Antigen Negative (NEGATIVE) Influenza Type B Antigen Negative (NEGATIVE) Test 07/20/20 18:51 Troponin I Quantitative < 0.017 ng/mL (0.000-0.055) Images: Images CT ABD/PELVIS IMPRESSION: 1. No specific cause for left paraspinal lumbar pain identified on noncontrast CT. In particular, there is bilateral perinephric soft tissue stranding that could reflect renal inflammation from pyelonephritis but there are no specific findings to suggest that diagnosis and there are no stones or findings of obstructive uropathy. 2. Patient does have multilevel lumbar spinal degenerative spondylosis with mild rightward convexity scoliosis. No acute fracture or aggressive appearing bony lesions. 3. There has been reaccumulation of fluid in the cystic pancreatic head mass that was recently aspirated. This could reflect reticulation of fluid in the pancreatic pseudocyst. There are wall thickening and surrounding soft tissue stranding could reflect inflammation. Correlate for any clinical evidence of acute pancreatitis. Lack of IV contrast limits more detailed evaluation. 4. Selective hypoattenuation of the right hepatic lobe could reflect geographic fatty infiltration but alternatively could reflect variant perfusion. Correlate with liver function tests and if clinically warranted, further imaging could be pursued with contrast enhanced CT or MRI of the abdomen, or duplex ultrasound of the liver. Assessment/Plan Assessment/Plan Acute abdominal pain due to pancreatic pseudocyst measuring 5.[address] scan after CT-guided aspiration, previously 7.4 cm Hypokalemia ALANA due to vasomotor nephropathy Elevated alkaline phosphatase suggesting biliary etiology Macrocytosis Admit to medicine for further management GI consult Surgery consult for possible cyst gastrostomy which may be possible due to to the maturity of the pseudocyst wall IV pain control Continue IV fluids PT OT Lovenox for DVT prophylaxis Protonix GI prophylaxis Clear liquid diet Full code Discussed with RN and SW Disposition pending inpatient management as above Surrogate decision maker is Bruno Boswell Justifications for Admission Other Justification Acute pancreatitis CHANTEL HERNANDEZ MD Jul 20, 2020 21:05
[2020-07-20] MEDS ORDERED: NALOXONE 0.4 MG/ML VIAL. IV PRN (21:15)
[2020-07-20] MEDS ORDERED: IV NORMAL SALINE 1000ML BAG 1,000 ML IV SCH (21:15)
[2020-07-20] MEDS ORDERED: HYDROmorphone 12mg/30ml PCA 30 ML IV PRN (21:15)
[2020-07-20] MEDS: IV NORMAL SALINE 1000ML BAG 1,000 ML IV SCH (21:37)
[2020-07-20] MEDS: ENOXAPARIN 40 MG/0.4 ML SYRINGE. SQ SCH ×2 (21:37→22:00)
[2020-07-20] MEDS: oxyCODONE IR 5 MG TABLET PO PRN (21:44)
[2020-07-20 23:00] VITALS: BP 128/78
[2020-07-21] MEDS: oxyCODONE IR 5 MG TABLET PO PRN ×3 (03:04→14:24)
[2020-07-21 03:24] VITALS: BP 165/100
[2020-07-21] MEDS ORDERED: LEVOTHYROXINE 150 MCG TABLET PO SCH (06:00)
[2020-07-21 07:00] VITALS: BP 181/103
[2020-07-21] MEDS: PANTOPRAZOLE 40 MG TABLET.DR. PO SCH ×2 (07:38→08:39)
[2020-07-21] MEDS: IV NORMAL SALINE 1000ML BAG 1,000 ML IV SCH (07:38)
[2020-07-21 08:21] LABS: BASO # 0.1 x10^3/uL (0.0-0.2); BASO % 1 % (0-3); EOS # 0.2 x10^3/uL (0.0-0.7); EOS % 3 % (0-3); HEMATOCRIT 31.5 % (36.0-47.0); HEMOGLOBIN 10.6 g/dL (12.0-15.5); LYMPH # 1.4 x10^3/uL (1.0-4.8); LYMPH % 26 % (24-48); MEAN CORPUSCULAR HEMOGLOBIN 34 pg (25-35); MEAN CORPUSCULAR HGB CONC 34 g/dL (31-37); MEAN CORPUSCULAR VOLUME 102 fL (79-100); MONO # 0.5 x10^3/uL (0.0-1.1); MONO % 10 % (0-9); NEUT # 3.2 x10^3/uL (1.8-7.7); NEUT % 60 % (31-73); PLATELET COUNT 253 x10^3/uL (140-400); RED BLOOD COUNT 3.09 x10^6/uL (3.50-5.40); RED CELL DISTRIBUTION WIDTH 15.5 % (11.5-14.5); WHITE BLOOD COUNT 5.4 x10^3/uL (4.0-11.0)
[2020-07-21 08:22] LABS: CALCIUM 8.5 mg/dL (8.5-10.1); CREATININE 0.8 mg/dL (0.6-1.0); GFR 72.7; MAGNESIUM 2.3 mg/dL (1.8-2.4); PHOSPHORUS 2.7 mg/dL (2.6-4.7); POTASSIUM 3.7 mmol/L (3.5-5.1)
--- NOTE | 2020-07-21 09:25 | PDOC2 ---
MISAELCHANDLER Sweta DRAPERY AND UPHOLSTERY MEASURER 07/21/20 0925: CONSULT Date of Consult Date of Consult DATE: 07/21/20 TIME: 09:20 Reason for Consult Reason for Consult: pancreatic pseudocyst Referring Physician Referring Physician: ER Identification/Chief Complaint Chief Complaint abdominal pain Source Source: Chart review, Patient History of Present Illness Reason for Visit: Known from recent admission with pancreatic pseudocyst IR drainage had been done, no source of pancreatitis found Discharged and returned with worsening LUQ pain and low back pain Past Medical History Cardiovascular: HTN Pulmonary: Bronchitis, COPD Musculoskeletal: low back pain Endocrine: Hypothyroidism Past Surgical History Past Surgical History: Hernia Repair, Other Family History Family History: Family History Unknown Social History ALCOHOL: none Drugs: None Current Problem List Problem List Problems Medical Problems: (1) ALANA (acute kidney injury) Status: Acute (2) Hypokalemia Status: Acute (3) Interstitial pneumonia of both lungs Status: Acute (4) Person under investigation for COVID-19 Status: Acute Current Medications Current Medications Current Medications Hydromorphone HCl (Dilaudid) 1 mg 1X ONCE IVP Last administered on 07/20/20at 15:12; Start 07/20/20 at 14:45; Stop 07/20/20 at 14:46; Status DC Sodium Chloride 1,000 ml @ 1,000 mls/hr 1X ONCE IV Last administered on 07/20/20at 15:11; Start 07/20/20 at 14:45; Stop 07/20/20 at 15:44; Status DC Potassium Bicarbonate (Potassium Effervescent Tablet) 40 meq 1X ONCE PO Last administered on 07/20/20at 16:56; Start 07/20/20 at 16:00; Stop 07/20/20 at 16:01; Status DC Magnesium Sulfate 50 ml @ 25 mls/hr 1X ONCE IV Last administered on 07/20/20at 16:57; Start 07/20/20 at 16:00; Stop 07/20/20 at 17:59; Status DC Ceftriaxone Sodium (Rocephin) 1 gm 1X ONCE IVP Last administered on 07/20/20at 18:42; Start 07/20/20 at 17:00; Stop 07/20/20 at 17:01; Status DC Azithromycin 250 ml @ 250 mls/hr 1X ONCE IV Last administered on 07/20/20at 18:43; Start 07/20/20 at 17:00; Stop 07/20/20 at 17:59; Status DC Hydromorphone HCl (Dilaudid) 1 mg 1X ONCE IVP Last administered on 07/20/20at 18:42; Start 07/20/20 at 18:45; Stop 07/20/20 at 18:46; Status DC Ondansetron HCl (Zofran) 4 mg PRN Q8HRS PRN IV NAUSEA/VOMITING; Start 07/20/20 at 18:45; Stop 07/20/20 at 21:03; Status DC Acetaminophen (Tylenol) 650 mg PRN Q4HRS PRN PO FEVER > 100.3'F; Start 07/20/20 at 18:45; Stop 07/20/20 at 21:02; Status DC Hydromorphone HCl (Dilaudid) 1 mg 1X ONCE IVP Last administered on 07/20/20at 20:21; Start 07/20/20 at 19:45; Stop 07/20/20 at 19:46; Status DC Sennosides (Senna) 17.2 mg PRN BID PRN PO CONSTIPATION 1ST CHOICE; Start 07/20/20 at 21:00 Docusate Sodium (Colace) 100 mg PRN DAILY PRN PO HARD STOOLS; Start 07/20/20 at 21:00 Ondansetron HCl (Zofran) 4 mg PRN Q6HRS PRN IVP NAUSEA/VOMITING 1ST CHOICE; Start 07/20/20 at 21:00 Dextrose (Dextrose 50%-Water Syringe) 12.5 gm PRN Q15MIN PRN IV SEE COMMENTS; Start 07/20/20 at 21:00 Sodium Chloride 1,000 ml @ 100 mls/hr Q10H IV Last administered on 07/21/20at 07:38; Start 07/20/20 at 21:00 Acetaminophen (Tylenol) 650 mg PRN Q4HRS PRN PO TEMP OVER 100.4F OR MILD PAIN; Start 07/20/20 at 21:00 Enoxaparin Sodium (Lovenox 40mg Syringe) 40 mg Q24H SQ ; Start 07/20/20 at 22:00 Pantoprazole Sodium (Protonix) 40 mg DAILYAC PO Last administered on 07/21/20at 08:39; Start 07/21/20 at 07:30 Amlodipine Besylate (Norvasc) 10 mg DAILY PO Last administered on 07/21/20at 08:39; Start 07/21/20 at 09:00 Cyclobenzaprine HCl (Flexeril) 10 mg PRN TID PRN PO MUSCLE PAIN; Start 07/20/20 at 21:00 Levothyroxine Sodium (Synthroid) 150 mcg DAILY06 PO ; Start 07/21/20 at 06:00 Oxycodone HCl (Roxicodone) 30 mg PRN Q6HRS PRN PO SEVERE PAIN 7-10 Last administered on 07/21/20at 08:39; Start 07/20/20 at 21:00 Naloxone HCl (Narcan) 0.4 mg PRN Q2MIN PRN IV SEE INSTRUCTIONS; Start 07/20/20 at 21:15 Sodium Chloride 1,000 ml @ 25 mls/hr Q24H IV ; Start 07/20/20 at 21:15 Hydromorphone HCl 30 ml @ 0 mls/hr CONT PRN PRN IV PER PROTOCOL Last administered on 07/20/20at 21:42; Start 07/20/20 at 21:15 Active Scripts Active Augmentin 500-125 Tablet (Amoxicillin/Potassium Clav) 1 Each Tablet 1 Tab PO BID 10 Days Pantoprazole Sodium (Pantoprazole Sodium) 40 Mg Tablet.dr 40 Mg PO DAILYAC 30 Days Mag-Al Plus Xs Suspension (Mag Hydrox/Al Hydrox/Simeth) 30 Ml Oral.susp 30 Ml PO PRN Q3HRS PRN 14 Days Tylenol (Acetaminophen) 325 Mg Tablet 650 Mg PO PRN Q6HRS PRN 14 Days Pyridium (Phenazopyridine Hcl) 100 Mg Tablet 100 Mg PO TID Lidocaine PATCH (Lidocaine) 1 Each Adh..patch 1 Each TP DAILY REMOVE AFTER 12 HOURS Lidocaine PATCH (Lidocaine) 1 Each Adh..patch 1 Each TP DAILY PRN Cyclobenzaprine Hcl 10 Mg Tablet 1 Tab PO TID PRN Levothyroxine Sodium 150 Mcg Tablet 150 Mcg PO DAILY06 30 Days Imitrex (Sumatriptan Succinate) 100 Mg Tablet 1 Tab PO UD Losartan Potassium 100 Mg Tablet 100 Mg PO DAILY 30 Days Amlodipine Besylate 10 Mg Tablet 10 Mg PO DAILY 30 Days Reported Oxycodone Hcl Immed.release (Oxycodone Hcl) 5 Mg Tablet 30 Mg PO PRN Q4HRS PRN Allergies Allergies: Coded Allergies: No Known Drug Allergies (Unverified , 03/27/16) ROS General: YES: Fatigue; No: Chills PSYCHOLOGICAL ROS: No: Anxiety, Depression Eyes: No Blurry vision, No Double vision HEENT: No: Heacaches, Sore Throat Hematological and Lymphatic: No: Bleeding Problems, Blood Clots Respiratory: No: Cough, Shortness of breath Cardiovascular: No Chest Pain, No Palpitations Gastrointestinal: No Nausea, No Abdominal Pain, No Diarrhea Genitourinary: No Dysuria, No Retention Musculoskeletal: Yes Joint Pain; No Muscle Pain Neurological: No Impaired Coord/balance, No Numbness/Tingling Skin: No Pruritus, No Rash Physical Exam General: Alert, Oriented X3, Cooperative HEENT: Atraumatic, Mucous membr. moist/pink Lungs: Clear to auscultation, Normal air movement Heart: Regular rate, Normal S1, Normal S2 Abdomen: Soft, Other (TTP LUQ) Extremities: No clubbing, No cyanosis Skin: No rashes, No breakdown Neuro: Normal gait, Normal speech Psych/Mental Status: Mental status NL, Mood NL MUSCULOSKELETAL: No deformity, No swelling Vitals VITALS Vital Signs Date Time Temp Pulse Resp B/P (MAP) Pulse Ox O2 Delivery O2 Flow Rate FiO2 07/21/20 08:39 99 Nasal Cannula 2.0 07/21/20 08:39 64 181/103 07/21/20 07:00 96.2 22 96.2 Labs Labs Laboratory Tests Test 07/20/20 15:00 07/20/20 15:50 07/20/20 16:49 07/20/20 17:01 White Blood Count 10.2 x10^3/uL (4.0-11.0) Red Blood Count 3.45 x10^6/uL (3.50-5.40) Hemoglobin 12.1 g/dL (12.0-15.5) Hematocrit 34.9 % (36.0-47.0) Mean Corpuscular Volume 101 fL (79-100) Mean Corpuscular Hemoglobin 35 pg (25-35) Mean Corpuscular Hemoglobin Concent 35 g/dL (31-37) Red Cell Distribution Width 15.3 % (11.5-14.5) Platelet Count 285 x10^3/uL (140-400) Neutrophils (%) (Auto) 75 % (31-73) Lymphocytes (%) (Auto) 15 % (24-48) Monocytes (%) (Auto) 9 % (0-9) Eosinophils (%) (Auto) 1 % (0-3) Basophils (%) (Auto) 1 % (0-3) Neutrophils # (Auto) 7.6 x10^3/uL (1.8-7.7) Lymphocytes # (Auto) 1.5 x10^3/uL (1.0-4.8) Monocytes # (Auto) 0.9 x10^3/uL (0.0-1.1) Eosinophils # (Auto) 0.1 x10^3/uL (0.0-0.7) Basophils # (Auto) 0.1 x10^3/uL (0.0-0.2) Sodium Level 137 mmol/L (136-145) Potassium Level 2.7 mmol/L (3.5-5.1) Chloride Level 98 mmol/L (98-107) Carbon Dioxide Level 28 mmol/L (21-32) Anion Gap 11 (6-14) Blood Urea Nitrogen 6 mg/dL (7-20) Creatinine 1.1 mg/dL (0.6-1.0) Estimated GFR (Cockcroft-Gault) 50.3 BUN/Creatinine Ratio 5 (6-20) Glucose Level 104 mg/dL (70-99) Lactic Acid Level 2.0 mmol/L (0.4-2.0) Calcium Level 8.8 mg/dL (8.5-10.1) Magnesium Level 1.8 mg/dL (1.8-2.4) Total Bilirubin 0.5 mg/dL (0.2-1.0) Aspartate Amino Transf (AST/SGOT) 29 U/L (15-37) Alanine Aminotransferase (ALT/SGPT) 62 U/L (14-59) Alkaline Phosphatase 164 U/L (46-116) Troponin I Quantitative < 0.017 ng/mL (0.000-0.055) GU-Whe-G-Type Natriuretic Peptide 965 pg/mL (0-124) Total Protein 8.3 g/dL (6.4-8.2) Albumin 3.6 g/dL (3.4-5.0) Albumin/Globulin Ratio 0.8 (1.0-1.7) Lipase 42 U/L (73-393) Urine Opiates Screen Pos (NEG) Urine Methadone Screen Neg (NEG) Urine Barbiturates Neg (NEG) Urine Phencyclidine Screen Neg (NEG) Urine Amphetamine/Methamphetamine Neg (NEG) Urine Benzodiazepines Screen Neg (NEG) Urine Cocaine Screen Neg (NEG) Urine Cannabinoids Screen Neg (NEG) Urine Ethyl Alcohol Neg (NEG) O2 Saturation 95 % (92-99) Arterial Blood pH 7.42 (7.35-7.45) Arterial Blood pCO2 at Patient Temp 37 mmHg (35-46) Arterial Blood pO2 at Patient Temp 73 mmHg (65-108) Arterial Blood HCO3 24 mmol/L (21-28) Arterial Blood Base Excess 0 mmol/L (-3-3) FiO2 28% Influenza Type A Antigen Negative (NEGATIVE) Influenza Type B Antigen Negative (NEGATIVE) Test 07/20/20 18:51 07/20/20 21:50 07/21/20 07:02 Troponin I Quantitative < 0.017 ng/mL (0.000-0.055) < 0.017 ng/mL (0.000-0.055) White Blood Count 5.4 x10^3/uL (4.0-11.0) Red Blood Count 3.09 x10^6/uL (3.50-5.40) Hemoglobin 10.6 g/dL (12.0-15.5) Hematocrit 31.5 % (36.0-47.0) Mean Corpuscular Volume 102 fL (79-100) Mean Corpuscular Hemoglobin 34 pg (25-35) Mean Corpuscular Hemoglobin Concent 34 g/dL (31-37) Red Cell Distribution Width 15.5 % (11.5-14.5) Platelet Count 253 x10^3/uL (140-400) Neutrophils (%) (Auto) 60 % (31-73) Lymphocytes (%) (Auto) 26 % (24-48) Monocytes (%) (Auto) 10 % (0-9) Eosinophils (%) (Auto) 3 % (0-3) Basophils (%) (Auto) 1 % (0-3) Neutrophils # (Auto) 3.2 x10^3/uL (1.8-7.7) Lymphocytes # (Auto) 1.4 x10^3/uL (1.0-4.8) Monocytes # (Auto) 0.5 x10^3/uL (0.0-1.1) Eosinophils # (Auto) 0.2 x10^3/uL (0.0-0.7) Basophils # (Auto) 0.1 x10^3/uL (0.0-0.2) Sodium Level 142 mmol/L (136-145) Potassium Level 3.7 mmol/L (3.5-5.1) Chloride Level 106 mmol/L (98-107) Carbon Dioxide Level 29 mmol/L (21-32) Anion Gap 7 (6-14) Blood Urea Nitrogen 4 mg/dL (7-20) Creatinine 0.8 mg/dL (0.6-1.0) Estimated GFR (Cockcroft-Gault) 72.7 Glucose Level 93 mg/dL (70-99) Calcium Level 8.5 mg/dL (8.5-10.1) Phosphorus Level 2.7 mg/dL (2.6-4.7) Magnesium Level 2.3 mg/dL (1.8-2.4) Laboratory Tests Test 07/20/20 15:00 07/20/20 15:50 07/20/20 16:49 07/20/20 17:01 White Blood Count 10.2 x10^3/uL (4.0-11.0) Red Blood Count 3.45 x10^6/uL (3.50-5.40) Hemoglobin 12.1 g/dL (12.0-15.5) Hematocrit 34.9 % (36.0-47.0) Mean Corpuscular Volume 101 fL (79-100) Mean Corpuscular Hemoglobin 35 pg (25-35) Mean Corpuscular Hemoglobin Concent 35 g/dL (31-37) Red Cell Distribution Width 15.3 % (11.5-14.5) Platelet Count 285 x10^3/uL (140-400) Neutrophils (%) (Auto) 75 % (31-73) Lymphocytes (%) (Auto) 15 % (24-48) Monocytes (%) (Auto) 9 % (0-9) Eosinophils (%) (Auto) 1 % (0-3) Basophils (%) (Auto) 1 % (0-3) Neutrophils # (Auto) 7.6 x10^3/uL (1.8-7.7) Lymphocytes # (Auto) 1.5 x10^3/uL (1.0-4.8) Monocytes # (Auto) 0.9 x10^3/uL (0.0-1.1) Eosinophils # (Auto) 0.1 x10^3/uL (0.0-0.7) Basophils # (Auto) 0.1 x10^3/uL (0.0-0.2) Sodium Level 137 mmol/L (136-145) Potassium Level 2.7 mmol/L (3.5-5.1) Chloride Level 98 mmol/L (98-107) Carbon Dioxide Level 28 mmol/L (21-32) Anion Gap 11 (6-14) Blood Urea Nitrogen 6 mg/dL (7-20) Creatinine 1.1 mg/dL (0.6-1.0) Estimated GFR (Cockcroft-Gault) 50.3 BUN/Creatinine Ratio 5 (6-20) Glucose Level 104 mg/dL (70-99) Lactic Acid Level 2.0 mmol/L (0.4-2.0) Calcium Level 8.8 mg/dL (8.5-10.1) Magnesium Level 1.8 mg/dL (1.8-2.4) Total Bilirubin 0.5 mg/dL (0.2-1.0) Aspartate Amino Transf (AST/SGOT) 29 U/L (15-37) Alanine Aminotransferase (ALT/SGPT) 62 U/L (14-59) Alkaline Phosphatase 164 U/L (46-116) Troponin I Quantitative < 0.017 ng/mL (0.000-0.055) LH-Ogw-O-Type Natriuretic Peptide 965 pg/mL (0-124) Total Protein 8.3 g/dL (6.4-8.2) Albumin 3.6 g/dL (3.4-5.0) Albumin/Globulin Ratio 0.8 (1.0-1.7) Lipase 42 U/L (73-393) Urine Opiates Screen Pos (NEG) Urine Methadone Screen Neg (NEG) Urine Barbiturates Neg (NEG) Urine Phencyclidine Screen Neg (NEG) Urine Amphetamine/Methamphetamine Neg (NEG) Urine Benzodiazepines Screen Neg (NEG) Urine Cocaine Screen Neg (NEG) Urine Cannabinoids Screen Neg (NEG) Urine Ethyl Alcohol Neg (NEG) O2 Saturation 95 % (92-99) Arterial Blood pH 7.42 (7.35-7.45) Arterial Blood pCO2 at Patient Temp 37 mmHg (35-46) Arterial Blood pO2 at Patient Temp 73 mmHg (65-108) Arterial Blood HCO3 24 mmol/L (21-28) Arterial Blood Base Excess 0 mmol/L (-3-3) FiO2 28% Influenza Type A Antigen Negative (NEGATIVE) Influenza Type B Antigen Negative (NEGATIVE) Test 07/20/20 18:51 07/20/20 21:50 07/21/20 07:02 Troponin I Quantitative < 0.017 ng/mL (0.000-0.055) < 0.017 ng/mL (0.000-0.055) White Blood Count 5.4 x10^3/uL (4.0-11.0) Red Blood Count 3.09 x10^6/uL (3.50-5.40) Hemoglobin 10.6 g/dL (12.0-15.5) Hematocrit 31.5 % (36.0-47.0) Mean Corpuscular Volume 102 fL (79-100) Mean Corpuscular Hemoglobin 34 pg (25-35) Mean Corpuscular Hemoglobin Concent 34 g/dL (31-37) Red Cell Distribution Width 15.5 % (11.5-14.5) Platelet Count 253 x10^3/uL (140-400) Neutrophils (%) (Auto) 60 % (31-73) Lymphocytes (%) (Auto) 26 % (24-48) Monocytes (%) (Auto) 10 % (0-9) Eosinophils (%) (Auto) 3 % (0-3) Basophils (%) (Auto) 1 % (0-3) Neutrophils # (Auto) 3.2 x10^3/uL (1.8-7.7) Lymphocytes # (Auto) 1.4 x10^3/uL (1.0-4.8) Monocytes # (Auto) 0.5 x10^3/uL (0.0-1.1) Eosinophils # (Auto) 0.2 x10^3/uL (0.0-0.7) Basophils # (Auto) 0.1 x10^3/uL (0.0-0.2) Sodium Level 142 mmol/L (136-145) Potassium Level 3.7 mmol/L (3.5-5.1) Chloride Level 106 mmol/L (98-107) Carbon Dioxide Level 29 mmol/L (21-32) Anion Gap 7 (6-14) Blood Urea Nitrogen 4 mg/dL (7-20) Creatinine 0.8 mg/dL (0.6-1.0) Estimated GFR (Cockcroft-Gault) 72.7 Glucose Level 93 mg/dL (70-99) Calcium Level 8.5 mg/dL (8.5-10.1) Phosphorus Level 2.7 mg/dL (2.6-4.7) Magnesium Level 2.3 mg/dL (1.8-2.4) Assessment/Plan Assessment/Plan pancreatic pseudocyst reviewed with Dr Villarreal would recommend [facility] evaluation and arrange for EUS and therapeutic endoscopic drainage --have discussed with Nurse, GI, PERRY MERCEDES MD 07/21/20 1443: CONSULT Assessment/Plan Assessment/Plan Persistent pseudocyst, best terminal supervisor treatment with internal drainage (cystgastrostomy); historically done surgically (open or laparoscopic approaches), however with endoscopic ultrasound can be done endoscopically with less morbidity. Recommend EUS with therapeutic drainage. Would proceed with open or laparoscopic approach only if unable or unsuccessful with endoscopic approach CHANDLER DOUGLAS APRN Jul 21, 2020 09:25 PERRY VILLARREAL MD Jul 21, 2020 14:43
--- NOTE | 2020-07-21 09:54 | PDOC ---
Date of Service: DATE: 07/21/20 TIME: 09:43 Subjective: Subjective: Please see GI consult from 07/10/20 and following progress notes til 07/15. She asked that I "just spit out my questions" this morning. She has many complaints - nursing, trying to go to the restroom with her IV, the doctor practice management consultant for her PCP, being NPO, not knowing the plan, etc. Back to ER w/ "chest pain." Pain was manageable at home after discharge for awhile and then got worse. Says she was able to eat and drink without issue. I explained possible next steps - need for surgery opinion - she says "we knew that last time, haven't you got anything else to say?" Objective: Vital Signs: Vital Signs Date Time Temp Pulse Resp B/P (MAP) Pulse Ox O2 Delivery O2 Flow Rate FiO2 07/21/20 08:39 99 Nasal Cannula 2.0 07/21/20 08:39 64 181/103 07/21/20 07:00 96.2 22 96.2 Labs: Laboratory Tests Test 07/20/20 15:00 07/20/20 15:50 07/20/20 16:49 07/20/20 17:01 White Blood Count 10.2 x10^3/uL Red Blood Count 3.45 x10^6/uL Hemoglobin 12.1 g/dL Hematocrit 34.9 % Mean Corpuscular Volume 101 fL Mean Corpuscular Hemoglobin 35 pg Mean Corpuscular Hemoglobin Concent 35 g/dL Red Cell Distribution Width 15.3 % Platelet Count 285 x10^3/uL Neutrophils (%) (Auto) 75 % Lymphocytes (%) (Auto) 15 % Monocytes (%) (Auto) 9 % Eosinophils (%) (Auto) 1 % Basophils (%) (Auto) 1 % Neutrophils # (Auto) 7.6 x10^3/uL Lymphocytes # (Auto) 1.5 x10^3/uL Monocytes # (Auto) 0.9 x10^3/uL Eosinophils # (Auto) 0.1 x10^3/uL Basophils # (Auto) 0.1 x10^3/uL Sodium Level 137 mmol/L Potassium Level 2.7 mmol/L Chloride Level 98 mmol/L Carbon Dioxide Level 28 mmol/L Anion Gap 11 Blood Urea Nitrogen 6 mg/dL Creatinine 1.1 mg/dL Estimated GFR (Cockcroft-Gault) 50.3 BUN/Creatinine Ratio 5 Glucose Level 104 mg/dL Lactic Acid Level 2.0 mmol/L Calcium Level 8.8 mg/dL Magnesium Level 1.8 mg/dL Total Bilirubin 0.5 mg/dL Aspartate Amino Transf (AST/SGOT) 29 U/L Alanine Aminotransferase (ALT/SGPT) 62 U/L Alkaline Phosphatase 164 U/L Troponin I Quantitative < 0.017 ng/mL TB-Eyj-B-Type Natriuretic Peptide 965 pg/mL Total Protein 8.3 g/dL Albumin 3.6 g/dL Albumin/Globulin Ratio 0.8 Lipase 42 U/L Urine Opiates Screen Pos Urine Methadone Screen Neg Urine Barbiturates Neg Urine Phencyclidine Screen Neg Urine Amphetamine/Methamphetamine Neg Urine Benzodiazepines Screen Neg Urine Cocaine Screen Neg Urine Cannabinoids Screen Neg Urine Ethyl Alcohol Neg O2 Saturation 95 % Arterial Blood pH 7.42 Arterial Blood pCO2 at Patient Temp 37 mmHg Arterial Blood pO2 at Patient Temp 73 mmHg Arterial Blood HCO3 24 mmol/L Arterial Blood Base Excess 0 mmol/L FiO2 28% Influenza Type A Antigen Negative Influenza Type B Antigen Negative Test 07/20/20 18:51 07/20/20 21:50 07/21/20 07:02 Troponin I Quantitative < 0.017 ng/mL < 0.017 ng/mL White Blood Count 5.4 x10^3/uL Red Blood Count 3.09 x10^6/uL Hemoglobin 10.6 g/dL Hematocrit 31.5 % Mean Corpuscular Volume 102 fL Mean Corpuscular Hemoglobin 34 pg Mean Corpuscular Hemoglobin Concent 34 g/dL Red Cell Distribution Width 15.5 % Platelet Count 253 x10^3/uL Neutrophils (%) (Auto) 60 % Lymphocytes (%) (Auto) 26 % Monocytes (%) (Auto) 10 % Eosinophils (%) (Auto) 3 % Basophils (%) (Auto) 1 % Neutrophils # (Auto) 3.2 x10^3/uL Lymphocytes # (Auto) 1.4 x10^3/uL Monocytes # (Auto) 0.5 x10^3/uL Eosinophils # (Auto) 0.2 x10^3/uL Basophils # (Auto) 0.1 x10^3/uL Sodium Level 142 mmol/L Potassium Level 3.7 mmol/L Chloride Level 106 mmol/L Carbon Dioxide Level 29 mmol/L Anion Gap 7 Blood Urea Nitrogen 4 mg/dL Creatinine 0.8 mg/dL Estimated GFR (Cockcroft-Gault) 72.7 Glucose Level 93 mg/dL Calcium Level 8.5 mg/dL Phosphorus Level 2.7 mg/dL Magnesium Level 2.3 mg/dL FROM LAST ADMISSION: Pancreas cyst 07/14 GRAM STAIN Final Final NO ORGANISMS SEEN. SQUAMOUS EPI CELL:NOT APPLICABLE PMN (WBCs):NONE SEEN Unless otherwise specified, Testing Performed by: [address] [address] For Inquires, the Physician may contact the Microbiology department at [phone] ANAEROBIC-AEROBIC CULTURE Final Final No Growth on 07/15/20 at 1044 No Growth on 07/16/20 at 1100 No Growth on 07/19/20 at 0902 Unless otherwise specified, Testing Performed by: [address] [id number] For Inquires, the Physician may contact the Microbiology department at [phone] Fluid amylase 07/14: 3289 CA19-9: 75 Imaging: CT A/P 07/20 IMPRESSION: 1. No specific cause for left paraspinal lumbar pain identified on noncontrast CT. In particular, there is bilateral perinephric soft tissue stranding that could reflect renal inflammation from pyelonephritis but there are no specific findings to suggest that diagnosis and there are no stones or findings of obstructive uropathy. 2. Patient does have multilevel lumbar spinal degenerative spondylosis with mild rightward convexity scoliosis. No acute fracture or aggressive appearing bony lesions. 3. There has been reaccumulation of fluid in the cystic pancreatic head mass that was recently aspirated. This could reflect reticulation of fluid in the pancreatic pseudocyst. There are wall thickening and surrounding soft tissue stranding could reflect inflammation. Correlate for any clinical evidence of acute pancreatitis. Lack of IV contrast limits more detailed evaluation. 4. Selective hypoattenuation of the right hepatic lobe could reflect geographic fatty infiltration but alternatively could reflect variant perfusion. Correlate with liver function tests and if clinically warranted, further imaging could be pursued with contrast enhanced CT or MRI of the abdomen, or duplex ultrasound of the liver. L-spine CT 07/20 IMPRESSION: Lumbar spinal degenerative changes with no acute findings on noncontrast L-spine CT to explain left-sided paraspinal lumbar back pain. CXR 07/20 IMPRESSION: Diffuse interstitial infiltrate with superimposed nodular infiltrate within the left upper lobe. Follow-up to confirm resolution. PE: GEN: NAD - she's up walking around her room with IV pole LUNGS: putting NC back on HEART: RRR ABD: non-distended NEURO/PSYCH: A & O 3, unpleasant A/P: Abdominal pain Macrocytic anemia Pancreatic cyst w/ PD and CBD compression Hypothyroidism (recent TSH 63), chronic back pain (on narcs) Abnormal chest imaging, r/o COVID-19 -- D/w Ailyn/surgery - ?transfer to for EUS/drainage - okay per GI. Defer diet, etc. to others. Justicifation of Admission Dx: Justifications for Admission: Justification of Admission Dx: Yes OSVALDO ZHAO Jul 21, 2020 09:54
--- NOTE | 2020-07-21 10:56 | NUR ---
VICKIE following for discharge planning. Spoke with RN and reviewed chart. Pt from home, 2l 02, COVID pending. VICKIE phoned and faxed referral to the transfer team for a possible hospital to hospital transfer for a EUS and therapeutic endoscopic drainage of pseudocyst. VICKIE contacted radiology to have images clouded. SW following. Addendum: 07/21/20 at 1258 by CHAYO JOHNSTON Pt denied at for hospital to hospital transfer. Pt advised to follow up out-patient with GI at . RN notified. Pt will likely discharge home today, self-care. No further VICKIE needs at this time. Addendum: 07/21/20 at 1526 by CHAYO JOHNSTON VICKIE attempted to contact the Health System ([phone]) today to see about scheduling pt an appointment. LVM with request for call back Addendum: 07/21/20 at 1642 by CHAYO JOHNSTON VICKIE called pt and provided phone number to [facility] for follow up out-patient. No further SW needs at this time.
[2020-07-21 11:00] VITALS: BP 167/83
--- NOTE | 2020-07-21 14:45 | EKG ---
[facility] [address] [place] [address] Test Date: 2020-07-20 Test Time: 14:33:32 Pat Name: CHRISTINA MARSHALL Department: Room: [facility] Gender: F Admissions Officer: : 1960 Requested By: MCKAYLA URBAN Order Number: [id number] Reading MD: Tyson Mendoza Measurements Intervals [place] Rate: 83 P: 52 MA: 160 QRS: -16 QRSD: 92 T: 82 QT: 384 QTc: 457 Interpretive Statements SINUS RHYTHM LEFTWARD AXIS T ABNORMALITY IN HIGH LATERAL LEADS ABNORMAL ECG Electronically Signed On 07-29-2020 10:41:00 CERTIFIED DIALYSIS TECHNICIAN by Tyson Mendoza
--- NOTE | 2020-07-21 15:44 | NUR ---
Discharge Note: CHRISTINA MARSHALL Discharge instructions and discharge home medications reviewed with Patient and a copy given. All questions have been answered and understanding verbalized. The following instructions and handouts were given: follow up instructions. Discontinued lines and drains: 20 gauge left FA, tip intact, patient tolerated well. Patient discharged to home with self care via self.
--- NOTE | 2020-07-21 17:58 | PDOC3 ---
Discharge Summary Visit Information Date of Admission: Jul 20, 2020 Date of Discharge: Jul 21, 2020 Admitting Diagnosis Comment: Acute abdominal pain due to pancreatic pseudocyst measuring 5.[address] scan after CT-guided aspiration, previously 7.4 cm Hypokalemia ALANA due to vasomotor nephropathy Elevated alkaline phosphatase suggesting biliary etiology Macrocytosis Final Diagnosis Problems Medical Problems: Acute abdominal pain due to pancreatic pseudocyst measuring 5.[address] scan after CT-guided aspiration, previously 7.4 cm Hypokalemia ALANA due to vasomotor nephropathy improved Elevated alkaline phosphatase Macrocytosis Brief Hospital Course Allergies Allergies Coded Allergies Type Severity Reaction Last Updated Verified No Known Drug Allergies 03/27/16 No Vital Signs Vital Signs Date Time Temp Pulse Resp B/P (MAP) Pulse Ox O2 Delivery O2 Flow Rate FiO2 07/21/20 14:24 90 Nasal Cannula 07/21/20 11:00 94.6 60 22 167/83 (111) 2.0 94.6 Lab Results Laboratory Tests Test 07/20/20 15:00 07/20/20 15:50 07/20/20 16:49 07/20/20 17:01 White Blood Count 10.2 x10^3/uL (4.0-11.0) Red Blood Count 3.45 x10^6/uL (3.50-5.40) Hemoglobin 12.1 g/dL (12.0-15.5) Hematocrit 34.9 % (36.0-47.0) Mean Corpuscular Volume 101 fL (79-100) Mean Corpuscular Hemoglobin 35 pg (25-35) Mean Corpuscular Hemoglobin Concent 35 g/dL (31-37) Red Cell Distribution Width 15.3 % (11.5-14.5) Platelet Count 285 x10^3/uL (140-400) Neutrophils (%) (Auto) 75 % (31-73) Lymphocytes (%) (Auto) 15 % (24-48) Monocytes (%) (Auto) 9 % (0-9) Eosinophils (%) (Auto) 1 % (0-3) Basophils (%) (Auto) 1 % (0-3) Neutrophils # (Auto) 7.6 x10^3/uL (1.8-7.7) Lymphocytes # (Auto) 1.5 x10^3/uL (1.0-4.8) Monocytes # (Auto) 0.9 x10^3/uL (0.0-1.1) Eosinophils # (Auto) 0.1 x10^3/uL (0.0-0.7) Basophils # (Auto) 0.1 x10^3/uL (0.0-0.2) Sodium Level 137 mmol/L (136-145) Potassium Level 2.7 mmol/L (3.5-5.1) Chloride Level 98 mmol/L (98-107) Carbon Dioxide Level 28 mmol/L (21-32) Anion Gap 11 (6-14) Blood Urea Nitrogen 6 mg/dL (7-20) Creatinine 1.1 mg/dL (0.6-1.0) Estimated GFR (Cockcroft-Gault) 50.3 BUN/Creatinine Ratio 5 (6-20) Glucose Level 104 mg/dL (70-99) Lactic Acid Level 2.0 mmol/L (0.4-2.0) Calcium Level 8.8 mg/dL (8.5-10.1) Magnesium Level 1.8 mg/dL (1.8-2.4) Total Bilirubin 0.5 mg/dL (0.2-1.0) Aspartate Amino Transf (AST/SGOT) 29 U/L (15-37) Alanine Aminotransferase (ALT/SGPT) 62 U/L (14-59) Alkaline Phosphatase 164 U/L (46-116) Troponin I Quantitative < 0.017 ng/mL (0.000-0.055) CB-Bfq-P-Type Natriuretic Peptide 965 pg/mL (0-124) Total Protein 8.3 g/dL (6.4-8.2) Albumin 3.6 g/dL (3.4-5.0) Albumin/Globulin Ratio 0.8 (1.0-1.7) Lipase 42 U/L (73-393) Urine Opiates Screen Pos (NEG) Urine Methadone Screen Neg (NEG) Urine Barbiturates Neg (NEG) Urine Phencyclidine Screen Neg (NEG) Urine Amphetamine/Methamphetamine Neg (NEG) Urine Benzodiazepines Screen Neg (NEG) Urine Cocaine Screen Neg (NEG) Urine Cannabinoids Screen Neg (NEG) Urine Ethyl Alcohol Neg (NEG) O2 Saturation 95 % (92-99) Arterial Blood pH 7.42 (7.35-7.45) Arterial Blood pCO2 at Patient Temp 37 mmHg (35-46) Arterial Blood pO2 at Patient Temp 73 mmHg (65-108) Arterial Blood HCO3 24 mmol/L (21-28) Arterial Blood Base Excess 0 mmol/L (-3-3) FiO2 28% Coronavirus (PCR) Not detected (Not Detected) Influenza Type A Antigen Negative (NEGATIVE) Influenza Type B Antigen Negative (NEGATIVE) Test 07/20/20 18:51 07/20/20 21:50 07/21/20 07:02 Troponin I Quantitative < 0.017 ng/mL (0.000-0.055) < 0.017 ng/mL (0.000-0.055) White Blood Count 5.4 x10^3/uL (4.0-11.0) Red Blood Count 3.09 x10^6/uL (3.50-5.40) Hemoglobin 10.6 g/dL (12.0-15.5) Hematocrit 31.5 % (36.0-47.0) Mean Corpuscular Volume 102 fL (79-100) Mean Corpuscular Hemoglobin 34 pg (25-35) Mean Corpuscular Hemoglobin Concent 34 g/dL (31-37) Red Cell Distribution Width 15.5 % (11.5-14.5) Platelet Count 253 x10^3/uL (140-400) Neutrophils (%) (Auto) 60 % (31-73) Lymphocytes (%) (Auto) 26 % (24-48) Monocytes (%) (Auto) 10 % (0-9) Eosinophils (%) (Auto) 3 % (0-3) Basophils (%) (Auto) 1 % (0-3) Neutrophils # (Auto) 3.2 x10^3/uL (1.8-7.7) Lymphocytes # (Auto) 1.4 x10^3/uL (1.0-4.8) Monocytes # (Auto) 0.5 x10^3/uL (0.0-1.1) Eosinophils # (Auto) 0.2 x10^3/uL (0.0-0.7) Basophils # (Auto) 0.1 x10^3/uL (0.0-0.2) Sodium Level 142 mmol/L (136-145) Potassium Level 3.7 mmol/L (3.5-5.1) Chloride Level 106 mmol/L (98-107) Carbon Dioxide Level 29 mmol/L (21-32) Anion Gap 7 (6-14) Blood Urea Nitrogen 4 mg/dL (7-20) Creatinine 0.8 mg/dL (0.6-1.0) Estimated GFR (Cockcroft-Gault) 72.7 Glucose Level 93 mg/dL (70-99) Calcium Level 8.5 mg/dL (8.5-10.1) Phosphorus Level 2.7 mg/dL (2.6-4.7) Magnesium Level 2.3 mg/dL (1.8-2.4) Laboratory Tests Test 07/20/20 18:51 07/20/20 21:50 07/21/20 07:02 Troponin I Quantitative < 0.017 ng/mL (0.000-0.055) < 0.017 ng/mL (0.000-0.055) White Blood Count 5.4 x10^3/uL (4.0-11.0) Red Blood Count 3.09 x10^6/uL (3.50-5.40) Hemoglobin 10.6 g/dL (12.0-15.5) Hematocrit 31.5 % (36.0-47.0) Mean Corpuscular Volume 102 fL (79-100) Mean Corpuscular Hemoglobin 34 pg (25-35) Mean Corpuscular Hemoglobin Concent 34 g/dL (31-37) Red Cell Distribution Width 15.5 % (11.5-14.5) Platelet Count 253 x10^3/uL (140-400) Neutrophils (%) (Auto) 60 % (31-73) Lymphocytes (%) (Auto) 26 % (24-48) Monocytes (%) (Auto) 10 % (0-9) Eosinophils (%) (Auto) 3 % (0-3) Basophils (%) (Auto) 1 % (0-3) Neutrophils # (Auto) 3.2 x10^3/uL (1.8-7.7) Lymphocytes # (Auto) 1.4 x10^3/uL (1.0-4.8) Monocytes # (Auto) 0.5 x10^3/uL (0.0-1.1) Eosinophils # (Auto) 0.2 x10^3/uL (0.0-0.7) Basophils # (Auto) 0.1 x10^3/uL (0.0-0.2) Sodium Level 142 mmol/L (136-145) Potassium Level 3.7 mmol/L (3.5-5.1) Chloride Level 106 mmol/L (98-107) Carbon Dioxide Level 29 mmol/L (21-32) Anion Gap 7 (6-14) Blood Urea Nitrogen 4 mg/dL (7-20) Creatinine 0.8 mg/dL (0.6-1.0) Estimated GFR (Cockcroft-Gault) 72.7 Glucose Level 93 mg/dL (70-99) Calcium Level 8.5 mg/dL (8.5-10.1) Phosphorus Level 2.7 mg/dL (2.6-4.7) Magnesium Level 2.3 mg/dL (1.8-2.4) Brief Hospital Course History of Present Illness: HPI: Patient is a 60-year-old female with past medical history of acute pancreatitis with pseudocyst that was recently drained by GI last week with 100 cc fluid output. Who comes to the ED due to abdominal pain 8 out of 10. Patient states that the pain occurs in the lower back which she does have chronic pain for and also in the epigastric and left upper quadrant region. Has been occurring for the past week. Patient does also take oxycodone chronically for her back pain. Denies any fevers, shortness of breath, diarrhea, pale stools, dark urine, or bloody stools. Patient in the ED was found to have oxygen level 88% and 2 L oxygen was placed and she improved with 94%. Denies any sick Covid contacts. Patient admitted to the medical floor and she was kept n.p.o. awaiting for managed security sales consultant recommendations. Recommendations from our surgical coder were as follows: pancreatic pseudocyst reviewed with Dr Villarreal would recommend [facility] evaluation and arrange for EUS and therapeutic endoscopic drainage --have discussed with Nurse, VCIKIE ZAIDI SCOTT D MD 07/21/20 2965: CONSULT Assessment/Plan Assessment/Plan Persistent pseudocyst, best intermediate designer treatment with internal drainage (cystgastrostomy); historically done surgically (open or laparoscopic approaches), however with endoscopic ultrasound can be done endoscopically with less morbidity. Recommend EUS with therapeutic drainage. Would proceed with open or laparoscopic approach only if unable or unsuccessful with endoscopic approach In light of the recommendations the patient was willing to try more solid food because she was tired of the clear liquid diet. She will be following up with [facility] and hopefully will be able to have the procedure done at that institution in order to address the underlying etiology of her disease. She is in no acute distress at the time of my evaluation she was in good spirits to be going home later if she tolerated her diet GEN: No apparent distress. Alert and oriented HEENT: Normal cephalic, atraumatic, external auditory canals are patent. Mucous membranes are moist but appears to be pale as well. EYES: Extraocular muscles are intact, pupil are equally round and reactive to light and accommodation. Conjunctive does appear to be pale MUSCULOSKELETAL: Well developed , well nourished, good range of motion ENDOCRINE: No thyromegaly was palpated LYMPHATICS: No cervical chain or axillary nodes were noted HEMATOPOIETIC: No bruising NECK: Supple, no JVD, no thyromegaly was noted LUNGS: Clear to auscultation in all lung lira without rhonchi or wheezing HEART: RRR, S!, S2 present. Peripheral pulses intact, no obvious murmurs noted ABDOMEN: Soft, nontender. Positive bowel sounds, no organomegaly, normal bowel sounds EXTREMITIES: Without clubbing, cyanosis, or edema. Pedal pulses intact. Negative Homans sign NEUROLOGIC: Normal speech and tone. A&O x 3, moves all extremities, no obvious focal deficits PSYCHIATRIC: Normal affect, normal mood. Stable SKIN: No ulcerations or rashes, good skin turgor, no jaundice VASCULAR: Good capillary refill, neurovascular bundle appears to be intact Assessment Assessment IMAGING REPORT Signed PATIENT: CHRISTINA MARSHALL ACCOUNT: [id number] : 1960 LOCATION: ER AGE: 60 SEX: F EXAM STATUS: REG ER ORD. PHYSICIAN: MCKAYLA URBAN DO REASON: left paraspinal lumbar back pain PROCEDURE: CT ABDOMEN PELVIS WO CONTRAST EXAM: CT Abdomen and Pelvis without IV contrast INDICATION: Reason: left paraspinal lumbar back pain / Spl. Instructions: / History: TECHNIQUE: Multi-detector row CT images were acquired from the lung bases through the abdomen and pelvis without the use of IV contrast. Sagittal and coronal images were acquired from the transaxial data. All CT scans performed at this facility utilize dose optimization techniques as appropriate to the exam, including the following: Automated exposure control and adjustment of the mA and/or KV according to patient size (this includes techniques or standardized protocols for targeted exams where dose is indication/reason for exam). ORAL CONTRAST: None COMPARISON: Abdominal MRI of 07/11/2020, CT guided FNA biopsy of the abdomen of 07/14/2020 FINDINGS: The absence of IV contrast limits evaluation of soft tissue pathology. LOWER CHEST: Unremarkable LIVER: Right hepatic lobe hypodensity compatibe with geographic fatty infiltration. BILIARY SYSTEM: Gallbladder is distended up to 5 cm transverse diameter. Bile ducts are not dilated. PANCREAS: Cystic pancreatic head mass measuring 5.6 cm is redemonstrated with wall thickening. This likely represents a reaccumulation of fluid in the pancreatic head following recent FNA biopsy. SPLEEN: Scattered splenic calcifications. No splenomegaly. ADRENALS: Unremarkable KIDNEYS & URETERS: Bilateral perinephric soft tissue stranding. Mild right hydronephrosis and hydroureter. No radiopaque stones in the ureters identified. 7 mm inferior pole nonobstructing right renal stone is present. BLADDER: Unremarkable REPRODUCTIVE ORGANS: Unremarkable GASTROINTESTINAL: The stomach, small bowel, and colon are unremarkable. The appendix is normal. MESENTERY/PERITONEUM/RETROPERITONEUM: Surgical changes from ventral hernia mesh repair. VASCULAR: Scattered arterial calcifications. Mild ectasia of the infrarenal abdominal aorta to 2.4 cm without aneurysm. LYMPH NODES: No adenopathy OSSEOUS & SOFT TISSUES: L1 vertebroplasty. L5-S1 degenerative change. Mild rightward convexity scoliosis of the lumbar spine with facet degenerative changes most conspicuous on the left at L3-L4, L4-L5 and L5-S1. No acute fracture or aggressive appearing osseous lesions. Generalized osteopenia. Surgical clips along the right pelvic sidewall, right iliac diaz chain and ri ght aspect of the IVC are present. IMPRESSION: 1. No specific cause for left paraspinal lumbar pain identified on noncontrast CT. In particular, there is bilateral perinephric soft tissue stranding that could reflect renal inflammation from pyelonephritis but there are no specific findings to suggest that diagnosis and there are no stones or findings of obstructive uropathy. 2. Patient does have multilevel lumbar spinal degenerative spondylosis with mild rightward convexity scoliosis. No acute fracture or aggressive appearing bony lesions. 3. There has been reaccumulation of fluid in the cystic pancreatic head mass that was recently aspirated. This could reflect reticulation of fluid in the pancreatic pseudocyst. There are wall thickening and surrounding soft tissue stranding could reflect inflammation. Correlate for any clinical evidence of acute pancreatitis. Lack of IV contrast limits more detailed evaluation. 4. Selective hypoattenuation of the right hepatic lobe could reflect geographic fatty infiltration but alternatively could reflect variant perfusion. Correlate with liver function tests and if clinically warranted, further imaging could be pursued with contrast enhanced CT or MRI of the abdomen, or duplex ultrasound of the liver. Electronically signed by: Sandra Herrera MD (07/20/2020 4:56 PM) [facility] [place] Discharge Information Condition at Discharge: Improved Follow Up: Weeks Disposition/Orders: D/C to Home Scheduled Amlodipine Besylate (Amlodipine Besylate) 10 Mg Tablet, 10 MG PO DAILY for 30 Days, #30 Prescribed by: KATRIN BAXTER on 03/06/171201 Last Action: Continued on 07/20/202099 by CHANTEL HERNANDEZ MD Levothyroxine Sodium (Levothyroxine Sodium) 150 Mcg Tablet, 150 MCG PO DAILY06 for 30 Days, #30 Ref 5 Prescribed by: RODOLFO YOON MD on 03/07/17 174 Last Action: Continued on 07/20/202099 by CHANTEL HERNANDEZ MD Lidocaine (Lidocaine PATCH ) 1 Each Adh..patch, 1 EACH TP DAILY for FOR LOCAL PAIN, #10 REMOVE AFTER 12 HOURS Prescribed by: AARON DELACRUZ D.O. on 02/19/191911 Last Action: HELD on 07/20/202099 by CHANTEL HERNANDEZ MD Losartan Potassium (Losartan Potassium) 100 Mg Tablet, 100 MG PO DAILY for 30 Days, #30 Prescribed by: KATRIN BAXTER on 03/06/171201 Last Action: HELD on 07/20/202099 by CHANTEL HERNANDEZ MD Pantoprazole Sodium (Pantoprazole Sodium ) 40 Mg Tablet.dr, 40 MG PO DAILYAC for GERD for 30 Days, #30 Prescribed by: AUSTIN LANDRY MD on 07/15/20 1551 Last Action: HELD on 07/20/202099 by CHANTEL HERNANDEZ MD Phenazopyridine Hcl (Pyridium) 100 Mg Tablet, 100 MG PO TID for dysuria, #10 Prescribed by: LIEN SINGH MD on 04/16/19 122 Last Action: HELD on 07/20/202099 by CHANTEL HERNANDEZ MD Sumatriptan Succinate (Imitrex) 100 Mg Tablet, 1 TAB PO UD, #9 Ref 1 Prescribed by: KATRIN BAXTER on 03/06/17 120 Last Action: HELD on 07/20/202099 by CHANTEL HERNANDEZ MD Scheduled PRN Acetaminophen (Tylenol) 325 Mg Tablet, 650 MG PO PRN Q6HRS PRN for Headaches, Temp > 101.5F for 14 Days, #90 Prescribed by: AUSTIN LANDRY MD on 07/15/20 1551 Cyclobenzaprine Hcl (Cyclobenzaprine Hcl) 10 Mg Tablet, 1 TAB PO TID PRN for PAIN, #30 Prescribed by: BRUNILDA ODOM MD on 12/15/17 190 Last Action: Continued on 07/20/202099 by CHANTEL HERNANDEZ MD Lidocaine (Lidocaine PATCH ) 1 Each Adh..patch, 1 EACH TP DAILY PRN for PAIN, #10 Prescribed by: BRUNILDA ODOM MD on 12/15/171905 Last Action: HELD on 07/20/202099 by CHANTEL HERNANDEZ MD Mag Hydrox/Al Hydrox/Simeth (Mag-Al Plus Xs Suspension) 30 Ml Oral.susp, 30 ML PO PRN Q3HRS PRN for HEARTBURN / GAS for 14 Days, #240 Prescribed by: AUSTIN LANDRY MD on 07/15/20 1551 Oxycodone Hcl (Oxycodone Hcl Immed.release ) 5 Mg Tablet, 30 MG PO PRN Q4HRS PRN for PAIN, (Reported) Entered as Reported by: KAMAR HOFFMANN on 08/05/13 1626 Last Action: Continued on 07/20/202099 by CHANTEL HERNANDEZ MD Discontinued Medications Amoxicillin/Potassium Clav (Augmentin 500-125 Tablet) 1 Each Tablet, 1 TAB PO BID for UTI for 10 Days, #20 Ref 0 Prescribed by: AUSTIN LANDRY MD on 07/15/20 1551 Last Action: HELD on 07/20/202099 by CHANTEL HERNANDEZ MD Ciprofloxacin Hcl (Cipro) 250 Mg Tablet, 1 TAB PO BID for infection, #14 Prescribed by: ILEN SINGH MD on 04/16/19 1222 Cyclobenzaprine Hcl (Cyclobenzaprine Hcl) 10 Mg Tablet, 1 TAB PO TID for 30 Days, #90 Ref 1 Prescribed by: RODOLFO YOON MD on 03/07/17 1744 Cyclobenzaprine Hcl (Cyclobenzaprine Hcl) 10 Mg Tablet, 1 TAB PO TID PRN for MUSCLE SPASMS, #30 Prescribed by: ANA STONE on 06/14/17 2328 Diclofenac Sodium (Diclofenac Sodium) 50 Mg Tablet.dr, 1 TAB PO BID, #20 Ref 0 Prescribed by: BRUNILDA ODOM MD on 12/15/17 1906 Dicyclomine Hcl (Bentyl) 10 Mg/1 Ml Ampul, 10 MG IM BID, #10 Prescribed by: BRUNILDA CONNORS on 08/24/17 2103 Hydrochlorothiazide (Hydrochlorothiazide Tablet ) 25 Mg Tablet, 1 TAB PO DAILY, #30 Ref 5 Prescribed by: KATRIN BAXTER on 03/06/17 1202 Levofloxacin (Levaquin) 500 Mg Tablet, 1 TAB PO DAILY, #3 Prescribed by: ANA STONE on 06/14/17 2328 Nitrofurantoin Monohyd/M-Cryst (Macrobid 100 Mg Capsule) 100 Mg Capsule, 1 CAP PO BID, #14 Prescribed by: HANNAH BHATTI on 06/01/17 1556 Justicifation of Admission Dx: Justifications for Admission: Justification of Admission Dx: Yes KATINA GEORGE MD Jul 21, 2020 17:58
[2020-10-06] MEDS ORDERED: CALC200T23 PO (11:01)
[2020-10-06] MEDS ORDERED: POTA20TA4 PO (11:02)
== END 2020-07-21 15:46 | disposition home or self-care (01) | DRG 438 ==
LOC: ER 14:26 → 6 SOUTH 19:44
PROVIDERS: ADMIT Internal Medicine; ATTEND Internal Medicine
DX: K86.3 Pseudocyst of pancreas (principal); N17.0 Acute kidney failure with tubular necrosis; J84.9 Interstitial pulmonary disease, unspecified; D53.9 Nutritional anemia, unspecified; K86.2 Cyst of pancreas; D75.89 Other specified diseases of blood and blood-forming organs; E03.9 Hypothyroidism, unspecified; E87.6 Hypokalemia; F17.200 Nicotine dependence, unspecified, uncomplicated; G89.29 Other chronic pain; I10 Essential (primary) hypertension; E66.9 Obesity, unspecified; R74.8 Abnormal levels of other serum enzymes; J44.9 Chronic obstructive pulmonary disease, unspecified; Z20.822 Contact with and (suspected) exposure to COVID-19; Z79.891 Long term (current) use of opiate analgesic; Z85.41 Personal history of malignant neoplasm of cervix uteri; Z92.21 Personal history of antineoplastic chemotherapy; Z92.3 Personal history of irradiation; Z98.51 Tubal ligation status; Z68.28 Body mass index [BMI] 28.0-28.9, adult
CPT/HCPCS: 36415; 36600; 71045; 74176; 80048; 80053; 80307; 82805; 83605; 83690; 83735; 83880; 84100; 84484; 85025; 87040; 87804; 93005; 96365; 96367; 96375; 96376; 99285; J0456; J0696; J1170; J1650; J3475; J7030; U0003; G0378

== ENCOUNTER 2020-10-27 12:11 | Emergency (ER) | payer MEDICAID ==
[2020-10-06 11:00] VITALS: BP 130/89
[~2020-10-27 12:11] MED LIST changes: +CALC200T23 PO; +POTA20TA4 PO
== END 2020-10-27 12:25 | disposition left against medical advice (07) ==
LOC: ER 12:11
DX: R10.9 Unspecified abdominal pain (principal); M54.5 Low back pain; Z53.21 Procedure and treatment not carried out due to patient leaving prior to being seen by health care provider

== ENCOUNTER 2021-03-03 12:20 | Inpatient (IN) | payer MEDICAID ==
[~2021-03-03] VITALS: Ht 172.7 cm; Wt 86.5 kg
[~2021-03-03 12:20] MED LIST changes: +POTA-121 PO; -POTA20TA4 PO
[2021-03-03] MEDS ORDERED: fentaNYL PF VIAL 100 MCG/2 ML VIAL IVP ONE (13:45)
[2021-03-03 14:25] LABS: BASO % 0 % (0-3); EOS # 0.1 x10^3/uL (0.0-0.7); EOS % 2 % (0-3); HEMATOCRIT 39.1 % (36.0-47.0); HEMOGLOBIN 13.7 g/dL (12.0-15.5); LYMPH # 1.1 x10^3/uL (1.0-4.8); LYMPH % 11 % (24-48); MEAN CORPUSCULAR HEMOGLOBIN 36 pg (25-35); MEAN CORPUSCULAR HGB CONC 35 g/dL (31-37); MEAN CORPUSCULAR VOLUME 103 fL (79-100); MONO # 0.4 x10^3/uL (0.0-1.1); MONO % 4 % (0-9); NEUT # 8.3 x10^3/uL (1.8-7.7); NEUT % 83 % (31-73); PLATELET COUNT 374 x10^3/uL (140-400); RED BLOOD COUNT 3.81 x10^6/uL (3.50-5.40); RED CELL DISTRIBUTION WIDTH 14.6 % (11.5-14.5); WHITE BLOOD COUNT 10.1 x10^3/uL (4.0-11.0)
--- NOTE | 2021-03-03 14:29 | PHYS DOC ---
Past Medical History Past Medical History: Cancer, Hypertension, Kidney Stone, Other Additional Past Medical Histor: chronic pain, CERVICAL CANCER, PANCREATIC PSEUDOCYST Past Surgical History: Cancer Surgery, Tubal ligation, Other Additional Past Surgical Histo: Ureteral Stent, Laparoscopy Smoking Status: Current Every Day Smoker Alcohol Use: None Drug Use: None General Adult EDM: Chief Complaint: RIB PAIN HPI: HPI: Patient is a 61 year old female who presents with has been on antibiotics for last 8 days for respiratory infection of which she does not know what it is and she does not remember what antibiotic she is on. She states she still has a couple more days of it. States she is also had diarrhea for the last 2 weeks. States she was never tested for Covid. She states she is having left upper chest pain and rib pain that does hurt with movement but then she states that it just hurts all the time. She states she is now more short of air than she usually is. She denies fever, abdominal pain, nausea, vomiting, back pain, urinary symptoms, dizziness, headache, focal weakness, numbness or tingling. She has a history of hypertension, COPD, UTI, hypokalemia, cellulitis, chronic pancreatitis, intractable back pain, drug-seeking behavior, cervical cancer, smoker, pancreatic pseudocyst, kidney stone with ureteral stent, tubal ligation. She is rating her pain a 9 out of 10 is a sharp pain. Review of Systems: Review of Systems: Constitutional: Denies fever or chills. [] Eyes: Denies change in visual acuity. [] HENT: Denies nasal congestion or sore throat. [] Respiratory: + cough or denies shortness of breath. [] Cardiovascular: + chest pain or denies edema. [] GI: Denies abdominal pain, nausea, vomiting, bloody stools or +diarrhea. [] : Denies dysuria. [] Musculoskeletal: Denies back pain or joint pain. + Left rib [] Integument: Denies rash. [] Neurologic: Denies headache, focal weakness or sensory changes. [] Endocrine: Denies polyuria or polydipsia. [] Lymphatic: Denies swollen glands. [] Psychiatric: Denies depression or anxiety. [] Heart Score: C/O Chest Pain: Yes HEART Score for Chest Pain: HEART Score for Chest Pain Response (Comments) Value History Slighlty/Non-Suspicious 0 ECG Nonspecific Repolarizatio 1 Age >45 - < 65 1 Risk Factors 1 or 2 Risk Factors 1 Troponin < Normal Limit 0 Total 3 Risk Factors: Risk Factors: DM, Current or recent (<one month) smoker, HTN, HLP, family history of CAD, obesity. Risk Scores: Score 0 - 3: 2.5% MACE over next 6 weeks - Discharge Home Score 4 - 6: 20.3% MACE over next 6 weeks - Admit for Clinical Observation Score 7 - 10: 72.7% MACE over next 6 weeks - Early Invasive Strategies Current Medications: Current Medications Medications (Trade) Dose Ordered Sig/Herminio Start Time Stop Time Status Last Admin Dose Admin Fentanyl Citrate (Fentanyl 2ml Vial) 50 mcg 1X ONCE 03/03/21 13:45 03/03/21 13:46 DC 03/03/21 14:17 50 MCG Allergies: Allergies: Allergies Coded Allergies Type Severity Reaction Last Updated Verified No Known Drug Allergies 03/27/16 No Physical Exam: PE: Constitutional: Well developed, well nourished, no acute distress, non-toxic appearance. [] HENT: Normocephalic, atraumatic, bilateral external ears normal, oropharynx moist, no oral exudates, nose normal. [] Eyes: PERRLA, EOMI, conjunctiva normal, no discharge. [] Neck: Normal range of motion, no tenderness, supple, no stridor. [] Cardiovascular:Heart rate regular rhythm, no murmur [] Lungs & Thorax: Bilateral upper breath sounds slight wheezing and lower diminished to auscultation [] Abdomen: Bowel sounds normal, soft, no tenderness, no masses, no pulsatile masses. [] Skin: Warm, dry, no erythema, no rash. [] Back: No tenderness, no CVA tenderness. [] Extremities: No tenderness, no cyanosis, no clubbing, ROM intact, no edema. [] Neurologic: Alert and oriented X 3, normal motor function, normal sensory function, no focal deficits noted. [] Psychologic: Affect normal, judgement normal, mood normal. [] Current Patient Data: Vital Signs: Vital Signs Date Time Temp Pulse Resp B/P (MAP) Pulse Ox O2 Delivery O2 Flow Rate FiO2 03/03/21 12:42 98.3 94 16 188/108 (134) 94 Room Air 98.3 EKG: EK and read by Dr. Jacobs is sinus rhythm with a inverted T in V2. No STEMI. Radiology/Procedures: Radiology/Procedures: [] Impression: [id number] [place] [address] IMAGING REPORT Signed PATIENT: CHRISTINA MARSHALL ACCOUNT: [id number] : 1960 LOCATION: ER AGE: 61 SEX: F EXAM STATUS: REG ER ORD. PHYSICIAN: JAMES NEVILLE APRN REASON: cough, soa, rib pain PROCEDURE: CHEST PA & LATERAL XR CHEST 2V, XR RIBS 2 VIEWS LT DATE: 03/03/2021 2:01 PM INDICATION: cough, soa, rib pain / Spl. Instructions: / History: COMPARISON: 10/03/2020. FINDINGS: Chest: Heart size is within normal limits. No focal consolidations are seen. Bilateral perihilar and basilar allergies opacities. Indistinct central vasculature. Bones: No radiographic evidence for a displaced, left-sided rib fracture is seen. IMPRESSION: 1. Bilateral perihilar and basilar opacities, probably pulmonary edema or multifocal infection 2. No radiographic evidence for left-sided rib fracture. Electronically signed by: Alisia Gurrola MD (03/03/2021 2:27 PM) [facility] DICTATED and SIGNED BY: ALISIA GURROLA MD DATE: 03/03/21 [id number] [id number] [place] [address] IMAGING REPORT Signed PATIENT: CHRISTINA MARSHALL ACCOUNT: [id number] : 1960 LOCATION: ER AGE: 61 SEX: F EXAM STATUS: REG ER ORD. PHYSICIAN: JAMES NEVILLE APRN REASON: diarrhea for 2 weeks PROCEDURE: CT ABD PELV W/ IV CONTRST ONLY EXAMINATION: CT abdomen and pelvis with IV contrast. INDICATION:61 years, Female, diarrhea for 2 weeks. TECHNIQUE: Axial CT images of the abdomen and pelvis were obtained. Coronal and sagittal reformatted performed. COMPARISON: 10/04/2020. Exposure: One or more of the following individualized dose reduction techniques were utilized for this examination: 1. Automated exposure control 2. Adjustment of the mA and/or kV according to patient size 3. Use of iterative reconstruction technique. FINDINGS: LOWER CHEST: Patchy groundglass opacities in bibasilar lungs. ABDOMEN/PELVIS: Hepatomegaly with diffuse steatosis, measures 21 cm in length. Heterogeneous enhancement of the left hepatic lobe and small area in the right posterior hepatic lobe, may relate to transient hepatic attenuation differences. No suspicious focal hepatic lesion. Focal fatty sparing adjacent to the gallblad tracee. Calcified granulomas in the spleen. Redemonstrated sequelae of chronic pancreatitis with diffuse parenchymal atrophy, prominent pancreatic duct and multiple calcifications. Peripancreatic fat stranding, slightly improving since prior exam. Unchanged pancreatic head 5.3 x 4.2 cm known pseudocyst. No adrenal nodule. No hydronephrosis in either kidney. Unchanged 6 mm nonobstructing calculus in the lower pole right kidney. Unchanged simple appearing cysts in the upper pole left kidney with the largest measures 1.3 cm. Subcentimeter hypodensities in both renal cortices, too small to be characterize, most likely simple cysts as seen on prior MRI exam. Nonspecific bilateral perinephric fat stranding. No bowel obstruction or wall thickening. Normal appendix. Mild aortoiliac atherosclerotic calcifications without narrowing or dilatation. Mesenteric arteries and portal vein are patent. No pneumoperitoneum or ascites. No lymphadenopathy in the abdomen or pelvis by size criteria. Surgical clips in the pelvis. Unremarkable urinary bladder and uterus. MUSCULOSKELETAL: Postsurgical changes along the anterior abdominal wall with herniorrhaphy repair. Kyphoplasty changes at L1 vertebral body. No acute osseous process. Severe degenerative changes at L5-S1. IMPRESSION: 1. No acute abnormality in abdomen or pelvis. 2. Redemonstrated sequelae of chronic pancreatitis with essentially unchanged 5.3 cm known pancreatic head pseudocyst. 3. Slightly improving peripancreatic fat stranding since prior exam. Consider correlation with lipase to exclude acute pancreatitis. 4. Mild hepatomegaly with diffuse steatosis. 5. Patchy groundglass opacities in bibasilar lungs, concerning for pneumonia. 6. Other chronic/incidental findings, as described above. Electronically signed by: Jose Antonio Pablo MD (03/03/2021 3:45 PM) [id number] DICTATED and SIGNED BY: JOSE ANTONIO PABLO MD DATE: 03/03/21 [id number] Course & Med Decision Making: Course & Med Decision Making Pertinent Labs and Imaging studies reviewed. (See chart for details) COVID-19 CRITERIA: The patient was evaluated during the global COVID-19 pandemic, and that diagnosis was suspected/considered upon their initial presentation. Their evaluation, treatment and testing was consistent with current guidelines for patients who present with complaints or symptoms that may be related to COVID-19. See HPI. Alert and oriented 4. Ambulatory steady gait. Speaks in full clear sentences. Upper lung lobes have some slight wheezing. Lung lower lung lobes are diminished. Skin pink warm and dry. Chest x-ray shows multifocal pneumonia. CT abdomen pelvis shows a chronic 6 mm kidney stone that is nonobstructing, new groundglass opacities concerning for pneumonia, bilateral perinephric stranding and many other chronic findings. Patient is followed outpatient therapy with antibiotics. I have given her doxycycline and Rocephin IV. She has received a DuoNeb and dexamethasone. Patient admitted for IV antibiotics. [] Dragon Disclaimer: [employer] Disclaimer: This electronic medical record was generated, in whole or in part, using a voice recognition dictation system. COVID-19 Patient Risks: Age 65 or older: No Sign of co-morbidity: Yes Exp to person + for COVID: No Exp to PUI: No Travel from affected area: No Lower respiratory symptoms: Yes Fever: No Other: Yes (CHEST PAIN, DIARRHEA) PPE Use: Full PPE with N95 mask or PAPR: Yes Departure Departure Impression: Primary Impression: Pneumonia Qualified Codes: J18.9 - Pneumonia, unspecified organism Additional Impressions: Person under investigation for COVID-19 Pyelonephritis COPD with acute exacerbation Disposition: ADMITTED INPATIENT Admitting Physician: ORTEGA Condition: STABLE Referrals: Rekha YOON MD (PCP) JAMES NEVILLE APRN Mar 03, 2021 14:28
[2021-03-03 14:41] LABS: CALCIUM 9.4 mg/dL (8.5-10.1); CREATININE 1.1 mg/dL (0.6-1.0); GFR 50.2; POTASSIUM 4.3 mmol/L (3.5-5.1)
[2021-03-03 14:48] LABS: ALBUMIN 3.7 g/dL (3.4-5.0); ALBUMIN/GLOBULIN RATIO 0.9 (1.0-1.7); MAGNESIUM 2.1 mg/dL (1.8-2.4); TOTAL BILIRUBIN 0.2 mg/dL (0.2-1.0); TOTAL PROTEIN 7.8 g/dL (6.4-8.2)
[2021-03-03] MEDS ORDERED: IOHEXOL 300 MG/ML 100ML VIAL. IV ONE (15:00)
[2021-03-03] MEDS ORDERED: IPRATRPIUM/ALBUTEROL 0.5/2.5MG 3 ML NEBU. NEB ONE (15:00)
[2021-03-03] MEDS ORDERED: CONTRAST GIVEN. MC PRN (15:00)
[2021-03-03] MEDS ORDERED: DEXAMETHASONE SOD PHOS 20 MG/5 ML VIAL. IV ONE (15:00)
--- NOTE | 2021-03-03 15:27 | EKG ---
[facility] [address] [place] [address] Test Date: 2021-03-03 Test Time: 12:42:36 Pat Name: CHRISTINA MARSHALL Department: Room: Gender: F Electronic Tester: : 1960 Requested By: JAMES NEVILLE Order Number: [id number] Reading MD: Measurements Intervals [place] Rate: 81 P: 22 VA: 152 QRS: 1 QRSD: 82 T: 62 QT: 372 QTc: 433 Interpretive Statements SINUS RHYTHM T ABNORMALITY IN ANTERIOR LEADS ABNORMAL ECG RI6.01 No previous ECG available for comparison
[2021-03-03 15:35] LABS: BASE EXCESS COOX 1 mmol/L (-3-3); HCO3 COOX 26 mmol/L (21-28); METHEMOGLOBIN 0.5 % (0.0-1.9); OXYHEMOGLOBIN 87.1 %; PCO2 COOX 46 mmHg (35-46); PO2 COOX 64 mmHg (65-108); SAT O2 COOX 92 % (92-99)
--- NOTE | 2021-03-03 15:47 | RAD ---
EXAMINATION: CT abdomen and pelvis with IV contrast. INDICATION:61 years, Female, diarrhea for 2 weeks. TECHNIQUE: Axial CT images of the abdomen and pelvis were obtained. Coronal and sagittal reformatted performed. COMPARISON: 10/04/2020. Exposure: One or more of the following individualized dose reduction techniques were utilized for thi s examination: 1. Automated exposure control 2. Adjustment of the mA and/or kV according to patient size 3. Use of iterative reconstruction technique. FINDINGS: LOWER CHEST: Patchy groundglass opacities in bibasilar lungs. ABDOMEN/PELVIS: Hepatomegaly with diffuse steatosis, measures 21 cm in length. Heterogeneous enhancement of the left hepatic lobe and small area in the right posterior hepatic lobe, may relate to transient hepatic atte nuation differences. No suspicious focal hepatic lesion. Focal fatty sparing adjacent to the gallblad tracee. Calcified granulomas in the spleen. Redemonstrated sequelae of chronic pancreatitis with diffuse parenchymal atrophy, prominent pancreati c duct and multiple calcifications. Peripancreatic fat stranding, slightly improving since prior exam . Unchanged pancreatic head 5.3 x 4.2 cm known pseudocyst. No adrenal nodule. No hydronephrosis in ei ther kidney. Unchanged 6 mm nonobstructing calculus in the lower pole right kidney. Unchanged simple appearing cysts in the upper pole left kidney with the largest measures 1.3 cm. Subcentimeter hypoden sities in both renal cortices, too small to be characterize, most likely simple cysts as seen on prio r MRI exam. Nonspecific bilateral perinephric fat stranding. No bowel obstruction or wall thickening. Normal appendix. Mild aortoiliac atherosclerotic calcificati ons without narrowing or dilatation. Mesenteric arteries and portal vein are patent. No pneumoperiton eum or ascites. No lymphadenopathy in the abdomen or pelvis by size criteria. Surgical clips in the p kendrick. Unremarkable urinary bladder and uterus. MUSCULOSKELETAL: Postsurgical changes along the anterior abdominal wall with herniorrhaphy repair. Kyphoplasty changes at L1 vertebral body. No acute osseous process. Severe degenerative changes at L5-S1. IMPRESSION: 1. No acute abnormality in abdomen or pelvis. 2. Redemonstrated sequelae of chronic pancreatitis with essentially unchanged 5.3 cm known pancreatic head pseudocyst. 3. Slightly improving peripancreatic fat stranding since prior exam. Consider correlation with lipase to exclude acute pancreatitis. 4. Mild hepatomegaly with diffuse steatosis. 5. Patchy groundglass opacities in bibasilar lungs, concerning for pneumonia. 6. Other chronic/incidental findings, as described above. Electronically signed by: Asia Pablo MD (03/03/2021 3:45 PM) [id number]
[2021-03-03] MEDS ORDERED: cefTRIAXone IV Push 1 GM VIAL. IVP ONE (16:15)
[2021-03-03] MEDS ORDERED: DOXYCYCLINE HYCLATE 100 MG in IV DEXTROSE 5% 100ML 100 ML IV ONE (16:15)
[2021-03-03] MEDS ORDERED: ACETAMINOPHEN 325 MG TABLET. PO PRN ×3 (16:30→17:15)
--- NOTE | 2021-03-03 16:47 | PDOC1 ---
History and Physical Date of Admission Date of Admission DATE: 03/03/21 TIME: 16:44 Identification/Chief Complaint Chief Complaint SHORTNESS OF BREATH History of Present Illness History of Present Illness 61 year old female smoker presented to ER today for respiratory infection also had diarrhea for the last 2 weeks. c/o left upper chest pain and rib pain that does hurt with movement / hurts all the time. No r evidence for left- sided rib fracture. she is now more short of air than she usual denies fever, abdominal pain, nausea, vomiting, back pain, urinary symptoms, dizziness, headache, focal weakness, numbness or tingling. PMH history of hypertension, COPD, UTI, hypokalemia, cellulitis, chronic pancreatitis CT concerning for pneumonia / Unchanged pancreatic head 5.3 x 4.2 cm known pseudocyst admits to have smoked x 50 yrs Denies hx COVID Vaccines Past Medical History Past Medical History Past Medical History Past Medical History: Cancer, Hypertension, Kidney Stone, Other Additional Past Medical Histor: chronic pain, CERVICAL CANCER, PANCREATIC PSEUDOCYST Past Surgical History: Cancer Surgery, Tubal ligation, Other Additional Past Surgical Histo: Ureteral Stent, Laparoscopy Smoking Status: Current Every Day Smoker Alcohol Use: None Drug Use: None FHX COPD Cardiovascular: HTN Pulmonary: Bronchitis, COPD Heme/Onc: No pertinent hx Musculoskeletal: low back pain Rheumatologic: No pertinent hx Renal/: No pertinent hx Endocrine: Hypothyroidism Dermatology: No pertinent hx Past Surgical History Past Surgical History: Hernia Repair, Other Family History Family History: High Cholestrol, Hypertension, Family History Unknown Social History Smoke: 1 pack per day ALCOHOL: none Drugs: None Current Problem List Problem List Problems Medical Problems: (1) COPD with acute exacerbation Status: Acute (2) Person under investigation for COVID-19 Status: Acute (3) Pneumonia Status: Acute (4) Pyelonephritis Status: Acute Current Medications Current Medications Current Medications Fentanyl Citrate (Fentanyl 2ml Vial) 50 mcg 1X ONCE IVP Last administered on 03/03/21at 14:17; Start 03/03/21 at 13:45; Stop 03/03/21 at 13:46; Status DC Iohexol (Omnipaque 300 Mg/ml) 60 ml 1X ONCE IV Last administered on 03/03/21at 15:13; Start 03/03/21 at 15:00; Stop 03/03/21 at 15:01; Status DC Dexamethasone Sodium Phosphate (Decadron) 10 mg 1X ONCE IV Last administered on 03/03/21at 15:58; Start 03/03/21 at 15:00; Stop 03/03/21 at 15:01; Status DC Albuterol/ Ipratropium (Duoneb) 3 ml 1X ONCE NEB Last administered on at 15:19; Start 03/03/21 at 15:00; Stop 03/03/21 at 15:01; Status DC Info (CONTRAST GIVEN -- Rx MONITORING) 1 each PRN DAILY PRN MC SEE COMMENTS; Start 03/03/21 at 15:00; Stop 03/05/21 at 14:59 Ceftriaxone Sodium (Rocephin) 1 gm 1X ONCE IVP ; Start 03/03/21 at 16:15; Stop 03/03/21 at 16:19; Status DC Doxycycline Hyclate 100 mg/ Dextrose 100 ml @ 50 mls/hr 1X ONCE IV ; Start 03/03/21 at 16:15; Stop 03/03/21 at 18:14 Fentanyl Citrate (Fentanyl 2ml Vial) 50 mcg PRN Q2HRS PRN IVP PAIN; Start 03/03/21 at 16:30; Stop 03/04/21 at 16:29 Acetaminophen (Tylenol) 650 mg PRN Q4HRS PRN PO FEVER > 100.3'F; Start 03/03/21 at 16:30; Stop 03/04/21 at 16:29 Albuterol/ Ipratropium (Duoneb) 3 ml RTQID NEB ; Start 03/03/21 at 20:00; Stop 03/04/21 at 19:59 Active Scripts Active Klor-Con M20 (Potassium Chloride) 20 Meq Tab.er.prt 20 Meq PO DAILY 14 Days Calcium Carbonate 200 Mg Tab.chew 500 Mg PO PRN Q3HRS PRN 14 Days Pantoprazole Sodium (Pantoprazole Sodium) 40 Mg Tablet.dr 40 Mg PO DAILYAC 30 Days Mag-Al Plus Xs Suspension (Mag Hydrox/Al Hydrox/Simeth) 30 Ml Oral.susp 30 Ml PO PRN Q3HRS PRN 14 Days Tylenol (Acetaminophen) 325 Mg Tablet 650 Mg PO PRN Q6HRS PRN 14 Days Lidocaine PATCH (Lidocaine) 1 Each Adh..patch 1 Each TP DAILY REMOVE AFTER 12 HOURS Cyclobenzaprine Hcl 10 Mg Tablet 1 Tab PO TID PRN Levothyroxine Sodium 150 Mcg Tablet 150 Mcg PO DAILY06 30 Days Losartan Potassium 100 Mg Tablet 100 Mg PO DAILY 30 Days Amlodipine Besylate 10 Mg Tablet 10 Mg PO DAILY 30 Days Reported Oxycodone Hcl Immed.release (Oxycodone Hcl) 5 Mg Tablet 30 Mg PO PRN Q4HRS PRN Allergies Allergies: Coded Allergies: No Known Drug Allergies (Unverified , 03/27/16) ROS Review of System 14 pt ros otherwise neg General: YES: Fatigue; No: Chills, Night Sweats, Malaise, Appetite, Other PSYCHOLOGICAL ROS: No: Anxiety, Behavioral Disorder, Concentration difficultie, Decreased libido, Depression, Disorientation, Hallucinations, Hostility, Irritablity, Memory difficulties, Mood Swings, Obsessive thoughts, Physical abuse, Sexual abuse, Sleep disturbances, Suicidal ideation, Other Eyes: No Blurry vision, No Decreased vision, No Double vision, No Dry eyes, No Excessive tearing, No Eye Pain, No Itchy Eyes, No Loss of vision, No Photophobia, No Scotomata, No Uses contacts, No Uses glasses, No Other HEENT: No: Heacaches, Visual Changes, Hearing change, Nasal congestion, Nasal discharge, Oral lesions, Sinus pain, Sore Throat, Epistaxis, Sneezing, Snoring, Tinnitus, Vertigo, Vocal changes, Other ALLERGY AND IMMUNOLOGY: No: Hives, Insect Bite Sensitivity, Itchy/Watery Eyes, Nasal Congestion, Post Nasal Drip, Seasonal Allergies, Other Hematological and Lymphatic: No: Bleeding Problems, Blood Clots, Blood Transfusions, Brusing, Night Sweats, Pallor, Swollen Lymph Nodes, Other ENDOCRINE: No: Breast Changes, Galactorrhea, Hair Pattern Changes, Hot Flashes, Malaise/lethargy, Mood Swings, Palpitations, Polydipsia/polyuria, Skin Changes, Temperature Intolerance, Unexpected Weight Changes, Other Breast: No New/Changing Breast Lumps, No Nipple changes, No Nipple discharge, No Other Respiratory: YES: Cough, Pleuritic Pain, Shortness of breath, SOB with excertion Cardiovascular: No Chest Pain, No Palpitations, No Orthopnea, No Paroxysmal Noc. Dyspnea, No Edema, No Lt Headedness, No Other Gastrointestinal: No Nausea, No Vomiting, No Abdominal Pain, No Diarrhea, No Constipation, No Melena, No Hematochezia, No Other Genitourinary: No Dysuria, No Frequency, No Incontinence, No Hematuria, No Retention, No Discharge, No Urgency, No Pain, No Flank Pain, No Other, No , No , No , No , No , No , No Musculoskeletal: No Gait Disturbance, No Joint Pain, No Joint Stiffness, No Joint Swelling, No Muscle Pain, No Muscular Weakness, No Pain In:, No Swelling In:, No Other Neurological: No Behavorial Changes, No Bowel/Bladder ControlChng, No Confusion, No Dizziness, No Gait Disturbance, No Headaches, No Impaired Coord/balance, No Memory Loss, No Numbness/Tingling, No Seizures, No Speech Problems, No Tremors, No Visual Changes, No Weakness, No Other Skin: No Dry Skin, No Eczema, No Hair Changes, No Lumps, No Mole Changes, No Mottling, No Nail Changes, No Pruritus, No Rash, No Skin Lesion Changes, No Other, No Acne Physical Exam Physical Exam onstitutional: well nourished, no acute distress, non-toxic appearance. [] HENT: Normocephalic, atraumatic, bilateral external ears normal, oropharynx moist, no oral exudates, nose normal. [] Eyes: PERRLA, EOMI, conjunctiva normal, no discharge. [] Neck: Normal range of motion, no tenderness, supple, no stridor. [] Cardiovascular:Heart rate regular rhythm, no murmur [] Lungs & Thorax: slight wheezing and lower diminished to auscultation [] Abdomen: Bowel sounds normal, soft, no tenderness, no masses, no pulsatile masses. [] Skin: Warm, dry, no erythema, no rash. [] Back: No tenderness, no CVA tenderness. [] Extremities: No tenderness, no cyanosis, no clubbing, ROM intact, no edema. [] Neurologic: Alert and oriented X 3, normal motor function, normal sensory function, no focal deficits noted. [] Psychologic: Affect normal, judgment normal, mood normal. [] General: Alert, Oriented X3, Cooperative HEENT: Atraumatic, PERRLA, EOMI, Mucous membr. moist/pink Lungs: Normal air movement Heart: RRR, no thrills, no gallops, no jug vein distention Breasts: Not examined Abdomen: Normal bowel sounds, Soft Rectal Exam: not examined PELVIC: Examination not indicated Extremities: No cyanosis Skin: No breakdown, No significant lesion Neuro: Normal speech, Cranial nerves 3-12 NL Psych/Mental Status: Mental status NL, Mood NL Vitals Vitals Vital Signs Date Time Temp Pulse Resp B/P (MAP) Pulse Ox O2 Delivery O2 Flow Rate FiO2 03/03/21 15:20 98 Room Air 03/03/21 12:42 98.3 94 16 188/108 (134) 98.3 Labs Labs Laboratory Tests Test 03/03/21 14:00 03/03/21 14:20 03/03/21 15:36 White Blood Count 10.1 x10^3/uL (4.0-11.0) Red Blood Count 3.81 x10^6/uL (3.50-5.40) Hemoglobin 13.7 g/dL (12.0-15.5) Hematocrit 39.1 % (36.0-47.0) Mean Corpuscular Volume 103 fL (79-100) Mean Corpuscular Hemoglobin 36 pg (25-35) Mean Corpuscular Hemoglobin Concent 35 g/dL (31-37) Red Cell Distribution Width 14.6 % (11.5-14.5) Platelet Count 374 x10^3/uL (140-400) Neutrophils (%) (Auto) 83 % (31-73) Lymphocytes (%) (Auto) 11 % (24-48) Monocytes (%) (Auto) 4 % (0-9) Eosinophils (%) (Auto) 2 % (0-3) Basophils (%) (Auto) 0 % (0-3) Neutrophils # (Auto) 8.3 x10^3/uL (1.8-7.7) Lymphocytes # (Auto) 1.1 x10^3/uL (1.0-4.8) Monocytes # (Auto) 0.4 x10^3/uL (0.0-1.1) Eosinophils # (Auto) 0.1 x10^3/uL (0.0-0.7) Basophils # (Auto) 0.0 x10^3/uL (0.0-0.2) D-Dimer (Mariah) < 0.27 ug/mlFEU Sodium Level 137 mmol/L (136-145) Potassium Level 4.3 mmol/L (3.5-5.1) Chloride Level 100 mmol/L (98-107) Carbon Dioxide Level 33 mmol/L (21-32) Anion Gap 4 (6-14) Blood Urea Nitrogen 15 mg/dL (7-20) Creatinine 1.1 mg/dL (0.6-1.0) Estimated GFR (Cockcroft-Gault) 50.2 BUN/Creatinine Ratio 14 (6-20) Glucose Level 135 mg/dL (70-99) Lactic Acid Level 1.5 mmol/L (0.4-2.0) Calcium Level 9.4 mg/dL (8.5-10.1) Magnesium Level 2.1 mg/dL (1.8-2.4) Total Bilirubin 0.2 mg/dL (0.2-1.0) Aspartate Amino Transf (AST/SGOT) 11 U/L (15-37) Alanine Aminotransferase (ALT/SGPT) 45 U/L (14-59) Alkaline Phosphatase 109 U/L (46-116) Troponin I Quantitative < 0.017 ng/mL (0.000-0.055) DZ-Alj-I-Type Natriuretic Peptide 108 pg/mL (0-124) Total Protein 7.8 g/dL (6.4-8.2) Albumin 3.7 g/dL (3.4-5.0) Albumin/Globulin Ratio 0.9 (1.0-1.7) SARS-CoV-2 Antigen (Rapid) Negative (NEGATIVE) O2 Saturation 92 % (92-99) Arterial Blood pH 7.37 (7.35-7.45) Arterial Blood pCO2 at Patient Temp 46 mmHg (35-46) Arterial Blood pO2 at Patient Temp 64 mmHg (65-108) Arterial Blood HCO3 26 mmol/L (21-28) Arterial Blood Base Excess 1 mmol/L (-3-3) Oxyhemoglobin 87.1 % Methemoglobin 0.5 % (0.0-1.9) Carbon Monoxide, Quantitative 4.8 % (0.0-1.9) FiO2 21 Laboratory Tests Test 03/03/21 14:00 03/03/21 14:20 03/03/21 15:36 White Blood Count 10.1 x10^3/uL (4.0-11.0) Red Blood Count 3.81 x10^6/uL (3.50-5.40) Hemoglobin 13.7 g/dL (12.0-15.5) Hematocrit 39.1 % (36.0-47.0) Mean Corpuscular Volume 103 fL (79-100) Mean Corpuscular Hemoglobin 36 pg (25-35) Mean Corpuscular Hemoglobin Concent 35 g/dL (31-37) Red Cell Distribution Width 14.6 % (11.5-14.5) Platelet Count 374 x10^3/uL (140-400) Neutrophils (%) (Auto) 83 % (31-73) Lymphocytes (%) (Auto) 11 % (24-48) Monocytes (%) (Auto) 4 % (0-9) Eosinophils (%) (Auto) 2 % (0-3) Basophils (%) (Auto) 0 % (0-3) Neutrophils # (Auto) 8.3 x10^3/uL (1.8-7.7) Lymphocytes # (Auto) 1.1 x10^3/uL (1.0-4.8) Monocytes # (Auto) 0.4 x10^3/uL (0.0-1.1) Eosinophils # (Auto) 0.1 x10^3/uL (0.0-0.7) Basophils # (Auto) 0.0 x10^3/uL (0.0-0.2) D-Dimer (Mariah) < 0.27 ug/mlFEU Sodium Level 137 mmol/L (136-145) Potassium Level 4.3 mmol/L (3.5-5.1) Chloride Level 100 mmol/L (98-107) Carbon Dioxide Level 33 mmol/L (21-32) Anion Gap 4 (6-14) Blood Urea Nitrogen 15 mg/dL (7-20) Creatinine 1.1 mg/dL (0.6-1.0) Estimated GFR (Cockcroft-Gault) 50.2 BUN/Creatinine Ratio 14 (6-20) Glucose Level 135 mg/dL (70-99) Lactic Acid Level 1.5 mmol/L (0.4-2.0) Calcium Level 9.4 mg/dL (8.5-10.1) Magnesium Level 2.1 mg/dL (1.8-2.4) Total Bilirubin 0.2 mg/dL (0.2-1.0) Aspartate Amino Transf (AST/SGOT) 11 U/L (15-37) Alanine Aminotransferase (ALT/SGPT) 45 U/L (14-59) Alkaline Phosphatase 109 U/L (46-116) Troponin I Quantitative < 0.017 ng/mL (0.000-0.055) MU-Itr-K-Type Natriuretic Peptide 108 pg/mL (0-124) Total Protein 7.8 g/dL (6.4-8.2) Albumin 3.7 g/dL (3.4-5.0) Albumin/Globulin Ratio 0.9 (1.0-1.7) SARS-CoV-2 Antigen (Rapid) Negative (NEGATIVE) O2 Saturation 92 % (92-99) Arterial Blood pH 7.37 (7.35-7.45) Arterial Blood pCO2 at Patient Temp 46 mmHg (35-46) Arterial Blood pO2 at Patient Temp 64 mmHg (65-108) Arterial Blood HCO3 26 mmol/L (21-28) Arterial Blood Base Excess 1 mmol/L (-3-3) Oxyhemoglobin 87.1 % Methemoglobin 0.5 % (0.0-1.9) Carbon Monoxide, Quantitative 4.8 % (0.0-1.9) FiO2 21 Images Images XR CHEST 2V, XR RIBS 2 VIEWS LT DATE: 03/03/2021 2:01 PM INDICATION: cough, soa, rib pain / Spl. Instructions: / History: COMPARISON: 10/03/2020. FINDINGS: Chest: Heart size is within normal limits. No focal consolidations are seen. Bilateral perihilar and basilar allergies opacities. Indistinct central vasculature. Bones: No radiographic evidence for a displaced, left-sided rib fracture is seen. IMPRESSION: 1. Bilateral perihilar and basilar opacities, probably pulmonary edema or multifocal infection 2. No radiographic evidence for left-sided rib fracture. Electronically signed by: Alisia Gurrola MD (03/03/2021 2:27 PM) [facility] DICTATED and SIGNED BY: ALISIA GURROLA MD DATE: 03/03/21 [id number] SEX: F EXAM STATUS: REG ER ORD. PHYSICIAN: JAMES NEVILLE APRN REASON: diarrhea for 2 weeks PROCEDURE: CT ABD PELV W/ IV CONTRST ONLY EXAMINATION: CT abdomen and pelvis with IV contrast. INDICATION:61 years, Female, diarrhea for 2 weeks. TECHNIQUE: Axial CT images of the abdomen and pelvis were obtained. Coronal and sagittal reformatted performed. COMPARISON: 10/04/2020. Exposure: One or more of the following individualized dose reduction techniques were utilized for this examination: 1. Automated exposure control 2. Adjustment of the mA and/or kV according to patient size 3. Use of iterative reconstruction technique. FINDINGS: LOWER CHEST: Patchy groundglass opacities in bibasilar lungs. ABDOMEN/PELVIS: Hepatomegaly with diffuse steatosis, measures 21 cm in length. Heterogeneous enhancement of the left hepatic lobe and small area in the right posterior hepatic lobe, may relate to transient hepatic attenuation differences. No suspicious focal hepatic lesion. Focal fatty sparing adjacent to the gallbladder. Calcified granulomas in the spleen. Redemonstrated sequelae of chronic pancreatitis with diffuse parenchymal a trophy, prominent pancreatic duct and multiple calcifications. Peripancreatic fat stranding, slightly improving since prior exam. Unchanged pancreatic head 5.3 x 4.2 cm known pseudocyst. No adrenal nodule. No hydronephrosis in either kidney. Unchanged 6 mm nonobstructing calculus in the lower pole right kidney. Unchanged simple appearing cysts in the upper pole left kidney with the largest measures 1.3 cm. Subcentimeter hypodensities in both renal cortices, too small to be characterize, most likely simple cysts as seen on prior MRI exam. Nonspecific bilateral perinephric fat stranding. No bowel obstruction or wall thickening. Normal appendix. Mild aortoiliac atherosclerotic calcifications without narrowing or dilatation. Mesenteric arteries and portal vein are patent. No pneumoperitoneum or ascites. No lymphadenopathy in the abdomen or pelvis by size criteria. Surgical clips in the pelvis. Unremarkable urinary bladder and uterus. MUSCULOSKELETAL: Postsurgical changes along the anterior abdominal wall with herniorrhaphy repair. Kyphoplasty changes at L1 vertebral body. No acute osseous process. Severe degenerative changes at L5-S1. IMPRESSION: 1. No acute abnormality in abdomen or pelvis. 2. Redemonstrated sequelae of chronic pancreatitis with essentially unchanged 5.3 cm known pancreatic head pseudocyst. 3. Slightly improving peripancreatic fat stranding since prior exam. Consider correlation with lipase to exclude acute pancreatitis. 4. Mild hepatomegaly with diffuse steatosis. 5. Patchy groundglass opacities in bibasilar lungs, concerning for pneumonia. 6. Other chronic/incidental findings, as described above. Electronically signed by: Jose Antonio Pablo MD (03/03/2021 3:45 PM) [id number] DICTATED and SIGNED BY: JOSE ANTONIO PABLO MD DATE: 03/03/21 [id number] VTE Prophylaxis Ordered VTE Prophylaxis Devices: Yes VTE Pharmacological Prophylaxi: Yes Assessment/Plan Assessment/Plan MPRESSION: 1. Pleuritic chest wall pain with cough/ pulmonary edema VS multifocal infection 2. chronic pancreatitis with essentially unchanged 5.3 cm known pancreatic head pseudocyst. 3. COPD 4. Mild hepatomegaly with diffuse steatosis. 5. Patchy groundglass opacities in bibasilar lungs, C/W pneumonia. 6. Person under investigation for COVID-19 7. OBESITY 8. COPD with acute exacerbation/ tobacco abuse disorder PLAN ADMIT Emperic iv antibiotics, doxy, rocephin duonebs qid dvt prophylaxis duonebs qid legionella urinary ag pneumococcal urine ag covid 19 screen pcr PULM CONSULT encouraged smoking cessation D/W ER Justifications for Admission Other Justification Acute pancreatitis AUSTIN LANDRY MD Mar 03, 2021 16:46
[2021-03-03] MEDS ORDERED: 0.9 % SODIUM CHLORIDE 10 ML DISP.SYRIN. IV PRN (17:00)
[2021-03-03] MEDS ORDERED: ONDANSETRON PF 4 MG/2 ML VIAL. IV PRN (17:00)
[2021-03-03] MEDS ORDERED: MAG HYDROX/ALUMINUM HYD/SIMETH 30 ML ORAL.SUSP PO PRN ×2 (17:00→17:15)
[2021-03-03] MEDS ORDERED: DOCUSATE SODIUM 100 MG CAPSULE. PO PRN (17:00)
[2021-03-03] MEDS ORDERED: SODIUM PHOSPHATES 19/7GM 133 ML ENEMA. PR PRN (17:00)
[2021-03-03] MEDS ORDERED: guaiFENesin ORAL 200 MG/10 ML LIQUID. PO PRN (17:00)
[2021-03-03] MEDS ORDERED: CALCIUM CARBONATE 500 MG TAB.CHEW PO PRN (17:15)
[2021-03-03] MEDS ORDERED: hydrALAZINE 20 MG/ML VIAL. IVP PRN (17:15)
[2021-03-03] MEDS: fentaNYL PF VIAL 100 MCG/2 ML VIAL IVP PRN ×2 (17:29→20:22)
[2021-03-03] MEDS: IV NORMAL SALINE 1000ML BAG 1,000 ML IV SCH ×2 (17:56→23:42)
[2021-03-03] MEDS ORDERED: IPRATRPIUM/ALBUTEROL 0.5/2.5MG 3 ML NEBU. NEB SCH ×2 (18:00→20:00)
[2021-03-03 19:25] VITALS: BP 147/80
[2021-03-03] MEDS: IPRATROPIUM/ALBUTEROL 20/100mcg/INH INHALER. INH SCH (20:26)
[2021-03-03] MEDS: ENOXAPARIN 40 MG/0.4 ML SYRINGE. SQ SCH (21:00)
[2021-03-03 23:00] VITALS: BP 169/93
[2021-03-04] MEDS: IPRATROPIUM/ALBUTEROL 20/100mcg/INH INHALER. INH SCH ×6 (01:02→20:00)
[2021-03-04] MEDS: fentaNYL PF VIAL 100 MCG/2 ML VIAL IVP PRN ×3 (01:56→12:04)
[2021-03-04 03:00] VITALS: BP 151/80
[2021-03-04] MEDS: LEVOTHYROXINE 150 MCG TABLET PO SCH (06:02)
[2021-03-04 06:30] LABS: BASO % 0 % (0-3); EOS % 0 % (0-3); HEMATOCRIT 36.8 % (36.0-47.0); HEMOGLOBIN 12.6 g/dL (12.0-15.5); LYMPH # 1.1 x10^3/uL (1.0-4.8); LYMPH % 9 % (24-48); MEAN CORPUSCULAR HEMOGLOBIN 35 pg (25-35); MEAN CORPUSCULAR HGB CONC 34 g/dL (31-37); MEAN CORPUSCULAR VOLUME 103 fL (79-100); MONO # 0.4 x10^3/uL (0.0-1.1); MONO % 3 % (0-9); NEUT # 10.9 x10^3/uL (1.8-7.7); NEUT % 88 % (31-73); PLATELET COUNT 370 x10^3/uL (140-400); RED BLOOD COUNT 3.57 x10^6/uL (3.50-5.40); RED CELL DISTRIBUTION WIDTH 14.9 % (11.5-14.5); WHITE BLOOD COUNT 12.4 x10^3/uL (4.0-11.0)
[2021-03-04 06:47] LABS: CALCIUM 8.6 mg/dL (8.5-10.1); CREATININE 0.9 mg/dL (0.6-1.0); GFR 63.2; POTASSIUM 4.6 mmol/L (3.5-5.1)
[2021-03-04 07:00] VITALS: BP 140/83
[2021-03-04] MEDS: LIDOCAINE (700MG/PATCH) PATCH. TP SCH (07:46)
[2021-03-04] MEDS: cefTRIAXone IV Push 2 GM VIAL. IVP SCH (07:47)
[2021-03-04] MEDS: POTASSIUM CHLORIDE 20 MEQ TABLET.ER. PO SCH (07:47)
[2021-03-04] MEDS: DOXYCYCLINE HYCLATE 100 MG in IV DEXTROSE 5% 100ML 100 ML IV SCH ×2 (07:47→21:09)
[2021-03-04] MEDS: PANTOPRAZOLE 40 MG TABLET.DR. PO SCH (07:48)
[2021-03-04] MEDS: LOSARTAN POTASSIUM 50 MG TABLET. PO SCH (07:48)
[2021-03-04] MEDS ORDERED: cefTRIAXone IV Push 1 GM VIAL. IVP SCH (08:00)
--- NOTE | 2021-03-04 08:24 | PDOC ---
[employer] PROGRESS NOTE Date of Service DOS: DATE: 03/04/21 TIME: 08:18 Chief Complaint Chief Complaint A/P: Pleuritic chest wall pain with cough/ pulmonary edema VS multifocal infection Chronic pancreatitis with essentially unchanged 5.3 cm known pancreatic head pseudocyst. COPD with acute exacerbation - still an active smoker, counseled on cessation Tobacco abuse disorder Mild hepatomegaly with diffuse steatosis. Abnormal CXR and CT - Patchy groundglass opacities in bibasilar lungs, C/W pneumonia. Person under investigation for COVID-19 OBESITY Macrocytosis History of Present Illness History of Present Illness 61 year old female smoker presented to ER today for respiratory infection also had diarrhea for the last 2 weeks. c/o left upper chest pain and rib pain that does hurt with movement / hurts all the time. No r evidence for left- sided rib fracture. she is now more short of air than she usual denies fever, abdominal pain, nausea, vomiting, back pain, urinary symptoms, dizziness, headache, focal weakness, numbness or tingling. PMH history of hypertension, COPD, UTI, hypokalemia, cellulitis, chronic pancreatitis CT concerning for pn eumonia / Unchanged pancreatic head 5.3 x 4.2 cm known pseudocyst admits to have smoked x 50 yrs Denies hx COVID Vaccines, is willing to look into this. Afebrile overnight. Still very short of breath, wheezing. Feeling pain in her back and left ribs, asking for IV pain medication instead of her home oxycodone, counseled on the importance of taking PO and IV for breakthrough. Vitals/I&O Vitals/I&O: Vital Signs Date Time Temp Pulse Resp B/P (MAP) Pulse Ox O2 Delivery O2 Flow Rate FiO2 03/04/21 07:48 65 140/83 03/04/21 07:00 97.6 18 96 97.6 03/03/21 20:20 Nasal Cannula 2.0 I & O 03/03/21 03/03/21 03/04/21 15:00 23:00 07:00 Intake Total 240 ml Balance 240 ml Physical Exam General: Alert, Oriented X3, Cooperative Lungs: Clear Abdomen: Normal bowel sounds, Soft Extremities: No cyanosis Skin: No breakdown, No significant lesion Labs Labs: Laboratory Tests Test 03/03/21 14:00 9/14/21 14:20 03/03/21 15:36 03/04/21 05:55 White Blood Count 10.1 x10^3/uL (4.0-11.0) 12.4 x10^3/uL (4.0-11.0) Red Blood Count 3.81 x10^6/uL (3.50-5.40) 3.57 x10^6/uL (3.50-5.40) Hemoglobin 13.7 g/dL (12.0-15.5) 12.6 g/dL (12.0-15.5) Hematocrit 39.1 % (36.0-47.0) 36.8 % (36.0-47.0) Mean Corpuscular Volume 103 fL (79-100) 103 fL (79-100) Mean Corpuscular Hemoglobin 36 pg (25-35) 35 pg (25-35) Mean Corpuscular Hemoglobin Concent 35 g/dL (31-37) 34 g/dL (31-37) Red Cell Distribution Width 14.6 % (11.5-14.5) 14.9 % (11.5-14.5) Platelet Count 374 x10^3/uL (140-400) 370 x10^3/uL (140-400) Neutrophils (%) (Auto) 83 % (31-73) 88 % (31-73) Lymphocytes (%) (Auto) 11 % (24-48) 9 % (24-48) Monocytes (%) (Auto) 4 % (0-9) 3 % (0-9) Eosinophils (%) (Auto) 2 % (0-3) 0 % (0-3) Basophils (%) (Auto) 0 % (0-3) 0 % (0-3) Neutrophils # (Auto) 8.3 x10^3/uL (1.8-7.7) 10.9 x10^3/uL (1.8-7.7) Lymphocytes # (Auto) 1.1 x10^3/uL (1.0-4.8) 1.1 x10^3/uL (1.0-4.8) Monocytes # (Auto) 0.4 x10^3/uL (0.0-1.1) 0.4 x10^3/uL (0.0-1.1) Eosinophils # (Auto) 0.1 x10^3/uL (0.0-0.7) 0.0 x10^3/uL (0.0-0.7) Basophils # (Auto) 0.0 x10^3/uL (0.0-0.2) 0.0 x10^3/uL (0.0-0.2) D-Dimer (Mariah) < 0.27 ug/mlFEU Sodium Level 137 mmol/L (136-145) 136 mmol/L (136-145) Potassium Level 4.3 mmol/L (3.5-5.1) 4.6 mmol/L (3.5-5.1) Chloride Level 100 mmol/L (98-107) 100 mmol/L (98-107) Carbon Dioxide Level 33 mmol/L (21-32) 31 mmol/L (21-32) Anion Gap 4 (6-14) 5 (6-14) Blood Urea Nitrogen 15 mg/dL (7-20) 14 mg/dL (7-20) Creatinine 1.1 mg/dL (0.6-1.0) 0.9 mg/dL (0.6-1.0) Estimated GFR (Cockcroft-Gault) 50.2 63.2 BUN/Creatinine Ratio 14 (6-20) Glucose Level 135 mg/dL (70-99) 139 mg/dL (70-99) Lactic Acid Level 1.5 mmol/L (0.4-2.0) Calcium Level 9.4 mg/dL (8.5-10.1) 8.6 mg/dL (8.5-10.1) Magnesium Level 2.1 mg/dL (1.8-2.4) Total Bilirubin 0.2 mg/dL (0.2-1.0) Aspartate Amino Transf (AST/SGOT) 11 U/L (15-37) Alanine Aminotransferase (ALT/SGPT) 45 U/L (14-59) Alkaline Phosphatase 109 U/L (46-116) Troponin I Quantitative < 0.017 ng/mL (0.000-0.055) ZQ-Dyk-R-Type Natriuretic Peptide 108 pg/mL (0-124) Total Protein 7.8 g/dL (6.4-8.2) Albumin 3.7 g/dL (3.4-5.0) Albumin/Globulin Ratio 0.9 (1.0-1.7) Procalcitonin < 0.10 ng/mL (0.00-0.10) SARS-CoV-2 Antigen (Rapid) Negative (NEGATIVE) O2 Saturation 92 % (92-99) Arterial Blood pH 7.37 (7.35-7.45) Arterial Blood pCO2 at Patient Temp 46 mmHg (35-46) Arterial Blood pO2 at Patient Temp 64 mmHg (65-108) Arterial Blood HCO3 26 mmol/L (21-28) Arterial Blood Base Excess 1 mmol/L (-3-3) Oxyhemoglobin 87.1 % Methemoglobin 0.5 % (0.0-1.9) Carbon Monoxide, Quantitative 4.8 % (0.0-1.9) FiO2 21 Assessment and Plan Assessmemt and Plan Problems Medical Problems: (1) COPD with acute exacerbation Status: Acute (2) Person under investigation for COVID-19 Status: Acute (3) Pneumonia Status: Acute (4) Pyelonephritis Status: Acute Comment Review of Relevant I have reviewed the following items tita (where applicable) has been applied. Medications: Current Medications Medications (Trade) Dose Ordered Sig/Herminio Route PRN Reason Start Time Stop Time Status Last Admin Dose Admin Fentanyl Citrate (Fentanyl 2ml Vial) 50 mcg 1X ONCE IVP 03/03/21 13:45 03/03/21 13:46 DC 03/03/21 14:17 Iohexol (Omnipaque 300 Mg/ml) 60 ml 1X ONCE IV 03/03/21 15:00 03/03/21 15:01 DC 03/03/21 15:13 Dexamethasone Sodium Phosphate (Decadron) 10 mg 1X ONCE IV 03/03/21 15:00 03/03/21 15:01 DC 03/03/21 15:58 Albuterol/ Ipratropium (Duoneb) 3 ml 1X ONCE NEB 03/03/21 15:00 03/03/21 15:01 DC 03/03/21 15:19 Ceftriaxone Sodium (Rocephin) 1 gm 1X ONCE IVP 03/03/21 16:15 03/03/21 16:19 DC 03/03/21 17:33 Doxycycline Hyclate 100 mg/ Dextrose 100 ml @ 50 mls/hr 1X ONCE IV 03/03/21 16:15 03/03/21 18:14 DC 03/03/21 18:00 Fentanyl Citrate (Fentanyl 2ml Vial) 50 mcg PRN Q2HRS PRN IVP PAIN 03/03/21 16:30 03/04/21 16:29 03/04/21 07:47 Doxycycline Hyclate 100 mg/ Dextrose 100 ml @ 50 mls/hr BID IV 03/04/21 09:00 03/04/21 07:47 Sodium Chloride 1,000 ml @ 75 mls/hr [id number] IV 03/03/21 17:00 03/03/21 23:42 Acetaminophen (Tylenol) 650 mg PRN Q4HRS PRN PO TEMP OVER 100.4F OR MILD PAIN 03/03/21 17:00 03/03/21 20:20 Amlodipine Besylate (Norvasc) 10 mg DAILY PO 03/04/21 09:00 03/04/21 07:48 Levothyroxine Sodium (Synthroid) 150 mcg DAILY06 PO 03/04/21 06:00 03/04/21 06:02 Lidocaine (Lidoderm) 1 patch DAILY TP 03/04/21 09:00 03/04/21 07:46 Oxycodone HCl (Roxicodone) 30 mg PRN Q4HRS PRN PO MODERATE-SEVERE PAIN 03/03/21 17:15 03/04/21 05:58 Pantoprazole Sodium (Protonix) 40 mg DAILYAC PO 03/04/21 07:30 03/04/21 07:48 Potassium Chloride (Klor-Con) 20 meq DAILY PO 03/04/21 09:00 03/04/21 07:47 Losartan Potassium (Cozaar) 100 mg DAILY PO 03/04/21 09:00 03/04/21 07:48 Albuterol/ Ipratropium (Combivent Respimat 20-100 Mcg) 1 puff Q4HRS INH 03/03/21 20:00 03/04/21 08:01 Ceftriaxone Sodium (Rocephin) 2 gm DAILY08 IVP 03/04/21 08:00 03/04/21 07:47 Justifications for Admission Other Justification Acute pancreatitis LEIGH ANN BAEZA MD Mar 04, 2021 08:24
--- NOTE | 2021-03-04 09:55 | CONS ---
DATE OF CONSULTATION: 03/04/2021 ATTENDING PHYSICIAN: Dr. Merino. REASON FOR CONSULTATION: Pneumonia and respiratory failure. HISTORY OF PRESENT ILLNESS: The patient is a 61-year-old who has 45 years of tobacco use and still smokes 1 pack per day. She was brought into the hospital with complaint of abdominal pain. She also had a cough which has been productive of yellow sputum. No chest pain. No headaches. She did have some abdominal pain and had some diarrhea. The patient normally does not wear oxygen. She has no hemoptysis. No weight loss. CT abdomen and pelvis was performed. I reviewed the lower portion of the lungs which shows bilateral patchy ground glass infiltrates. The patient also had evidence of chronic pancreatitis with known pancreatic pseudocyst. I have been asked to see her for further evaluation. PAST MEDICAL HISTORY: Significant for history of hypertension, renal stone, history of cervical cancer, pancreatic pseudocyst, chronic pancreatitis, long history of tobaccoism for 45 years, likely COPD. PAST SURGICAL HISTORY: Cancer surgery, tubal ligation, ureteral stent. SOCIAL HISTORY: Smoker for 45 years, 1 pack per day, still smoking. ALLERGIES: None. MEDICATIONS: Reviewed as listed in the [facility], including Rocephin. Lovenox for DVT prophylaxis. REVIEW OF SYSTEMS: A 12-point review of systems obtained. Pertinent positives discussed in my history of present illness, otherwise noncontributory. All systems that were negative were reviewed as well. PHYSICAL EXAMINATION: VITAL SIGNS: Vital signs were reviewed. Pulse ox 96% on 2 liters, afebrile. NECK: Supple. LUNGS: With diminished breath sounds. CARDIOVASCULAR: With a regular rate. ABDOMEN: Soft, nontender, obese. EXTREMITIES: With no pitting edema. LABORATORY DATA: Labs are reviewed. Her COVID is negative. BUN and creatinine normal. TSH 4.7. D-dimer less than 0.27. White cell count 12.4, hemoglobin 12.6. IMPRESSION: 1. Acute hypoxic respiratory failure secondary to acute exacerbation of chronic obstructive pulmonary disease and interstitial pneumonitis. 2. COVID-19 negative. The patient is not vaccinated with COVID. 3. 45 years of tobaccoism, likely chronic obstructive pulmonary disease with ongoing tobaccoism. 4. Underlying obesity. 5. Normal D-dimer. RECOMMENDATIONS: 1. Continue present oxygen. Keep saturation 92% and above. 2. Smoking cessation counseling provided. 3. Continue empiric antibiotic with doxycycline and Rocephin. 4. Lovenox for DVT prophylaxis. 5. Continue nebulizer treatment. 6. PFTs as an outpatient. 7. No need for steroids at present. 8. We will follow along with you, likely hospitalization 24-[address]: Adebayo TID: [id number]
[2021-03-04] MEDS: NICOTINE 21MG PATCH. TD SCH (10:16)
--- NOTE | 2021-03-04 10:25 | NUR ---
SW following. Discussed with RN, pt from home, 2L (does not use oxygen at home), cardiac diet. COVID-19 negative. Pulmonology following. RN advised no SW needs at this time. SW will continue to follow.
[2021-03-04 10:55] VITALS: BP 131/70
[2021-03-04] MEDS ORDERED: CYANOCOBALAMIN (VITAMIN B-12) 1,000 MCG/ML VIAL. IM ONE (11:00)
[2021-03-04] MEDS: IV NORMAL SALINE 1000ML BAG 1,000 ML IV SCH (12:10)
[2021-03-04] MEDS: LACTOBACILLUS RHAMNOSUS GG 1 CAPSULE. PO SCH ×2 (13:00→21:06)
[2021-03-04 14:05] LABS: BILIRUBIN,URINE NEGATIVE (NEG); CLARITY,URINE CLEAR; COLOR,URINE YELLOW; NITRITE,URINE NEGATIVE (NEG); PH,URINE 6.5 (<5.0-8.0); PROTEIN,URINE NEGATIVE (NEG-TRACE); UROBILINOGEN,URINE 0.2 mg/dL (0.2 mg/dL)
[2021-03-04 14:13] LABS: BACTERIA,URINE FEW /HPF (0-FEW); WBC,URINE OCC /HPF (0-4)
[2021-03-04 14:14] LABS: RBC,URINE OCC /HPF (0-2)
[2021-03-04] MEDS: BUDESONIDE 0.5 MG/2 ML NEBU. NEB SCH ×2 (14:40→20:24)
[2021-03-04 15:00] VITALS: BP 130/72
[2021-03-04] MEDS: MORPHINE SULFATE 2 MG/ML INJ. IVP PRN ×2 (17:02→21:08)
[2021-03-04 19:00] VITALS: BP 130/71
[2021-03-04] MEDS: ENOXAPARIN 40 MG/0.4 ML SYRINGE. SQ SCH (21:00)
[2021-03-04] MEDS ORDERED: ZOLPIDEM 5 MG TABLET. PO PRN (22:30)
[2021-03-04 22:54] VITALS: BP 138/69
[2021-03-05 07:00] VITALS: BP 154/85
[2021-03-05] MEDS: IPRATROPIUM/ALBUTEROL 20/100mcg/INH INHALER. INH SCH ×2 (08:00)
[2021-03-05] MEDS: BUDESONIDE 0.5 MG/2 ML NEBU. NEB SCH (08:04)
--- NOTE | 2021-03-05 08:31 | PDOC ---
[employer] PROGRESS NOTE Date of Service DOS: DATE: 03/05/21 TIME: 08:30 Chief Complaint Chief Complaint A/P: Community acquired pneumonia - likely gram negative given smoking history and structural lung disease. Chronic pancreatitis with essentially unchanged 5.3 cm known pancreatic head pseudocyst. COPD with acute exacerbation - still an active smoker, counseled on cessation Tobacco abuse disorder Mild hepatomegaly with diffuse steatosis. Abnormal CXR and CT - Patchy groundglass opacities in bibasilar lungs, C/W pneumonia. Person under investigation for COVID-19 OBESITY Macrocytosis History of Present Illness History of Present Illness Ms Boswell is a 61 year old female smoker presented to ER today for respiratory infection also had diarrhea for the last 2 weeks. c/o left upper chest pain and rib pain that does hurt with movement / hurts all the time. No r evidence for left-sided rib fracture. she is now more short of air than she usual denies fever, abdominal pain, nausea, vomiting, back pain, urinary symptoms, dizziness, headache, focal weakness, numbness or tingling. PMH history of hypertension, COPD, UTI, hypokalemia, cellulitis, chronic pancreatitis CT concerning for pneumonia / Unchanged pancreatic head 5.3 x 4.2 cm known pseudocyst admits to have smoked x 50 yrs Denies hx COVID Vaccines, is willing to look into this. 03/04: Afebrile overnight. Still very short of breath, wheezing, requiring 2L NCO2 to maintain saturations 92%. Feeling pain in her back and left ribs, asking for IV pain medication instead of her home oxycodone, counseled on the importance of taking PO and IV for breakthrough. Afebrile overnight. She is requesting for left still with cough and wheezing. She has become upset after discussion about IV pain medication threatened to leave AMA. Have advised her she needs additional treatment for pneumonia and respiratory treatments. Regardless she still left AGAINST MEDICAL ADVICE Vitals/I&O Vitals/I&O: Vital Signs Date Time Temp Pulse Resp B/P (MAP) Pulse Ox O2 Delivery O2 Flow Rate FiO2 03/05/21 08:04 99 Room Air 03/05/21 07:00 97.8 68 18 154/85 (108) 2.0 97.8 I & O 03/04/21 03/04/21 03/05/21 15:00 23:00 07:00 Intake Total 960 ml Balance 960 ml Physical Exam General: Alert, Oriented X3, Cooperative Lungs: Clear Abdomen: Normal bowel sounds, Soft Extremities: No cyanosis Skin: No breakdown, No significant lesion Labs Labs: Laboratory Tests Test 03/04/21 13:52 Urine Collection Type Unknown Urine Color Yellow Urine Clarity Clear Urine pH 6.5 (<5.0-8.0) Urine Specific [place] 1.015 (1.000-1.030) Urine Protein Negative mg/dL (NEG-TRACE) Urine Glucose (UA) Negative mg/dL (NEG) Urine Ketones (Stick) Negative mg/dL (NEG) Urine Blood Negative (NEG) Urine Nitrite Negative (NEG) Urine Bilirubin Negative (NEG) Urine Urobilinogen Dipstick 0.2 mg/dL (0.2 mg/dL) Urine Leukocyte Esterase Negative (NEG) Urine RBC Occ /HPF (0-2) Urine WBC Occ /HPF (0-4) Urine Squamous Epithelial Cells Many /LPF Urine Bacteria Few /HPF (0-FEW) Assessment and Plan Assessmemt and Plan Problems Medical Problems: (1) COPD with acute exacerbation Status: Acute (2) Person under investigation for COVID-19 Status: Acute (3) Pneumonia Status: Acute (4) Pyelonephritis Status: Acute Comment Review of Relevant I have reviewed the following items tita (where applicable) has been applied. Medications: Current Medications Medications (Trade) Dose Ordered Sig/Herminio Route PRN Reason Start Time Stop Time Status Last Admin Dose Admin Doxycycline Hyclate 100 mg/ Dextrose 100 ml @ 50 mls/hr BID IV 03/04/21 09:00 03/04/21 21:09 Amlodipine Besylate (Norvasc) 10 mg DAILY PO 03/04/21 09:00 03/04/21 07:48 Lidocaine (Lidoderm) 1 patch DAILY TP 03/04/21 09:00 03/04/21 07:46 Potassium Chloride (Klor-Con) 20 meq DAILY PO 03/04/21 09:00 03/04/21 07:47 Losartan Potassium (Cozaar) 100 mg DAILY PO 03/04/21 09:00 03/04/21 07:48 Cyanocobalamin (Vitamin B-12 Inj) 1,000 mcg 1X ONCE IM 03/04/21 11:00 03/04/21 11:01 DC 03/04/21 10:17 Nicotine (Nicoderm Cq 21mg) 1 patch DAILY TD 03/04/21 11:00 03/04/21 10:16 Budesonide (Pulmicort) 0.5 mg RTBID NEB 03/04/21 12:00 03/05/21 08:04 Lactobacillus Rhamnosus (Culturelle) 1 cap BID PO 03/04/21 13:00 03/04/21 21:06 Morphine Sulfate (Morphine Sulfate) 2 mg PRN Q4HRS PRN IVP PAIN 03/04/21 16:45 03/04/21 21:08 Zolpidem Tartrate (Ambien) 5 mg PRN QHS PRN PO INSOMNIA 03/04/21 22:30 03/04/21 22:33 Justifications for Admission Other Justification Acute pancreatitis LEIGH ANN BAEZA MD Mar 05, 2021 08:31
[2021-03-05 08:55] VITALS: BP 154/85
[2021-03-05] MEDS: POTASSIUM CHLORIDE 20 MEQ TABLET.ER. PO SCH (08:55)
[2021-03-05] MEDS: LEVOTHYROXINE 150 MCG TABLET PO SCH (08:55)
[2021-03-05] MEDS: LOSARTAN POTASSIUM 50 MG TABLET. PO SCH (08:55)
[2021-03-05] MEDS: LACTOBACILLUS RHAMNOSUS GG 1 CAPSULE. PO SCH (08:55)
[2021-03-05] MEDS: PANTOPRAZOLE 40 MG TABLET.DR. PO SCH (08:55)
[2021-03-05] MEDS: NICOTINE 21MG PATCH. TD SCH (08:55)
[2021-03-05] MEDS: DOXYCYCLINE HYCLATE 100 MG in IV DEXTROSE 5% 100ML 100 ML IV SCH (08:56)
[2021-03-05] MEDS: MORPHINE SULFATE 2 MG/ML INJ. IVP PRN (08:56)
[2021-03-05] MEDS: cefTRIAXone IV Push 2 GM VIAL. IVP SCH (08:56)
[2021-03-05] MEDS: LIDOCAINE (700MG/PATCH) PATCH. TP SCH (09:00)
--- NOTE | 2021-03-05 09:28 | PDOC ---
PULMONARY PROGRESS NOTES DATE: 03/05/21 TIME: 09:27 Subjective Complaint of coughing. Denies shortness of breath Vitals Vital Signs Date Time Temp Pulse Resp B/P (MAP) Pulse Ox O2 Delivery O2 Flow Rate FiO2 03/05/21 08:55 68 154/85 03/05/21 08:04 99 Room Air 03/05/21 07:00 97.8 18 2.0 97.8 General: Alert, No acute distress Lungs: Clear Cardiovascular: S1 Abdomen: Soft, Other Neuro Exam: Alert Extremities: No Edema (Obese) Skin: Warm Labs Laboratory Tests Test 03/03/21 14:00 03/03/21 14:20 03/03/21 15:36 03/04/21 05:55 White Blood Count 10.1 x10^3/uL (4.0-11.0) 12.4 x10^3/uL (4.0-11.0) Red Blood Count 3.81 x10^6/uL (3.50-5.40) 3.57 x10^6/uL (3.50-5.40) Hemoglobin 13.7 g/dL (12.0-15.5) 12.6 g/dL (12.0-15.5) Hematocrit 39.1 % (36.0-47.0) 36.8 % (36.0-47.0) Mean Corpuscular Volume 103 fL (79-100) 103 fL (79-100) Mean Corpuscular Hemoglobin 36 pg (25-35) 35 pg (25-35) Mean Corpuscular Hemoglobin Concent 35 g/dL (31-37) 34 g/dL (31-37) Red Cell Distribution Width 14.6 % (11.5-14.5) 14.9 % (11.5-14.5) Platelet Count 374 x10^3/uL (140-400) 370 x10^3/uL (140-400) Neutrophils (%) (Auto) 83 % (31-73) 88 % (31-73) Lymphocytes (%) (Auto) 11 % (24-48) 9 % (24-48) Monocytes (%) (Auto) 4 % (0-9) 3 % (0-9) Eosinophils (%) (Auto) 2 % (0-3) 0 % (0-3) Basophils (%) (Auto) 0 % (0-3) 0 % (0-3) Neutrophils # (Auto) 8.3 x10^3/uL (1.8-7.7) 10.9 x10^3/uL (1.8-7.7) Lymphocytes # (Auto) 1.1 x10^3/uL (1.0-4.8) 1.1 x10^3/uL (1.0-4.8) Monocytes # (Auto) 0.4 x10^3/uL (0.0-1.1) 0.4 x10^3/uL (0.0-1.1) Eosinophils # (Auto) 0.1 x10^3/uL (0.0-0.7) 0.0 x10^3/uL (0.0-0.7) Basophils # (Auto) 0.0 x10^3/uL (0.0-0.2) 0.0 x10^3/uL (0.0-0.2) D-Dimer (Mariah) < 0.27 ug/mlFEU Sodium Level 137 mmol/L (136-145) 136 mmol/L (136-145) Potassium Level 4.3 mmol/L (3.5-5.1) 4.6 mmol/L (3.5-5.1) Chloride Level 100 mmol/L (98-107) 100 mmol/L (98-107) Carbon Dioxide Level 33 mmol/L (21-32) 31 mmol/L (21-32) Anion Gap 4 (6-14) 5 (6-14) Blood Urea Nitrogen 15 mg/dL (7-20) 14 mg/dL (7-20) Creatinine 1.1 mg/dL (0.6-1.0) 0.9 mg/dL (0.6-1.0) Estimated GFR (Cockcroft-Gault) 50.2 63.2 BUN/Creatinine Ratio 14 (6-20) Glucose Level 135 mg/dL (70-99) 139 mg/dL (70-99) Lactic Acid Level 1.5 mmol/L (0.4-2.0) Calcium Level 9.4 mg/dL (8.5-10.1) 8.6 mg/dL (8.5-10.1) Magnesium Level 2.1 mg/dL (1.8-2.4) Total Bilirubin 0.2 mg/dL (0.2-1.0) Aspartate Amino Transf (AST/SGOT) 11 U/L (15-37) Alanine Aminotransferase (ALT/SGPT) 45 U/L (14-59) Alkaline Phosphatase 109 U/L (46-116) Troponin I Quantitative < 0.017 ng/mL (0.000-0.055) PT-Vrh-B-Type Natriuretic Peptide 108 pg/mL (0-124) Total Protein 7.8 g/dL (6.4-8.2) Albumin 3.7 g/dL (3.4-5.0) Albumin/Globulin Ratio 0.9 (1.0-1.7) Procalcitonin < 0.10 ng/mL (0.00-0.10) SARS-CoV-2 RNA (RIN) Negative (Negative) SARS-CoV-2 Antigen (Rapid) Negative (NEGATIVE) O2 Saturation 92 % (92-99) Arterial Blood pH 7.37 (7.35-7.45) Arterial Blood pCO2 at Patient Temp 46 mmHg (35-46) Arterial Blood pO2 at Patient Temp 64 mmHg (65-108) Arterial Blood HCO3 26 mmol/L (21-28) Arterial Blood Base Excess 1 mmol/L (-3-3) Oxyhemoglobin 87.1 % Methemoglobin 0.5 % (0.0-1.9) Carbon Monoxide, Quantitative 4.8 % (0.0-1.9) FiO2 21 Vitamin B12 Level 326 pg/mL (247-911) Thyroid Stimulating Hormone (TSH) 4.724 uIU/mL (0.358-3.74) Test 03/04/21 13:52 Urine Collection Type Unknown Urine Color Yellow Urine Clarity Clear Urine pH 6.5 (<5.0-8.0) Urine Specific [place] 1.015 (1.000-1.030) Urine Protein Negative mg/dL (NEG-TRACE) Urine Glucose (UA) Negative mg/dL (NEG) Urine Ketones (Stick) Negative mg/dL (NEG) Urine Blood Negative (NEG) Urine Nitrite Negative (NEG) Urine Bilirubin Negative (NEG) Urine Urobilinogen Dipstick 0.2 mg/dL (0.2 mg/dL) Urine Leukocyte Esterase Negative (NEG) Urine RBC Occ /HPF (0-2) Urine WBC Occ /HPF (0-4) Urine Squamous Epithelial Cells Many /LPF Urine Bacteria Few /HPF (0-FEW) Laboratory Tests Test 03/04/21 13:52 Urine Collection Type Unknown Urine Color Yellow Urine Clarity Clear Urine pH 6.5 (<5.0-8.0) Urine Specific [place] 1.015 (1.000-1.030) Urine Protein Negative mg/dL (NEG-TRACE) Urine Glucose (UA) Negative mg/dL (NEG) Urine Ketones (Stick) Negative mg/dL (NEG) Urine Blood Negative (NEG) Urine Nitrite Negative (NEG) Urine Bilirubin Negative (NEG) Urine Urobilinogen Dipstick 0.2 mg/dL (0.2 mg/dL) Urine Leukocyte Esterase Negative (NEG) Urine RBC Occ /HPF (0-2) Urine WBC Occ /HPF (0-4) Urine Squamous Epithelial Cells Many /LPF Urine Bacteria Few /HPF (0-FEW) Medications Active Scripts Medications Dose Route/Sig Max Daily Dose Days Date Category Dose Instructions Klor-Con M20 (Potassium Chloride) 20 Meq Tab.er.prt 20 Meq PO DAILY 14 10/06/20 Rx Calcium Carbonate 200 Mg Tab.chew 500 Mg PO PRN Q3HRS PRN 14 10/06/20 Rx Pantoprazole Sodium (Pantoprazole Sodium) 40 Mg Tablet.dr 40 Mg PO DAILYAC 30 07/15/20 Rx Mag-Al Plus Xs Suspension (Mag Hydrox/Al Hydrox/Simeth) 30 Ml Oral.susp 30 Ml PO PRN Q3HRS PRN 14 07/15/20 Rx Tylenol (Acetaminophen) 325 Mg Tablet 650 Mg PO PRN Q6HRS PRN 14 07/15/20 Rx Lidocaine PATCH (Lidocaine) 1 Each Adh..patch 1 Each TP DAILY 02/19/19 Rx REMOVE AFTER 12 HOURS Cyclobenzaprine Hcl 10 Mg Tablet 1 Tab PO TID PRN 12/15/17 Rx Levothyroxine Sodium 150 Mcg Tablet 150 Mcg PO DAILY06 30 03/07/17 Rx Losartan Potassium 100 Mg Tablet 100 Mg PO DAILY 30 03/06/17 Rx Amlodipine Besylate 10 Mg Tablet 10 Mg PO DAILY 30 03/06/17 Rx Oxycodone Hcl Immed.release (Oxycodone Hcl) 5 Mg Tablet 30 Mg PO PRN Q4HRS PRN 08/05/13 Reported Impression . 1. Acute hypoxic respiratory failure secondary to acute exacerbation of chronic obstructive pulmonary disease and interstitial pneumonitis. 2. COVID-19 negative. The patient is not vaccinated with COVID. 3. 45 years of tobaccoism, likely chronic obstructive pulmonary disease with ongoing tobaccoism. 4. Underlying obesity. 5. Normal D-dimer. Plan . 1. Continue present oxygen. Keep saturation 92% and above. 2. Smoking cessation counseling provided. 3. Continue empiric antibiotic with doxycycline and Rocephin. 4. Lovenox for DVT prophylaxis. 5. Continue nebulizer treatment. 6. PFTs as an outpatient. 7. No need for steroids at present. 8. We will follow along with you, likely hospitalization 24-48 hours. SUZY YIP MD Mar 05, 2021 09:28
[2021-03-05] MEDS ORDERED: ALBUTEROL SULFATE 2.5 MG/3 ML NEBU. NEB PRN (10:15)
--- NOTE | 2021-03-05 10:53 | NUR ---
Pt left AMA. Pt removed her own IV. No bleeding noted at site. Dr. Campos on unit and notified of patient decision. Pt ambulated with GLYNN Magana and security to emergency room entrance. Pt drove herself to hospital. 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
[2021-03-05] MEDS ORDERED: DOXY100C3 PO (11:37)
--- NOTE | 2021-03-05 11:41 | PDOC3 ---
Discharge Summary Visit Information Date of Admission: Mar 03, 2021 Date of Discharge: Mar 05, 2021 Admitting Diagnosis: Pneumonia Final Diagnosis Problems Medical Problems: (1) COPD with acute exacerbation Status: Acute (2) Person under investigation for COVID-19 Status: Acute (3) Pneumonia Status: Acute (4) Pyelonephritis Status: Acute Brief Hospital Course Allergies Allergies Coded Allergies Type Severity Reaction Last Updated Verified No Known Drug Allergies 03/27/16 No Vital Signs Vital Signs Date Time Temp Pulse Resp B/P (MAP) Pulse Ox O2 Delivery O2 Flow Rate FiO2 03/05/21 08:55 68 154/85 03/05/21 08:04 99 Room Air 03/05/21 07:00 97.8 18 2.0 97.8 Lab Results Laboratory Tests Test 03/03/21 14:00 03/03/21 14:20 03/03/21 15:36 03/04/21 05:55 White Blood Count 10.1 x10^3/uL (4.0-11.0) 12.4 x10^3/uL (4.0-11.0) Red Blood Count 3.81 x10^6/uL (3.50-5.40) 3.57 x10^6/uL (3.50-5.40) Hemoglobin 13.7 g/dL (12.0-15.5) 12.6 g/dL (12.0-15.5) Hematocrit 39.1 % (36.0-47.0) 36.8 % (36.0-47.0) Mean Corpuscular Volume 103 fL (79-100) 103 fL (79-100) Mean Corpuscular Hemoglobin 36 pg (25-35) 35 pg (25-35) Mean Corpuscular Hemoglobin Concent 35 g/dL (31-37) 34 g/dL (31-37) Red Cell Distribution Width 14.6 % (11.5-14.5) 14.9 % (11.5-14.5) Platelet Count 374 x10^3/uL (140-400) 370 x10^3/uL (140-400) Neutrophils (%) (Auto) 83 % (31-73) 88 % (31-73) Lymphocytes (%) (Auto) 11 % (24-48) 9 % (24-48) Monocytes (%) (Auto) 4 % (0-9) 3 % (0-9) Eosinophils (%) (Auto) 2 % (0-3) 0 % (0-3) Basophils (%) (Auto) 0 % (0-3) 0 % (0-3) Neutrophils # (Auto) 8.3 x10^3/uL (1.8-7.7) 10.9 x10^3/uL (1.8-7.7) Lymphocytes # (Auto) 1.1 x10^3/uL (1.0-4.8) 1.1 x10^3/uL (1.0-4.8) Monocytes # (Auto) 0.4 x10^3/uL (0.0-1.1) 0.4 x10^3/uL (0.0-1.1) Eosinophils # (Auto) 0.1 x10^3/uL (0.0-0.7) 0.0 x10^3/uL (0.0-0.7) Basophils # (Auto) 0.0 x10^3/uL (0.0-0.2) 0.0 x10^3/uL (0.0-0.2) D-Dimer (Mariah) < 0.27 ug/mlFEU Sodium Level 137 mmol/L (136-145) 136 mmol/L (136-145) Potassium Level 4.3 mmol/L (3.5-5.1) 4.6 mmol/L (3.5-5.1) Chloride Level 100 mmol/L (98-107) 100 mmol/L (98-107) Carbon Dioxide Level 33 mmol/L (21-32) 31 mmol/L (21-32) Anion Gap 4 (6-14) 5 (6-14) Blood Urea Nitrogen 15 mg/dL (7-20) 14 mg/dL (7-20) Creatinine 1.1 mg/dL (0.6-1.0) 0.9 mg/dL (0.6-1.0) Estimated GFR (Cockcroft-Gault) 50.2 63.2 BUN/Creatinine Ratio 14 (6-20) Glucose Level 135 mg/dL (70-99) 139 mg/dL (70-99) Lactic Acid Level 1.5 mmol/L (0.4-2.0) Calcium Level 9.4 mg/dL (8.5-10.1) 8.6 mg/dL (8.5-10.1) Magnesium Level 2.1 mg/dL (1.8-2.4) Total Bilirubin 0.2 mg/dL (0.2-1.0) Aspartate Amino Transf (AST/SGOT) 11 U/L (15-37) Alanine Aminotransferase (ALT/SGPT) 45 U/L (14-59) Alkaline Phosphatase 109 U/L (46-116) Troponin I Quantitative < 0.017 ng/mL (0.000-0.055) RL-Onu-O-Type Natriuretic Peptide 108 pg/mL (0-124) Total Protein 7.8 g/dL (6.4-8.2) Albumin 3.7 g/dL (3.4-5.0) Albumin/Globulin Ratio 0.9 (1.0-1.7) Procalcitonin < 0.10 ng/mL (0.00-0.10) SARS-CoV-2 RNA (RIN) Negative (Negative) SARS-CoV-2 Antigen (Rapid) Negative (NEGATIVE) O2 Saturation 92 % (92-99) Arterial Blood pH 7.37 (7.35-7.45) Arterial Blood pCO2 at Patient Temp 46 mmHg (35-46) Arterial Blood pO2 at Patient Temp 64 mmHg (65-108) Arterial Blood HCO3 26 mmol/L (21-28) Arterial Blood Base Excess 1 mmol/L (-3-3) Oxyhemoglobin 87.1 % Methemoglobin 0.5 % (0.0-1.9) Carbon Monoxide, Quantitative 4.8 % (0.0-1.9) FiO2 21 Vitamin B12 Level 326 pg/mL (247-911) Thyroid Stimulating Hormone (TSH) 4.724 uIU/mL (0.358-3.74) Test 03/04/21 13:52 Urine Collection Type Unknown Urine Color Yellow Urine Clarity Clear Urine pH 6.5 (<5.0-8.0) Urine Specific [place] 1.015 (1.000-1.030) Urine Protein Negative mg/dL (NEG-TRACE) Urine Glucose (UA) Negative mg/dL (NEG) Urine Ketones (Stick) Negative mg/dL (NEG) Urine Blood Negative (NEG) Urine Nitrite Negative (NEG) Urine Bilirubin Negative (NEG) Urine Urobilinogen Dipstick 0.2 mg/dL (0.2 mg/dL) Urine Leukocyte Esterase Negative (NEG) Urine RBC Occ /HPF (0-2) Urine WBC Occ /HPF (0-4) Urine Squamous Epithelial Cells Many /LPF Urine Bacteria Few /HPF (0-FEW) Laboratory Tests Test 03/04/21 13:52 Urine Collection Type Unknown Urine Color Yellow Urine Clarity Clear Urine pH 6.5 (<5.0-8.0) Urine Specific [place] 1.015 (1.000-1.030) Urine Protein Negative mg/dL (NEG-TRACE) Urine Glucose (UA) Negative mg/dL (NEG) Urine Ketones (Stick) Negative mg/dL (NEG) Urine Blood Negative (NEG) Urine Nitrite Negative (NEG) Urine Bilirubin Negative (NEG) Urine Urobilinogen Dipstick 0.2 mg/dL (0.2 mg/dL) Urine Leukocyte Esterase Negative (NEG) Urine RBC Occ /HPF (0-2) Urine WBC Occ /HPF (0-4) Urine Squamous Epithelial Cells Many /LPF Urine Bacteria Few /HPF (0-FEW) Brief Hospital Course Ms Boswell is a 61 year old female smoker presented to ER today for respiratory infection also had diarrhea for the last 2 weeks. c/o left upper chest pain and rib pain that does hurt with movement / hurts all the time. No r evidence for left-sided rib fracture. she is now more short of air than she usual denies fever, abdominal pain, nausea, vomiting, back pain, urinary symptoms, dizziness, headache, focal weakness, numbness or tingling. PMH history of hypertension, COPD, UTI, hypokalemia, cellulitis, chronic pancreatitis CT concerning for pneumonia / Unchanged pancreatic head 5.3 x 4.2 cm known pseudocyst admits to have smoked x 50 yrs Denies hx COVID Vaccines, is willing to look into this. 03/04: Afebrile overnight. Still very short of breath, wheezing, requiring 2L NCO2 to maintain saturations 92%. Feeling pain in her back and left ribs, asking for IV pain medication instead of her home oxycodone, counseled on the importance of taking PO and IV for breakthrough. Afebrile overnight. She is requesting for left still with cough and wheezing. She has become upset after discussion about IV pain medication threatened to leave AMA. Have advised her she needs additional treatment for pneumonia and respiratory treatments. Regardless she still left AGAINST MEDICAL ADVICE Consults: Pulmonology Problem list: Community acquired pneumonia - likely gram negative given smoking history and structural lung disease. Chronic pancreatitis with essentially unchanged 5.3 cm known pancreatic head pse udocyst. COPD with acute exacerbation - still an active smoker, counseled on cessation Tobacco abuse disorder Mild hepatomegaly with diffuse steatosis. Abnormal CXR and CT - Patchy groundglass opacities in bibasilar lungs, C/W pneumonia. Person under investigation for COVID-19 OBESITY Macrocytosis Greater than 30 minutes spent on d/c Discharge Information Condition at Discharge: Comment (AMA) Disposition/Orders: Other (AMA) Scheduled Amlodipine Besylate (Amlodipine Besylate) 10 Mg Tablet, 10 MG PO DAILY for 30 Days, #30 Prescribed by: KATRIN BAXTER on 03/06/171201 Last Taken: Unknown Dose on Unknown Date & Time Last Action: Last Taken Edited on 03/03/212307 by MARY PETERSEN RN Doxycycline Hyclate (Doxycycline Hyclate) 100 Mg Capsule, 1 CAP PO BID for Pneumonia for 5 Days, #10 Prescribed by: LEIGH ANN BAEZA MD on 03/05/21 1137 Levothyroxine Sodium (Levothyroxine Sodium) 150 Mcg Tablet, 150 MCG PO DAILY06 for 30 Days, #30 Ref 5 Prescribed by: RODOLFO YOON MD on 03/07/171743 Last Action: Continued on 03/03/211710 by AUSTIN LANDRY MD Lidocaine (Lidocaine PATCH ) 1 Each Adh..patch, 1 EACH TP DAILY for FOR LOCAL PAIN, #10 REMOVE AFTER 12 HOURS Prescribed by: AARON DELACRUZ D.O. on 02/19/191911 Last Action: Continued on 03/03/211710 by AUSTIN LANDRY MD Losartan Potassium (Losartan Potassium) 100 Mg Tablet, 100 MG PO DAILY for 30 Days, #30 Prescribed by: KATRIN BAXTER on 03/06/171201 Last Taken: Unknown Dose on Unknown Date & Time Last Action: Last Taken Edited on 03/03/212307 by MARY PETERSEN RN Pantoprazole Sodium (Pantoprazole Sodium ) 40 Mg Tablet.dr, 40 MG PO DAILYAC for GERD for 30 Days, #30 Prescribed by: AUSTIN LANDRY MD on 07/15/201550 Last Action: Last Taken Edited on 03/03/212307 by MARY PETERSEN RN Potassium Chloride (Klor-Con M20) 20 Meq Tab.er.prt, 20 MEQ PO DAILY for SUP PLEMENT for 14 Days, #14 Prescribed by: AUSTIN LANDRY MD on 10/06/201101 Last Action: Last Taken Edited on 03/03/212307 by MARY PETERSEN RN Scheduled PRN Acetaminophen (Tylenol) 325 Mg Tablet, 650 MG PO PRN Q6HRS PRN for Headaches, Temp > 101.5F for 14 Days, #90 Prescribed by: AUSTIN LANDRY MD on 07/15/201550 Last Action: Last Taken Edited on 03/03/212307 by MARY PETERSEN RN Calcium Carbonate (Calcium Carbonate) 200 Mg Tab.chew, 500 MG PO PRN Q3HRS PRN for UPSET STOMACH for 14 Days, #60 Prescribed by: AUSTIN LANDRY MD on 10/06/201100 Last Action: Last Taken Edited on 03/03/212307 by MARY PETERSEN RN Cyclobenzaprine Hcl (Cyclobenzaprine Hcl) 10 Mg Tablet, 1 TAB PO TID PRN for PAIN, #30 Prescribed by: BRUNILDA ODOM MD on 12/15/171905 Last Action: HELD on 03/03/211710 by AUSTIN LANDRY MD Mag Hydrox/Al Hydrox/Simeth (Mag-Al Plus Xs Suspension) 30 Ml Oral.susp, 30 ML PO PRN Q3HRS PRN for HEARTBURN / GAS for 14 Days, #240 Prescribed by: AUSTIN LANDRY MD on 07/15/201550 Last Action: Last Taken Edited on 03/03/212307 by MARY PETERSEN RN Oxycodone Hcl (Oxycodone Hcl Immed.release ) 5 Mg Tablet, 30 MG PO PRN Q4HRS PRN for PAIN, (Reported) Entered as Reported by: KAMAR HOFFMANN on 08/05/13 1626 Last Taken: Unknown Dose on 03/02/21 Last Action: Last Taken Edited on 2307 by MARY PETERSEN RN Justicifation of Admission Dx: Justifications for Admission: Justification of Admission Dx: Yes LEIGH ANN BEAZA MD Mar 05, 2021 11:41
== END 2021-03-05 10:53 | disposition left against medical advice (07) | DRG 177 ==
LOC: ER 12:20 → 5 NORTH 16:58
PROVIDERS: ADMIT Family Medicine; ATTEND Family Medicine
DX: J15.6 Pneumonia due to other Gram-negative bacteria (principal); J96.01 Acute respiratory failure with hypoxia; J44.0 Chronic obstructive pulmonary disease with (acute) lower respiratory infection; J44.1 Chronic obstructive pulmonary disease with (acute) exacerbation; K86.3 Pseudocyst of pancreas; N12 Tubulo-interstitial nephritis, not specified as acute or chronic; K86.1 Other chronic pancreatitis; D75.89 Other specified diseases of blood and blood-forming organs; E03.9 Hypothyroidism, unspecified; E66.9 Obesity, unspecified; F17.210 Nicotine dependence, cigarettes, uncomplicated; I10 Essential (primary) hypertension; K21.9 Gastro-esophageal reflux disease without esophagitis; Z20.822 Contact with and (suspected) exposure to COVID-19; G89.29 Other chronic pain; Z98.51 Tubal ligation status; R16.0 Hepatomegaly, not elsewhere classified; Z82.5 Family history of asthma and other chronic lower respiratory diseases; Z85.41 Personal history of malignant neoplasm of cervix uteri
CPT/HCPCS: 36415; 36600; 71046; 71100; 74177; 80048; 80053; 81001; 82607; 82805; 83605; 83735; 83880; 84145; 84443; 84484; 85025; 85379; 87040; 87426; 87449; 93005; 94640; 96365; 96375; J0696; J1100; J2270; J2405; J3010; J3420; J3490; J7030; J7060; Q9967; U0003; U0005; 99285-25; G0378; J7626